=== PATIENT | female | born 1945 | race Caucasian/White ===

== ENCOUNTER → 2016-08-08 | Outpatient (CLI) | payer OTHER ==
[~2016-08-08] MED LIST: ADVIN10/60 INH; CHOL20007 PO; DLCSR120 PO; HYDC25 PO; LEVO175T PO; OMEG10007 PO; VALS-10 PO
--- NOTE | 2016-08-08 11:57 | DIAGNOSTIC IMAGING REPORT ---
CHEST 2 VIEWS ROUTINE CLINICAL HISTORY: J20.9 Acute bronchitis with [id number] COMPARISON STUDY: 05/21/2016 FINDINGS: The heart is normal in size. There is no lobar consolidation. There is no failure. There are no pleural effusions. There is a 15 mm right infrahilar irregular opacity. It is unclear what this reflects a mass, or vascular and parenchymal summation.[ Short-term follow-up chest x-rays recommended. If this findings persists, then CT scanning should be obtained in follow-up IMPRESSION: Nonspecific 15 mm right infrahilar opacity. If this finding persists on a short-term follow-up chest x-ray, then a CT scan would be recommended in follow-up Electronically signed by: Mauro Castle M.D. 08/08/2016 11:56 AM Dictated Date/Time: 08/08/2016 11:53 AM
== END | disposition home or self-care (01) ==
LOC: C.RADBC 11:26
PROVIDERS: ATTEND Internal Medicine
DX: J20.9 Acute bronchitis, unspecified (principal)

== ENCOUNTER → 2016-08-28 | Outpatient (CLI) | payer OTHER ==
--- NOTE | 2016-08-28 09:42 | DIAGNOSTIC IMAGING REPORT ---
CHEST CT WITHOUT CONTRAST CT DOSE: 392.64 mGycm HISTORY: Infiltrate J18.9 PNA (pneumonia)schedule in 2-3 weeks, follow [id number] TECHNIQUE: Multiaxial CT images of the chest were performed without contrast. COMPARISON: Chest series dated 08/08/2016. CT chest dated 10/31/2007. FINDINGS: Pulmonary apices are considered clear. No significant mediastinal or hilar adenopathy. Slight slight thickening and/or atelectatic change in the region of the right major fissure at its inferior aspect. Minimal scattered platelike atelectasis both lung bases. No focal consolidative infiltrates. No significant nodular pathology of the right infrahilar region. IMPRESSION: Moderately improved exam compared to the prior chest series. Mild scattered bibasilar atelectasis. Study is otherwise negative. Electronically signed by: Todd Diaz M.D. 08/28/2016 9:41 AM Dictated Date/Time: 08/28/2016 9:37 AM
== END | disposition home or self-care (01) ==
LOC: C.CTS 09:20
PROVIDERS: ATTEND Internal Medicine
DX: J18.9 Pneumonia, unspecified organism (principal)

== ENCOUNTER → 2017-03-29 | Outpatient (CLI) | payer OTHER ==
--- NOTE | 2017-03-29 15:33 | MAMMOGRAPHY REPORT ---
BILATERAL DIGITAL SCREENING MAMMOGRAM WITH CAD: 03/29/2017 CLINICAL HISTORY: Routine screening. Patient has no complaints. TECHNIQUE: Current study was also evaluated with a Computer Aided Detection (CAD) system. Bilateral CC and MLO views were obtained. COMPARISON: Comparison is made to exams dated: 12/19/2015 mammogram, 12/15/2014 mammogram, 12/14/2013 m ammogram, 07/15/2012 mammogram, 07/09/2011 mammogram, and 07/10/2010 mammogram - [facility]. BREAST COMPOSITION: The tissue of both breasts is almost entirely fatty. FINDINGS: No suspicious masses, calcifications, or areas of architectural distortion are noted in ei ther breast. There has been no significant interval change compared to prior exams. Focal asymmetry in the right central breast is stable dating back to at least the 2006 exam. IMPRESSION: ACR BI-RADS CATEGORY 2: BENIGN There is no mammographic evidence of malignancy. A 1 year screening mammogram is recommended. The pa tient will receive written notification of the results. Approximately 10% of breast cancers are not detected with mammography. A negative mammographic report should not delay biopsy if a clinically suggestive mass is present. Elaine Corral M.D. /:03/29/2017 11:50:34 Heavy Mobile Equipment Operator: Debbie BEDOLLA(Sarah)(Sera)(ERIKA), [facility] letter sent: Normal 1/2 BI-RADS Code: ACR BI-RADS Category 2: Benign
== END | disposition home or self-care (01) ==
LOC: C.MAMM 10:25
PROVIDERS: ATTEND Internal Medicine
DX: Z12.31 Encounter for screening mammogram for malignant neoplasm of breast (principal)

== ENCOUNTER 2017-08-23 09:02 | Inpatient (IN) | payer OTHER ==
[~2017-08-23] VITALS: Ht 149.9 cm; Wt 92.1 kg
[~2017-08-23 09:02] MED LIST changes: -ADVIN10/60 INH; +ADVIN25/60 INH; +ventolin inhaler
[2017-08-23] MEDS ORDERED: HYDR12.56 PO (09:45)
[2017-08-23] MEDS ORDERED: VNTHFA/IN INH (09:45)
[2017-08-23] MEDS ORDERED: DILT120C68 PO (09:45)
[2017-08-23] MEDS ORDERED: DILTIAZEM HCL 120 MG ER CAP PO STA (09:58)
[2017-08-23] MEDS ORDERED: VALSARTAN/HCTZ 320/12.5 MG TAB PO STA (09:58)
[2017-08-23] MEDS ORDERED: ALBUT/IPRATROP 3MG/0.5MG NEB 3 ML VIAL INH STA ×2 (09:58→10:41)
[2017-08-23] MEDS ORDERED: HYDROCHLOROTHIAZIDE 25 MG TAB PO STA (09:58)
[2017-08-23] MEDS ORDERED: SODIUM CHLORIDE 0.9% 250ML 250 ML IV STA (10:03)
[2017-08-23] MEDS ORDERED: METHYLPREDNISOLONE 125 MG VIAL IV STA (10:03)
[2017-08-23] MEDS ORDERED: ACETAMINOPHEN 325 MG TAB PO STA (10:03)
--- NOTE | 2017-08-23 10:04 | EMERGENCY ROOM VISIT NOTE ---
History Report prepared by Brie: Corey Gordon Under the Supervision of: Dr. Deysi Lagunas M.D. First contact with patient: 09:44 Chief Complaint: RESPIRATORY PROBLEMS Stated Complaint: RESPIRATORY Nursing Triage Summary: patient arrived via BLS. hx asthma patient states she woke up this AM with Wheezes around 0800. patient took her advair and albuterol inhaler with relief. patient states she began to wheeze shortly after and became anxious. patient called EMS. patient denies cough or respiratory issues prior to this AM. patient states, "I just get flare ups once in a while." patients BP on arrival 205/102 patient states she did not take her BP meds this AM. History of Present Illness The patient is a 72 year old female who presents to the Emergency Room following an asthma attack that occurred when she woke up this morning at 0800, two hours prior to arrival. The patient has a history of asthma, but has not had an attack like this in some time. She nots that when these attacks occur she gets very anxious. 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 The redness in her legs is new. Source of History: patient Onset: Two hours MEDICAL RECORDS CLERK Position: other (Respiratory) Quality: other (Asthma attack) Associated Symptoms: No chest pain Review of Systems See HPI for pertinent positives & negatives. A total of 10 systems reviewed and were otherwise negative. Past Medical & Surgical Medical Problems: (1) Asthma (2) Asthmatic bronchitis with acute exacerbation (3) Hypertension (4) Left lower lobe pneumonia Family History Diabetes mellitus FH: heart disease FHx: cancer Hypertension Kidney disease Kidney stones Social History Smoking Status: Never Smoker Alcohol Use: none Drug Use: none Marital Status: single Housing Status: lives with family Occupation Status: retired Current/Historical Medications Scheduled Cholecalciferol (Vitamin D3), 5,000 INTER.UNIT PO DAILY Diltiazem Hcl Ext Rel (Tiazac), 120 MG PO DAILY Fish Oil ([place]-3), 1 CAP PO DAILY Fluticasone Prop/Salmeterol (Advair Diskus 250/50 60 Dose), 2 PUFFS INH BID Hydrochlorothiazide (Hctz), 12.5 MG PO DAILY Levothyroxine Sodium (Synthroid), 175 MCG PO DAILY Valsartan/Hctz (Diovan Hct 320MG/12.5MG), 1 TAB PO DAILY Scheduled PRN Albuterol Hfa (Ventolin Hfa), 2-4 PUFFS INH Q6H PRN for SOB/Wheezing Allergies Coded Allergies: Amoxicillin (Verified Allergy, Intermediate, ., 08/23/17) Penicillins (Verified Allergy, Mild, 08/23/17) Physical Exam Vital Signs Date Time Temp Pulse Resp B/P (MAP) Pulse Ox O2 Delivery O2 Flow Rate FiO2 08/23/17 13:10 104 08/23/17 12:30 92 Nasal Cannula 2.0 08/23/17 12:17 104 21 108/61 92 Nasal Cannula 2.0 08/23/17 11:28 110 21 153/64 88 Room Air 08/23/17 10:35 109 22 173/88 94 Nasal Cannula 2.0 08/23/17 09:15 113 08/23/17 09:11 91 Room Air 08/23/17 09:11 36.9 113 22 205/102 91 Room Air Physical Exam Vital signs reviewed. General: patient is anxious appearing has increased work of breathing. HEENT: No scleral icterus, PERRLA, neck supple. Atraumatic. Cardiovascular: Patient noted to be hypertensive. Regular rate and rhythm, no extra sounds. Pulmonary: There is wheezing throughout the lung sanon bilaterally, increased work of breathing. Patient is on nasal cannula oxygen. Abdomen: Soft, nontender, nondistended, positive bowel sounds. Musculoskeletal: Atraumatic, The lower extremities are warm to the touch Neurologic: Patient awake alert and oriented x 3, full strength in all 4 extremities. Cranial nerves 2 through 12 grossly intact. Skin: Warm, dry, mild erythema to the bilateral lower extremities. Mild edema, nonpitting. Medical Decision & Procedures ER Provider Diagnostic Interpretation: Radiology results as stated below per my review and radiologist interpretation: CT ANGIOGRAM OF THE CHEST CLINICAL HISTORY: Dyspnea. COMPARISON STUDY: Chest CT dated 08/28/2016 and 10/31/2007. TECHNIQUE: Following the IV administration of 94 cc of Optiray 320, CT angiogram of the chest was performed from the upper abdomen to the thoracic inlet utilizing the pulmonary embolus protocol. Images are reviewed in the axial, sagittal, and coronal planes. 3-D MIPS images are created and assessed. IV contrast was administered without complication. A dose lowering technique was utilized adhering to the principles of ALARA. The Examination is compromised by motion artifact. CT DOSE: 571.96 mGycm FINDINGS: Thyroid: Atrophic. Thoracic aorta: The thoracic aorta is normal in caliber and demonstrates standard 3-vessel arch anatomy. No dissection is seen. Pulmonary vasculature: The pulmonary trunk is dilated, measuring 3.7 cm in transverse diameter. This suggests pulmonary artery hypertension. There are no filling defects identified in main, lobar, or proximal segmental pulmonary branches to suggest pulmonary embolus. Evaluation of the peripheral branches is degraded by motion artifact. Heart: The heart is top normal in size and without pericardial effusion. Lungs and pleural spaces: Evaluation of the lung parenchyma is degraded by motion artifact. The trachea and central airways are patent. No airspace consolidation or pleural effusion is identified. Atelectasis versus scarring is present in the right middle lobe and lingula. Mediastinum: There is no mediastinal lymphadenopathy. Marva: Clear. Axillae: There is no axillary lymphadenopathy. Upper abdomen: There is a small to moderate hiatal hernia. Partially visualized upper abdominal viscera is within normal limits. Skeletal structures: No lytic or blastic bony lesions are seen. IMPRESSION: 1. There is no evidence of pulmonary embolus in the main, lobar, or proximal segmental pulmonary arteries. Evaluation of the peripheral vessels is significantly degraded by motion artifact. 2. No airspace consolidation or pleural effusion is identified. Electronically signed by: Marcell Gupta M.D. 08/23/2017 12:04 PM Dictated Date/Time: 08/23/2017 11:55 AM Laboratory Results 08/23/17 10:20 Red Blood Count 4.39, Mean Corpuscular Volume 92.7, Mean Corpuscular Hemoglobin 31.4, Mean Corpuscular Hemoglobin Concent 33.9, Mean Platelet Volume 9.3, Neutrophils (%) (Auto) 76.3, Lymphocytes (%) (Auto) 12.5, Monocytes (%) (Auto) 8.8, Eosinophils (%) (Auto) 1.7, Basophils (%) (Auto) 0.4, Neutrophils # (Auto) 6.84, Lymphocytes # (Auto) 1.12, Monocytes # (Auto) 0.79, Eosinophils # (Auto) 0.15, Basophils # (Auto) 0.04 08/23/17 10:20 Test 08/23/17 10:20 08/23/17 10:25 08/23/17 10:34 White Blood Count 8.97 K/uL (4.8-10.8) Red Blood Count 4.39 M/uL (4.2-5.4) Hemoglobin 13.8 g/dL (12.0-16.0) Hematocrit 40.7 % (37-47) Mean Corpuscular Volume 92.7 fL (80-100) Mean Corpuscular Hemoglobin 31.4 pg (25-34) Mean Corpuscular Hemoglobin Concent 33.9 g/dl (32-36) Platelet Count 336 K/uL (130-400) Mean Platelet Volume 9.3 fL (7.4-10.4) Neutrophils (%) (Auto) 76.3 % Lymphocytes (%) (Auto) 12.5 % Monocytes (%) (Auto) 8.8 % Eosinophils (%) (Auto) 1.7 % Basophils (%) (Auto) 0.4 % Neutrophils # (Auto) 6.84 K/uL (1.4-6.5) Lymphocytes # (Auto) 1.12 K/uL (1.2-3.4) Monocytes # (Auto) 0.79 K/uL (0.11-0.59) Eosinophils # (Auto) 0.15 K/uL (0-0.5) Basophils # (Auto) 0.04 K/uL (0-0.2) RDW Standard Deviation 44.2 fL (36.4-46.3) RDW Coefficient of Variation 13.1 % (11.5-14.5) Immature Granulocyte % (Auto) 0.3 % Immature Granulocyte # (Auto) 0.03 K/uL (0.00-0.02) Prothrombin Time 10.3 SECONDS (9.0-12.0) Prothromb Time International Ratio 1.0 (0.9-1.1) Activated Partial Thromboplast Time 25.5 SECONDS (21.0-31.0) Partial Thromboplastin Ratio 1.0 Anion Gap 5.0 mmol/L (3-11) Est Creatinine Clear Calc Drug Dose 51.8 ml/min Estimated GFR () 65.3 Estimated GFR (Non- 56.4 BUN/Creatinine Ratio 12.8 (10-20) Calcium Level 9.9 mg/dl (8.5-10.1) Total Bilirubin 0.3 mg/dl (0.2-1) Direct Bilirubin < 0.1 mg/dl (0-0.2) Aspartate Amino Transf (AST/SGOT) 20 U/L (15-37) Alanine Aminotransferase (ALT/SGPT) 26 U/L (12-78) Alkaline Phosphatase 97 U/L (45-117) Total Protein 7.5 gm/dl (6.4-8.2) Albumin 3.4 gm/dl (3.4-5.0) Influenza Type A Antigen Neg for Influ A (NEG) Influenza Type B Antigen Neg for Influ B (NEG) Bedside Lactic Acid Venous 0.90 mmol/L (0.90-1.70) Laboratory results per my review. Medications Administered Medications (Trade) Dose Ordered Sig/Della Route Start Time Stop Time Status Last Admin Dose Admin Albuterol/ Ipratropium (Duoneb) 3 ml NOW STAT INH 08/23/17 09:58 08/23/17 10:02 DC 08/23/17 10:25 3 ML HCTZ/Valsartan (Diovan Hct 320/ 12.5MG Tab) 1 tab NOW STAT PO 08/23/17 09:58 08/23/17 10:02 DC 08/23/17 10:36 1 TAB Diltiazem HCl (Dilacor Xr Cap) 120 mg NOW STAT PO 08/23/17 09:58 08/23/17 10:02 DC 08/23/17 10:36 120 MG Hydrochlorothiazide (Hydrochlorothiazide Tab) 12.5 mg NOW STAT PO 08/23/17 09:58 08/23/17 10:02 DC 08/23/17 10:37 12.5 MG Acetaminophen (Tylenol Tab) 650 mg NOW STAT PO 08/23/17 10:03 08/23/17 10:05 DC 08/23/17 10:37 650 MG Sodium Chloride 250 ml @ 999 mls/hr Q16M STAT IV 08/23/17 10:03 08/23/17 10:18 DC 08/23/17 10:37 999 MLS/HR Methylprednisolone Sodium Succinate (Solu-Medrol IV) 125 mg NOW STAT IV 08/23/17 10:03 08/23/17 10:05 DC 08/23/17 10:37 125 MG Albuterol/ Ipratropium (Duoneb) 3 ml NOW STAT INH 08/23/17 10:41 08/23/17 10:42 DC 08/23/17 11:00 3 ML ECG Indication: SOB/dyspnea Rate (beats per minute): 113 Rhythm: sinus tachycardia Findings: LAFB, nonspecific-ST abn (Lateral), no ectopy Change: Patient's electrocardiogram interpreted by me. ED Course 0958: Past medical records reviewed. The patient was evaluated in room B2. A complete history and physical examination was performed. 0958: Ordered Hydrochlorothiazide 12.5 mg PO, Diltiazem HCl 120 mg PO, Valsartan 1 tablet PO, Duoneb 3 mL ING. 1003: Ordered Solu-Medrol 125 mg IV, Sodium Chloride 250 mL @ 999 mL/hr IV, Tylenol 650 mg PO. 1041: Ordered Duoneb 3 mL INH. 1239: I discussed the case with Dr. Maude LEMA Hospitalist. He will evaluate the patient for further treatment. Medical Decision Differential diagnosis: Etiologies such as infections, reactive airway disease, pneumonia, pneumothorax , COPD, CHF, cardiac ischemia, pulmonary embolism, musculoskeletal, gastrointestinal, as well as others were entertained. This patient was evaluated and appeared to be in no significant distress. IV access was obtained and laboratory work was drawn. The patient had a significant increased work of breathing and had an oxygen requirement. She did maintain her saturations on nasal cannula. Patient was given 2 DuoNeb treatments in the emergency department. IV Solu-Medrol was administered. Influenza swab is negative. The patient is found have a low-grade fever. CT scan of the chest is negative for PE or pneumonia. Given the patient's symptoms and oxygen requirement, she was evaluated by the hospitalist service for further management. She is aware of this plan and agrees. Blood Pressure Screening Patient's blood pressure: Elevated blood pressure Referred to hospitalist Consults Time Called: 1219 Consulting Physician: Dr. Maude LEMA Hospitalist Returned Call: [phone] I discussed the case with Dr. Maude LEMA Hospitalist. He will evaluate the patient for further treatment. Impression Primary Impression: Asthma exacerbation Additional Impression: Hypoxia Scribe Attestation The scribe's documentation has been prepared under my direction and personally reviewed by me in its entirety. I confirm that the note above accurately reflects all work, treatment, procedures, and medical decision making performed by me. Departure Information Dispostion Being Evaluated By Hospitalist Referrals Keshawn Mcgregor M.D. (PCP) Patient Instructions My [facility] Problem Qualifiers
[2017-08-23] MEDS ORDERED: OPTIRAY 320 IV PRN (10:30)
[2017-08-23 10:42] LABS: BASO % 0.4 %; BASO ABS # 0.04 K/uL (0-0.2); EOS % 1.7 %; EOS ABS # 0.15 K/uL (0-0.5); HEMATOCRIT 40.7 % (37-47); HEMOGLOBIN 13.8 g/dL (12.0-16.0); IG# 0.03 K/uL (0.00-0.02); LYMPH % 12.5 %; LYMPH ABS # 1.12 K/uL (1.2-3.4); MEAN CELL VOLUME 92.7 fL (80-100); MEAN CORPUSCULAR HEMOGLOBIN 31.4 pg (25-34); MEAN CORPUSCULAR HGB CONC 33.9 g/dl (32-36); MEAN PLATELET VOLUME 9.3 fL (7.4-10.4); MONO % 8.8 %; MONO ABS # 0.79 K/uL (0.11-0.59); NEUT % 76.3 %; NEUT ABS # 6.84 K/uL (1.4-6.5); PLATELET COUNT 336 K/uL (130-400); RED CELL DISTRIBUTION WIDTH CV 13.1 % (11.5-14.5); RED CELL DISTRIBUTION WIDTH SD 44.2 fL (36.4-46.3); WHITE BLOOD COUNT 8.97 K/uL (4.8-10.8)
[2017-08-23 10:51] LABS: PTT PATIENT 25.5 SECONDS (21.0-31.0)
[2017-08-23 10:58] LABS: ALBUMIN 3.4 gm/dl (3.4-5.0); ALT/SGPT 26 U/L (12-78); BLOOD UREA NITROGEN 13 mg/dl (7-18); CALCIUM 9.9 mg/dl (8.5-10.1); CARBON DIOXIDE 30 mmol/L (21-32); CREATININE 1.01 mg/dl (0.60-1.20); GLUCOSE 107 mg/dl (70-99); POTASSIUM 3.7 mmol/L (3.5-5.1); SODIUM 137 mmol/L (136-145)
[2017-08-23 11:01] LABS: ALKALINE PHOSPHATASE 97 U/L (45-117); AST/SGOT 20 U/L (15-37); TOTAL PROTEIN 7.5 gm/dl (6.4-8.2)
[2017-08-23 11:47] LABS: INFLUENZA B ANTIGEN Neg for Influ B (NEG)
--- NOTE | 2017-08-23 12:05 | DIAGNOSTIC IMAGING REPORT ---
CT ANGIOGRAM OF THE CHEST CLINICAL HISTORY: Dyspnea. COMPARISON STUDY: Chest CT dated 08/28/2016 and 10/31/2007. TECHNIQUE: Following the IV administration of 94 cc of Optiray 320, CT angiogram of the chest was performed from the upper abdomen to the thoracic inlet utilizing the pulmonary embolus protocol. Images are reviewed in the axial, sagittal, and coronal planes. 3-D MIPS images are created and assessed. IV contrast was administered without complication. A dose lowering technique was utilized adhering to the principles of ALARA. The Examination is compromised by motion artifact. CT DOSE: 571.96 mGycm FINDINGS: Thyroid: Atrophic. Thoracic aorta: The thoracic aorta is normal in caliber and demonstrates standard 3-vessel arch anatomy. No dissection is seen. Pulmonary vasculature: The pulmonary trunk is dilated, measuring 3.7 cm in transverse diameter. This suggests pulmonary artery hypertension. There are no filling defects identified in main, lobar, or proximal segmental pulmonary branches to suggest pulmonary embolus. Evaluation of the peripheral branches is degraded by motion artifact. Heart: The heart is top normal in size and without pericardial effusion. Lungs and pleural spaces: Evaluation of the lung parenchyma is degraded by motion artifact. The trachea and central airways are patent. No airspace consolidation or pleural effusion is identified. Atelectasis versus scarring is present in the right middle lobe and lingula. Mediastinum: There is no mediastinal lymphadenopathy. Marav: Clear. Axillae: There is no axillary lymphadenopathy. Upper abdomen: There is a small to moderate hiatal hernia. Partially visualized upper abdominal viscera is within normal limits. Skeletal structures: No lytic or blastic bony lesions are seen. IMPRESSION: 1. There is no evidence of pulmonary embolus in the main, lobar, or proximal segmental pulmonary arteries. Evaluation of the peripheral vessels is significantly degraded by motion artifact. 2. No airspace consolidation or pleural effusion is identified. Electronically signed by: Marcell Gupta M.D. 08/23/2017 12:04 PM Dictated Date/Time: 08/23/2017 11:55 AM
[2017-08-23 12:30] VITALS: O2SAT 92; Ht 149.9 cm; Wt 92.1 kg
[2017-08-23] MEDS ORDERED: ACETAMINOPHEN 325 MG TAB PO PRN (13:15)
[2017-08-23] MEDS ORDERED: ALBUTEROL HFA 8 GM INHALER INH PRN (13:15)
[2017-08-23] MEDS ORDERED: MAGNESIUM HYDROXIDE SUSP 30 ML UDC PO PRN (13:15)
[2017-08-23] MEDS ORDERED: ONDANSETRON INJ 2 MG/ML 2 ML VIAL IV PRN (13:15)
--- NOTE | 2017-08-23 13:30 | History and Physical ---
History & Physical Date & Time of Service: Aug 23, 2017 at 13:16 Chief Complaint: Respiratory Primary Care Physician: Keshawn Mcgregor M.D. History of Present Illness Source: patient 72 y/o F c/o asthma attack. Pt states that yesterday was a normal day for her and she had no breathing issues. She woke up this AM and didn't feel like her usual and had a sudden onset of SOB and wheezing while she was sitting at her kitchen table. She tried taking her Advair and Ventolin inhalers. She felt the Ventolin did help for a few minutes, but then the SOB returned so she dialed 911. She had no other sx with her SOB. "I knew it was my asthma. I could feel the wheezing." She has been hospitalized for her asthma several times in her life, but has never needed intubated for it. Pt denies fever, chest pain, abd pain, n/v/c/d, LE pain or swelling. Denies URI sx or sick contacts. Pt started pelvic radiation on Saturday. She is to have tx 5x/week x5-6 weeks. She had uterine cancer and is s/p hysterectomy "many years ago" but a follow up PAP showed that she had cancerous cells. She follows with [facility] and has her radiation tx with [facility]. She missed her appt today due to SOB. She states that she does not wish to have her last tx for the week today or tomorrow due to how she is feeling. She feels that she has been anxious all week about her radiation tx and that this may have been what triggered her asthma. Pt was given nebs x3 + solu-medrol in the ED and while she does feel a bit improved, she does still feel that she is wheezy and not breathing at her baseline. No home O2 use. Pt missed her AM BP meds and BP was elevated on presentation. She was given all 3 in the ED and BP is now WNL. Past Medical/Surgical History Medical Problems: (1) Asthma Status: Chronic (2) Hypertension Status: Chronic Uterine cancer, s/p hysterectomy and currently undergoing pelvic radiation for recurrence Thyroid cancer, s/p ablation Hypothyroid Family History Family history was reviewed; no changes noted. Denies TN or CVA Social History Smoking Status: Never Smoker Alcohol Use: occasionally (1-2 drinks per year) Drug Use: none Housing status: lives with family Occupational Status: retired Immunizations History of Influenza Vaccine: Yes Influenza Vaccine Date: Sep 02, 2006 History of Tetanus Vaccine?: Unknown History of Pneumococcal: No History of Hepatitis B Vaccine: No Multi-Drug Resistant Organisms History of MDRO: No Allergies Coded Allergies: Amoxicillin (Verified Allergy, Intermediate, ., 08/23/17) Penicillins (Verified Allergy, Mild, 08/23/17) Home Medications Scheduled Cholecalciferol (Vitamin D3), 5,000 INTER.UNIT PO DAILY Diltiazem Hcl Ext Rel (Tiazac), 120 MG PO DAILY Fish Oil (Savanna-3), 1 CAP PO DAILY Fluticasone Prop/Salmeterol (Advair Diskus 250/50 60 Dose), 2 PUFFS INH BID Hydrochlorothiazide (Hctz), 12.5 MG PO DAILY Levothyroxine Sodium (Synthroid), 175 MCG PO DAILY Valsartan/Hctz (Diovan Hct 320MG/12.5MG), 1 TAB PO DAILY Scheduled PRN Albuterol Hfa (Ventolin Hfa), 2-4 PUFFS INH Q6H PRN for SOB/Wheezing Review of Systems Pertinent positives and negatives reviewed in HPI--all others negative Physical Exam Vital Signs Date Time Temp Pulse Resp B/P (MAP) Pulse Ox O2 Delivery O2 Flow Rate FiO2 08/23/17 13:10 104 08/23/17 12:30 92 Nasal Cannula 2.0 08/23/17 12:17 104 21 108/61 92 Nasal Cannula 2.0 08/23/17 11:28 110 21 153/64 88 Room Air 08/23/17 10:35 109 22 173/88 94 Nasal Cannula 2.0 08/23/17 09:15 113 08/23/17 09:11 91 Room Air 08/23/17 09:11 36.9 113 22 205/102 91 Room Air General Appearance: WD/WN, no apparent distress Head: normocephalic, atraumatic Eyes: normal inspection, EOMI, sclerae normal Respiratory/Chest: no respiratory distress, + decreased breath sounds, + wheezing (end expiratory) Cardiovascular: regular rate, rhythm, normal peripheral pulses Abdomen/GI: non tender, soft Extremities/Musculoskelatal: no calf tenderness, no pedal edema Neurologic/Psych: alert, normal mood/affect, oriented x 3 Skin: normal color, warm/dry Diagnostics Laboratory Results Results Past 24 Hours Test 08/23/17 10:20 08/23/17 10:25 08/23/17 10:34 Range/Units White Blood Count 8.97 4.8-10.8 K/uL Red Blood Count 4.39 4.2-5.4 M/uL Hemoglobin 13.8 12.0-16.0 g/dL Hematocrit 40.7 37-47 % Mean Corpuscular Volume 92.7 80-100 fL Mean Corpuscular Hemoglobin 31.4 25-34 pg Mean Corpuscular Hemoglobin Concent 33.9 32-36 g/dl Platelet Count 336 130-400 K/uL Mean Platelet Volume 9.3 7.4-10.4 fL Neutrophils (%) (Auto) 76.3 % Lymphocytes (%) (Auto) 12.5 % Monocytes (%) (Auto) 8.8 % Eosinophils (%) (Auto) 1.7 % Basophils (%) (Auto) 0.4 % Neutrophils # (Auto) 6.84 1.4-6.5 K/uL Lymphocytes # (Auto) 1.12 1.2-3.4 K/uL Monocytes # (Auto) 0.79 0.11-0.59 K/uL Eosinophils # (Auto) 0.15 0-0.5 K/uL Basophils # (Auto) 0.04 0-0.2 K/uL RDW Standard Deviation 44.2 36.4-46.3 fL RDW Coefficient of Variation 13.1 11.5-14.5 % Immature Granulocyte % (Auto) 0.3 % Immature Granulocyte # (Auto) 0.03 0.00-0.02 K/uL Prothrombin Time 10.3 9.0-12.0 SECONDS Prothromb Time International Ratio 1.0 0.9-1.1 Activated Partial Thromboplast Time 25.5 21.0-31.0 SECONDS Partial Thromboplastin Ratio 1.0 Sodium Level 137 136-145 mmol/L Potassium Level 3.7 3.5-5.1 mmol/L Chloride Level 102 98-107 mmol/L Carbon Dioxide Level 30 21-32 mmol/L Anion Gap 5.0 3-11 mmol/L Blood Urea Nitrogen 13 7-18 mg/dl Creatinine 1.01 0.60-1.20 mg/dl Est Creatinine Clear Calc Drug Dose 51.8 ml/min Estimated GFR () 65.3 Estimated GFR (Non- 56.4 BUN/Creatinine Ratio 12.8 10-20 Random Glucose 107 70-99 mg/dl Calcium Level 9.9 8.5-10.1 mg/dl Total Bilirubin 0.3 0.2-1 mg/dl Direct Bilirubin < 0.1 0-0.2 mg/dl Aspartate Amino Transf (AST/SGOT) 20 15-37 U/L Alanine Aminotransferase (ALT/SGPT) 26 12-78 U/L Alkaline Phosphatase 97 45-117 U/L Total Protein 7.5 6.4-8.2 gm/dl Albumin 3.4 3.4-5.0 gm/dl Influenza Type A Antigen Neg for Influ A NEG Influenza Type B Antigen Neg for Influ B NEG Bedside Lactic Acid Venous 0.90 0.90-1.70 mmol/L Microbiology Results 08/23/17 Blood Culture, Received Pending 08/23/17 Blood Culture, Received Pending 08/23/17 Gram Stain, Received Pending 08/23/17 Sputum Culture, Received Pending Diagnostic Radiology CTA neg for PE or PNA Impression Assessment and Plan 72 y/o F who was admitted on 08/23 for asthma exacerbation Asthma exacerbation: hypoxia with acute respiratory failure, noted at 88% on RA Improving s/p multiple nebs, solu-medrol in the ED Continue nebs + solu-medrol 40mg BID given ongoing wheeze noted CTA neg WBC WNL, afebrile, lactic acid WNL No hx of intubation for asthma Flu neg Blood and sputum cx neg Possibly related to anxiety regarding new pelvic radiation HTN: labile in the ED in the setting of missed medications WNL s/p usual home meds Monitor Uterine cancer: started pelvic radiation this week, remote hx of hysterectomy Scheduled for M-F x5-6 weeks Missed today's session, but feels she would like to wait to resume until Saturday at the earliest Follows with [facility] if needed Thyroid cancer: s/p ablation continue home meds Other: Full code although pt states she isn't fully certain she would intubation. Informed that since she is unsure, she will be listed as a full code and she should let nursing know if she would like to change this status Ambulation for DVT proph given likely short duration of admission AHA diet Level of Care Med/Surg Advanced Directives Existing Living Will: Yes Existing Power of [employer]: Yes Resuscitation Status FULL RESUSCITATION VTE Prophylaxis VTE Risk Assessment Done? Y/N: Yes Risk Level: Low
[2017-08-23 14:08] VITALS: BP 157/74; PULSE 105; TEMP 37; O2SAT 92
[2017-08-23] MEDS ORDERED: INFLUENZA ADMINISTRATION CHARGE ONE (15:30)
[2017-08-23] MEDS ORDERED: INFLUENZA VACCINE HIGH DOSE 65+ 0.5 ML SYR IM. ONE (15:30)
[2017-08-23 16:03] VITALS: PULSE 64; O2SAT 94
[2017-08-23] MEDS: ALBUT/IPRATROP 3MG/0.5MG NEB 3 ML VIAL INH SCH ×2 (16:03→18:58)
[2017-08-23 18:59] VITALS: PULSE 68; O2SAT 94
[2017-08-23] MEDS: METHYLPREDNISOLONE IV 40 MG in SYRINGE 0 ML IV SCH (22:06)
[2017-08-23] MEDS: FLUTICASONE/SALMETEROL 250/50 (ADVAIR) 14 PUFF/1 INHALER INH SCH (22:06)
[2017-08-24] VITALS (8 sets, daily range): BP systolic 136–151; BP diastolic 73–78; PULSE 66–112; TEMP 36.4; O2SAT 90–93
[2017-08-24] MEDS: LEVOTHYROXINE 175 MCG TAB PO SCH (05:55)
[2017-08-24] MEDS: ALBUT/IPRATROP 3MG/0.5MG NEB 3 ML VIAL INH SCH ×4 (07:30→18:59)
[2017-08-24] MEDS ORDERED: VALSARTAN/HCTZ 320/12.5 MG TAB PO SCH (09:00)
[2017-08-24] MEDS ORDERED: HYDROCHLOROTHIAZIDE 25 MG TAB PO SCH (09:00)
[2017-08-24] MEDS: CHOLECALCIFEROL 1000 INTER.UNIT TAB PO SCH (09:23)
[2017-08-24] MEDS: OMEGA-3 (PURIFIED FISH OIL) 1 GM CAP PO SCH (09:24)
[2017-08-24] MEDS: VALSARTAN 80 MG TAB PO SCH (09:24)
[2017-08-24] MEDS: DILTIAZEM HCL 120 MG EXT REL CAP PO SCH (09:24)
[2017-08-24] MEDS: METHYLPREDNISOLONE IV 40 MG in SYRINGE 0 ML IV SCH ×2 (09:24→21:31)
[2017-08-24] MEDS: HYDROCHLOROTHIAZIDE 25 MG TAB PO SCH (09:24)
[2017-08-24] MEDS: FLUTICASONE/SALMETEROL 250/50 (ADVAIR) 14 PUFF/1 INHALER INH SCH ×2 (09:24→21:30)
[2017-08-24] MEDS ORDERED: ALPRAZOLAM 0.25 MG TAB PO PRN (10:30)
[2017-08-24] MEDS: ESCITALOPRAM OXALATE 10 MG TAB PO SCH (11:08)
--- NOTE | 2017-08-24 13:17 | Progress Note ---
Subjective Date of Service: Aug 24, 2017. Subjective this pt relates that she feels alot of what is happening is related to anxiety regarding recent diagnosis and treatment of recurrent obstetrics/gynecology nurse cancer, she does feel that it impacts her respiratory issues and in the past it had also we spent some time at the bedside discussing the ill affects of stress in general and ways to relieve stress Problem List Medical Problems: (1) Asthma exacerbation Status: Acute (2) Hypoxemia Status: Acute (3) Hypoxia Status: Acute (4) Pneumonia Status: Acute Review of Systems Constitutional: No fever, No chills Respiratory: + cough, + wheezing, + shortness of breath, + dyspnea on exertion Cardiac: No chest pain, No edema Abdomen: No pain, No vomiting, No constipation Musculoskeletal: No joint pain, No muscle pain Neurologic: No memory loss, No weakness Psychiatric: + depression symptoms, + anxiety Objective Vital Signs Date Time Temp Pulse Resp B/P (MAP) Pulse Ox O2 Delivery O2 Flow Rate FiO2 08/24/17 10:51 71 18 93 Nasal Cannula 2.0 08/24/17 08:00 Nasal Cannula 2.0 08/24/17 07:30 66 18 90 Nasal Cannula 2.0 08/24/17 07:26 36.4 112 20 145/78 (100) 92 Nasal Cannula 2.0 08/24/17 00:28 36.4 94 20 136/73 (94) 91 Nasal Cannula 1.0 08/24/17 00:00 Nasal Cannula 1.0 08/23/17 18:59 68 18 94 Nasal Cannula 1.0 08/23/17 16:03 64 18 94 Nasal Cannula 2.0 08/23/17 16:00 Nasal Cannula 1.0 08/23/17 14:08 37.0 105 20 157/74 (101) 92 Nasal Cannula 2.0 08/23/17 13:50 107 18 142/68 92 Physical Exam General Appearance: WD/WN, + mild distress Eyes: normal inspection, sclerae normal Respiratory/Chest: chest non-tender, + decreased breath sounds, + wheezing Cardiovascular: regular rate, rhythm, no murmur Abdomen: normal bowel sounds, non tender, soft Extremities: no pedal edema, no calf tenderness Neurologic/Psychiatric: alert, oriented x 3 Assessment and Plan 72 y/o F who was admitted on 08/23 for asthma exacerbation, increased stressors at home Asthma exacerbation: hypoxia with acute respiratory failure, noted at 88% on RA Continue nebs + solu-medrol 40mg BID CTA neg Flu neg Blood and sputum cx neg to date HTN: labile in the ED in the setting of missed medications, resume home medications of valsartan, diltiazem and hctz Uterine cancer: started pelvic radiation this week, remote hx of hysterectomy Thyroid cancer: s/p ablation on synthroid Ambulation for DVT proph given likely short duration of admission AHA diet
[2017-08-25] VITALS (8 sets, daily range): BP systolic 121–151; BP diastolic 72–79; PULSE 70–95; TEMP 36.2–36.7; O2SAT 88–96
[2017-08-25] MEDS ORDERED: NURSING VERBAL MED ORDER ONE (00:30)
[2017-08-25] MEDS ORDERED: CALCIUM CARBONATE 500 MG CHEWABLE PO PRN (00:30)
[2017-08-25] MEDS: LEVOTHYROXINE 175 MCG TAB PO SCH (05:56)
[2017-08-25] MEDS: ALBUT/IPRATROP 3MG/0.5MG NEB 3 ML VIAL INH SCH ×4 (06:59→19:14)
[2017-08-25] MEDS: FLUTICASONE/SALMETEROL 250/50 (ADVAIR) 14 PUFF/1 INHALER INH SCH ×2 (08:24→21:55)
[2017-08-25] MEDS: OMEGA-3 (PURIFIED FISH OIL) 1 GM CAP PO SCH (08:25)
[2017-08-25] MEDS: HYDROCHLOROTHIAZIDE 25 MG TAB PO SCH (08:25)
[2017-08-25] MEDS: ESCITALOPRAM OXALATE 10 MG TAB PO SCH (08:25)
[2017-08-25] MEDS: DILTIAZEM HCL 120 MG EXT REL CAP PO SCH (08:25)
[2017-08-25] MEDS: VALSARTAN 80 MG TAB PO SCH (08:25)
[2017-08-25] MEDS: CHOLECALCIFEROL 1000 INTER.UNIT TAB PO SCH (08:25)
[2017-08-25] MEDS: METHYLPREDNISOLONE IV 40 MG in SYRINGE 0 ML IV SCH ×2 (09:56→21:56)
--- NOTE | 2017-08-25 13:51 | Progress Note ---
Subjective Date of Service: Aug 25, 2017. Subjective Patient states she feels improved today as patient with her emotional duress she is not sure she wants to undergo her radiation treatment tomorrow and make a decision in the morning she feels that she cannot quite take a deep breath yet but her wheezing has improved Problem List Medical Problems: (1) Asthma exacerbation Status: Acute (2) Hypoxemia Status: Acute (3) Hypoxia Status: Acute (4) Pneumonia Status: Acute Review of Systems Constitutional: + weakness, + fatigue, No fever, No chills Respiratory: + cough, + wheezing (improved), + shortness of breath, + dyspnea on exertion Cardiac: No chest pain, No edema, No claudication Abdomen: No pain, No nausea, No vomiting, No diarrhea Musculoskeletal: No joint pain, No muscle pain Neurologic: No memory loss, No weakness Psychiatric: + depression symptoms, + anxiety Objective Vital Signs Date Time Temp Pulse Resp B/P (MAP) Pulse Ox O2 Delivery O2 Flow Rate FiO2 08/25/17 11:13 75 18 88 Room Air 08/25/17 08:00 Room Air 08/25/17 07:45 36.7 95 20 151/79 (103) 94 Nasal Cannula 2.0 08/25/17 06:59 80 18 96 Nasal Cannula 2.0 08/25/17 04:17 36.4 83 19 121/72 (88) 93 Nasal Cannula 1.0 08/25/17 00:00 Nasal Cannula 2.0 08/24/17 23:39 36.4 93 18 151/77 (101) 91 Nasal Cannula 1.0 08/24/17 18:59 95 18 93 Nasal Cannula 2.0 08/24/17 16:00 Nasal Cannula 2.0 08/24/17 15:14 93 18 93 Nasal Cannula 2.0 08/24/17 15:08 36.4 99 20 149/76 (100) 93 Nasal Cannula 2.0 Physical Exam General Appearance: WD/WN, + mild distress Eyes: normal inspection, sclerae normal Neck: supple, no JVD Respiratory/Chest: chest non-tender, + decreased breath sounds, + accessory muscle use, + rhonchi, + wheezing Cardiovascular: regular rate, rhythm, no murmur Abdomen: normal bowel sounds, non tender, soft Extremities: no pedal edema, no calf tenderness Neurologic/Psychiatric: alert, oriented x 3 Assessment and Plan 72 y/o F who was admitted on 08/23 for asthma exacerbation, increased stressors at home Asthma exacerbation: hypoxia with acute respiratory failure, noted at 88% on RA Continue nebs + solu-medrol 40mg BID CTA neg Flu neg Blood and sputum cx neg to date Given persistent nature of sputum production will add oral antibiotic of azithromycin given her penicillin allergy Emotional lability likely depression and anxiety we have begun Lexapro and Xanax when necessary she is counseled about trying to find other means of stress reduction HTN: labile in the ED in the setting of missed medications, resumed home medications of valsartan, diltiazem and hctz still with mild elevation Uterine cancer: started pelvic radiation this past week, will decide on 08/26 whether she wants to undergo her treatments this week or recover before she restarts remote hx of hysterectomy Thyroid cancer: s/p ablation on synthroid seems to be stable clinically Ambulation for DVT proph AHA diet
[2017-08-25] MEDS ORDERED: AZITHROMYCIN 250 MG TAB PO ONE (14:00)
[2017-08-26] VITALS (8 sets, daily range): BP systolic 136–167; BP diastolic 68–85; PULSE 68–92; TEMP 36.5–36.9; O2SAT 90–95
[2017-08-26] MEDS: LEVOTHYROXINE 175 MCG TAB PO SCH (06:07)
[2017-08-26] MEDS: ALBUT/IPRATROP 3MG/0.5MG NEB 3 ML VIAL INH SCH ×4 (06:58→19:38)
[2017-08-26] MEDS: FLUTICASONE/SALMETEROL 250/50 (ADVAIR) 14 PUFF/1 INHALER INH SCH ×2 (07:51→21:20)
[2017-08-26] MEDS: VALSARTAN 80 MG TAB PO SCH (07:52)
[2017-08-26] MEDS: DILTIAZEM HCL 120 MG EXT REL CAP PO SCH (07:52)
[2017-08-26] MEDS: HYDROCHLOROTHIAZIDE 25 MG TAB PO SCH (07:52)
[2017-08-26] MEDS: ESCITALOPRAM OXALATE 10 MG TAB PO SCH (07:52)
[2017-08-26] MEDS: CHOLECALCIFEROL 1000 INTER.UNIT TAB PO SCH (07:52)
[2017-08-26] MEDS: AZITHROMYCIN 250 MG TAB PO SCH (07:52)
[2017-08-26] MEDS: OMEGA-3 (PURIFIED FISH OIL) 1 GM CAP PO SCH (07:52)
--- NOTE | 2017-08-26 10:53 | Hospitalist Progress Note ---
Hospitalist Progress Note Date of Service Aug 26, 2017. (Sally Tao ., JUSTUS-C) Subjective Pt evaluation today including: conversation w/ patient, physical exam, chart review, lab review, review of inpatient medication list Pain: None PO Intake: Tolerating PO diet Voiding: no voiding problems Patient still complains of shortness of breath, but states that it's improved compared to admission. She continues to have a productive cough with copious sputum, which she states is green in color. She denies any wheezing. She does report feeling anxious, particularly about her radiation treatments, and notes a lot of recent stress. The patient denies fevers, chills, sweats, chest pain, palpitations, claudication, wheezing, nausea, vomiting, abdominal pain, dysuria , hematuria, urinary retention, paralysis, weakness, numbness and tingling. Additional Comments: See HPI for pertinent positives and negatives. All other systems reviewed and negative. (Sally Tao ., PA-C) Objective Vital Signs Date Time Temp Pulse Resp B/P (MAP) Pulse Ox O2 Delivery O2 Flow Rate FiO2 08/26/17 08:00 Room Air 08/26/17 07:57 36.7 90 20 167/85 (112) 90 Nasal Cannula 2.0 08/26/17 06:59 70 18 95 Nasal Cannula 2.0 08/26/17 00:00 Nasal Cannula 2.0 08/25/17 23:56 36.2 88 20 129/75 (93) 94 Nasal Cannula 1.0 08/25/17 19:14 80 18 90 Room Air 08/25/17 16:11 70 18 92 Room Air 08/25/17 16:00 Room Air 08/25/17 15:24 36.5 74 20 147/72 (97) 92 Room Air 08/25/17 11:13 75 18 88 Room Air (Sally Tao ., PA-C) Physical Exam Notes: General appearance: +Morbidly obese. Well-developed, well-nourished, no apparent distress Head: Normocephalic, atraumatic Eyes: Normal inspection, PERRL, EOMI ENT: Normal ENT inspection, hearing grossly normal, pharynx normal Neck: Supple, no JVD, trachea midline Respiratory/Chest: +Decreased breath sounds, poor air movement. Lungs clear to auscultation, no respiratory distress Cardiovascular: Regular rate & rhythm, no gallop, no murmur Abdomen/GI: Normal bowel sounds, non-tender, soft Extremities/Musculoskeletal: +Trace pitting edema. Normal inspection, no calf tenderness Neurological/Psych: +Anxious. 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 Asthma exacerbation--improving -Hypoxia improving. Pt was on 2L earlier this morning but has been on room air for last few hours -Continue nebs -Solu-Medrol d/c'd. Start prednisone 40 mg PO qd -Received azithromycin 500 mg PO x1 08/25. Continue azithromycin 250 mg PO qd. Day #2 -Sputum culture negative, blood cultures NGTD -Continue incentive spirometry -Continue Advair BID HTN--somewhat labile -Continue diltiazem 120 mg PO qd, valsartan 320 mg PO qd, HCTZ 12.5 mg PO qd Emotional lability, likely untreated depression and anxiety--stable. Pt still rather anxious. Discussed Lexapro will take a few weeks to start working -Continue Lexapro 5 mg PO qd and Xanax 0.25 mg PO q6h prn anxiety Uterine cancer s/p hysterectomy, undergoing radiation for recurrence -Does not feel well enough for radiation today, will restart tomorrow Thyroid cancers/p ablation, hypothyroidism -Continue Synthroid 175 mcg PO qd DVT prophylaxis -Enoxaparin 40 mg SC q24h -SCDs (Sally Tao ., JUSTUS-C) Supervising Note Dr. Le I performed a history and physical examination on the patient. I reviewed above note and agree with it. I discussed plan with APC and patient. During my face to face encounter with the patient, I answered all of the patient's questions. (Julien Le M.D.)
[2017-08-26] MEDS: ENOXAPARIN 40 MG/0.4 ML SYR SQ SCH (12:23)
[2017-08-27] VITALS (11 sets, daily range): BP systolic 138–174; BP diastolic 71–84; PULSE 65–90; TEMP 36.7–37.1; O2SAT 90–96
[2017-08-27] MEDS: LEVOTHYROXINE 175 MCG TAB PO SCH (06:24)
[2017-08-27] MEDS: ALBUT/IPRATROP 3MG/0.5MG NEB 3 ML VIAL INH SCH ×3 (07:04→16:23)
[2017-08-27] MEDS: FLUTICASONE/SALMETEROL 250/50 (ADVAIR) 14 PUFF/1 INHALER INH SCH (07:42)
[2017-08-27] MEDS: CHOLECALCIFEROL 1000 INTER.UNIT TAB PO SCH (07:43)
[2017-08-27] MEDS: ESCITALOPRAM OXALATE 10 MG TAB PO SCH (07:44)
[2017-08-27] MEDS: OMEGA-3 (PURIFIED FISH OIL) 1 GM CAP PO SCH (07:45)
[2017-08-27] MEDS: VALSARTAN 80 MG TAB PO SCH (07:45)
[2017-08-27] MEDS: AZITHROMYCIN 250 MG TAB PO SCH (07:45)
[2017-08-27] MEDS: DILTIAZEM HCL 120 MG EXT REL CAP PO SCH (07:45)
[2017-08-27] MEDS: HYDROCHLOROTHIAZIDE 25 MG TAB PO SCH (07:46)
[2017-08-27] MEDS: ENOXAPARIN 40 MG/0.4 ML SYR SQ SCH (11:49)
[2017-08-27] MEDS ORDERED: XNX25 PO (14:01)
[2017-08-27] MEDS ORDERED: PRED10TA PO (14:01)
[2017-08-27] MEDS ORDERED: AZIT-57 PO (14:01)
[2017-08-27] MEDS ORDERED: LXP10 PO (14:01)
--- NOTE | 2017-08-27 14:09 | Discharge Instructions ---
Discharge Instructions Date of Service Aug 27, 2017. Admission Reason for Admission: Asthma Exacerbation Discharge Discharge Diagnosis / Problem: Asthma exacerbation Discharge Goals Goal(s): Decrease discomfort, Improve function, Diagnostic testing, Therapeutic intervention Activity Recommendations Activity Limitations: resume your previous activity (as tolerated) . Instructions / Follow-Up Instructions / Follow-Up You were admitted to the hospital after presenting with an asthma exacerbation. You were initially treated with nebulizer treatments and IV steroids. You were then later started on an oral antibiotic due to your productive cough. As your breathing is better now, you are medically stable for discharge. Medications: *Please take azithromycin 250 mg daily for 4 more days. First dose is due . This is an antibiotic. *Please take the prednisone steroid taper as follows: -30 mg (3 tablets) daily for 2 days, then -20 mg (2 tablets) daily for 2 days, then -10 mg (1 tablet) daily for 2 days, then stop. *Continue taking escitalopram (Lexapro) 5 mg daily. This medication is for anxiety which was started in the hospital and will take a few weeks to really start working. *You may take alprazolam (Xanax) 0.25 mg up to every 6 hours as needed for anxiety. *Continue your home medications as prescribed. Follow up: *You will be scheduled to follow up with your primary care provider following discharge. Please seek medical attention if you experience fevers, chills, sweats, dizziness/lightheadedness, loss of consciousness, chest pain, shortness of breath, nausea, vomiting, numbness or tingling. Current Hospital Diet Patient's current hospital diet: AHA Diet (Heart Healthy) Discharge Diet Recommended Diet: AHA Diet (Heart Healthy) Pending Studies Studies pending at discharge: no Laboratory Results Lipid Panel Test 05/29/17 11:35 Range/Units Triglycerides Level 114 0-150 mg/dl Cholesterol Level 169 0-200 mg/dl HDL Cholesterol 68 mg/dl Cholesterol/HDL Ratio 2.5 LDL Cholesterol, Calculated 78 mg/dl Medical Emergencies . Who to Call and When: Medical Emergencies: If at any time you feel your situation is an emergency, please call 911 immediately. . Non-Emergent Contact Non-Emergency issues call your: Primary Care Provider Call Non-Emergent contact if: you have a fever, you have any medication questions . Past History Medical & Surgical History: (1) Asthma exacerbation . "Provider Documentation" section prepared by Sally Tao. . VTE Core Measure Inpt VTE Proph given/why not?: Enoxaparin (Lovenox)SQ, SCD's
--- NOTE | 2017-08-27 15:35 | Discharge Summary ---
Discharge Summary Date of Service Aug 27, 2017. Discharge Summary Admission Date: Aug 23, 2017 at 13:14 Discharge Date: Aug 27, 2017 Discharge Disposition: Home Principal Diagnosis: Asthma exacerbation Problems/Secondary Diagnoses: HTN, uterine cancer s/p hysterectomy undergoing radiation for recurrence, and thyroid cancer s/p ablation Immunizations: Have You Had Influenza Vaccine: Yes Influenza Vaccine Date: Sep 02, 2006 History of Tetanus Vaccine?: Unknown History of Pneumococcal: No History of Hepatitis B Vaccine: No Procedures: CT ANGIOGRAM OF THE CHEST CLINICAL HISTORY: Dyspnea. COMPARISON STUDY: Chest CT dated 08/28/2016 and 10/31/2007. TECHNIQUE: Following the IV administration of 94 cc of Optiray 320, CT angiogram of the chest was performed from the upper abdomen to the thoracic inlet utilizing the pulmonary embolus protocol. Images are reviewed in the axial, sagittal, and coronal planes. 3-D MIPS images are created and assessed. IV contrast was administered without complication. A dose lowering technique was utilized adhering to the principles of ALARA. The Examination is compromised by motion artifact. CT DOSE: 571.96 mGycm FINDINGS: Thyroid: Atrophic. Thoracic aorta: The thoracic aorta is normal in caliber and demonstrates standard 3-vessel arch anatomy. No dissection is seen. Pulmonary vasculature: The pulmonary trunk is dilated, measuring 3.7 cm in transverse diameter. This suggests pulmonary artery hypertension. There are no filling defects identified in main, lobar, or proximal segmental pulmonary branches to suggest pulmonary embolus. Evaluation of the peripheral branches is degraded by motion artifact. Heart: The heart is top normal in size and without pericardial effusion. Lungs and pleural spaces: Evaluation of the lung parenchyma is degraded by motion artifact. The trachea and central airways are patent. No airspace consolidation or pleural effusion is identified. Atelectasis versus scarring is present in the right middle lobe and lingula. Mediastinum: There is no mediastinal lymphadenopathy. Marva: Clear. Axillae: There is no axillary lymphadenopathy. Upper abdomen: There is a small to moderate hiatal hernia. Partially visualized upper abdominal viscera is within normal limits. Skeletal structures: No lytic or blastic bony lesions are seen. IMPRESSION: 1. There is no evidence of pulmonary embolus in the main, lobar, or proximal segmental pulmonary arteries. Evaluation of the peripheral vessels is significantly degraded by motion artifact. 2. No airspace consolidation or pleural effusion is identified. Medication Reconciliation New Medications: Alprazolam (Alprazolam) 0.25 Mg Tab 0.25 MG PO Q6H PRN for anxiety for 3 Days, #12 TAB Azithromycin (Azithromycin) 250 Mg Tab 250 MG PO QAM for 4 Days, #4 TAB Escitalopram Oxalate (Escitalopram Oxalate) 10 Mg Tab 5 MG PO QAM for 30 Days, #15 TAB Prednisone Tab (Prednisone) 10 Mg Tab 10 MG PO UD for 6 Days, #12 TAB 30 mg (3 tabs) for 2 days, then 20 mg (2 tabs) for 2 days, then 10 mg (1 tab) for 2 days, then stop Continued Medications: Albuterol Hfa (Ventolin Hfa) 200 Puffs/45393 Mcg Aers 2-4 PUFFS INH Q6H PRN for SOB/Wheezing Cholecalciferol (Vitamin D3) 2,000 Unit Tab 5000 INTER.UNIT PO DAILY for 90 Days, TAB 3 Refills Diltiazem Hcl Ext Rel (Tiazac) 120 Mg Capcr 120 MG PO DAILY Fish Oil ([place]-3) 1 Ea Cap 1 CAP PO DAILY, 0 Refills Fluticasone Prop/Salmeterol (Advair Diskus 250/50 60 Dose) 1 Ea Aerp 2 PUFFS INH BID for 90 Days, #3 INHALER 3 Refills Hydrochlorothiazide (Hctz) 12.5 Mg Cap 12.5 MG PO DAILY Levothyroxine Sodium (Synthroid) 175 Mcg Tab 175 MCG PO DAILY, TAB Valsartan/Hctz (Diovan Hct 320MG/12.5MG) 1 Tab Tab 1 TAB PO DAILY, TAB Discharge Exam Patient reports feeling better. She did go to radiation this morning without issue. The patient denies any shortness of breath currently. She still has a productive cough, but this is improving. The patient denies fevers, chills, sweats, chest pain, palpitations, claudication, wheezing, shortness of breath, nausea, vomiting, abdominal pain, dysuria, hematuria, urinary retention, paralysis, weakness, numbness and tingling. Constitutional: No fever, No chills, No sweats Eyes: No worsening of vision, No eye pain, No diplopia ENT: No hearing loss, No nasal symptoms, No trouble swallowing Respiratory: +Cough. No wheezing, No shortness of breath Cardiovascular: No chest pain, No claudication, No palpitations Abdomen: No pain, No nausea, No vomiting Musculoskeletal: No joint pain, No muscle pain, No swelling Genitourinary - Female: No dysuria, No urinary retention, No hematuria Neurologic: No paralysis, No weakness, No numbness/tingling Integumentary: No rash, No itch, No color change General appearance: +Morbidly obese. Well-developed, well-nourished, no apparent distress Head: Normocephalic, atraumatic Eyes: Normal inspection, PERRL, EOMI ENT: Normal ENT inspection, hearing grossly normal, pharynx normal Neck: Supple, no JVD, trachea midline Respiratory/Chest: +Decreased breath sounds, improved air movement. Lungs clear to auscultation, no respiratory distress Cardiovascular: Regular rate & rhythm, no gallop, no murmur Abdomen/GI: Normal bowel sounds, non-tender, soft Extremities/Musculoskeletal: +Trace pitting edema. Normal inspection, no calf tenderness Neurological/Psych: +Anxious. Alert, oriented x 3 Skin: Normal color, warm/dry, no rash Hospital Course 72 y/o female with a history of asthma, HTN, uterine cancer s/p hysterectomy undergoing radiation for recurrence, and thyroid cancer s/p ablation now with post-ablative hypothyroidism who presents with asthma exacerbation. Asthma exacerbation, acute respiratory failure w/hypoxia--improving -Hypoxia improving. On room air at rest -Continue nebs -Solu-Medrol d/c'd. Received prednisone 40 mg PO qd x 2 days. D/C with following prednisone taper: 30 mg PO qd x 2 days, then 20 mg qd x 2 days, then 10 mg qd x 2 days then stop -Received azithromycin 500 mg PO x1 08/25. Continue azithromycin 250 mg PO qd. Day #3 while in patient. D/C with 4 more days 250 mg PO qd -Sputum culture negative, blood cultures NGTD -Continue incentive spirometry -Continue Advair BID -2 step exercise test, needs 2L w/ambulation HTN--elevated prior to morning meds but otherwise stable -Continue diltiazem 120 mg PO qd, valsartan 320 mg PO qd, HCTZ 12.5 mg PO qd Emotional lability, likely untreated depression and anxiety--stable. Pt still rather anxious. Discussed Lexapro will take a few weeks to start working -Continue Lexapro 5 mg PO qd and Xanax 0.25 mg PO q6h prn anxiety Uterine cancer s/p hysterectomy, undergoing radiation for recurrence -Resumed radiation to pelvis 5x/week on 08/27 Thyroid cancers/p ablation, hypothyroidism -Continue Synthroid 175 mcg PO qd DVT prophylaxis -Enoxaparin 40 mg SC q24h -SCDs Supervising Note Dr. Le I performed a history and physical examination on the patient. I reviewed above note and agree with it. I discussed discharge plan with APC and patient. During my face to face encounter with the patient, I answered all of the patient's questions. Total Time Spent: Greater than 30 minutes This includes examination of the patient, discharge planning, medication reconciliation, and communication with other providers. Discharge Instructions Please refer to the electronic Patient Visit Report (Discharge Instructions) for additional information. Additional Copies To Keshawn Mcgregor M.D.
== END 2017-08-27 17:57 | disposition home or self-care (01) | DRG 189 ==
LOC: EDBD 09:02 → C.EDB 09:03 → C.MS2W 13:14 → ENRESERV 13:28
PROVIDERS: ADMIT Family Medicine; ATTEND Internal Medicine Sports Medicine
DX: J96.01 Acute respiratory failure with hypoxia (principal); J44.1 Chronic obstructive pulmonary disease with (acute) exacerbation; Z68.41 Body mass index [BMI] 40.0-44.9, adult; I10 Essential (primary) hypertension; C55 Malignant neoplasm of uterus, part unspecified; Z85.850 Personal history of malignant neoplasm of thyroid; F32.9 Major depressive disorder, single episode, unspecified; F41.9 Anxiety disorder, unspecified; Z90.710 Acquired absence of both cervix and uterus; Z83.3 Family history of diabetes mellitus; Z82.49 Family history of ischemic heart disease and other diseases of the circulatory system; E66.01 Morbid (severe) obesity due to excess calories

== ENCOUNTER → 2017-10-28 | Outpatient (CLI) | payer OTHER ==
[~2017-10-28] MED LIST changes: +AZIT-57 PO; +DILT120C68 PO; -DLCSR120 PO; -HYDC25 PO; +HYDR12.56 PO; +LXP10 PO; +VNTHFA/IN INH; +XNX25 PO; -ventolin inhaler
[2017-10-28 13:08] LABS: BASO % 0.3 %; BASO ABS # 0.02 K/uL (0-0.2); EOS % 7.3 %; EOS ABS # 0.53 K/uL (0-0.5); HEMATOCRIT 40.6 % (37-47); HEMOGLOBIN 14.1 g/dL (12.0-16.0); IG# 0.03 K/uL (0.00-0.02); LYMPH % 24.6 %; MEAN CORPUSCULAR HEMOGLOBIN 31.6 pg (25-34); MEAN CORPUSCULAR HGB CONC 34.7 g/dl (32-36); MEAN PLATELET VOLUME 9.1 fL (7.4-10.4); MONO % 8.8 %; MONO ABS # 0.64 K/uL (0.11-0.59); NEUT % 58.6 %; NEUT ABS # 4.29 K/uL (1.4-6.5); PLATELET COUNT 294 K/uL (130-400); RED CELL DISTRIBUTION WIDTH CV 14.3 % (11.5-14.5); RED CELL DISTRIBUTION WIDTH SD 48.1 fL (36.4-46.3); WHITE BLOOD COUNT 7.31 K/uL (4.8-10.8)
[2017-10-28 14:17] LABS: HEMOGLOBIN A1C 5.5 % (4.5-5.6)
[2017-10-28 15:54] LABS: ALBUMIN 3.5 gm/dl (3.4-5.0); ALT/SGPT 37 U/L (12-78); BLOOD UREA NITROGEN 21 mg/dl (7-18); CALCIUM 9.5 mg/dl (8.5-10.1); CARBON DIOXIDE 24 mmol/L (21-32); CREATININE 0.98 mg/dl (0.60-1.20); GLUCOSE 85 mg/dl (70-99); POTASSIUM 3.4 mmol/L (3.5-5.1); SODIUM 143 mmol/L (136-145)
[2017-10-28 16:05] LABS: ALKALINE PHOSPHATASE 107 U/L (45-117); AST/SGOT 22 U/L (15-37); TOTAL PROTEIN 7.4 gm/dl (6.4-8.2)
== END | disposition home or self-care (01) ==
LOC: C.LABBC 10:47
PROVIDERS: ATTEND Physician Assistant Medical
DX: E03.9 Hypothyroidism, unspecified (principal); I10 Essential (primary) hypertension; E55.9 Vitamin D deficiency, unspecified; J45.20 Mild intermittent asthma, uncomplicated

== ENCOUNTER → 2017-11-01 | Outpatient (CLI) | payer OTHER ==
[2017-11-01 10:52] VITALS: BP 188/89; PULSE 87; TEMP 36.5; O2SAT 93
--- NOTE | 2017-11-01 13:00 | Radiation Oncology Follow-Up ---
Radiation Oncology Follow-Up Date of Visit Nov 01, 2017. 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 She received 4500 cGy external beam radiation. She had 3 HDR treatments at 500 cGy each. Last Edited By: Starr Han on Oct 10, 2017 08:08 History of Present Illness Ms. Gray was initially diagnosed with endometrial cancer and 2005. The patient initially had a Pap smear on 08/27/2005 which revealed endometrioid adenocarcinoma FIGO grade 1. The patient then underwent a total abdominal hysterectomy bilateral salpingo-oophorectomy by Dr. Vickers on 09/14/2005 which revealed endometrioid adenocarcinoma that was FIGO grade 1 that involved 0.9 cm/1.1 cm of the myometrium. The patient had a bilateral pelvic lymph node sampling which did not reveal any evidence of lymph nodes in the actual specimens. The patient had no adjuvant therapy at this point. The patient did develop a recurrence in March 2013. The patient initially had a abnormal Pap smear and then did have a biopsy of the vaginal cuff on 04/10/[address] Vickers which revealed moderately differentiated adenocarcinoma. Dr. Vickers recommended the patient be evaluated by gynecologic oncologist however the patient refused and had no further further treatment. More recently, the patient's primary care physician urged the patient to be evaluated properly by gynecology oncologist. The patient did see Dr. Jauregui who evaluated the patient and did perform a biopsy of the vaginal cuff on 06/17/2017 which confirmed adenocarcinoma consistent with metastatic endometrial carcinoma. The patient did have a CT of the chest/abdomen/pelvis on 06/17/2017 which revealed no evidence of pelvic lymphadenopathy or distant metastatic disease. Dr. Jauregui recommended consideration of salvage radiation therapy. We are now seeing the patient in consultation to discuss the role of radiation therapy. Decision was to treat with external beam therapy as well as HDR therapy. The external beam treatment ended September 27, 2017 she received 4500 cGy. She had 3 HDR treatments at 500 cGy each. These were completed on October 02, 2017. Interim History She has been doing well over this past month. She denies any vaginal discharge or irritation. There is been no vaginal bleeding. Her urinary symptoms resolved without difficulty. She is having no bowel issues. She has a normal bowel movement once a day. She was seen at the gynecologic oncologist. Physician unfortunately had an emergency and she did not have an exam. She has a follow-up appointment with their office in January. She had no complaints of fatigue. Her appetite is good and weight is stable. Allergies Coded Allergies: Amoxicillin (Verified Allergy, Intermediate, ., 08/23/17) Penicillins (Verified Allergy, Mild, 08/23/17) Home Medications Scheduled Azithromycin (Azithromycin), 250 MG PO QAM Cholecalciferol (Vitamin D3), 5,000 INTER.UNIT PO DAILY Diltiazem Hcl Ext Rel (Tiazac), 120 MG PO DAILY Escitalopram Oxalate (Escitalopram Oxalate), 5 MG PO QAM Fish Oil ([place]-3), 1 CAP PO DAILY Fluticasone Prop/Salmeterol (Advair Diskus 250/50 60 Dose), 2 PUFFS INH BID Hydrochlorothiazide (Hctz), 12.5 MG PO DAILY Levothyroxine Sodium (Synthroid), 175 MCG PO DAILY Valsartan/Hctz (Diovan Hct 320MG/12.5MG), 1 TAB PO DAILY Scheduled PRN Albuterol Hfa (Ventolin Hfa), 2-4 PUFFS INH Q6H PRN for SOB/Wheezing Alprazolam (Alprazolam), 0.25 MG PO Q6H PRN for anxiety Review of Systems Gastrointestinal: Symptoms: WNL Oral: Symptoms: No Problems Respiratory: Symptoms: WNL Urinary: Symptoms: WNL Skin: Symptoms: No Problems Additional Notes: She completed a distress management report and answered "no" to all questions. Physical Exam Vital Signs Date Time Temp Pulse Resp B/P (MAP) Pulse Ox O2 Delivery O2 Flow Rate FiO2 11/01/17 10:52 36.5 87 16 188/89 93 ECOG Performance Status: 0 Fatigue: None General Appearance: no apparent distress Eyes: normal inspection, EOMI ENT: normal ENT inspection, hearing grossly normal Neck: no adenopathy, thyroid normal Respiratory/Chest: lungs clear, no respiratory distress, no accessory muscle use Cardiovascular: regular rate, rhythm, no gallop, no murmur Abdomen: non tender, soft, no organomegaly Genitourinary - Female: external genitalia normal, + pertinent finding (Pelvic examination performed by Dr. Coronel. There are no visible or palpable vaginal masses. There is some mild posttreatment changes at the apex. There is no vaginal discharge or bleeding.) Extremities: no pedal edema Neurologic/Psychiatric: no motor/sensory deficits, alert, normal mood/affect Skin: warm/dry Pain Management Patient Reports Pain: No Pain Management Plan She denies pain therefore requires no pain management. Laboratory Laboratory Results: not applicable Pathology Pathology Results: were reviewed, and pertinent findings noted in HPI Imaging Imaging Studies: were reviewed, and pertinent findings noted in HPI Assessment & Plan Plan: She was seen and examined by Dr. Coronel. She will continue regular gynecologic examinations. She is planning to transfer care back to [place]. It is difficult for her to travel to [place]. She does not require the use of the vaginal dilator. She did not have any stenosis on examination. We asked her to return to our office in 6 months. She may call if she has any questions or concerns in the interim. Assessment & Plan (Attending) I agree with note created by Starr Han PA-C. I reviewed the patient's chart and information with her. I have examined and evaluated the patient. I reviewed relevant clinical information and answered the patient's and/or family' s questions. [employer] Total Time In Follow-Up I spent 20 minutes speaking to the patient and performing examination. I spent 15 minutes reviewing information and completing this note. [place] Total Time (Attending) In Follow-Up I spent 15 minutes examining and counseling the patient. W[employer] RESOURCE [employer]INE[employer] Copy To Keshawn Mcgregor M.D.; Chase Jauregui M.D.
== END | disposition home or self-care (01) ==
LOC: C.ONC 10:24
PROVIDERS: ATTEND Physician Assistant Medical
DX: Z08 Encounter for follow-up examination after completed treatment for malignant neoplasm (principal); Z92.3 Personal history of irradiation; Z85.42 Personal history of malignant neoplasm of other parts of uterus

== ENCOUNTER 2018-12-30 12:43 | Inpatient (IN) ==
[2018-12-30] MEDS ORDERED: ALBUT/IPRATROP 3MG/0.5MG NEB 3 ML VIAL NEB ONE (13:02)
[2018-12-30] MEDS ORDERED: methylPREDNISolone 125 MG/2 ML VIAL IV STA (13:07)
[2018-12-30] MEDS ORDERED: MAGNESIUM SULFATE / D5W 1 GM/100 ML BAG IV ONE (13:07)
--- NOTE | 2018-12-30 13:29 | Emergency Department Note ---
History of Present Illness General Chief complaint: Shortness of Breath/Dyspnea Stated complaint: breathing diffiuclty Time Seen by Provider: 12/30/18 12:55 Source: patient, EMS, RN notes reviewed and old records reviewed Mode of arrival: EMS Limitations: no limitations History of Present Illness Provider complaint: Shortness of breath Onset (ago): day(s) 3 Location: chest Severity: moderate Maximum Pain Intensity: 0 Relieved By: + medication (Albuterol) Exacerbated By: + other (Smoking) Associated symptoms: + denies other symptoms Treatments prior to arrival: other (Duoneb) This is a 73-year-old female who presents emergency department complaining of shortness of breath. Patient has a history of asthma. She reports she is normally on 2 L of oxygen at home. the patient was exposed to cigarette smoke Saturday and reports her asthma has been giving her problems ever since. She called an ambulance today who gave her a DuoNeb in route. The patient denies any chest pain nausea vomiting or abdominal pain. She also denies any fevers. Home Medications Home Medications Medication Instructions Recorded Confirmed Type Fish Oil 1 cap PO QAM 12/30/18 01/05/19 History albuterol sulfate [Ventolin HFA] 2 - 4 puff INHALATION Q6H PRN 12/30/18 01/05/19 History cholecalciferol (vitamin D3) 2,000 unit PO BID 12/30/18 01/05/19 History [Vitamin D3] diltiazem HCl [Cardizem CD] 120 mg PO QAM 12/30/18 01/05/19 History fluticasone propion-salmeterol 2 ea INHALATION BID 12/30/18 01/05/19 History [Advair Diskus] levothyroxine 175 mcg PO QAM 12/30/18 01/05/19 History loratadine 10 mg PO QAM 12/30/18 01/05/19 History losartan-hydrochlorothiazide 1 tab PO DAILY 12/30/18 01/05/19 History montelukast 10 mg PO PM 12/30/18 01/05/19 History prednisone 60 mg PO DAILY #42 tab 01/02/19 01/05/19 Rx Allergies Allergy/AdvReac Type Severity Reaction Status Date / Time amoxicillin Allergy Intermediate SOB Verified 01/05/19 21:03 Penicillins Allergy Mild Verified 12/30/18 14:40 Past Med/Surg History Medical History Asthma, mild intermittent (Acute) History of endometrial cancer (Acute) Hyperparathyroidism (Acute) Hypothyroidism (Acute) Thyroid cancer (Acute) Acute bronchitis (Acute) Acute respiratory failure with hypoxia (Acute) Hypertension (Chronic) Social History Preferred Language: Turkmen Beliefs That Will Affect Care: None Current Living Situation: Alone Feels Safe at Home: Yes Smoking Status: Never smoker Second Hand Exposure: Yes (Recent exposure at social event) Hx Substance Use: No Review of Systems A total of 10 systems reviewed and were otherwise negative Physical Exam Vital Signs Vital Signs - 24 hr 12/30/18 12:54 Sepsis Recent Fever Within 48 Hours No Sepsis New/Unexplained Change in Mental Status No Sepsis Action Taken by Nursing No Action Required Pulse Rate 124 H Pulse Rate [Finger] 124 H Respiratory Rate 23 Respiratory Effort / Characteristics Non-Labored Spontaneous Respiratory Depth Normal Respiratory Pattern Regular Blood Pressure 197/90 H Blood Pressure [Right Arm] 197/90 H Blood Pressure Mean 125 Blood Pressure Mean [Right Arm] 125 Pulse Oximetry 94 Oxygen Delivery Method Nasal Cannula Oxygen Flow Rate 2 GENERAL: Patient is a healthy-appearing well-nourished female HEAD: Normocephalic atraumatic EYES: Ocular movements intact pupils equal and react to light OROPHARYNX mucous membranes are moist no exudates present no erythema or edema present NECK: Supple no nuchal rigidity CHEST: Good equal expansion LUNGS: wheezing throughout all lung sanon CARDIAC: Normal S1 and S2 ABDOMEN: Soft nontender no guarding BACK: No CVA tenderness EXTREMITIES: No pain upon palpation normal muscle strength in all groups no clubbing cyanosis or edema NEURO: Patient is following commands is answering questions appropriately. Alert and oriented x3 Cranial Nerves 2-12 grossly intact Course Administered Medications Discontinued Medications Albuterol (Duoneb) 12 ml NEB ONE ONE Stop: 12/30/18 13:03 Last Admin: 12/30/18 13:28 Dose: 12 ml Documented by: [id number] Albuterol (Duoneb) 3 ml NEB QIDR ANDREW Stop: 01/30/19 19:59 Last Admin: 01/02/19 15:12 Dose: 3 ml Documented by: [id number] Admin: 01/02/19 10:49 Dose: 3 ml Documented by: [id number] Admin: 01/02/19 07:23 Dose: 3 ml Documented by: [id number] Admin: 01/01/19 19:53 Dose: 3 ml Documented by: [id number] Admin: 01/01/19 15:50 Dose: 3 ml Documented by: [id number] Admin: 01/01/19 11:24 Dose: 3 ml Documented by: [id number] Admin: 01/01/19 06:57 Dose: 3 ml Documented by: [id number] Admin: 12/31/18 21:26 Dose: 3 ml Documented by: [id number] Arformoterol Tartrate (Brovana Neb) 15 mcg INH BIDR [facility] Stop: 01/29/19 19:59 Last Admin: 12/31/18 07:25 Dose: 15 mcg Documented by: [id number] Admin: 12/30/18 20:05 Dose: 15 mcg Documented by: [id number] Azithromycin (Zithromax) 500 mg PO NOW ONE Stop: 12/30/18 14:30 Last Admin: 12/30/18 15:14 Dose: 500 mg Documented by: [id number] Budesonide (Pulmicort Respules) 0.5 mg NEB BIDR [facility] Stop: 01/29/19 19:59 Last Admin: 12/31/18 07:25 Dose: 0.5 mg Documented by: [id number] Admin: 12/30/18 20:05 Dose: 0.5 mg Documented by: [id number] Diltiazem HCl (Cardizem) 25 mg IV NOW STA Stop: 12/30/18 15:04 Last Admin: 12/30/18 15:28 Dose: Not Given Documented by: [id number] Diltiazem HCl (Cardizem Cd) 120 mg PO QAM [facility] Stop: 01/30/19 08:59 Last Admin: 01/02/19 07:27 Dose: 120 mg Documented by: [id number] Admin: 01/01/19 08:51 Dose: 120 mg Documented by: [id number] Admin: 12/31/18 08:06 Dose: 120 mg Documented by: [id number] Enoxaparin Sodium (Lovenox) 40 mg SQ Q24H [facility] Stop: 01/29/19 20:59 Last Admin: 01/01/19 20:33 Dose: 40 mg Documented by: [id number] Admin: 12/31/18 21:05 Dose: 40 mg Documented by: [id number] Admin: 12/30/18 20:36 Dose: 40 mg Documented by: [id number] Fish Oil (Abiquiu-3 (Purified Fish Oil)) 1 gm PO QAM [facility]REW Stop: 01/30/19 08:59 Last Admin: 01/02/19 07:28 Dose: 1 gm Documented by: [id number] Admin: 01/01/19 08:50 Dose: 1 gm Documented by: [id number] Admin: 12/31/18 08:06 Dose: 1 gm Documented by: [id number] HCTZ/Losartan Potassium (Hyzaar 50/12.5mg) 1 tab PO DAILY [facility]REW Stop: 01/30/19 08:59 Last Admin: 01/02/19 07:28 Dose: 1 tab Documented by: [id number] Admin: 01/01/19 08:52 Dose: 1 tab Documented by: [id number] Admin: 12/31/18 08:06 Dose: 1 tab Documented by: [id number] Magnesium Sulfate/Dextrose (Magnesium Sulfate / D5w) 1 gm in 100 mls @ 100 mls/hr IV ONE ONE Stop: 12/30/18 14:06 Last Infusion: 12/30/18 15:04 Dose: 0 mls/hr Documented by: [id number] Admin: 12/30/18 13:42 Dose: 100 mls/hr Documented by: [id number] Sodium Chloride (Nss 1000ml) 1,000 mls @ 999 mls/hr IV .Q1H1M ONE Stop: 12/30/18 16:04 Last Infusion: 12/30/18 16:00 Dose: 0 mls/hr Documented by: [id number] Admin: 12/30/18 15:27 Dose: 999 mls/hr Documented by: [id number] Levofloxacin/Dextrose (Levaquin/D5w) 750 mg in 150 mls @ 100 mls/hr IV Q24H [facility]REW Stop: 01/06/19 17:59 Last Infusion: 12/30/18 19:54 Dose: 0 mls/hr Documented by: [id number] Admin: 12/30/18 18:21 Dose: 100 mls/hr Documented by: [id number] Methylprednisolone 40 mg/ (Syringe) 0.64 mls @ 1.5 mls/min IV Q8H [facility]W Stop: 01/29/19 20:59 Last Admin: 01/02/19 12:09 Dose: 1.5 mls/min Documented by: [id number] Admin: 01/02/19 05:52 Dose: 1.5 mls/min Documented by: [id number] Admin: 01/01/19 20:33 Dose: 1.5 mls/min Documented by: [id number] Admin: 01/01/19 13:25 Dose: 1.5 mls/min Documented by: [id number] Admin: 01/01/19 05:05 Dose: 1.5 mls/min Documented by: [id number] Admin: 12/31/18 21:06 Dose: 1.5 mls/min Documented by: [id number] Admin: 12/31/18 13:35 Dose: 1.5 mls/min Documented by: [id number] Admin: 12/31/18 05:54 Dose: 1.5 mls/min Documented by: [id number] Admin: 12/30/18 20:36 Dose: 1.5 mls/min Documented by: [id number] Levothyroxine Sodium (Synthroid) 175 mcg PO DAILYBB [facility]REW Stop: 01/30/19 06:29 Last Admin: 01/02/19 05:52 Dose: 175 mcg Documented by: [id number] Admin: 01/01/19 05:05 Dose: 175 mcg Documented by: [id number] Admin: 12/31/18 05:54 Dose: 175 mcg Documented by: [id number] Loratadine (Claritin) 10 mg PO QAM [facility] Stop: 01/30/19 08:59 Last Admin: 01/02/19 07:28 Dose: 10 mg Documented by: [id number] Admin: 01/01/19 08:50 Dose: 10 mg Documented by: [id number] Admin: 12/31/18 08:06 Dose: 10 mg Documented by: [id number] Methylprednisolone (Solumedrol) 125 mg IV NOW STA Stop: 12/30/18 13:08 Last Admin: 12/30/18 13:42 Dose: 125 mg Documented by: [id number] Montelukast Sodium (Singulair) 10 mg PO PM ANDREW Stop: 01/29/19 20:59 Last Admin: 01/01/19 20:34 Dose: 10 mg Documented by: [id number] Admin: 12/31/18 21:06 Dose: 10 mg Documented by: [id number] Admin: 12/30/18 20:36 Dose: 10 mg Documented by: [id number] Pneumococcal Polyvalent Vaccine (Pneumovax-23) 25 mcg IM .ONCE ONE Stop: 12/31/18 08:01 Last Admin: 01/01/19 08:57 Dose: 25 mcg Documented by: [id number] Fluticasone/Salmeterol (Advair Diskus 250/50) 2 puffs INH BID ANDREW Stop: 01/30/19 20:59 Last Admin: 01/02/19 07:27 Dose: 2 puffs Documented by: [id number] Admin: 01/01/19 20:33 Dose: 2 puffs Documented by: [id number] Admin: 01/01/19 08:50 Dose: 2 puffs Documented by: [id number] Admin: 12/31/18 21:20 Dose: 2 puffs Documented by: [id number] Vitamin D (Vitamin D3) 2,000 units PO BID ANDREW Stop: 01/29/19 20:59 Last Admin: 01/02/19 07:28 Dose: 2,000 units Documented by: [id number] Admin: 01/01/19 20:34 Dose: 2,000 units Documented by: [id number] Admin: 01/01/19 08:50 Dose: 2,000 units Documented by: [id number] Admin: 12/31/18 21:06 Dose: 2,000 units Documented by: [id number] Admin: 12/31/18 08:06 Dose: 2,000 units Documented by: [id number] Admin: 12/30/18 20:36 Dose: 2,000 units Documented by: [id number] Medical Decision Making Differential Diagnosis My differential diagnosis includes congestive heart failure exacerbation, PE, asthma exacerbation, hypertension, pneumonia, bronchitis Medical Records Attestation: I reviewed the patient's medical records. Home Medications Current Medication List: was personally reviewed by me Laboratory Data Attestation: I reviewed the patient's lab results. Result diagrams: 12/30/18 13:41 12/30/18 13:41 Lab Results 12/30/18 12/30/18 12/30/18 Range/Units 13:41 13:41 13:41 WBC 13.50 H (4.8-10.8) K/uL RBC 4.56 (4.2-5.4) M/uL Hgb 14.6 (12.0-16.0) g/dL Hct 41.2 (37-47) % MCV 90.4 (80-100) fL MCH 32.0 (25-34) pg MCHC 35.4 (32-36) g/dL RDW Std Deviation 43.4 (36.4-46.3) fL RDW Coeff of Chasidy 13.2 (11.5-14.5) % Plt Count 308 (130-400) K/uL MPV 8.8 (7.4-10.4) fL Immature Gran % (Auto) 0.4 % Neut % (Auto) 84.7 % Lymph % (Auto) 5.8 % [place] % (Auto) 5.9 % Eos % (Auto) 3.0 % Baso % (Auto) 0.2 % Immature Gran # (Auto) 0.05 H (0.00-0.02) K/uL Neut # (Auto) 11.43 H (1.4-6.5) K/uL Lymph # (Auto) 0.78 L (1.2-3.4) K/uL [place] # (Auto) 0.80 H (0.11-0.59) K/uL Eos # (Auto) 0.41 (0-0.5) K/uL Baso # (Auto) 0.03 (0-0.2) K/uL PT 10.4 (9.0-12.0) Seconds INR 1.0 (0.9-1.1) APTT 27.1 (21.0-31.0) Seconds PTT Ratio 1.0 Sodium 141 (136-145) mmol/L Potassium 3.6 (3.5-5.1) mmol/L Chloride 106 (98-107) mmol/L Carbon Dioxide 28 (21-32) mmol/L Anion Gap 7.0 (3-11) BUN 16 (7-18) mg/dl Creatinine 1.00 (0.6-1.2) mg/dl Est Cr Clr Drug Dosing 53.8 ml/min Est GFR ( Amer) 65.6 Est GFR (Non-Af Amer) 56.6 BUN/Creatinine Ratio 15.9 (10-20) Glucose 116 H (70-99) mg/dl Calcium 10.0 (8.5-10.1) mg/dl Total Bilirubin 0.4 (0.2-1) mg/dl AST 17 (15-37) U/L ALT 27 (12-78) U/L Alkaline Phosphatase 134 H (45-117) U/L Total Creatine Kinase 104 (26-192) U/L Troponin I 0.020 (0-0.045) ng/ml Total Protein 7.7 (6.4-8.2) gm/dl Albumin 3.5 (3.4-5.0) gm/dl Globulin 4.2 H (2.5-4.0) gm/dl Albumin/Globulin Ratio 0.8 L (0.9-2) TSH 0.340 (0.300-4.500) uIu/ml Blood Pressure Blood Pressure Findings: Elevated blood pressure Blood Pressure Disposition: elevated BP felt to be situational MDM Narrative This is a 73-year-old female with a history of asthma who presents emergency department hypoxic. She was given an hour-long breathing treatment here in the emergency department. Chest x-ray was obtained as well as laboratory work. Patient was started on Solu-Medrol as well as magnesium and an hour-long breathing treatment. She was ambulated in the emergency department however desaturated and did not do well. Based on this I did discuss the case with the hospitalist service who agreed to admit the patient. Patient was in agreement with the treatment plan. Impression & Plan Asthma Discharge Plan Visit Data *Final* Discharge Date/Time: 12/30/18 16:48 Chief Complaint: Shortness of Breath/Dyspnea Stated Complaint: breathing diffiuclty ED Provider: Marco Harvey Discharge Problem: Asthma Patient Disposition: Admitted As Inpatient Condition: Good Discharge Instructions Interventions: ED Discharge Assessment Last Done: 12/30/18 16:48 Discharge Problem: Asthma Qualifiers: Asthma severity: moderate Asthma persistence: unspecified Asthma complication type: unspecified Qualified Code(s): J45.909 - Unspecified asthma, uncomplicated
--- NOTE | 2018-12-30 13:32 | XRay Report ---
XR chest 1V portable HISTORY: weakness COMPARISON: Chest 02/11/2018. FINDINGS: The lungs are clear. Cardiac silhouette is normal in size. No pleural effusions. No pneumot horax. IMPRESSION: No acute process. Electronically signed by: Gilberto Kerr M.D. 12/30/2018 1:31 PM
[2018-12-30 13:50] LABS: Basophils # (auto) 0.03 K/uL (0-0.2); Basophils % (auto) 0.2 %; Eosinophils # (auto) 0.41 K/uL (0-0.5); Hematocrit (blood only) 41.2 % (37-47); Hemoglobin 14.6 g/dL (12.0-16.0); Immature Granulocytes # (auto) 0.05 K/uL (0.00-0.02); Immature Granulocytes % (auto) 0.4 %; Lymphocytes # (auto) 0.78 K/uL (1.2-3.4); Lymphocytes % (auto) 5.8 %; Mean Corpuscular Hgb Conc 35.4 g/dL (32-36); Mean Corpuscular Volume 90.4 fL (80-100); Mean Platelet Volume 8.8 fL (7.4-10.4); Monocytes % (auto) 5.9 %; Neutrophils # (auto) 11.43 K/uL (1.4-6.5); Neutrophils % (auto) 84.7 %; Platelet Count 308 K/uL (130-400); RDW Coefficient of Variation 13.2 % (11.5-14.5); RDW Standard Deviation 43.4 fL (36.4-46.3); Red Blood Count 4.56 M/uL (4.2-5.4)
[2018-12-30 14:10] LABS: Albumin Level 3.5 gm/dl (3.4-5.0); BUN Creatinine Ratio 15.9 (10-20); Creatinine Clr Calc Pharmacy 53.8 ml/min; Est GFR (African American) 65.6; Est GFR (Non-African American) 56.6; Potassium 3.6 mmol/L (3.5-5.1)
[2018-12-30 14:20] LABS: Albumin Globulin Ratio 0.8 (0.9-2); Bilirubin,Total 0.4 mg/dl (0.2-1); Globulin 4.2 gm/dl (2.5-4.0); Total Protein 7.7 gm/dl (6.4-8.2); Troponin I 0.02 ng/ml (0-0.045)
[2018-12-30] MEDS ORDERED: AZITHROMYCIN 250 MG TAB PO ONE (14:29)
[2018-12-30] MEDS ORDERED: SODIUM CHLORIDE 0.9% 1000ML 1,000 ML IV ONE (15:04)
[2018-12-30] MEDS: dilTIAZem HCl 5 MG/ML 5 ML VIAL IV STA ×2 (15:10→15:28)
--- NOTE | 2018-12-30 15:37 | History & Physical Report ---
Date of Service December 30, 2018 Assessment & Plan (1) Status asthmaticus: We will treat with arformoterol and budesonide nebulizers. Intravenous Solu-Medrol. Treat bronchitis. Consider pulmonary medicine consultation Present on Admission?: Yes (2) Acute respiratory failure with hypoxia: Supplemental oxygen to maintain saturation greater than 90%. Wean off as tolerated Present on Admission?: Yes (3) Acute bronchitis: Obtain sputum culture. Treat with intravenous Levaquin daily. Present on Admission?: Yes (4) Hypertension: Treated with diltiazem, losartan, hydrochlorothiazide (5) DVT prophylaxis: Lovenox subcu History of Present Illness Chief Complaint: Persistent cough, wheeze, shortness of breath Primary Care Provider: Keshawn Mcgregor MD 73-year-old female with a history of asthma. For the past several days she has had a cough productive of yellow phlegm accompanied by worsening shortness of breath and wheezing. She was so short of breath today she called the EMS squad who brought her to the ED for evaluation. She was noted to be 85% on room air in the ED. Chest x-ray is negative for pneumonia. Clinically she has acute br onchitis. She appears to be in status asthmaticus at this time with acute hypoxic respiratory failure. She is alert and oriented and does not appear septic. She does not currently see a photographic lithographer. She is admitted for further evaluation and treatment. Allergies Allergy/AdvReac Type Severity Reaction Status Date / Time amoxicillin Allergy Intermediate . Verified 12/30/18 14:40 Penicillins Allergy Mild Verified 12/30/18 14:40 Home Medications Home Medications Medication Instructions Recorded Confirmed Type Fish Oil 1 cap PO QAM 12/30/18 12/30/18 History albuterol sulfate [Ventolin HFA] 2 - 4 puff INHALATION Q6H PRN 12/30/18 12/30/18 History cholecalciferol (vitamin D3) 2,000 unit PO BID 12/30/18 12/30/18 History [Vitamin D3] diltiazem HCl [Cardizem CD] 120 mg PO QAM 12/30/18 12/30/18 History fluticasone propion-salmeterol 2 ea INHALATION BID 12/30/18 12/30/18 History [Advair Diskus] levothyroxine 175 mcg PO QAM 12/30/18 12/30/18 History loratadine 10 mg PO QAM 12/30/18 12/30/18 History losartan-hydrochlorothiazide 1 tab PO DAILY 12/30/18 12/30/18 History montelukast 10 mg PO PM 12/30/18 12/30/18 History Past Med/Surg History Social History Beliefs That Will Affect Care: None Feels Safe at Home: Yes Smoking Status: Never smoker Review of Systems 2 Review of Systems: Constitutional-no fever or chills ENT-no blurred vision, no double vision, no epistaxis, no sore throat Respiratory-productive cough, wheezing, shortness of breath Cardiac-no palpitations, no chest pain, no syncope GI-no nausea, vomiting, diarrhea, melena, hematochezia -no urinary retention, no urinary incontinence, no dysuria, no hematuria Musculoskeletal-no joint pain, no muscle tenderness Skin-no bruising, no rashes, no pruritus Neuro-no isolated weakness, no paresthesia, no weakness Psych-no depression, no anxiety Physical Exam Physical Exam: General-alert and oriented x3, no fevers, no chills. Obese HEENT-head atraumatic and normocephalic, TMs intact bilaterally, pupils equal and reactive to light, extraocular muscles intact Neck-no lymphadenopathy or thyromegaly, trachea midline Chest-tachypneic at rest with respiratory rate 26. Conversational dyspnea. Audible bilateral diffuse expiratory wheezes. Midline rhonchi. No dullness to percussion. No inspiratory rales. No retractions noted. Cardiac-tachycardic rate with normal rhythm , normal S1 and S2, no murmurs Abdomen-normal bowel sounds, nontender, no hepatosplenomegaly Extremities-no cyanosis, clubbing, or edema Neuro-cranial nerves II through XII intact, motor and sensory function within normal limits, strength symmetrical 5/5, no focal deficits Psych-normal affect, normal mood Results & Data Vital Signs (Past 12 Hours) Vital Signs Pulse Pulse Resp BP BP Pulse Ox 12/30/18 14:10 118 H 21 98 12/30/18 14:01 112 H 24 154/67 H 98 12/30/18 14:00 113 H 25 H 98 12/30/18 13:50 110 H 28 H 98 12/30/18 13:45 107 H 25 H 176/86 H 97 12/30/18 13:44 106 H 29 H 176/86 H 96 12/30/18 13:40 109 H 36 H 96 12/30/18 13:30 104 H 25 H 92 12/30/18 13:29 101 H 18 92 12/30/18 13:20 106 H 26 H 90 12/30/18 13:10 109 H 27 H 92 12/30/18 13:04 104 H 26 H 93 12/30/18 13:01 107 H 23 176/101 H 92 12/30/18 12:54 124 H 124 H 23 197/90 H 197/90 H 94 Laboratory Results 12/30/18 13:41 12/30/18 13:41
[2018-12-30] MEDS ORDERED: ALUMINUM/MAGNESIUM SUSP 30 ML UDC PO PRN (17:09)
[2018-12-30] MEDS ORDERED: ONDANSETRON INJ 2 MG/ML 2 ML VIAL IV PRN (17:09)
[2018-12-30] MEDS ORDERED: ACETAMINOPHEN 325 MG TAB PO PRN (17:09)
[2018-12-30] MEDS ORDERED: LEVOFLOXACIN/D5W 750 MG/150 ML BAG IV SCH (18:00)
[2018-12-30 18:12] LABS: Partial Thromboplastin Time 27.1 Seconds (21.0-31.0); Prothrombin Time 10.4 Seconds (9.0-12.0)
[2018-12-30] MEDS: BUDESONIDE 0.5 MG/2 ML VIAL (PULMICORT) NEB SCH (20:05)
[2018-12-30] MEDS: ARFORMOTEROL TART 15MCG/2ML VIAL INH SCH (20:05)
[2018-12-30 20:13] LABS: Appearance Urine Clear (Clear); Bilirubin Urine Negative (Negative); Blood Urine Negative (Negative); Color Urine Yellow; Glucose Urine UA Negative (Negative); Ketones Urine Negative (Negative); Leukocyte Esterase Urine Negative (Negative); Nitrite Urine Negative (Negative); Protein Urine Negative (Negative); Specific Gravity Urine 1.015 (1.000-1.030); Urobilinogen Urine Negative (Negative); pH Urine 5.5 (4.5-7.5)
[2018-12-30] MEDS: MONTELUKAST SODIUM 10 MG TABLET PO SCH (20:36)
[2018-12-30] MEDS: methylPREDNISolone 40 MG in SYRINGE 0 ML IV SCH (20:36)
[2018-12-30] MEDS: CHOLECALCIFEROL 1,000 UNITS TAB PO SCH (20:36)
[2018-12-30] MEDS: ENOXAPARIN INJ 40 MG/0.4 ML SYR SQ SCH (20:36)
[2018-12-31] MEDS: methylPREDNISolone 40 MG in SYRINGE 0 ML IV SCH ×3 (05:54→21:06)
[2018-12-31] MEDS: LEVOTHYROXINE SODIUM 175 MCG TABLET PO SCH (05:54)
[2018-12-31] MEDS: ARFORMOTEROL TART 15MCG/2ML VIAL INH SCH (07:25)
[2018-12-31] MEDS: BUDESONIDE 0.5 MG/2 ML VIAL (PULMICORT) NEB SCH (07:25)
[2018-12-31] MEDS ORDERED: PNEUMOCOCCAL ADMINISTRATION CHARGE ONE (08:00)
[2018-12-31] MEDS ORDERED: PNEUMOCOCCAL POLYSACCHARIDES 25 MCG/0.5 ML VIAL/SYR IM ONE (08:00)
[2018-12-31] MEDS: OMEGA-3 (PURIFIED FISH OIL) 1 GM CAP PO SCH (08:06)
[2018-12-31] MEDS: LOSARTAN/HCTZ 50/12.5MG TAB PO SCH (08:06)
[2018-12-31] MEDS: LORATADINE 10 MG TAB PO SCH (08:06)
[2018-12-31] MEDS: dilTIAZem HCL 120 MG CAPCR PO SCH (08:06)
[2018-12-31] MEDS: CHOLECALCIFEROL 1,000 UNITS TAB PO SCH ×2 (08:06→21:06)
--- NOTE | 2018-12-31 17:58 | Hospitalist Progress Note ---
Date of Service December 31, 2018 Assessment & Plan (1) Status asthmaticus: Improved today with IV steroids and nebs. Likely triggered by recent cigarette smoke exposure and spring pollens -change to home Advair and discontinue arformoterol and budesonide nebulizers -continue Intravenous Solu-Medrol 40mg IV q8 and taper down tomorrow, eventually convert to po prednisone -does not follow with Pulm as outpt -may need education on use of rescue meds at home as seems confused about how to use them -add on Duonebs qid -no need for abx (2) Acute respiratory failure with hypoxia: has O2 at home for prn use which is maybe about 1-2x/week POx here was 85% by EMS and was in significant respiratory distress upon admission -continue Supplemental oxygen to maintain saturation greater than 90%. Wean off as tolerated -may need 2 step prior to discharge (3) Acute bronchitis: With mucus production in setting of asthma exacerbation sputum culture pending -no fever, no PNA, no h/o COPD, will dc Levaquin (4) Hypertension: Treated with diltiazem, losartan, hydrochlorothiazide (5) DVT prophylaxis: Lovenox subcu Dispo-stable for transfer to medical floor Subjective Feelin gbetter today, much less SOB. Still coughing up small small amount of sputum. Is very anxious and worried that people will be upset with her for crying when she couldn't breathe yesterday. Denies constipation or diarrhea, no abd pain, eating well. Is comfortable on 3L O2 Reports using her albuterol neb almost every day at home NSR, 80s-110s Review of Systems Review of Systems: All systems reviewed & are unremarkable except as noted in HPI & below Physical Exam Constitutional: WD/WN, vitals as above (sitting in chair) Eyes: PERRL, conjunctivae normal, anicteric sclerae ENMT: external ear and nose normal, oropharynx normal Neck: trachea midline, no thyromegaly Respiratory: normal respiratory effort Auscultation: + diminished lung sounds (throughout); no rhonchi and no wheezes Cardiovascular: Rate/Rhythm: regular rate and regular rhythm Heart Sounds: no murmur Extremities: + edema (trace woody edema legs bilat) Gastrointestinal (Abdomen): normal bowel sounds, soft, nontender, no hepatosplenomegaly Musculoskeletal: Extremities: extremities normal to inspection; no cyanosis and no clubbing Skin: no rashes, warm and dry Neurologic: moves all extremities and awake; no focal motor deficits Psychiatric: Orientation: alert and oriented x 3 Affect: + anxious affect Mood: + anxious mood Results & Data Vital Signs (Past 12 Hours) Vital Signs Temp Pulse Resp BP BP Pulse Ox 12/31/18 15:40 36.5 C 83 18 158/84 H 92 12/31/18 07:26 86 16 93 12/31/18 07:18 36.5 C 86 20 156/83 H 92 Laboratory Results 12/30/18 12/30/18 Range/Units 20:00 13:41 PT 10.4 (9.0-12.0) Seconds INR 1.0 (0.9-1.1) APTT 27.1 (21.0-31.0) Seconds PTT Ratio 1.0 Urine Color Yellow Urine Appearance Clear (Clear) Urine pH 5.5 (4.5-7.5) Ur Specific [place] 1.015 (1.000-1.030) Urine Protein Negative (Negative) Urine Glucose (UA) Negative (Negative) Urine Ketones Negative (Negative) Urine Blood Negative (Negative) Urine Nitrite Negative (Negative) Urine Bilirubin Negative (Negative) Urine Urobilinogen Negative (Negative) Ur Leukocyte Esterase Negative (Negative)
[2018-12-31] MEDS ORDERED: ALBUT/IPRATROP 3MG/0.5MG NEB 3 ML VIAL NEB PRN (20:34)
[2018-12-31] MEDS: ENOXAPARIN INJ 40 MG/0.4 ML SYR SQ SCH (21:05)
[2018-12-31] MEDS: MONTELUKAST SODIUM 10 MG TABLET PO SCH (21:06)
[2018-12-31] MEDS: FLUTICASONE/SALMETEROL 250/50 (ADVAIR) 14 PUFF/1 INHALER INH SCH (21:20)
[2018-12-31] MEDS: ALBUT/IPRATROP 3MG/0.5MG NEB 3 ML VIAL NEB SCH (21:26)
[2019-01-01] MEDS: methylPREDNISolone 40 MG in SYRINGE 0 ML IV SCH ×3 (05:05→20:33)
[2019-01-01] MEDS: LEVOTHYROXINE SODIUM 175 MCG TABLET PO SCH (05:05)
[2019-01-01] MEDS: ALBUT/IPRATROP 3MG/0.5MG NEB 3 ML VIAL NEB SCH ×4 (06:57→19:53)
[2019-01-01] MEDS: FLUTICASONE/SALMETEROL 250/50 (ADVAIR) 14 PUFF/1 INHALER INH SCH ×2 (08:50→20:33)
[2019-01-01] MEDS: CHOLECALCIFEROL 1,000 UNITS TAB PO SCH ×2 (08:50→20:34)
[2019-01-01] MEDS: OMEGA-3 (PURIFIED FISH OIL) 1 GM CAP PO SCH (08:50)
[2019-01-01] MEDS: LORATADINE 10 MG TAB PO SCH (08:50)
[2019-01-01] MEDS: dilTIAZem HCL 120 MG CAPCR PO SCH (08:51)
[2019-01-01] MEDS: LOSARTAN/HCTZ 50/12.5MG TAB PO SCH (08:52)
[2019-01-01] MEDS: ENOXAPARIN INJ 40 MG/0.4 ML SYR SQ SCH (20:33)
[2019-01-01] MEDS: MONTELUKAST SODIUM 10 MG TABLET PO SCH (20:34)
--- NOTE | 2019-01-01 23:38 | Hospitalist Progress Note ---
Date of Service January 01, 2019 Assessment & Plan (1) Status asthmaticus: Improved -continue IV steroids same dose and nebs. Likely triggered by recent cigarette smoke exposure and spring pollens -continue Advair -continue Intravenous Solu-Medrol 40mg IV q8 and taper down tomorrow, eventually convert to po prednisone -does not follow with Pulm as outpt -may need education on use of rescue meds at home as seems confused about how to use them -continue Duonebs qid -no need for abx (2) Acute respiratory failure with hypoxia: has O2 at home for prn use which is maybe about 1-2x/week POx here was 85% by EMS and was in significant respiratory distress upon admission -continue Supplemental oxygen to maintain saturation greater than 90%. Wean off as tolerated -may need 2 step prior to discharge-will order for tomorrow (3) Acute bronchitis: With mucus production in setting of asthma exacerbation sputum culture pending -no fever, no PNA, no h/o COPD,no abx needed (4) Hypertension: Treated with diltiazem, losartan, hydrochlorothiazide (5) DVT prophylaxis: Lovenox subcu Dispo-continued stay, possible discharge to home tomorrow Subjective Feeling better but still a little dyspneaic, wheezing occaisonally. Is tomás po, moving bowels, making urine Review of Systems Review of Systems: All systems reviewed & are unremarkable except as noted in HPI & below Physical Exam Constitutional: WD/WN, vitals as above (sitting in chair) Eyes: PERRL, conjunctivae normal, anicteric sclerae ENMT: external ear and nose normal, oropharynx normal Neck: trachea midline, no thyromegaly Respiratory: normal respiratory effort Auscultation: + diminished lung sounds (throughout but improved from yesterday) and + wheezes (a few faint exp wheezes); no rhonchi Cardiovascular: Rate/Rhythm: regular rate and regular rhythm Heart Sounds: no murmur Extremities: + edema (trace woody edema legs bilat) Gastrointestinal (Abdomen): normal bowel sounds, soft, nontender, no hepatosplenomegaly Musculoskeletal: Extremities: extremities normal to inspection; no cyanosis and no clubbing Skin: no rashes, warm and dry Neurologic: moves all extremities and awake; no focal motor deficits Psychiatric: Orientation: alert and oriented x 3 Affect: + anxious affect Mood: + anxious mood Results & Data Vital Signs (Past 12 Hours) Vital Signs Temp Pulse Resp BP Pulse Ox 01/01/19 22:17 36.4 C L 83 20 130/75 94 01/01/19 19:55 82 18 95 01/01/19 19:29 36.6 C 80 20 153/85 H 94 01/01/19 15:50 80 16 95 01/01/19 15:15 36.5 C 74 18 157/78 H 93
[2019-01-02 04:09] VITALS: TEMP 97.7
[2019-01-02] MEDS: LEVOTHYROXINE SODIUM 175 MCG TABLET PO SCH (05:52)
[2019-01-02] MEDS: methylPREDNISolone 40 MG in SYRINGE 0 ML IV SCH ×2 (05:52→12:09)
[2019-01-02] MEDS: ALBUT/IPRATROP 3MG/0.5MG NEB 3 ML VIAL NEB SCH ×3 (07:23→15:12)
[2019-01-02] MEDS: dilTIAZem HCL 120 MG CAPCR PO SCH (07:27)
[2019-01-02] MEDS: FLUTICASONE/SALMETEROL 250/50 (ADVAIR) 14 PUFF/1 INHALER INH SCH (07:27)
[2019-01-02] MEDS: CHOLECALCIFEROL 1,000 UNITS TAB PO SCH (07:28)
[2019-01-02] MEDS: LORATADINE 10 MG TAB PO SCH (07:28)
[2019-01-02] MEDS: OMEGA-3 (PURIFIED FISH OIL) 1 GM CAP PO SCH (07:28)
[2019-01-02] MEDS: LOSARTAN/HCTZ 50/12.5MG TAB PO SCH (07:28)
[2019-01-02 15:14] VITALS: PULSE 98; O2SAT 93
--- NOTE | 2019-01-02 15:16 | Discharge Summary ---
Date of Service January 02, 2019 Admission HPI Per Admitting Provider 73-year-old female with a history of asthma. For the past several days she has had a cough productive of yellow phlegm accompanied by worsening shortness of breath and wheezing. She was so short of breath today she called the EMS squad who brought her to the ED for evaluation. She was noted to be 85% on room air in the ED. Chest x-ray is negative for pneumonia. Clinically she has acute bronchitis. She appears to be in status asthmaticus at this time with acute hypoxic respiratory failure. She is alert and oriented and does not appear septic. She does not currently see a distributor cleaner. She is admitted for further evaluation and treatment. Principal Diagnosis Acute asthma exacerbation Discharge Exam Constitutional WD/WN, vitals as above (sitting in chair) Eyes PERRL, conjunctivae normal, anicteric sclerae ENMT external ear and nose normal, oropharynx normal Neck trachea midline, no thyromegaly Respiratory normal respiratory effort Auscultation: lungs clear to auscultation bilaterally; no diminished lung sounds (Much improved air movement throughout), no crackles and no wheezes Cardiovascular Rate/Rhythm: regular rate and regular rhythm Heart Sounds: no murmur Extremities: + edema (trace woody edema legs bilat) Gastrointestinal (Abdomen) normal bowel sounds, soft, nontender, no hepatosplenomegaly Musculoskeletal Extremities: extremities normal to inspection; no cyanosis and no clubbing Skin no rashes, warm and dry Neurologic moves all extremities and awake; no focal motor deficits Psychiatric Orientation: alert and oriented x 3 Discharge Data Allergies Allergy/AdvReac Type Severity Reaction Status Date / Time amoxicillin Allergy Intermediate . Verified 12/30/18 14:40 Penicillins Allergy Mild Verified 12/30/18 14:40 Consultations None Ordered Studies Chest x-ray Hospital Course (1) Status asthmaticus: Resolved with treatment with IV steroids and nebs. Likely triggered by recent cigarette smoke exposure and SPring pollens -continue Advair at home -Begin prednisone taper 60 mg daily x2 days and taper down by 10 mg every 2 days until gone -does not follow with Pulm as outpt -Continue with albuterol inhaler as needed at home -Continue home Singulair -Follow-up with primary care provider as scheduled for her (2) Acute respiratory failure with hypoxia: has O2 at home for prn use which is maybe about 1-2x/week typically POx here was 85% by EMS and was in significant respiratory distress upon admission She had a two-step walking test with respiratory therapy prior to discharge-she will now require 2 L nasal cannula at all times with exertion, but can remain on room air at rest. Discussed this with her prior to discharge (3) Acute bronchitis: With mucus production in setting of asthma exacerbation sputum culture with moderate normal janee -no fever, no PNA, no h/o COPD,no abx needed although she did receive a dose of Levaquin upon admission (4) Hypertension: Blood pressures were within normal limits -Treated with diltiazem, losartan, hydrochlorothiazide (5) Hypothyroidism: Status post total thyroidectomy for previous thyroid cancer -Continue levothyroxine 175 mcg daily (6) DVT prophylaxis: Lovenox subcu was provided Dispo-overall much improved. She is medically stable for discharge to home today. She has close PCP follow-up scheduled for early next week Total Time Total Time Spent Total Time Spent (In Minutes): Greater than 30 minutes Total Time Includes: Examination of the Patient, Discharge Planning and Medication Reconciliation Discharge Plan Discharge Items Patient Disposition: Home - Self-Care Reason For Visit: Acute asthma exacerbation Discharge Diagnosis: Acute asthma exacerbation Condition: Good Discharge Goals: Decrease discomfort, Diagnostic testing, Improve disease control, Learn about illness and Therapeutic intervention Activity: As commented below Lifting: Gradually increase as tolerated Bathing: No limitations Exercise/Sports: Gradually increase as tolerated Non-emergency contact: Primary Care Provider Call non-emergency contact if: you have any medication questions and your symptoms worsen Follow-up/Referrals: Keshawn Mcgregor MD [Primary Care Provider] - 01/06/19 10:30 am (Appointment is with Stephania ARRIAGA ) Diet: Regular Addtl Provider Instructions: You were admitted for an acute asthma exacerbation and treated with IV steroids and breathing treatments. You had significant improvement in your symptoms and were stable for discharge. Please finish out the course of prednisone as prescribed for you. You had a walking test with respiratory therapy to see how much oxygen you require. You do not need to wear oxygen at rest, but should always wear 2 L via the nasal cannula with exertion or with walking around. Please follow-up with your primary care provider as scheduled for you above. Prescriptions: New prednisone 10 mg tablet 60 mg PO DAILY Qty: 42 RF: 0 Continued levothyroxine 175 mcg tablet 175 mcg PO QAM RF: 0 fluticasone propion-salmeterol [Advair Diskus] 250-50 mcg/dose Blister With Device 2 ea inhalation BID RF: 0 losartan-hydrochlorothiazide 100-25 mg tablet 1 tab PO DAILY RF: 0 diltiazem HCl [Cardizem CD] 120 mg capsule,extended release 24hr 120 mg PO QAM RF: 0 montelukast 10 mg tablet 10 mg PO PM RF: 0 albuterol sulfate [Ventolin HFA] 90 mcg/actuation HFA aerosol inhaler 2 - 4 puff inhalation Q6H PRN (Reason: Shortness Of Breath) RF: 0 loratadine 10 mg Tablet 10 mg PO QAM RF: 0 cholecalciferol (vitamin D3) [Vitamin D3] 2,000 unit Capsule 2,000 unit PO BID RF: 0 Fish Oil 1 cap PO QAM RF: 0 Stand-Alone Forms: [facility] Discharge Orders: Discharge Order (Routine); Ordered 01/02/19 Ordered By: Nya Rider Admission Data Admit Date/Time: 12/30/18 15:36 Attending Provider: Nya Rider Admit Provider: Tomer Espinal Primary Care Provider: Keshawn Mcgregor Other Providers: Tomer Espinal Service: Medical Other Pending Studies at Discharge: No
[2019-01-02 15:24] VITALS: BP 138/79
== END 2019-01-02 16:26 | disposition home or self-care (01) | DRG 202 ==
LOC: ED 12:43 → SUATTDRO 15:36 → 2S 15:36 → 4W 12-31 17:54

== ENCOUNTER 2019-03-05 10:23 | Observation (INO) ==
--- NOTE | 2019-03-05 11:02 | XRay Report ---
XR chest 1V portable HISTORY: 74 years-old Female SOB, Wheezing acute shortness of breath with wheezing COMPARISON: Chest radiograph 12/30/2018 TECHNIQUE: Portable AP view of the chest FINDINGS: Cardiomediastinal and hilar silhouettes are unchanged. Mild right hemidiaphragmatic elevation. Blunti ng of the costophrenic angles redemonstrated, likely secondary to atelectasis. No pneumothorax, defin ite pleural effusion, focal airspace consolidation or overt pulmonary edema. Degenerative changes of the shoulders and spine with left shoulder rotator cuff calcific tendinosis. IMPRESSION: No acute process. The above report was generated using voice recognition software. It may contain grammatical, syntax o r spelling errors. Electronically signed by: Lorne Adhikari M.D. 03/05/2019 11:01 AM
[2019-03-05 11:50] LABS: Basophils # (auto) 0.02 K/uL (0-0.2); Basophils % (auto) 0.2 %; Eosinophils % (auto) 9.6 %; Hematocrit (blood only) 40.6 % (37-47); Hemoglobin 13.6 g/dL (12.0-16.0); Immature Granulocytes # (auto) 0.02 K/uL (0.00-0.02); Immature Granulocytes % (auto) 0.2 %; Lymphocytes # (auto) 1.41 K/uL (1.2-3.4); Lymphocytes % (auto) 16.9 %; Mean Corpuscular Hgb Conc 33.5 g/dL (32-36); Mean Corpuscular Volume 93.8 fL (80-100); Monocytes # (auto) 0.87 K/uL (0.11-0.59); Monocytes % (auto) 10.4 %; Neutrophils # (auto) 5.22 K/uL (1.4-6.5); Neutrophils % (auto) 62.7 %; Platelet Count 300 K/uL (130-400); RDW Coefficient of Variation 13.6 % (11.5-14.5); RDW Standard Deviation 46.5 fL (36.4-46.3); Red Blood Count 4.33 M/uL (4.2-5.4); White Blood Count 8.34 K/uL (4.8-10.8)
[2019-03-05 12:01] LABS: Partial Thromboplastin Ratio 0.9; Partial Thromboplastin Time 25.7 Seconds (21.0-31.0); Prothrombin Time 10.2 Seconds (9.0-12.0)
[2019-03-05 12:07] LABS: Alanine Aminotransferase 29 U/L (12-78); Albumin Level 3.4 gm/dl (3.4-5.0); Aspartate Aminotransferase 19 U/L (15-37); BUN Creatinine Ratio 17.3 (10-20); Blood Urea Nitrogen 14 mg/dl (7-18); Calcium 9.2 mg/dl (8.5-10.1); Carbon Dioxide 28 mmol/L (21-32); Chloride 110 mmol/L (98-107); Creatinine Clr Calc Pharmacy 57.4 ml/min; Est GFR (African American) 86.7; Est GFR (Non-African American) 74.8; Glucose 95 mg/dl (70-99); Potassium 3.4 mmol/L (3.5-5.1); Sodium 144 mmol/L (136-145)
[2019-03-05 12:12] LABS: Albumin Globulin Ratio 0.9 (0.9-2); Alkaline Phosphatase 99 U/L (45-117); Bilirubin,Total 0.5 mg/dl (0.2-1); Globulin 3.6 gm/dl (2.5-4.0); Troponin I < 0.015 ng/ml (0-0.045)
[2019-03-05] MEDS ORDERED: ALBUT/IPRATROP 3MG/0.5MG NEB 3 ML VIAL NEB STA ×3 (12:25→14:20)
[2019-03-05] MEDS ORDERED: MAGNESIUM SULFATE / D5W 1 GM/100 ML BAG IV ONE (12:25)
[2019-03-05] MEDS ORDERED: methylPREDNISolone 125 MG/2 ML VIAL IV STA (12:27)
[2019-03-05] MEDS ORDERED: POLYETHYLENE (MIRALAX) 17 GM PACK PO PRN (17:00)
[2019-03-05] MEDS ORDERED: ONDANSETRON INJ 2 MG/ML 2 ML VIAL IV PRN (17:00)
[2019-03-05] MEDS ORDERED: MAGNESIUM HYDROXIDE SUSP 30 ML UDC PO PRN (17:00)
[2019-03-05] MEDS ORDERED: NITROGLYCERIN SL 0.4 MG/TAB TAB SL PRN (17:00)
[2019-03-05] MEDS ORDERED: ALUMINUM/MAGNESIUM SUSP 30 ML UDC PO PRN (17:00)
[2019-03-05] MEDS ORDERED: ACETAMINOPHEN 325 MG TAB PO PRN (17:00)
[2019-03-05] MEDS ORDERED: ZOLPIDEM TARTRATE 5 MG TAB PO PRN (17:00)
[2019-03-05] MEDS ORDERED: ALBUT/IPRATROP 3MG/0.5MG NEB 3 ML VIAL NEB PRN (17:25)
[2019-03-05] MEDS: SODIUM CHLORIDE 0.9% 1000ML 1,000 ML IV SCH (17:32)
--- NOTE | 2019-03-05 17:55 | History & Physical Report ---
Date of Service March 05, 2019 Assessment & Plan (1) Acute respiratory failure: Acute exacerbation of asthma progressed to acute respiratory failure and despite of receiving 3 duo nebs in the ER, Solu-Medrol 60 mg IV, 1 g of magnesium IV patient condition did not improve and she continued to be short of breath and her oxygenation on room air was 81% only. -Admit for observation on telemetry -Supplemental O2 to keep oxygenation above 92% as per nursing -Vital signs every 4 hours -Started empirically Z-Jayant(even first 500 mg IV and will follow with 250 mg p.o. for 4 days) -Continue Solu-Medrol 40 milligrams IV every 12 and taper down. -Daily labs CBC CMP monitor lytes, and replenish as needed. -Duo nebs every 4 hours as needed for shortness of breath -Gentle IV hydration with normal saline 80 cc/h -Heart healthy diet -Lovenox 40 subacute daily for DVT prophylaxis -Full code Present on Admission?: Yes (2) Hypoxia: As the above Present on Admission?: Yes (3) Thyroid cancer: Stable , no issues at this time Present on Admission?: No (4) Hypothyroidism: TSH in December 0.34 we will repeat TSH -Continue home dose of levothyroxine 175 MCG's daily p.o. Present on Admission?: Yes (5) Hypertension: Stable, continue losartan hydrochlorothiazide, diltiazem 120 mg p.o. nightly, heart healthy diet. Present on Admission?: Yes History of Present Illness Chief Complaint: Shortness of breath Primary Care Provider: Keshawn Mcgregor MD 74 years old female with past medical history of asthma, hypothyroidism, diarrhea, cancer, hypertension, endometrial cancer presents to the emergency room with complaint of shortness of breath that has been ongoing for 2 to 3 days. Patient said that she is short of breath at rest and that she has oxygen at home which she is using as needed. Patient denies fever chills chest pain abdominal pain urgency frequency hemoptysis and or any other issue. Patient said that nothing helps or worsen her condition and she continued to h ave a dry cough and shortness of breath while at home. At home patient usually uses her Ventolin 2 to 4 puffs every 6 hours as needed as well and is fluticasone salmeterol 1 puff every 12 hours. But that did not help. Patient received in the ER 3 rounds of DuoNeb's magnesium 1 g IV and methylprednisolone 60 mg IV as well as Zofran 4 mg IV. Patient condition did not improve and she continued to be short of breath without oxygen her oxygenation was only 81% on room air. Laboratory is reviewed Patient labs were reviewed which showed viable cell count of 8.34, hemoglobin 13.6 hematocrit 40.6 platelets 300Chemistry sodium 144, potassium 3.4, chloride 110, CO2 28, BUN 14, creatinine 0.79, GFR 57.4 AST 19 ALT 29 random glucose 95. Chest x-rays showed no acute cardiopulmonary process Allergies Allergy/AdvReac Type Severity Reaction Status Date / Time amoxicillin Allergy Intermediate SOB Verified 03/05/19 10:47 Penicillins Allergy Mild Verified 03/05/19 10:47 Home Medications Home Medications Medication Instructions Recorded Confirmed Type albuterol sulfate [Ventolin HFA] 2 - 4 puff INHALATION Q6H PRN 12/30/18 03/05/19 History cholecalciferol (vitamin D3) 2,000 unit PO BID 12/30/18 03/05/19 History [Vitamin D3] diltiazem HCl [Cardizem CD] 120 mg PO QAM 12/30/18 03/05/19 History levothyroxine 175 mcg PO QAM 12/30/18 03/05/19 History loratadine 10 mg PO QAM 12/30/18 03/05/19 History losartan-hydrochlorothiazide 1 tab PO QAM 12/30/18 03/05/19 History montelukast 10 mg PO HS 12/30/18 03/05/19 History omega-3 fatty acids 1,000 mg 1,000 mg PO QAM 01/07/19 03/05/19 History capsule fluticasone 250 mcg-salmeterol 50 1 puffs INHALATION Q12H #60 ea 03/04/19 03/05/19 Rx mcg/dose blistr powdr for inhalation Past Med/Surg History Medical History Acute respiratory failure Asthma exacerbation (Acute) Hypoxia (Acute) Asthma, mild intermittent (Acute) Hypothyroidism (Acute) Thyroid cancer (Acute) Hypothyroidism Hypertension (Chronic) Family History Mother Kidney disease Diabetes Hypertension Colon cancer Social History Preferred Language: Khmer Criminal Legal Assistant Required: No Beliefs That Will Affect Care: None marital status: Single Current Living Situation: Alone current occupational status: retired Feels Safe at Home: Yes Smoking Status: Never smoker Second Hand Exposure: Yes (Recent exposure at social event) ; Hx Substance Use: No Review of Systems Review of Systems: All systems reviewed & are unremarkable except as noted in HPI & below Respiratory: + cough, + dyspnea and + wheezing Physical Exam Constitutional: WD/WN, vitals as above well developed and + obese Eyes: PERRL, conjunctivae normal, anicteric sclerae ENMT: external ear and nose normal, oropharynx normal Neck: trachea midline, no thyromegaly Respiratory: + respiratory distress, + cough and + tachypneic Auscultation: + wheezes and + egophony 81% on room air. Needs 3 L to be above 92% through nasal cannula Cardiovascular: RRR, no murmur, no edema Chest (Breasts): normal inspection/palpation of breasts Gastrointestinal (Abdomen): normal bowel sounds, soft, nontender, no hepatosplenomegaly Musculoskeletal: no cyanosis or clubbing, extremities motor strength 5/5 Skin: no rashes, warm and dry Neurologic: patellar DTR's 2+ bilat, sensation intact Psychiatric: A+Ox3, euthymic affect Genitourinary: no vaginal lesions, no adnexal mass Lymphatic: no cervical or axillary lymphadenopathy Results & Data Vital Signs (Past 12 Hours) Vital Signs Temp Pulse Pulse Pulse Resp Resp BP 03/05/19 17:12 82 03/05/19 15:44 88 19 03/05/19 14:42 78 18 03/05/19 14:17 102 H 102 H 26 H 28 H 03/05/19 13:28 26 L 16 03/05/19 12:35 86 16 03/05/19 12:24 86 24 03/05/19 10:32 36.6 C 89 22 182/85 H BP Pulse Ox Pulse Ox 03/05/19 17:12 03/05/19 15:44 150/87 H 95 03/05/19 14:42 94 03/05/19 14:17 204/101 H 93 85 L 03/05/19 13:28 93 03/05/19 12:35 93 03/05/19 12:24 168/78 H 93 03/05/19 10:32 95 Code Status & VTE Plan Code Status Full code VTE Prophylaxis Plan VTE Prophylaxis will be ordered: Yes PG Care Time/CCT Total # of Minutes Spent Total Time Spent with Patient: Total time spent is greater than 50% in coordination of care (as documented) at patient's floor/unit and/or counseling patient:
[2019-03-05] MEDS ORDERED: ENOXAPARIN INJ 40 MG/0.4 ML SYR SQ SCH (18:00)
[2019-03-05] MEDS ORDERED: AZITHROMYCIN 500 MG in DEXTROSE 5% 250 ML IV ONE (19:00)
[2019-03-05] MEDS: FLUTICASONE/SALMETEROL 250/50 (ADVAIR) 14 PUFF/1 INHALER INH SCH (19:00)
--- NOTE | 2019-03-05 19:59 | Emergency Department Note ---
Entered by Olya Lopez acting as a scribe for History of Present Illness General Chief complaint: Shortness of Breath/Dyspnea Stated complaint: sob Time Seen by Provider: 03/05/19 11:57 Source: patient History of Present Illness Onset (ago): day(s) (yesterday) Location: chest Pain Consistency: + other (worsening) Quality: + other (shortness of breath) Exacerbated By: + other (heat) Associated symptoms: + denies other symptoms (trouble with bowel movements, trouble urinating) and + other (leg swelling); no fever/chills, no loss of appetite and no nausea/vomiting The patient is a 74 year old female who presents to the Emergency Room with complaints of worsening shortness of breath starting yesterday. The patient states that she has a history of asthma. She reports that it tends to act up in the heat just when she walks outside. She states that yesterday she could feel it starting a little bit, but when she went outside today, she could here herself wheezing. She states that she checked her O2 saturations at home and it was in the 80s. She reports that this made her anxious and concerned so she came to the ED. She notes that she has been taking her inhalers and nebulizers, but didnt today because she felt that it was too bad to help. The patient notes that she wears O2 as needed at home. The patient complains of intermittent leg swelling. The patient denies fever, chills, loss of appetite, nausea, vomiting, trouble with bowel movements, trouble urinating, using daily steroids, and a cardiac history. Patient denies any recent travel or sick contact. Patient states she has had similar episodes and is previously been hospitalized for asthma. Denies prior intubation. Home Medications Home Medications Medication Instructions Recorded Confirmed Type albuterol sulfate [Ventolin HFA] 2 - 4 puff INHALATION Q6H PRN 12/30/18 03/05/19 History cholecalciferol (vitamin D3) 2,000 unit PO BID 12/30/18 03/05/19 History [Vitamin D3] diltiazem HCl [Cardizem CD] 120 mg PO QAM 12/30/18 03/05/19 History levothyroxine 175 mcg PO QAM 12/30/18 03/05/19 History loratadine 10 mg PO QAM 12/30/18 03/05/19 History losartan-hydrochlorothiazide 1 tab PO QAM 12/30/18 03/05/19 History montelukast 10 mg PO 12/30/18 03/05/19 History omega-3 fatty acids 1,000 mg 1,000 mg PO QAM 01/07/19 03/05/19 History capsule fluticasone 250 mcg-salmeterol 50 1 puffs INHALATION Q12H #60 ea 03/04/19 03/05/19 Rx mcg/dose blistr powdr for inhalation Allergies Allergy/AdvReac Type Severity Reaction Status Date / Time amoxicillin Allergy Intermediate SOB Verified 03/05/19 10:47 Penicillins Allergy Mild Verified 03/05/19 10:47 Past Med/Surg History Medical History Acute respiratory failure Asthma exacerbation (Acute) Hypoxia (Acute) Asthma, mild intermittent (Acute) Hypothyroidism (Acute) Thyroid cancer (Acute) Hypothyroidism Hypertension (Chronic) Family History Mother Kidney disease Diabetes Hypertension Colon cancer Social History Preferred Language: Marshallese Nursing Educator Required: No Beliefs That Will Affect Care: None marital status: Single Current Living Situation: Alone current occupational status: retired Feels Safe at Home: Yes Smoking Status: Never smoker Second Hand Exposure: Yes (Recent exposure at social event) ; Hx Substance Use: No Review of Systems See HPI for pertinent positives & negatives. and A total of 10 systems reviewed and were otherwise negative Physical Exam Vital Signs Vital Signs - 24 hr 03/05/19 10:32 03/05/19 12:24 03/05/19 12:35 Temperature 36.6 C Temperature Source Oral Sepsis Recent Fever Within 48 Hours No Sepsis New/Unexplained Change in Mental Status No Sepsis Action Taken by Nursing No Action Required Pulse Rate 89 Pulse Rate [Exercises] Pulse Rate [Right Finger] 86 86 Pulse Rhythm Regular Pulse Rhythm [Right Finger] Regular Pulse Strength Normal Pulse Strength [Right Finger] Normal Respiratory Rate 22 24 16 Respiratory Rate [Exercises] Respiratory Effort / Characteristics Non-Labored Spontaneous Spontaneous Non-Labored Spontaneous Respiratory Depth Normal Normal Respiratory Pattern Regular Regular Blood Pressure 182/85 H Blood Pressure [Right Arm] 168/78 H Blood Pressure Mean 117 Blood Pressure Mean [Right Arm] 108 Blood Pressure Position Sitting Blood Pressure Position [Right Arm] Pulse Oximetry 95 93 93 Pulse Oximetry [Exercises] Oxygen Delivery Method Nasal Cannula Nasal Cannula Room Air Oxygen Flow Rate 3 4 3 03/05/19 13:28 03/05/19 14:17 03/05/19 14:42 Temperature Temperature Source Sepsis Recent Fever Within 48 Hours Sepsis New/Unexplained Change in Mental Status Sepsis Action Taken by Nursing Pulse Rate Pulse Rate [Exercises] 102 H Pulse Rate [Right Finger] 26 L 102 H 78 Pulse Rhythm Pulse Rhythm [Right Finger] Regular Pulse Strength Pulse Strength [Right Finger] Normal Respiratory Rate 16 26 H 18 Respiratory Rate [Exercises] 28 H Respiratory Effort / Characteristics Non-Labored Spontaneous Non-Labored Spontaneous Non-Labored Spontaneous Respiratory Depth Normal Respiratory Pattern Regular Blood Pressure Blood Pressure [Right Arm] 204/101 H Blood Pressure Mean Blood Pressure Mean [Right Arm] 135 Blood Pressure Position Blood Pressure Position [Right Arm] Sitting Pulse Oximetry 93 93 94 Pulse Oximetry [Exercises] 85 L Oxygen Delivery Method Nasal Cannula Nasal Cannula Nasal Cannula Oxygen Flow Rate 2 2 3 03/05/19 15:44 Temperature Temperature Source Sepsis Recent Fever Within 48 Hours Sepsis New/Unexplained Change in Mental Status Sepsis Action Taken by Nursing Pulse Rate Pulse Rate [Exercises] Pulse Rate [Right Finger] 88 Pulse Rhythm Pulse Rhythm [Right Finger] Pulse Strength Pulse Strength [Right Finger] Respiratory Rate 19 Respiratory Rate [Exercises] Respiratory Effort / Characteristics Respiratory Depth Respiratory Pattern Blood Pressure Blood Pressure [Right Arm] 150/87 H Blood Pressure Mean Blood Pressure Mean [Right Arm] 108 Blood Pressure Position Blood Pressure Position [Right Arm] Pulse Oximetry 95 Pulse Oximetry [Exercises] Oxygen Delivery Method Nasal Cannula Oxygen Flow Rate 3 GENERAL: alert, well appearing, well nourished, no distress, non-toxic, speaking in full sentences EYE EXAM: normal conjunctiva, PERRL and EOM's grossly intact OROPHARYNX: no exudate, no erythema, lips, buccal mucosa, and tongue normal and mucous membranes are moist NECK: supple, no nuchal rigidity, no adenopathy, non-tender LUNGS: Diminished breath sounds bilaterally. Normal chest wall mechanics. Faint expiratory wheeze on the left, no rales or rhonchi. HEART: no murmurs, S1 normal and S2 normal ABDOMEN: abdomen soft, non-tender, normo-active bowel sounds, no masses, no rebound or guarding. BACK: Back is symmetrical on inspection and there is no deformity, no midline tenderness, no CVA tenderness. SKIN: no bruising. Chronic appearing mild erythema to bilateral lower extremities. Not warm to touch. No petechiae. No ulcerative lesions. UPPER EXTREMITIES: upper extremities are grossly normal. FROM, nml pulses b/l. LOWER EXTREMITIES: Trace lower extremity edema. FROM, nml pulses b/l. NEURO EXAM: Normal sensorium, cranial nerves II-XII grossly intact, normal speech, no gross weakness of arms, no gross weakness of legs. Course 1204: Past medical records reviewed. The patient was evaluated in room B11B. A complete history and physical exam was performed. 1254: I reevaluated the patient and on repeat exam, her lung exam has greatly improved. She states that she is feeling better. She is going to do an ambulatory trial. 1526: Upon reevaluation, the patient's O2 saturations dropped significantly on her ambulatory trial. I discussed findings and results with her. She verbalized agreement of the treatment plan. 1421: I discussed the patient's case with Dr. Joanne LEMA Hospitalist. She isaias l evaluate the patient for further management. Consultations Consultation #1: I discussed the patient's case with Dr. Joanne LEMA Hospitalist. She will evaluate the patient for further management. Time: 14:21 Administered Medications Enoxaparin Sodium (Lovenox) 40 mg SQ Q24H ANDREW Stop: 04/04/19 17:59 Last Admin: 03/05/19 19:01 Dose: 40 mg Documented by: [id number] Sodium Chloride (Nss 1000ml) 1,000 mls @ 80 mls/hr IV .[id number] ANDREW Stop: 04/04/19 16:59 Last Admin: 03/05/19 17:32 Dose: 80 mls/hr Documented by: [id number] Fluticasone/Salmeterol (Advair Diskus 250/50) 1 puffs INH Q12H ANDREW Stop: 04/04/19 16:59 Last Admin: 03/05/19 19:00 Dose: 1 puffs Documented by: [id number] Discontinued Medications Albuterol (Duoneb) 3 ml NEB NOW STA Stop: 03/05/19 12:26 Last Admin: 03/05/19 12:33 Dose: 3 ml Documented by: [id number] Albuterol (Duoneb) 3 ml NEB NOW STA Stop: 03/05/19 13:00 Last Admin: 03/05/19 13:28 Dose: 3 ml Documented by: [id number] Albuterol (Duoneb) 3 ml NEB NOW STA Stop: 03/05/19 14:21 Last Admin: 03/05/19 14:42 Dose: 3 ml Documented by: [id number] Magnesium Sulfate/Dextrose (Magnesium Sulfate / D5w) 1 gm in 100 mls @ 100 mls/hr IV ONE ONE Stop: 03/05/19 13:24 Last Infusion: 03/05/19 13:33 Dose: 0 mls/hr Documented by: [id number] Admin: 03/05/19 12:33 Dose: 100 mls/hr Documented by: [id number] Methylprednisolone (Solumedrol) 60 mg IV NOW STA Stop: 03/05/19 12:28 Last Admin: 03/05/19 12:42 Dose: 60 mg Documented by: [id number] Medical Decision Making Differential Diagnosis Differential diagnoses includes but is not limited to pneumonia, bronchitis, COPD/Asthma exacerbation, pneumothorax, pulmonary embolism, congestive heart failure, acute coronary syndrome Medical Records Attestation: I reviewed the patient's medical records. Home Medications Current Medication List: was personally reviewed by me Laboratory Data Attestation: I reviewed the patient's lab results. Result diagrams: 03/05/19 11:41 03/05/19 11:41 Lab Results 03/05/19 03/05/19 03/05/19 Range/Units 11:41 11:41 11:41 WBC 8.34 (4.8-10.8) K/uL RBC 4.33 (4.2-5.4) M/uL Hgb 13.6 (12.0-16.0) g/dL Hct 40.6 (37-47) % MCV 93.8 (80-100) fL MCH 31.4 (25-34) pg MCHC 33.5 (32-36) g/dL RDW Std Deviation 46.5 H (36.4-46.3) fL RDW Coeff of Chasidy 13.6 (11.5-14.5) % Plt Count 300 (130-400) K/uL MPV 9.0 (7.4-10.4) fL Immature Gran % (Auto) 0.2 % Neut % (Auto) 62.7 % Lymph % (Auto) 16.9 % [place] % (Auto) 10.4 % Eos % (Auto) 9.6 % Baso % (Auto) 0.2 % Immature Gran # (Auto) 0.02 (0.00-0.02) K/uL Neut # (Auto) 5.22 (1.4-6.5) K/uL Lymph # (Auto) 1.41 (1.2-3.4) K/uL [place] # (Auto) 0.87 H (0.11-0.59) K/uL Eos # (Auto) 0.80 H (0-0.5) K/uL Baso # (Auto) 0.02 (0-0.2) K/uL PT 10.2 (9.0-12.0) Seconds INR 1.0 (0.9-1.1) APTT 25.7 (21.0-31.0) Seconds PTT Ratio 0.9 Sodium 144 (136-145) mmol/L Potassium 3.4 L (3.5-5.1) mmol/L Chloride 110 H (98-107) mmol/L Carbon Dioxide 28 (21-32) mmol/L Anion Gap 6.0 (3-11) BUN 14 (7-18) mg/dl Creatinine 0.79 (0.6-1.2) mg/dl Est Cr Clr Drug Dosing 57.4 ml/min Est GFR ( Amer) 86.7 Est GFR (Non-Af Amer) 74.8 BUN/Creatinine Ratio 17.3 (10-20) Glucose 95 (70-99) mg/dl Calcium 9.2 (8.5-10.1) mg/dl Total Bilirubin 0.5 (0.2-1) mg/dl AST 19 (15-37) U/L ALT 29 (12-78) U/L Alkaline Phosphatase 99 (45-117) U/L Troponin I < 0.015 (0-0.045) ng/ml NT-Pro-B Natriuret Pep (0-900) pg/ml Total Protein 7.0 (6.4-8.2) gm/dl Albumin 3.4 (3.4-5.0) gm/dl Globulin 3.6 (2.5-4.0) gm/dl Albumin/Globulin Ratio 0.9 (0.9-2) 03/05/19 Range/Units 11:41 WBC (4.8-10.8) K/uL RBC (4.2-5.4) M/uL Hgb (12.0-16.0) g/dL Hct (37-47) % MCV (80-100) fL MCH (25-34) pg MCHC (32-36) g/dL RDW Std Deviation (36.4-46.3) fL RDW Coeff of Chasidy (11.5-14.5) % Plt Count (130-400) K/uL MPV (7.4-10.4) fL Immature Gran % (Auto) % Neut % (Auto) % Lymph % (Auto) % [place] % (Auto) % Eos % (Auto) % Baso % (Auto) % Immature Gran # (Auto) (0.00-0.02) K/uL Neut # (Auto) (1.4-6.5) K/uL Lymph # (Auto) (1.2-3.4) K/uL [place] # (Auto) (0.11-0.59) K/uL Eos # (Auto) (0-0.5) K/uL Baso # (Auto) (0-0.2) K/uL PT (9.0-12.0) Seconds INR (0.9-1.1) APTT (21.0-31.0) Seconds PTT Ratio Sodium (136-145) mmol/L Potassium (3.5-5.1) mmol/L Chloride (98-107) mmol/L Carbon Dioxide (21-32) mmol/L Anion Gap (3-11) BUN (7-18) mg/dl Creatinine (0.6-1.2) mg/dl Est Cr Clr Drug Dosing ml/min Est GFR ( Amer) Est GFR (Non-Af Amer) BUN/Creatinine Ratio (10-20) Glucose (70-99) mg/dl Calcium (8.5-10.1) mg/dl Total Bilirubin (0.2-1) mg/dl AST (15-37) U/L ALT (12-78) U/L Alkaline Phosphatase (45-117) U/L Troponin I (0-0.045) ng/ml NT-Pro-B Natriuret Pep 89 (0-900) pg/ml Total Protein (6.4-8.2) gm/dl Albumin (3.4-5.0) gm/dl Globulin (2.5-4.0) gm/dl Albumin/Globulin Ratio (0.9-2) Imaging Data Radiologist's Impression: Radiology results as stated below per my review and the radiologist's interpretation: XR chest 1V portable HISTORY: 74 years-old Female SOB, Wheezing acute shortness of breath with wheezing COMPARISON: Chest radiograph 12/30/2018 TECHNIQUE: Portable AP view of the chest FINDINGS: Cardiomediastinal and hilar silhouettes are unchanged. Mild right hemidiaphragmatic elevation. Blunting of the costophrenic angles redemonstrated, likely secondary to atelectasis. No pneumothorax, definite pleural effusion, focal airspace consolidation or overt pulmonary edema. Degenerative changes of the shoulders and spine with left shoulder rotator cuff calcific tendinosis. IMPRESSION: No acute process. The above report was generated using voice recognition software. It may contain grammatical, syntax or spelling errors. Electronically signed by: Lorne Adhikari M.D. 03/05/2019 11:01 AM ECG Data Attestation: I personally reviewed and interpreted this ECG as follows: Indication: SOB/dyspnea Rate (beats per minute): 85 Rhythm: sinus rhythm Findings: + other (normal intervals) and + left axis deviation; no PAC, no PVC, no ST depression, no ST elevation, no acute ischemic change and no ectopy Blood Pressure Blood Pressure Findings: Elevated blood pressure Blood Pressure Disposition: further management by hospitalist [facility] Narrative Patient here well-appearing despite complaints, however increased work of b reathing and hypoxia noted with any exertion or ambulation. Patient with a prior similar history and presentation back in November for which she was admitted. Patient states this is similar to prior asthma exacerbations. Patient states weather changes and hot and humid air will exacerbate her asthma as well chemicals and fumes or perfumes. Patient does not take daily steroids. Patient has oxygen at home as needed which she has been using more frequently recently due to her perceived air hunger. Patient has been using her MDI at home without success. Patient states she has had a slightly increased cough, although not significantly productive, denies fevers and chills. Patient responded well here to nebulizer treatments, IV magnesium, and IV steroids. Patient's other labs and imaging reassuring. Unfortunately, with any exertion patient still has significant hypoxemia even on her usual home oxygen amount. Due to concern for this, case was discussed with hospitalist for additional evaluation management. She did not require any additional BiPAP while in the emergency room. I do not suspect occult cardiac etiology, no evidence of CHF. I do not suspect PE. I do not suspect bacteremia/sepsis. No evidence of infiltrate or effusion on chest x-ray. Patient made aware of all results and was in agreement with plan. Impression & Plan Asthma exacerbation, Hypoxia Discharge Plan Visit Data *Final* Discharge Date/Time: 03/05/19 16:07 Chief Complaint: Shortness of Breath/Dyspnea Stated Complaint: sob ED Provider: [facility] Discharge Problem: Asthma exacerbation, Hypoxia Patient Disposition: Admitted As Inpatient Discharge Instructions Interventions: ED Discharge Assessment Last Done: 03/05/19 16:07 The scribe's documentation has been prepared under my direction and personally reviewed by me in its entirety. I confirm that the note above accurately reflects all work, treatment, procedures, and medical decision making performed by me.
[2019-03-05] MEDS ORDERED: MONTELUKAST SODIUM 10 MG TABLET PO SCH (21:00)
[2019-03-05] MEDS: methylPREDNISolone 40 MG in SYRINGE 0 ML IV SCH (21:08)
[2019-03-05] MEDS: CHOLECALCIFEROL 1,000 UNITS TAB PO SCH (21:08)
[2019-03-06] MEDS: FLUTICASONE/SALMETEROL 250/50 (ADVAIR) 14 PUFF/1 INHALER INH SCH (04:56)
[2019-03-06] MEDS: SODIUM CHLORIDE 0.9% 1000ML 1,000 ML IV SCH (04:57)
[2019-03-06] MEDS ORDERED: LEVOTHYROXINE SODIUM 175 MCG TABLET PO SCH (06:30)
[2019-03-06 06:47] LABS: Hematocrit (blood only) 38.8 % (37-47); Hemoglobin 13.1 g/dL (12.0-16.0); Immature Granulocytes # (auto) 0.02 K/uL (0.00-0.02); Immature Granulocytes % (auto) 0.2 %; Lymphocytes # (auto) 0.61 K/uL (1.2-3.4); Lymphocytes % (auto) 6.8 %; Mean Corpuscular Hgb Conc 33.8 g/dL (32-36); Mean Platelet Volume 9.2 fL (7.4-10.4); Monocytes # (auto) 0.15 K/uL (0.11-0.59); Monocytes % (auto) 1.7 %; Neutrophils # (auto) 8.16 K/uL (1.4-6.5); Neutrophils % (auto) 91.3 %; Platelet Count 278 K/uL (130-400); RDW Coefficient of Variation 13.6 % (11.5-14.5); RDW Standard Deviation 46.5 fL (36.4-46.3); Red Blood Count 4.17 M/uL (4.2-5.4); White Blood Count 8.94 K/uL (4.8-10.8)
[2019-03-06 07:15] VITALS: TEMP 97.5
[2019-03-06] MEDS: CHOLECALCIFEROL 1,000 UNITS TAB PO SCH (07:18)
[2019-03-06] MEDS: methylPREDNISolone 40 MG in SYRINGE 0 ML IV SCH (07:19)
[2019-03-06 07:28] LABS: Albumin Level 3.3 gm/dl (3.4-5.0); BUN Creatinine Ratio 18.9 (10-20); Calcium 9.4 mg/dl (8.5-10.1); Creatinine Clr Calc Pharmacy 59.6 ml/min; Est GFR (African American) 78.2; Est GFR (Non-African American) 67.5; Potassium 3.6 mmol/L (3.5-5.1)
[2019-03-06 07:33] LABS: Albumin Globulin Ratio 0.9 (0.9-2); Bilirubin,Total 0.3 mg/dl (0.2-1); Globulin 3.7 gm/dl (2.5-4.0)
[2019-03-06] MEDS ORDERED: LOSARTAN/HCTZ 50/12.5MG TAB PO SCH (09:00)
[2019-03-06] MEDS ORDERED: OMEGA-3 (PURIFIED FISH OIL) 1 GM CAP PO SCH (09:00)
[2019-03-06] MEDS ORDERED: dilTIAZem HCL 120 MG CAPCR PO SCH (09:00)
[2019-03-06] MEDS ORDERED: LORATADINE 10 MG TAB PO SCH (09:00)
[2019-03-06] MEDS ORDERED: predniSONE 50 MG TAB PO ONE (10:30)
--- NOTE | 2019-03-06 11:30 | Discharge Summary ---
Date of Service March 06, 2019 Admission HPI Per Admitting Provider 74 years old female with past medical history of asthma, hypothyroidism, diarrhea, cancer, hypertension, endometrial cancer presents to the emergency room with complaint of shortness of breath that has been ongoing for 2 to 3 days. Patient said that she is short of breath at rest and that she has oxygen at home which she is using as needed. Patient denies fever chills chest pain abdominal pain urgency frequency hemoptysis and or any other issue. Patient said that nothing helps or worsen her condition and she continued to have a dry cough and shortness of breath while at home. At home patient usually uses her Ventolin 2 to 4 puffs every 6 hours as needed as well and is fluticasone salmeterol 1 puff every 12 hours. But that did not help. Patient received in the ER 3 rounds of DuoNeb's magnesium 1 g IV and methylprednisolone 60 mg IV as well as Zofran 4 mg IV. Patient condition did not improve and she continued to be short of breath without oxygen her oxygenation was only 81% on room air. Laboratory is reviewed Patient labs were reviewed which showed viable cell count of 8.34, hemoglobin 13.6 hematocrit 40.6 platelets 300Chemistry sodium 144, potassium 3.4, chloride 110, CO2 28, BUN 14, creatinine 0.79, GFR 57.4 AST 19 ALT 29 random glucose 95. Chest x-rays showed no acute cardiopulmonary process Admission Exam Per Admitting Provider Constitutional: WD/WN, vitals as above well developed and + obese Eyes: PERRL, conjunctivae normal, anicteric sclerae ENMT: external ear and nose normal, oropharynx normal Neck: trachea midline, no thyromegaly Respiratory: + respiratory distress, + cough and + tachypneic Auscultation: + wheezes and + egophony 81% on room air. Needs 3 L to be above 92% through nasal cannula Cardiovascular: RRR, no murmur, no edema Chest (Breasts): normal inspection/palpation of breasts Gastrointestinal (Abdomen): normal bowel sounds, soft, nontender, no hepatosplenomegaly Musculoskeletal: no cyanosis or clubbing, extremities motor strength 5/5 Skin: no rashes, warm and dry Neurologic: patellar DTR's 2+ bilat, sensation intact Psychiatric: A+Ox3, euthymic affect Genitourinary: no vaginal lesions, no adnexal mass Lymphatic: no cervical or axillary lymphadenopathy Principal Diagnosis Asthma exacerbation Discharge Exam Constitutional WD/WN, vitals as above Eyes PERRL, conjunctivae normal, anicteric sclerae ENMT external ear and nose normal, oropharynx normal Neck trachea midline, no thyromegaly Respiratory normal respiratory effort, lungs clear to auscultation (no wheezing anteriorly or posteriorly) Cardiovascular RRR, no murmur, no edema Gastrointestinal (Abdomen) normal bowel sounds, soft, nontender, no hepatosplenomegaly Musculoskeletal no cyanosis or clubbing, extremities motor strength 5/5 Skin no rashes, warm and dry Neurologic patellar DTR's 2+ bilat, sensation intact and PERRL, EOMI, accommodation nl, no face palsy, no dysarthria Psychiatric A+Ox3, euthymic affect Lymphatic no cervical or axillary lymphadenopathy Discharge Data Allergies Allergy/AdvReac Type Severity Reaction Status Date / Time amoxicillin Allergy Intermediate SOB Verified 03/05/19 10:47 Penicillins Allergy Mild Verified 03/05/19 10:47 Consultations 03/05/19 14:35 ED Decision to Admit Stat Procedures Performed none Ordered Studies XR chest 1V portable HISTORY: 74 years-old Female SOB, Wheezing acute shortness of breath with wheezing COMPARISON: Chest radiograph 12/30/2018 TECHNIQUE: Portable AP view of the chest FINDINGS: Cardiomediastinal and hilar silhouettes are unchanged. Mild right hemidiaphragmatic elevation. Blunting of the costophrenic angles redemonstrated, likely secondary to atelectasis. No pneumothorax, definite pleural effusion, focal airspace consolidation or overt pulmonary edema. Degenerative changes of the shoulders and spine with left shoulder rotator cuff calcific tendinosis. IMPRESSION: No acute process. Hospital Course (1) Asthma exacerbation: excellent response to Solu Medrol and Zithromax and nebulizers breathing easy, at least 50% improved if no more per patient no cough she was able to ambulate from chair to bathroom without oxygen, no dyspnea she says that she wears 2L NC at home so she is at baseline lungs clear on exam, CXR was normal on admission will d/c home on Prednisone 50mg daily, taper by 10mg every 2 days until finished Zithromax 250mg daily x 4 more doses she says she has nebulized albuterol at home, she should use four times a day scheduled for the next 3-4 days then PRN continue on Advair, Loratadine, Montelukast follow up with PCP in one week (2) Acute respiratory failure: due to asthma exacerbation no longer in respiratory distress, speaking in full sentences, ambulating without dyspnea on home dose of oxygen at 2L, saturations > 90% (3) Hypoxia: resolved (4) Thyroid cancer: Stable , no issues at this time (5) Hypothyroidism: TSH in December 0.34 -Continue home dose of levothyroxine 175 MCG's daily p.o. can follow with PCP (6) Hypertension: Stable, continue losartan hydrochlorothiazide, diltiazem 120 mg p.o. Total Time Total Time Spent Total Time Spent (In Minutes): 35 minutes Total Time Includes: Examination of the Patient, Discharge Planning and Medication Reconciliation Discharge Plan Discharge Items Patient Disposition: Hospice - Home Reason For Visit: ACUTE RESPIRATORY FAILURE,ACUTE COPD EXACERBATION Discharge Diagnosis: Asthma exacerbation Condition: Good Discharge Goals: Improve disease control and Improve function Activity: Resume your previous activity Non-emergency contact: Primary Care Provider Call non-emergency contact if: you have any medication questions, your symptoms worsen and you have a fever Follow-up/Referrals: Keshawn Mcgregor MD [Primary Care Provider] - Diet: Heart Healthy Addtl Provider Instructions: Medications: - AZITHROMYCIN: take 250mg tablet daily x 4 more days - PREDNISONE: taper as follows, start tomorrow with 50mg (5 tablets) daily x 2 days, then decrease by 10mg every two days, thus... 50mg x 2 days, 40mg x 2 days, 30mg x 2 days, 20mg x 2 days and 10mg x 2 days Asthma exacerbation excellent response to Solu Medrol (IV steroid) and antibiotics and nebulizers discharge home on Prednisone taper as above complete 4 days of Azithromycin recommend using nebulizer four times a day for the next 2-3 days and then use as needed continue to use Advair and Montelukast and Loratadine as prescribed FOLLOW UP - Dr. Mcgregor's office next week, call for appt, request hospital follow up Prescriptions: New azithromycin [Zithromax] 250 mg Tablet 250 mg PO DAILY 4 Days Qty: 4 RF: 0 prednisone 10 mg tablet 10 mg PO UD 10 Days Qty: 30 RF: 0 Continued fluticasone propion-salmeterol [Advair Diskus] 250-50 mcg/dose blister with device 1 puffs inhalation Q12H Qty: 60 RF: 5 omega-3 fatty acids [Fish Oil Concentrate] 1,000 mg capsule 1,000 mg PO QAM RF: 0 levothyroxine 175 mcg tablet 175 mcg PO QAM RF: 0 losartan-hydrochlorothiazide 100-25 mg tablet 1 tab PO QAM RF: 0 diltiazem HCl [Cardizem CD] 120 mg capsule,extended release 24hr 120 mg PO QAM RF: 0 montelukast 10 mg tablet 10 mg PO HS RF: 0 albuterol sulfate [Ventolin HFA] 90 mcg/actuation HFA aerosol inhaler 2 - 4 puff inhalation Q6H PRN (Reason: Shortness Of Breath) RF: 0 loratadine 10 mg Tablet 10 mg PO QAM RF: 0 cholecalciferol (vitamin D3) [Vitamin D3] 2,000 unit Capsule 2,000 unit PO BID RF: 0 Stand-Alone Forms: [facility] Discharge Orders: Discharge Order (Routine); Ordered 03/06/19 Ordered By: Fer Cerda Admission Data Admit Date/Time: 03/05/19 15:51 Attending Provider: Fer Cerda Admit Provider: Kushal Mitchell Primary Care Provider: Keshawn Mcgregor Other Providers: Kushal Mitchell Service: Telemetry Medical
[2019-03-06 11:52] VITALS: BP 160/85; PULSE 101; O2SAT 93
[2019-03-06] MEDS ORDERED: AZITHROMYCIN 250 MG TAB PO SCH (19:00)
== END 2019-03-06 15:32 | disposition hospice, home (50) ==
LOC: ED 10:23 → 2N 10:23 → SUATTDRO 15:51 → 2N 16:07

== ENCOUNTER 2019-11-30 22:35 | Inpatient (IN) ==
[2019-11-30] MEDS ORDERED: ALBUT/IPRATROP 3MG/0.5MG NEB 3 ML VIAL ONE (22:48)
[2019-11-30] MEDS ORDERED: methylPREDNISolone 125 MG/2 ML VIAL IV STA (22:51)
[2019-11-30] MEDS ORDERED: ALBUT/IPRATROP 3MG/0.5MG NEB 3 ML VIAL NEB ONE (22:51)
[2019-11-30 23:39] LABS: Basophils # (auto) 0.04 K/uL (0-0.2); Basophils % (auto) 0.3 %; Eosinophils # (auto) 0.63 K/uL (0-0.5); Eosinophils % (auto) 4.4 %; Hematocrit (blood only) 42.5 % (37-47); Hemoglobin 14.5 g/dL (12.0-16.0); Immature Granulocytes # (auto) 0.07 K/uL (0.00-0.02); Immature Granulocytes % (auto) 0.5 %; Lymphocytes # (auto) 2.58 K/uL (1.2-3.4); Lymphocytes % (auto) 17.9 %; Mean Corpuscular Hemoglobin 31.6 pg (25-34); Mean Corpuscular Hgb Conc 34.1 g/dL (32-36); Mean Corpuscular Volume 92.6 fL (80-100); Mean Platelet Volume 9.3 fL (7.4-10.4); Monocytes # (auto) 1.26 K/uL (0.11-0.59); Monocytes % (auto) 8.8 %; Neutrophils # (auto) 9.81 K/uL (1.4-6.5); Neutrophils % (auto) 68.1 %; Platelet Count 340 K/uL (130-400); RDW Coefficient of Variation 13.8 % (11.5-14.5); RDW Standard Deviation 46.2 fL (36.4-46.3); Red Blood Count 4.59 M/uL (4.2-5.4); White Blood Count 14.39 K/uL (4.8-10.8)
[2019-11-30 23:50] LABS: Partial Thromboplastin Time 27.5 Seconds (21.0-31.0)
[2019-11-30 23:58] LABS: Alanine Aminotransferase 26 U/L (12-78); Albumin Level 3.5 gm/dl (3.4-5.0); Aspartate Aminotransferase 13 U/L (15-37); BUN Creatinine Ratio 14.9 (10-20); Blood Urea Nitrogen 16 mg/dl (7-18); Calcium 9.6 mg/dl (8.5-10.1); Carbon Dioxide 27 mmol/L (21-32); Chloride 109 mmol/L (98-107); Creatinine Clr Calc Pharmacy 46.4 ml/min; Est GFR (African American) 58.1; Est GFR (Non-African American) 50.1; Glucose 144 mg/dl (70-99); Lipase 106 U/L (73-393); Magnesium 1.8 mg/dl (1.8-2.4); Potassium 3.5 mmol/L (3.5-5.1); Sodium 143 mmol/L (136-145)
[2019-12-01 00:03] LABS: Albumin Globulin Ratio 0.9 (0.9-2); Alkaline Phosphatase 113 U/L (45-117); Bilirubin,Total 0.4 mg/dl (0.2-1); Globulin 3.9 gm/dl (2.5-4.0); NT Pro B Type Natriuretic Pept 75 pg/ml (0-900); Phosphorus 3.3 mg/dl (2.5-4.9); Total Protein 7.4 gm/dl (6.4-8.2); Troponin I < 0.015 ng/ml (0-0.045)
--- NOTE | 2019-12-01 01:05 | Emergency Department Note ---
Impression & Plan Acute bronchitis, Asthma exacerbation, Leukocytosis, Hypoxia ED Provider Note NAME: VANESA CALHOUN AGE: 74 SEX: F ARRIVES VIA: Ambulance INFORMANT: Patient, ED PROVIDER(S): Quintin Gant MD CHIEF COMPLAINT: Shortness of breath and wheezing. PLAN: Disposition: Admit MEDICAL DECISION MAKING: The patient is a pleasant 74-year-old woman with a past medical history of asthma, hypothyroidism, hypertension who presents emergency department acute onset of shortness of breath and wheezing that began this evening around 9 PM. The patient reports feeling healthy prior to today denies fevers, chills, nausea, vomiting, diarrhea, urinary symptoms. The patient reports she has been adhering strictly to home isolation and the current pandemic. She denies any travel to high risk areas of minimal novel coronavirus or contact with dara viduals known to be diagnosed with COVID-19. On arrival the patient is uncomfortable, mildly dyspneic but no acute distress, afebrile with stable vital signs. On exam the patient has diminished breath sounds throughout with scattered wheezes. EKG without overt acute ischemia and is similar to prior. Chest x-ray without focal infiltrates per my preliminary review. WBC 14.3, nonspecific. H/H and platelets within normal limits. Chemistry without acidosis. Electrolytes and LFTs unremarkable. Troponin negative/undetectable. BNP within normal limits. Patient reported she did feel improvement after initial treatment with continuous DuoNeb and steroids. However she still has persistent wheezing. When asked if she felt improved and close enough to her baseline to go home she did feel she was still far from her baseline and felt as though she could benefit from being admitted to further control her symptoms. Given the patient's history of lung disease in the setting of increased oxygen requirement from her usual reasonable to admit the patient for further management. Will treat with doxycycline for now for possible bronchitis provoking her symptoms. Case was discussed with Dr. Pandey, [facility] hospitalist, who will evaluate the patient for admission. Triage Nursing notes reviewed and agree them. Prior medical records reviewed Vital Signs: reviewed and remarkable for no significant abnormalities Differential diagnosis: Reactive airway disease, pneumonia, pneumothorax, COPD, CHF, infections, cardiac ischemia, pulmonary embolism, musculoskeletal, gastrointestinal, as well as other pathologies. ER treatment provided: See below. Diagnostics interpreted by me: ECG: Normal sinus rhythm, left axis deviation, 96 bpm, no ectopy, no overt ST elevation or depression, QTC 449, QRS 70. Similar to 03/05/2019. Cardiac Monitoring: An order for continuous cardiac monitoring was placed and demonstrated normal sinus rhythm, 96 bpm, no ectopy. Laboratory studies: See below Imaging studies: See below Consultation(s): Case was discussed with Dr. Pandey, [facility] hospitalist, who will evaluate the patient for admission. HPI: The patient is a pleasant 74-year-old woman with a past medical history of asthma, hypothyroidism, hypertension who presents emergency department acute onset of shortness of breath and wheezing that began this evening around 9 PM. The patient reports feeling healthy prior to today denies fevers, chills, nausea, vomiting, diarrhea, urinary symptoms. The patient reports she has been adhering strictly to home isolation and the current pandemic. She denies any travel to high risk areas of minimal novel coronavirus or contact with individuals known to be diagnosed with COVID-19. ROS: See above HPI for pertinent positives & negatives. A total of 10 systems reviewed and were otherwise negative. PAST MEDICAL HISTORY:See Below PAST SURGICAL HISTORY:See Below FAMILY HISTORY:See Below SOCIAL HISTORY:See Below HOME MEDICATIONS:See Below ALLERGIES:See Below VITALS:See Below PHYSICAL EXAMINATION: GENERAL: Awake, alert, uncomfortable-appearing, in no distress HENT: Normocephalic, atraumatic. Oropharynx with dry mucous membranes and oth erwise unremarkable. EYES: Normal conjunctiva. Sclera non-icteric. NECK: Supple. No nuchal rigidity. FROM. No JVD. RESPIRATORY: Clear to auscultation. CARDIAC: Tachycardic rate, normal rhythm. Extremities warm and well perfused. Pulses equal. ABDOMEN: Soft, non-distended. No tenderness to palpation. No rebound or guarding. No masses. RECTAL: Deferred. MUSCULOSKELETAL: Chest examination reveals no tenderness. The back is symmetrical on inspection without obvious abnormality. There is no CVA tend erness to palpation. No joint edema. LOWER EXTREMITIES: Calves are equal size bilaterally and non-tender. Scant BLE edema (patient's reports this is baseline). No discoloration. NEURO: Normal sensorium. No sensory or motor deficits noted. SKIN: No rash or jaundice noted. Quintin Gant MD Past Med/Surg History Medical History Acute respiratory failure Acute respiratory failure with hypoxia (Inactive) Allergic rhinitis Asthma exacerbation (Chronic) Asthma, mild intermittent (Chronic) Asthmatic bronchitis with acute exacerbation Endometrial cancer determined by uterine biopsy H/O allergy to penicillin History of colon polyps (Inactive) Hyperparathyroidism (Inactive) Hypertension (Chronic) Hypothyroidism (Chronic) Thyroid cancer (Inactive) Surgical History H/O bilateral oophorectomy H/O thyroidectomy H/O: hysterectomy Family History Mother Kidney disease Diabetes Hypertension Colon cancer Brother Arthritis Hypertension Father Colorectal cancer Sister Dyslipidemia Hypertension Social History Preferred Language: Bulgarian Communication Ability: Effective Underwriting Clerk Required: No Beliefs That Will Affect Care: None marital status: Single Current Living Situation: Alone current occupational status: retired Feels Safe at Home: Yes Smoking Status: Never smoker Second Hand Exposure: Yes (Recent exposure at social event) ; Hx Alcohol Use: Yes Hx Substance Use: No Seatbelt Use: always Allergies Allergies Allergy/AdvReac Type Severity Reaction Status Date / Time amoxicillin Allergy Intermediate SOB Verified 11/30/19 23:56 Penicillins Allergy Mild Verified 11/30/19 23:56 Home Meds Home Medications Medication Instructions Recorded Confirmed diltiazem HCl [Cardizem CD] 120 mg PO QAM 12/30/18 11/30/19 loratadine 10 mg PO QAM 12/30/18 11/30/19 omega-3 fatty acids 1,000 mg 1,000 mg PO QAM 01/07/19 11/30/19 capsule cholecalciferol (vitamin D3) 50 2,000 unit PO DAILY cap 03/12/19 11/30/19 mcg (2,000 unit) capsule budesonide-formoterol HFA 160 2 puffs INH BID 09/17/19 09/17/19 mcg-4.5 mcg/actuation aerosol inhaler Previous Rx's Medication Instructions Recorded albuterol sulfate 90 mcg/actuation 2 puffs INHALATION .COMPLEX PRN 11/02/19 aerosol inhaler #18 gm losartan 100 1 tab PO QAM #90 tab 11/12/19 mg-hydrochlorothiazide 25 mg tablet levothyroxine 175 mcg tablet 175 mcg PO QAM #90 tab 04/27/20 umeclidinium 62.5 mcg/actuation 1 puffs INH DAILY #30 ea 11/23/19 blister powder for inhalation Results & Data (ED) Vital Signs Vital Signs - 24 hr 11/30/19 22:45 11/30/19 22:54 11/30/19 22:55 Temperature 37.0 C Temperature Source Oral Pulse Rate 105 H Pulse Rate [Right Finger] Pulse Rate from SpO2 Sensor Respiratory Rate 12 Respiratory Effort / Characteristics Non-Labored Spontaneous Respiratory Depth Normal Blood Pressure 195/98 H Blood Pressure Mean 130 Pulse Oximetry 96 88 L 95 Oxygen Delivery Method Nasal Cannula Room Air Nasal Cannula Oxygen Flow Rate 2 2 Sepsis Action Taken by Nursing No Action Required Oxygen Flow Rate - Titration 2 Pulse Oximetry Post Tiitration 95 11/30/19 23:06 12/01/19 00:01 12/01/19 01:00 Temperature Temperature Source Pulse Rate 103 H 92 H Pulse Rate [Right Finger] 98 H Pulse Rate from SpO2 Sensor 105 H 92 H Respiratory Rate 23 24 19 Respiratory Effort / Characteristics Non-Labored Respiratory Depth Blood Pressure 153/97 H 124/69 Blood Pressure Mean 100 85 Pulse Oximetry 96 96 92 Oxygen Delivery Method Nasal Cannula Nasal Cannula Nasal Cannula Oxygen Flow Rate 2 2 2 Sepsis Action Taken by Nursing Oxygen Flow Rate - Titration Pulse Oximetry Post Tiitration 12/01/19 01:30 Temperature Temperature Source Pulse Rate 95 H Pulse Rate [Right Finger] Pulse Rate from SpO2 Sensor 95 H Respiratory Rate 18 Respiratory Effort / Characteristics Respiratory Depth Blood Pressure 152/88 H Blood Pressure Mean 105 Pulse Oximetry 95 Oxygen Delivery Method Nasal Cannula Oxygen Flow Rate 2 Sepsis Action Taken by Nursing Oxygen Flow Rate - Titration Pulse Oximetry Post Tiitration Laboratory Data Attestation: I reviewed the patient's lab results. Result diagrams: 11/30/19 23:31 11/30/19 23:31 Lab Results 11/30/19 11/30/19 11/30/19 Range/Units 23:31 23:31 23:31 WBC 14.39 H (4.8-10.8) K/uL RBC 4.59 (4.2-5.4) M/uL Hgb 14.5 (12.0-16.0) g/dL Hct 42.5 (37-47) % MCV 92.6 (80-100) fL MCH 31.6 (25-34) pg MCHC 34.1 (32-36) g/dL RDW Std Deviation 46.2 (36.4-46.3) fL RDW Coeff of Chasidy 13.8 (11.5-14.5) % Plt Count 340 (130-400) K/uL MPV 9.3 (7.4-10.4) fL Immature Gran % (Auto) 0.5 % Neut % (Auto) 68.1 % Lymph % (Auto) 17.9 % Union % (Auto) 8.8 % Eos % (Auto) 4.4 % Baso % (Auto) 0.3 % Immature Gran # (Auto) 0.07 H (0.00-0.02) K/uL Neut # (Auto) 9.81 H (1.4-6.5) K/uL Lymph # (Auto) 2.58 (1.2-3.4) K/uL Union # (Auto) 1.26 H (0.11-0.59) K/uL Eos # (Auto) 0.63 H (0-0.5) K/uL Baso # (Auto) 0.04 (0-0.2) K/uL PT 11.0 (9.0-12.0) Seconds INR 1.0 (0.9-1.1) APTT 27.5 (21.0-31.0) Seconds PTT Ratio 1.0 Sodium 143 (136-145) mmol/L Potassium 3.5 (3.5-5.1) mmol/L Chloride 109 H (98-107) mmol/L Carbon Dioxide 27 (21-32) mmol/L Anion Gap 7.0 (3-11) BUN 16 (7-18) mg/dl Creatinine 1.10 (0.6-1.2) mg/dl Est Cr Clr Drug Dosing 46.4 ml/min Est GFR ( Amer) 58.1 Est GFR (Non-Af Amer) 50.1 BUN/Creatinine Ratio 14.9 (10-20) Glucose 144 H (70-99) mg/dl Calcium 9.6 (8.5-10.1) mg/dl Phosphorus 3.3 (2.5-4.9) mg/dl Magnesium 1.8 (1.8-2.4) mg/dl Total Bilirubin 0.4 (0.2-1) mg/dl AST 13 L (15-37) U/L ALT 26 (12-78) U/L Alkaline Phosphatase 113 (45-117) U/L Troponin I < 0.015 (0-0.045) ng/ml NT-Pro-B Natriuret Pep 75 (0-900) pg/ml Total Protein 7.4 (6.4-8.2) gm/dl Albumin 3.5 (3.4-5.0) gm/dl Globulin 3.9 (2.5-4.0) gm/dl Albumin/Globulin Ratio 0.9 (0.9-2) Lipase 106 (73-393) U/L Administered Medications Doxycycline Hyclate 100 mg/ (Dextrose) 110 mls @ 50 mls/hr IV NOW STA Stop: 12/01/19 03:26 Last Admin: 12/01/19 01:36 Dose: 50 mls/hr Documented by: [id number] Discontinued Medications Albuterol (Duoneb) 12 ml NEB ONE ONE Stop: 11/30/19 22:52 Last Admin: 11/30/19 23:06 Dose: 12 ml Documented by: [id number] Guaifenesin (Mucinex) 600 mg PO NOW STA Stop: 12/01/19 01:16 Last Admin: 12/01/19 01:34 Dose: 600 mg Documented by: [id number] Methylprednisolone (Solumedrol) 125 mg IV NOW STA Stop: 11/30/19 22:52 Last Admin: 11/30/19 23:02 Dose: 125 mg Documented by: [id number] Imaging Data Attestation: I personally reviewed and interpreted this imaging study as follows: My Impression: No focal infiltrates Blood Pressure Blood Pressure Findings: Elevated blood pressure Discharge Plan Visit Data Chief Complaint: Asthma Stated Complaint: SOB, DRY COUGH, LOW GRADE FEVER ED Provider: Quintin Gant Discharge Problem: Acute bronchitis, Asthma exacerbation, Leukocytosis, Hypoxia Forms Stand Alone Forms: My [facility] [facility] Prescriptions Prescriptions: No Action budesonide-formoterol [Symbicort] 160-4.5 mcg/actuation HFA aerosol inhaler 2 puffs INH BID RF: 0 albuterol sulfate [Ventolin HFA] 90 mcg/actuation HFA aerosol inhaler 2 puffs inhalation .COMPLEX PRN (Reason: Shortness Of Breath) Qty: 18 RF: 3 losartan-hydrochlorothiazide 100-25 mg tablet 1 tab PO QAM Qty: 90 RF: 0 levothyroxine 175 mcg tablet 175 mcg PO QAM Qty: 90 RF: 3 Incruse Ellipta 62.5 mcg/actuation blister with device 1 puffs INH DAILY Qty: 30 RF: 6 omega-3 fatty acids [Fish Oil Concentrate] 1,000 mg capsule 1,000 mg PO QAM RF: 0 diltiazem HCl [Cardizem CD] 120 mg capsule,extended release 24hr 120 mg PO QAM RF: 0 loratadine 10 mg Tablet 10 mg PO QAM RF: 0 cholecalciferol (vitamin D3) [Vitamin D3] 2,000 unit capsule 2,000 unit PO DAILY RF: 0 Discharge Problem: Acute bronchitis Qualifiers: Bronchitis organism: unspecified organism Qualified Code(s): J20.9 - Acute bronchitis, unspecified Asthma exacerbation Qualifiers: Asthma severity: moderate Asthma persistence: unspecified Qualified Code(s): J45.901 - Unspecified asthma with (acute) exacerbation Leukocytosis Qualifiers: Leukocytosis type: unspecified Qualified Code(s): D72.829 - Elevated white blo od cell count, unspecified
[2019-12-01] MEDS ORDERED: DOXYCYCLINE HYCLATE 100 MG in DEXTROSE 5% 100 ML IV STA (01:15)
[2019-12-01] MEDS ORDERED: guaiFENesin 600 MG TABCR PO STA (01:15)
[2019-12-01] MEDS ORDERED: ONDANSETRON INJ 2 MG/ML 2 ML VIAL IV PRN (03:21)
[2019-12-01] MEDS ORDERED: ALUMINUM/MAGNESIUM SUSP 30 ML UDC PO PRN (03:21)
[2019-12-01] MEDS ORDERED: MAGNESIUM HYDROXIDE SUSP 30 ML UDC PO PRN (03:21)
[2019-12-01] MEDS ORDERED: ACETAMINOPHEN 325 MG TAB PO PRN (03:21)
[2019-12-01] MEDS ORDERED: ALBUTEROL 0.5% NEB SOLN 2.5 MG/0.5 ML VIAL NEB PRN (03:21)
[2019-12-01] MEDS ORDERED: POLYETHYLENE (MIRALAX) 17 GM PACK PO PRN (03:21)
--- NOTE | 2019-12-01 03:23 | History & Physical Report ---
Date of Service December 01, 2019 Assessment & Plan Admission and Anticipated Discharge Date Admission Date: 74 yo F w/ pMHx. of Asthma, HTN, hypothyroidism w/ acute asthma exacerbation w/ slight wheeze on exam after solumedrol, and duoneb treatment in the ED. - currently on 2L , continue to keep saturation above 92% - Solumedrol 30 mg TID - Albuterol Q2H PRN - if symptoms worsen consider Mg. Leukocytosis w/ WBC of 14.39, potentially due to stress response but also concerning for pneumonia that could have triggered the asthma exacerbation; afebrile, with HR slightly elevated at 105. Patient has no urinary symptoms. - Continue Doxycycline 100 mg IV BID - Continue to monitor W/ AM CBC History of Present Illness Chief Complaint: Worsening wheezing Primary Care Provider: Keshawn Mcgregor MD Michelle Gray is a 74 yo F who has noticed that she felt well until one day prior at which time she developed a wheeze. She has a history of Asthma that she states it has been well controlled and does not remember when the last time she had been admitted for an exacerbation. She has had 4 prior admissions for asth ma. She has never been intubated for asthma. She has not been able to identify a clear trigger to her asthma, and thinks that the change that she had to her daily controller medication may have been what caused this exacerbation. She has no sick contacts and no recent travel. She also states that when she is stressed out and cries her wheezing is worse. She has no history of smoking, but her father did smoke for an unclear amount of time while she was young. She does not have a wood stove, or animals. She does have carpets. Michelle Gray has been using her albuterol inhaler 2 puffs 4 times a day for over a month now. She was unclear the name of her controller medication but states that it was recently changed. She has an oxygen saturation device and states that has been good lately. Allergies Allergy/AdvReac Type Severity Reaction Status Date / Time amoxicillin Allergy Intermediate SOB Verified 11/30/19 23:56 Penicillins Allergy Mild Verified 11/30/19 23:56 Home Medications Home Medications Medication Instructions Recorded Confirmed Type diltiazem HCl [Cardizem CD] 120 mg PO QAM 12/30/18 11/30/19 History loratadine 10 mg PO QAM 12/30/18 11/30/19 History omega-3 fatty acids 1,000 mg 1,000 mg PO QAM 01/07/19 11/30/19 History capsule cholecalciferol (vitamin D3) 50 2,000 unit PO DAILY cap 03/12/19 11/30/19 History mcg (2,000 unit) capsule budesonide-formoterol HFA 160 2 puffs INH BID 09/17/19 09/17/19 History mcg-4.5 mcg/actuation aerosol inhaler albuterol sulfate 90 mcg/actuation 2 puffs INHALATION .COMPLEX PRN 11/02/19 11/30/19 Rx aerosol inhaler #18 gm losartan 100 1 tab PO QAM #90 tab 11/12/19 11/30/19 Rx mg-hydrochlorothiazide 25 mg tablet levothyroxine 175 mcg tablet 175 mcg PO QAM #90 tab 11/23/19 11/30/19 Rx umeclidinium 62.5 mcg/actuation 1 puffs INH DAILY #30 ea 11/23/19 11/30/19 Rx blister powder for inhalation Past Med/Surg History Medical History Acute respiratory failure Acute respiratory failure with hypoxia (Inactive) Allergic rhinitis Asthma exacerbation (Chronic) Asthma, mild intermittent (Chronic) Asthmatic bronchitis with acute exacerbation Endometrial cancer determined by uterine biopsy H/O allergy to penicillin History of colon polyps (Inactive) Hyperparathyroidism (Inactive) Hypertension (Chronic) Hypothyroidism (Chronic) Thyroid cancer (Inactive) Surgical History H/O bilateral oophorectomy H/O thyroidectomy H/O: hysterectomy Family History Mother Kidney disease Diabetes Hypertension Colon cancer Brother Arthritis Hypertension Father Colorectal cancer Sister Dyslipidemia Hypertension Social History Preferred Language: Citizen Of [place] Communication Ability: Effective Hand Knitter Required: No Beliefs That Will Affect Care: None marital status: Single Current Living Situation: Alone current occupational status: retired Other Information That Helps Us Care for You: No Feels Safe at Home: Yes Safety Concerns: Feels Safe At This Time Smoking Status: Never smoker Second Hand Exposure: Yes (Recent exposure at social event) ; Hx Alcohol Use: No Hx Substance Use: No Seatbelt Use: always Review of Systems Review of Systems: Constitutional: Denies fever/chills, nausea, vomiting, night sweats Head: Denies trauma, lightheadedness, or vision changes Neuro: Denies syncope, slurring of speech, focal weakness ENT: Denies stuffiness, sneezing Admits slightly sore throat that has resolved Cardiac: Denies chest pain, palpitations, PND, murmur, PARKS, Admits some slight edema Pulm: admits slight productive sputum production that was pale/small quantity/ and w/o smell GI: Denies diarrhea, constipation, abdominal pain : Denies urinary frequency, dysuria, urgency Physical Exam Constitutional: well developed and well nourished; no acute distress Eyes: PERRL, conjunctivae normal, anicteric sclerae EOM intact bilaterally ENMT: external ear and nose normal, oropharynx normal Neck: normal visual inspection Respiratory: normal respiratory effort, speaking in full sentences with no retractions, good air movement in all lung sanon with increased expiratory phase with slight wheeze throughout, No focal findings on percussion Cardiovascular: Rate/Rhythm: regular rate and regular rhythm Heart Sounds: no murmur Extremities: + edema (1+ edema bilaterally) Gastrointestinal (Abdomen): normal bowel sounds, soft, nontender, no hepatosplenomegaly Skin: warm, dry, and intact Neurologic: moves all extremities; no focal motor deficits Speech / Cogn ition: normal speech Psychiatric: A+Ox3, euthymic affect Results & Data Results & Data ([facility]) Vital Signs (Past 12 Hours) Vital Signs Temp Pulse Pulse Resp BP Pulse Ox 12/01/19 02:30 98 H 24 168/97 H 94 12/01/19 02:00 97 H 18 173/97 H 93 12/01/19 01:30 95 H 18 152/88 H 95 12/01/19 01:00 92 H 19 124/69 92 12/01/19 00:01 103 H 24 153/97 H 96 11/30/19 23:06 98 H 23 96 11/30/19 22:55 95 11/30/19 22:54 88 L 11/30/19 22:45 37.0 C 105 H 12 195/98 H 96 Code Status & VTE Plan VTE Prophylaxis Plan VTE Prophylaxis will be ordered: Yes Supervising Physician Co-Signing Physician Notes Patient seen and examined, chart reviewed, case discussed with Dr. Andrade and I agree with his assessment and plan as documented above. Briefly, patient is a 74yo C female with history of asthma presenting with acute exacerbation, increased SOB/wheezing x 1 day On exam she is afebrile, hypertensive otherwise HD stable, speaking in complete sentences with no conversational dyspnea or respiratory distress HEENT-NC/AT, PERRL, EOMI, MMM, Neck supple Heart - +S1/S2, regular Lungs - Diminished breath sounds with scattered end-expiratory wheezing throughout Abd - +BS, soft, NT/ND Ext - Trace edema equal bilaterally, redness of LLE, no calf tenderness or asymmetry Neuro - nonfocal Labs and images reviewed Assessment/Plan: 74yo C female, suspect acute exacerbation of asthma -Admit to medical floor -Albuterol, steroids, Doxy -Supplemental O2 as needed -REmainder of plan as above Resident Activity Tracking Resident Involvement: Resident Care Provided Care Provided: Adult Hospital Medicine
--- NOTE | 2019-12-01 05:01 | Billing Data ---
Date of Service December 01, 2019 Coding Level of Care Code 85724 Initial Inpt Care Lvl 2
[2019-12-01] MEDS: methylPREDNISolone 30 MG in SYRINGE 0 ML IV SCH ×2 (05:36→13:18)
[2019-12-01] MEDS: LEVOTHYROXINE SODIUM 175 MCG TABLET PO SCH (05:36)
--- NOTE | 2019-12-01 06:29 | XRay Report ---
XR chest 1V portable CLINICAL HISTORY: Chest pain. Wheezing. COMPARISON STUDY: Chest radiograph March 05, 2019. FINDINGS: Lung volumes are diminished. This is unchanged. Lungs are clear. There is no pneumothorax o r pleural effusion. Cardiac size is normal. Mediastinal contours are normal. There is no evidence for pulmonary edema. Patient is mildly rotated. IMPRESSION: Low lung volumes. No acute findings. ACT 112: Negative or not required by law. Electronically signed by: Anderson Bacon M.D. 12/01/2019 6:27 AM
[2019-12-01] MEDS: ENOXAPARIN INJ 40 MG/0.4 ML SYR SQ SCH (07:29)
[2019-12-01] MEDS: FLUTICASONE/VILANTEROL 100/25MCG 14 PUFFS/INHALER INH SCH (07:30)
[2019-12-01] MEDS: LORATADINE 10 MG TAB PO SCH (07:31)
[2019-12-01] MEDS: LOSARTAN/HCTZ 50/12.5MG TAB PO SCH (07:31)
[2019-12-01] MEDS: dilTIAZem HCL 120 MG CAPCR PO SCH (07:31)
[2019-12-01] MEDS: CHOLECALCIFEROL 1,000 UNITS 25 MCG TAB PO SCH (07:31)
[2019-12-01] MEDS: UMECLIDINIUM BROMIDE 62.5MCG/BLISTER 7 PUFFS/INHALER INH SCH (07:34)
--- NOTE | 2019-12-01 08:26 | Electrocardiogram Report ---
Test Reason : Blood Pressure : / mmHG Vent. Rate : 096 BPM Atrial Rate : 096 BPM P-R Int : 166 ms QRS Dur : 070 ms QT Int : 356 ms P-R-T Axes : 033 -54 025 degrees QTc Int : 449 ms Poor data quality, interpretation may be adversely affected Normal sinus rhythm Left anterior fascicular block Poor R wave progression, consider anterior NE vs. lead placement vs. LVH Abnormal ECG When compared with ECG of 05-MAR-2019 10:32, No significant change Confirmed by Richi Patel ([id number]) on 12/01/2019 8:26:16 AM Referred By: REFERRED SELF Confirmed By:Richi Patel
--- NOTE | 2019-12-01 22:37 | Communication Note ---
Date of Service: December 01, 2019 74 yo female who is pleasant, reports still feeling SOB.She is not at baseline, but she does report feeling improved from the time of admission. She has no new complaints.
[2019-12-02] MEDS: LEVOTHYROXINE SODIUM 175 MCG TABLET PO SCH (05:40)
[2019-12-02] MEDS: ENOXAPARIN INJ 40 MG/0.4 ML SYR SQ SCH (07:50)
[2019-12-02] MEDS: LORATADINE 10 MG TAB PO SCH (07:51)
[2019-12-02] MEDS: methylPREDNISolone 40 MG in SYRINGE 0 ML IV SCH (07:51)
[2019-12-02] MEDS: LOSARTAN/HCTZ 50/12.5MG TAB PO SCH (07:51)
[2019-12-02] MEDS: CHOLECALCIFEROL 1,000 UNITS 25 MCG TAB PO SCH (07:51)
[2019-12-02] MEDS: dilTIAZem HCL 120 MG CAPCR PO SCH (07:51)
[2019-12-02] MEDS: FLUTICASONE/VILANTEROL 100/25MCG 14 PUFFS/INHALER INH SCH (07:52)
[2019-12-02] MEDS: UMECLIDINIUM BROMIDE 62.5MCG/BLISTER 7 PUFFS/INHALER INH SCH (07:52)
[2019-12-02 19:22] VITALS: O2SAT 92
[2019-12-02 23:20] VITALS: TEMP 97.7
--- NOTE | 2019-12-02 23:27 | Hospitalist Progress Note ---
Date of Service December 02, 2019 Assessment & Plan (1) Leukocytosis: secondary to steroids. will monitor. (2) Asthma exacerbation: Admitted for above problem. will continue nebs, steorids IV. will taper steroids. will monitor for 24 hours. likely discharge tomorrow. (3) Hypothyroidism: resumed home meds (4) Hypertension: Resumed home meds. Admission and Anticipated Discharge Date Admission Date: December 01, 2019 Subjective Patient reports feeling a little better. Still having shortness of breath on exertion. Review of Systems Review of Systems: All systems reviewed & are unremarkable except as noted in HPI & below Physical Exam Physical Exam: Constitutional: well developed and well nourished; no acute distress Eyes: PERRL, conjunctivae normal, anicteric sclerae EOM intact bilaterally ENMT: external ear and nose normal, oropharynx normal Neck: normal visual inspection Respiratory: normal respiratory effort, speaking in full sentences with no retractions, good air movement in all lung sanon ; no wheezing Cardiovascular: Rate/Rhythm: regular rate and regular rhythm Heart Sounds: no murmur Extremities: + edema (1+ edema bilaterally) Gastrointestinal (Abdomen): normal bowel sounds, soft, nontender, no hepatosplenomegaly Skin: warm, dry, and intact Neurologic: moves all extremities; no focal motor deficits Speech / Cognition: normal speech Psychiatric: A+Ox3, euthymic affect Results & Data Results & Data ([facility]) Vital Signs (Past 12 Hours) Vital Signs Temp Pulse Resp BP Pulse Ox 12/02/19 19:20 36.4 C L 80 20 156/80 H 92 12/02/19 15:30 36.7 C 84 20 140/72 90 PG Care Time/CCT Total # of Minutes Spent Total Time Spent with Patient: Total time spent is greater than 50% in coordination of care (as documented) at patient's floor/unit and/or counseling patient: Coding Level of Care Code 06228 Subseq Hosp Care Lvl 3 Diagnoses Leukocytosis D72.829 Leukocytosis type: unspecified Asthma exacerbation J45.901 Asthma persistence: unspecified Asthma severity: moderate Hypothyroidism E03.9 Hypertension I10 Hypertension type: essential hypertension Time Spent (min) 35 (1) Leukocytosis Leukocytosis type: unspecified Qualified Code(s): D72.829 - Elevated white blood cell count, unspecified (2) Asthma exacerbation Asthma persistence: unspecified Asthma severity: moderate Qualified Code(s): J45.901 - Unspecified asthma with (acute) exacerbation (3) Hypertension Hypertension type: essential hypertension Qualified Code(s): I10 - Essential (primary) hypertension
[2019-12-03] MEDS: LEVOTHYROXINE SODIUM 175 MCG TABLET PO SCH (06:26)
[2019-12-03 08:02] VITALS: PULSE 67
[2019-12-03] MEDS: UMECLIDINIUM BROMIDE 62.5MCG/BLISTER 7 PUFFS/INHALER INH SCH (08:43)
[2019-12-03] MEDS: methylPREDNISolone 40 MG in SYRINGE 0 ML IV SCH ×2 (08:49→13:20)
[2019-12-03] MEDS: LOSARTAN/HCTZ 50/12.5MG TAB PO SCH (08:49)
[2019-12-03] MEDS: dilTIAZem HCL 120 MG CAPCR PO SCH (08:49)
[2019-12-03] MEDS: FLUTICASONE/VILANTEROL 100/25MCG 14 PUFFS/INHALER INH SCH (08:49)
[2019-12-03] MEDS: LORATADINE 10 MG TAB PO SCH (08:49)
[2019-12-03] MEDS: CHOLECALCIFEROL 1,000 UNITS 25 MCG TAB PO SCH (08:49)
[2019-12-03] MEDS: ENOXAPARIN INJ 40 MG/0.4 ML SYR SQ SCH (08:49)
[2019-12-03] MEDS ORDERED: predniSONE 20 MG TAB PO STA (14:23)
[2019-12-03 15:02] VITALS: BP 119/81
--- NOTE | 2019-12-09 15:35 | Discharge Summary ---
Date of Service December 03, 2019 Admission HPI Per Admitting Provider Michelle Gray is a 74 yo F who has noticed that she felt well until one day prior at which time she developed a wheeze. She has a history of Asthma that she states it has been well controlled and does not remember when the last time she had been admitted for an exacerbation. She has had 4 prior admissions for asthma. She has never been intubated for asthma. She has not been able to identify a clear trigger to her asthma, and thinks that the change that she had to her daily controller medication may have been what caused this exacerbation. She has no sick contacts and no recent travel. She also states that when she is stressed out and cries her wheezing is worse. She has no history of smoking, but her father did smoke for an unclear amount of time while she was young. She does not have a wood stove, or animals. She does have carpets. Michelle Gray has been using her albuterol inhaler 2 puffs 4 times a day for over a month now. She was unclear the name of her controller medication but states that it was recently changed. She has an oxygen saturation device and states that has been good lately. Principal Diagnosis Asthma Exacerbation Discharge Exam Constitutional: well developed and well nourished; no acute distress Eyes: PERRL, conjunctivae normal, anicteric sclerae EOM intact bilaterally ENMT: external ear and nose normal, oropharynx normal Neck: normal visual inspection Respiratory: normal respiratory effort, speaking in full sentences with no retractions, good air movement in all lung sanon ; no wheezing Cardiovascular: Rate/Rhythm: regular rate and regular rhythm Heart Sounds: no murmur Extremities: + edema (1+ edema bilaterally) Gastrointestinal (Abdomen): normal bowel sounds, soft, nontender, no hepatosplenomegaly Skin: warm, dry, and intact Neurologic: moves all extremities; no focal motor deficits Speech / Cognition: normal speech Psychiatric: A+Ox3, euthymic affect Discharge Data Allergies Allergy/AdvReac Type Severity Reaction Status Date / Time amoxicillin Allergy Intermediate SOB Verified 11/30/19 23:56 Penicillins Allergy Mild Verified 11/30/19 23:56 Consultations 12/01/19 01:15 ED Decision to Admit Stat Hospital Course (1) Leukocytosis: secondary to steroids. will monitor. (2) Asthma exacerbation: Admitted for above problem. Treated with iV steroids and Nebs. Improved. Will discharge on steroid taper. . (3) Hypothyroidism: resumed home meds (4) Hypertension: Resumed home meds. Total Time Total Time Spent Total Time Spent (In Minutes): 32 Total Time Includes: Examination of the Patient, Discharge Planning and Medication Reconciliation Discharge Plan Discharge Items Patient Disposition: Home - Self-Care Reason For Visit: ASTHMA EXACERBATION Discharge Diagnosis: Asthma exacerbation Activity: Resume your previous activity Non-emergency contact: Primary Care Provider Call non-emergency contact if: you have any medication questions Follow-up/Referrals: Keshawn Mcgregor MD [Primary Care Provider] - Diet: Regular Addtl Attending Provider Instructions: You have been hospitalized for an acute medical problem. During your stay at [facility], we have made an effort to correct the problem that brought you to the hospital while keeping you as comfortable as possible. Medications were used to bring your condition under control and your discharge instructions will include directions for any medications you should take after leaving the hospital. Please make sure you see your Primary Care Provider as part of your follow up plan. Pending Studies at Discharge: No Stand-Alone Forms: My [facility], Smoking Cessation Medications and DC Order Prescriptions: New prednisone 10 mg tablet 10 mg PO DAILY Qty: 20 RF: 0 Continued budesonide-formoterol [Symbicort] 160-4.5 mcg/actuation HFA aerosol inhaler 2 puffs INH BID RF: 0 albuterol sulfate [Ventolin HFA] 90 mcg/actuation HFA aerosol inhaler 2 puffs inhalation .COMPLEX PRN (Reason: Shortness Of Breath) Qty: 18 RF: 3 losartan-hydrochlorothiazide 100-25 mg tablet 1 tab PO QAM Qty: 90 RF: 0 levothyroxine 175 mcg tablet 175 mcg PO QAM Qty: 90 RF: 3 omega-3 fatty acids [Fish Oil Concentrate] 1,000 mg capsule 1,000 mg PO QAM RF: 0 diltiazem HCl [Cardizem CD] 120 mg capsule,extended release 24hr 120 mg PO QAM RF: 0 loratadine 10 mg Tablet 10 mg PO QAM RF: 0 cholecalciferol (vitamin D3) [Vitamin D3] 2,000 unit capsule 2,000 unit PO DAILY RF: 0 No Action Breo Ellipta 100-25 mcg/dose blister with device 1 puffs INH DAILY RF: 0 Discharge Orders: Discharge Order (Routine); Ordered 12/03/19 Ordered By: Julien Le Admission Data Admit Date/Time: 12/01/19 03:17 Attending Provider: Julien Le Admit Provider: Edgardo Andrade Primary Care Provider: Keshawn Mcgregor Other Providers: Shital Pandey Other Interventions: Discharge Summary Assessment (RN) Last Done: 12/03/19 15:01 DC Date/Time DO NOT enter until pt leaves facility: 12/03/19 15:45 Coding Level of Care Code D/C Day Management >30 mins Diagnoses Leukocytosis D72.829 Leukocytosis type: unspecified Asthma exacerbation J45.901 Asthma persistence: unspecified Asthma severity: moderate Hypothyroidism E03.9 Hypertension I10 Hypertension type: essential hypertension Time Spent (min) 32
--- NOTE | 2019-12-10 06:59 | Coding Query ---
To promote full compliance with coding requirements relating to patient care, provider participation is requested in all cases of in flight refueling manager uncertainty. Please assist us with the question(s) below: Coding Question(s): The diagnosis(es) below was documented in the H&P, then subsequently fell off all further documentation. Please indicate if it is still a possible diagnosis or ruled out. Physician's Response(s): CONCERN FOR PNEUMONIA - possible Pneumonia ( ) Diagnosed and POA ( ) Diagnosed and not POA ( x ) Ruled out: dx instead asthma exacerbation ( ) Other (please specify) MTDD
--- NOTE | 2019-12-10 07:04 | Coding Query ---
BMI To promote full compliance with coding requirements relating to patient care, physician participation is requested in all cases of title officer uncertainty. Please assist us with the question(s) below: Please place an X within the parenthesis (x). If other, please document: BMI 41.8 was documented in this record for this patient. If the BMI is significant, please check the box that provides a more specific associated diagnosis: ( ) Overweight/Obese ( ) Obesity (x ) Morbid obesity ( ) Obesity Hypoventilation Syndrome (OHS) ( ) Heathy weight, not significant ( ) Underweight/Thin ( ) Other, please specify Thank you Cris BEYER
== END 2019-12-03 15:45 | disposition home or self-care (01) | DRG 202 ==
LOC: ED 22:35 → 2W 12-01 02:58 → SUATTDRO 12-01 03:17

== ENCOUNTER 2020-01-20 01:03 | Observation (INO) ==
[2020-01-20] MEDS ORDERED: ALBUT/IPRATROP 3MG/0.5MG NEB 3 ML VIAL NEB ONE (01:31)
[2020-01-20 02:00] LABS: Alanine Aminotransferase 36 U/L (12-78); Albumin Level 3.3 gm/dl (3.4-5.0); Aspartate Aminotransferase 21 U/L (15-37); BUN Creatinine Ratio 17.5 (10-20); Blood Urea Nitrogen 16 mg/dl (7-18); Calcium 9.5 mg/dl (8.5-10.1); Carbon Dioxide 27 mmol/L (21-32); Chloride 110 mmol/L (98-107); Est GFR (African American) 74.5; Est GFR (Non-African American) 64.3; Glucose 138 mg/dl (70-99); Potassium 3.6 mmol/L (3.5-5.1); Sodium 144 mmol/L (136-145)
[2020-01-20 02:04] LABS: Albumin Globulin Ratio 0.8 (0.9-2); Alkaline Phosphatase 105 U/L (45-117); Bilirubin,Total 0.3 mg/dl (0.2-1); Globulin 4.2 gm/dl (2.5-4.0); Total Protein 7.5 gm/dl (6.4-8.2); Troponin I < 0.015 ng/ml (0-0.045)
[2020-01-20 02:06] LABS: Basophils # (auto) 0.03 K/uL (0-0.2); Basophils % (auto) 0.3 %; Eosinophils # (auto) 0.96 K/uL (0-0.5); Eosinophils % (auto) 9.5 %; Hematocrit (blood only) 42.9 % (37-47); Hemoglobin 13.8 g/dL (12.0-16.0); Immature Granulocytes # (auto) 0.03 K/uL (0.00-0.02); Immature Granulocytes % (auto) 0.3 %; Lymphocytes # (auto) 2.16 K/uL (1.2-3.4); Lymphocytes % (auto) 21.4 %; Mean Corpuscular Hemoglobin 31.2 pg (25-34); Mean Corpuscular Hgb Conc 32.2 g/dL (32-36); Mean Corpuscular Volume 96.8 fL (80-100); Mean Platelet Volume 9.3 fL (7.4-10.4); Monocytes # (auto) 0.95 K/uL (0.11-0.59); Monocytes % (auto) 9.4 %; Neutrophils # (auto) 5.98 K/uL (1.4-6.5); Neutrophils % (auto) 59.1 %; Platelet Count 357 K/uL (130-400); RDW Coefficient of Variation 13.5 % (11.5-14.5); RDW Standard Deviation 47.6 fL (36.4-46.3); Red Blood Count 4.43 M/uL (4.2-5.4); White Blood Count 10.11 K/uL (4.8-10.8)
[2020-01-20 02:22] LABS: Prothrombin Time 10.4 Seconds (9.0-12.0)
--- NOTE | 2020-01-20 02:31 | Emergency Department Note ---
History of Present Illness General Chief complaint: Shortness of Breath/Dyspnea Stated complaint: SHORT OF BREATH History of Present Illness Maximum Pain Intensity: 0 This 75-year-old presents to the ER complaining of shortness of breath who has asthma Location: Chest Quality: Wheezing Severity: Moderate Duration: Today Timing: Today Context: Patient was concerned and came in Modifying factors: better with nebulizer; worse with activity Patient denies chest pain, fevers, flulike illness, abdominal pain. Patient states she has bad asthma and symptoms feel similar. Home Medications Home Medications Medication Instructions Recorded Confirmed Type loratadine 10 mg PO QAM 12/30/18 01/20/20 History omega-3 fatty acids 1,000 mg 1,000 mg PO QAM 01/07/19 01/20/20 History capsule cholecalciferol (vitamin D3) 50 2,000 unit PO DAILY cap 03/12/19 01/20/20 History mcg (2,000 unit) capsule budesonide-formoterol HFA 160 2 puffs INH BID 09/17/19 01/20/20 History mcg-4.5 mcg/actuation aerosol inhaler albuterol sulfate 90 mcg/actuation 2 puffs INHALATION .COMPLEX PRN 11/02/19 0 01/20/20 Rx aerosol inhaler #18 gm losartan 100 1 tab PO QAM #90 tab 11/12/19 01/20/20 Rx mg-hydrochlorothiazide 25 mg tablet levothyroxine 175 mcg tablet 175 mcg PO QAM #90 tab 11/23/19 01/20/20 Rx diltiazem HCl 120 mg 120 mg PO QAM #90 cap 12/25/19 01/20/20 Rx capsule,extended release 24 hr Allergies Allergy/AdvReac Type Severity Reaction Status Date / Time amoxicillin Allergy Intermediate SOB Verified 01/20/20 01:21 Penicillins Allergy Mild Unknown Verified 01/20/20 01:21 Past Med/Surg History Medical History Acute respiratory failure Acute respiratory failure with hypoxia (Inactive) Allergic rhinitis Asthma exacerbation (Chronic) Asthma, mild intermittent (Ruled-out) Asthmatic bronchitis with acute exacerbation Endometrial cancer determined by uterine biopsy H/O allergy to penicillin History of colon polyps (Inactive) Hyperparathyroidism (Inactive) Hypertension (Chronic) Hypothyroidism (Chronic) Thyroid cancer (Inactive) Surgical History H/O bilateral oophorectomy H/O thyroidectomy H/O: hysterectomy Family History Mother Kidney disease Diabetes Hypertension Colon cancer Brother Arthritis Hypertension Father Colorectal cancer Sister Dyslipidemia Hypertension Social History Preferred Language: Romansh Communication Ability: Effective Visual Impairment: Limited Hearing Ability: Normal Accounting Tutor Required: No Beliefs That Will Affect Care: None marital status: Single Current Living Situation: Alone current occupational status: retired Feels Safe at Home: Yes Smoking Status: Never smoker Second Hand Exposure: Yes (Recent exposure at social event) ; Hx Alcohol Use: No Hx Substance Use: No Diet Comment: NO JUNK FOOD caffeine: Yes Dental Care, Regularly: Yes Physical Activity Frequency: Does not Exercise Seatbelt Use: always Sunscreen Use: No Review of Systems A total of 10 systems reviewed and were otherwise negative Physical Exam Vital Signs Vital Signs - 24 hr 01/20/20 01:16 01/20/20 01:45 01/20/20 01:49 Temperature 36.6 C Temperature Source Oral Pulse Rate 95 H 90 Pulse Rate [Right Finger] 92 H Pulse Rate from SpO2 Sensor 90 Respiratory Rate 12 24 20 Respiratory Effort / Characteristics Spontaneous Short of Breath SOB on Exertion Blood Pressure 177/96 H 159/104 H Blood Pressure Mean 123 112 Pulse Oximetry 90 94 93 Oxygen Delivery Method Nasal Cannula Nasal Cannula Nasal Cannula Oxygen Flow Rate 2 2 Sepsis Recent Fever Within 48 Hours No Sepsis New/Unexplained Change in Mental Status No Sepsis Action Taken by Nursing No Action Required Oxygen Flow Rate - Titration 2 Pulse Oximetry Post Tiitration 94 01/20/20 02:00 01/20/20 02:30 01/20/20 03:00 Temperature Temperature Source Pulse Rate 85 90 92 H Pulse Rate [Right Finger] Pulse Rate from SpO2 Sensor 85 92 H 90 Respiratory Rate 21 20 20 Respiratory Effort / Characteristics Blood Pressure 134/73 134/66 143/64 H Blood Pressure Mean 111 85 81 Pulse Oximetry 99 99 99 Oxygen Delivery Method Nebulizer Nebulizer Nebulizer Oxygen Flow Rate Sepsis Recent Fever Within 48 Hours Sepsis New/Unexplained Change in Mental Status Sepsis Action Taken by Nursing Oxygen Flow Rate - Titration Pulse Oximetry Post Tiitration 01/20/20 03:30 Temperature Temperature Source Pulse Rate 104 H Pulse Rate [Right Finger] Pulse Rate from SpO2 Sensor 104 H Respiratory Rate 18 Respiratory Effort / Characteristics Blood Pressure Blood Pressure Mean Pulse Oximetry 95 Oxygen Delivery Method Nasal Cannula Oxygen Flow Rate 2 Sepsis Recent Fever Within 48 Hours Sepsis New/Unexplained Change in Mental Status Sepsis Action Taken by Nursing Oxygen Flow Rate - Titration Pulse Oximetry Post Tiitration PHYSICAL EXAM: Vital Signs: Reviewed Nurse's notes. Oxygen saturation was 90% on room air. GENERAL: Pleasant elderly female, Alert, oriented and coherent. The patient is not able to speak in complete sentences. NECK: Supple, non- tender. CHEST: Symmetrical expansion. no retractions no accessory muscle use. HEART: Regular rate and normal heart sounds LUNGS: Breath sounds equal but significantly diminished in intensity on both sides. Bilateral wheezes heard but no rales or pleuritic rub. SKIN: The skin was without rashes, erythema, edema, or bruising. There is no tenting of the skin. Capillary reflex less than 2 seconds. HEAD: Normocephalic atraumatic. EARS: External auditory canals clear, tympanic membranes pearly banerjee without erythema or effusion bilaterally. EYES: Pupils equal round and reactive to light and accommodation. Conjunctivae without injection, sclerae without icterus. Extraocular movements intact. NOSE: Patent, turbinates without inflammation or discharge. No sinus tenderness. MOUTH: Mucous membranes moist. Pharynx without erythema or exudate. Uvula midline. Airway patent. Tongue does not deviate. ABDOMEN: Positive bowel sounds x 4. Normal tympanic percussion. Soft, nontender, without masses or organomegaly. Singh sign negative. No guarding or rebound tenderness. MUSCULOSKELETAL: No muscle atrophy, erythema, or edema noted. NEURO: Patient was alert and oriented to person place and time. Normal sensation to light and sharp touch. No focal neurological deficits. Course Administered Medications Discontinued Medications Albuterol (Duoneb) 12 ml NEB ONE ONE Stop: 01/20/20 01:32 Last Admin: 01/20/20 01:48 Dose: 12 ml Documented by: [id number] Medical Decision Making Medical Records Attestation: I reviewed the patient's medical records. Home Medications Current Medication List: was personally reviewed by me Laboratory Data Attestation: I reviewed the patient's lab results. Result diagrams: 01/20/20 01:00 01/20/20 01:00 Lab Results 01/20/20 01/20/20 01/20/20 Range/Units 01:00 01:00 01:00 WBC 10.11 (4.8-10.8) K/uL RBC 4.43 (4.2-5.4) M/uL Hgb 13.8 (12.0-16.0) g/dL Hct 42.9 (37-47) % MCV 96.8 (80-100) fL MCH 31.2 (25-34) pg MCHC 32.2 (32-36) g/dL RDW Std Deviation 47.6 H (36.4-46.3) fL RDW Coeff of Chasidy 13.5 (11.5-14.5) % Plt Count 357 (130-400) K/uL MPV 9.3 (7.4-10.4) fL Immature Gran % (Auto) 0.3 % Neut % (Auto) 59.1 % Lymph % (Auto) 21.4 % [place] % (Auto) 9.4 % Eos % (Auto) 9.5 % Baso % (Auto) 0.3 % Neut # (Auto) 5.98 (1.4-6.5) K/uL Lymph # (Auto) 2.16 (1.2-3.4) K/uL [place] # (Auto) 0.95 H (0.11-0.59) K/uL Eos # (Auto) 0.96 H (0-0.5) K/uL Baso # (Auto) 0.03 (0-0.2) K/uL Immature Gran # (Auto) 0.03 H (0.00-0.02) K/uL PT 10.4 (9.0-12.0) Seconds INR 1.0 (0.9-1.1) APTT 27.0 (21.0-31.0) Seconds PTT Ratio 1.0 Sodium 144 (136-145) mmol/L Potassium 3.6 (3.5-5.1) mmol/L Chloride 110 H (98-107) mmol/L Carbon Dioxide 27 (21-32) mmol/L Anion Gap 7.0 (3-11) BUN 16 (7-18) mg/dl Creatinine 0.89 (0.6-1.2) mg/dl Est Cr Clr Drug Dosing 58.0 ml/min Est GFR ( Amer) 74.5 Est GFR (Non-Af Amer) 64.3 BUN/Creatinine Ratio 17.5 (10-20) Glucose 138 H (70-99) mg/dl Calcium 9.5 (8.5-10.1) mg/dl Total Bilirubin 0.3 (0.2-1) mg/dl AST 21 (15-37) U/L ALT 36 (12-78) U/L Alkaline Phosphatase 105 (45-117) U/L Troponin I < 0.015 (0-0.045) ng/ml Total Protein 7.5 (6.4-8.2) gm/dl Albumin 3.3 L (3.4-5.0) gm/dl Globulin 4.2 H (2.5-4.0) gm/dl Albumin/Globulin Ratio 0.8 L (0.9-2) Imaging Data Attestation: I personally reviewed and interpreted this imaging study as follows: Blood Pressure Blood Pressure Findings: Normal blood pressure MDM Narrative Prior records/ancillary studies reviewed. Triage Nursing notes reviewed. The patient's history was concerning for respiratory difficulties. Differential diagnosis: Etiologies such as infections, reactive airway disease, pneumonia, pneumothorax, COPD, CHF, cardiac ischemia, pulmonary embolism, musculoskeletal, gastrointestinal, as well as others were entertained. Physical examination: As above. ER treatment provided: An order was placed for continuous cardiac monitoring. The monitor shows a rate of 60-1 20 with a normal sinus rhythm. Hour-long nebulizer. EMS gave a nebulizer and steroids On reassessment the patient felt better. Diagnostic interpretation by me: The electrocardiogram was ordered for SOB. EKG: Normal sinus, normal intervals, left axis deviation, no acute ST-T wave changes. Impression normal sinus rhythm with a left axis deviation interpreted by myself I think arrhythmia is unlikely. EKG shows normal sinus rhythm with no interval abnormalities such as QT prolongation or WPW. There are no findings to suggest Brugada syndrome. Cardiac monitoring in the emergency department reveals no tachycardic or bradycardic dysrhythmia. Hypertrophic cardiomyopathy was considered but there are no clear historical elements pointing toward this. EKG is not suggestive. The QRS voltage is not extremely large and there are no suggestive Q waves. The labs revealed no leukocytosis, negative troponin Imaging studies: Chest x-ray with no acute consolidation, pneumothorax or free air interpretation HEART SCORE: Hx: high/mod/low suspicion: 0 ECG: ST depression/nonspecific changes/normal: 0 Age: Greater than 65/45-64/less than 45: 2 Risk factors: (Hypertension, hyperlipidemia, diabetes, coronary disease, tobacco use, cocaine use): 1 Troponin: Greater than 2 times normal limits/1-2 times normal limits/normal: 0 Total: 3 Consultation: Hospitalist was consulted, Dr. Styles. He will evaluate the patient for admission. This appears to be consistent with asthma exacerbation. Patient was reassessed and felt weak and short of breath. Patient is requesting admission. Medicine was consulted. By the evaluation outlined above emergent etiologies such as CHF, cardiac ischemia, pulmonary embolism, pneumonia, pneumothorax, musculoskeletal, serious bacterial infections, as well as others were deemed relatively unlikely. The pt informed about the findings as listed above. All questions were answered and pleased with the treatment. The chart was completed utilizing [employer] Speech voice recognition software. Grammatical errors, random word insertions, pronoun errors, and incomplete sentences are an occassional consequence of this system due to software limitations, ambient noise, and hardware issues. Any formal questions or concerns about the content, text, or information contained within the body of this dictation should be directly addressed to the physician gift shop assistant for clarification. Impression & Plan Asthma with exacerbation, Weakness Discharge Plan Visit Data Chief Complaint: Shortness of Breath/Dyspnea Stated Complaint: SHORT OF BREATH ED Provider: [facility] Midlevel Provider: Cecille Guerin Discharge Problem: Asthma with exacerbation, Weakness Patient Disposition: Being Evaluated by Hospitalist Condition: Good Forms Stand Alone Forms: My [facility] Prescriptions Prescriptions: No Action budesonide-formoterol [Symbicort] 160-4.5 mcg/actuation HFA aerosol inhaler 2 puffs INH BID RF: 0 albuterol sulfate [Ventolin HFA] 90 mcg/actuation HFA aerosol inhaler 2 puffs inhalation .COMPLEX PRN (Reason: Shortness Of Breath) Qty: 18 RF: 3 losartan-hydrochlorothiazide 100-25 mg tablet 1 tab PO QAM Qty: 90 RF: 0 levothyroxine 175 mcg tablet 175 mcg PO QAM Qty: 90 RF: 3 diltiazem HCl [Cardizem CD] 120 mg capsule,extended release 24hr 120 mg PO QAM Qty: 90 RF: 3 omega-3 fatty acids [Fish Oil Concentrate] 1,000 mg capsule 1,000 mg PO QAM RF: 0 loratadine 10 mg Tablet 10 mg PO QAM RF: 0 cholecalciferol (vitamin D3) [Vitamin D3] 2,000 unit capsule 2,000 unit PO DAILY RF: 0 Referrals Referrals: Keshawn Mcgregor MD [Primary Care Provider] -
--- NOTE | 2020-01-20 04:58 | History & Physical Report ---
Date of Service January 20, 2020 Assessment & Plan Admission and Anticipated Discharge Date Admission Date: 75 yo F w/ pMHx. moderate persistent asthma, hypothyroidism, HTN, here with asthma exacerbation on 2L oxygen as needed at home acute asthma exacerbation - reassuring CXR no indications for antibiotics at this time - continue symbicort - continue albuterol PRN - Solumedrol 40 mg Q12 - Duoneb QID Hypothyroidism - continue home levothyroxine HTN - continue Losartan-HCTZ - continue cardizem DVT: Lovenox Diet: regular Dispo: med/surg History of Present Illness Chief Complaint: asthma exacerbation Primary Care Provider: Keshawn Mcgregor MD Michelle Gray is a 75 yo F w/ PMHx. of Asthma, hypothyroid, HTN presenting with an exacerbation of her asthma. The flair started at 11PM the night before. She was previously doing well. She was outside a lot on Saturday for her 75 birthday. She attributes the flair to increased pollen exposure. She had a episode 3 weeks prior. She has not had any recent illness, no recent travel, no sick contacts. She lives at home alone and has no pets. She uses her Albuterol inhaler approximately 2 times a day. No history of smoking. Allergies Allergy/AdvReac Type Severity Reaction Status Date / Time amoxicillin Allergy Intermediate SOB Verified 01/20/20 01:21 Penicillins Allergy Mild Unknown Verified 01/20/20 01:21 Home Medications Home Medications Medication Instructions Recorded Confirmed Type loratadine 10 mg PO QAM 12/30/18 01/20/20 History omega-3 fatty acids 1,000 mg 1,000 mg PO QAM 01/07/19 01/20/20 History capsule cholecalciferol (vitamin D3) 50 2,000 unit PO DAILY cap 03/12/19 01/20/20 History mcg (2,000 unit) capsule budesonide-formoterol HFA 160 2 puffs INH BID 09/17/19 01/20/20 History mcg-4.5 mcg/actuation aerosol inhaler albuterol sulfate 90 mcg/actuation 2 puffs INHALATION .COMPLEX PRN 11/02/19 01/20/20 Rx aerosol inhaler #18 gm losartan 100 1 tab PO QAM #90 tab 11/12/19 01/20/20 Rx mg-hydrochlorothiazide 25 mg tablet levothyroxine 175 mcg tablet 175 mcg PO QAM #90 tab 11/23/19 01/20/20 Rx diltiazem HCl 120 mg 120 mg PO QAM #90 cap 12/25/19 01/20/20 Rx capsule,extended release 24 hr Past Med/Surg History Medical History Acute respiratory failure Acute respiratory failure with hypoxia (Inactive) Allergic rhinitis Asthma exacerbation (Chronic) Asthma, mild intermittent (Ruled-out) Asthmatic bronchitis with acute exacerbation Endometrial cancer determined by uterine biopsy H/O allergy to penicillin History of colon polyps (Inactive) Hyperparathyroidism (Inactive) Hypertension (Chronic) Hypothyroidism (Chronic) Thyroid cancer (Inactive) Surgical History H/O bilateral oophorectomy H/O thyroidectomy H/O: hysterectomy Family History Mother Kidney disease Diabetes Hypertension Colon cancer Brother Arthritis Hypertension Father Colorectal cancer Sister Dyslipidemia Hypertension Social History Preferred Language: Upper Sorbian Communication Ability: Effective Visual Impairment: Limited Hearing Ability: Normal Promotion Manager Required: No Beliefs That Will Affect Care: None marital status: Single Current Living Situation: Alone current occupational status: retired Feels Safe at Home: Yes Smoking Status: Never smoker Second Hand Exposure: Yes (Recent exposure at social event) ; Hx Alcohol Use: No Hx Substance Use: No Diet Comment: NO JUNK FOOD caffeine: Yes Dental Care, Regularly: Yes Physical Activity Frequency: Does not Exercise Seatbelt Use: always Sunscreen Use: No Review of Systems Review of Systems: Constitutional: denies fevers, chills, nausea, vomiting, fatigue Head: denies trauma, LOC, headaches, changes in vision ENT: denies stuffiness, sneezing, sore throat, epistaxis Cardiac: denies chest pain, palpitations, PND, PARKS admits worsening leg edema (associates with not taking BP medication the morning prior : denies urinary urgency, dysuria, polyuria Physical Exam Constitutional: WD/WN, vitals as above no acute distress Eyes: PERRL, conjunctivae normal, anicteric sclerae ENMT: external ear and nose normal, oropharynx normal Neck: normal visual inspection Respiratory: - no focal findings, no increased work of breathing - diffuse wheezing on end of expiration slightly > on the left Cardiovascular: RRR, no murmur, no edema Extremities: + edema (1+ pitting) Gastrointestinal (Abdomen): normal bowel sounds, soft, nontender, no hepatosplenomegaly Psychiatric: A+Ox3, euthymic affect Results & Data Results & Data ([facility]) Vital Signs (Past 12 Hours) Vital Signs Temp Pulse Pulse Resp BP Pulse Ox 01/20/20 03:30 104 H 18 95 01/20/20 03:00 92 H 20 143/64 H 99 01/20/20 02:30 90 20 134/66 99 01/20/20 02:00 85 21 134/73 99 01/20/20 01:49 92 H 20 93 01/20/20 01:45 90 24 159/104 H 94 01/20/20 01:16 36.6 C 95 H 12 177/96 H 90 CXR: no acute consolidation, pneumothorax, or free air CBC Results Results Complete Blood Count Results: RBC 4.43 M/uL (4.2-5.4) 01/20/20 WBC 10.11 K/uL (4.8-10.8) 01/20/20 Hgb 13.8 g/dL (12.0-16.0) 01/20/20 Hct 42.9 % (37-47) 01/20/20 Plt Count 357 K/uL (130-400) 01/20/20 Chemistry (BMP) Results BMP Results: Sodium 144 mmol/L (136-145) 01/20/20 Potassium 3.6 mmol/L (3.5-5.1) 01/20/20 Chloride 110 mmol/L (98-107) H 01/20/20 BUN 16 mg/dl (7-18) 01/20/20 Creatinine 0.89 mg/dl (0.6-1.2) 01/20/20 Glucose 138 mg/dl (70-99) H 01/20/20 Supervising Physician Co-Signing Physician Notes Attending addendum: I have physically seen this patient, have supervised the medical residents activities, and agree with the H&P unless as otherwise noted. Assessment and Plan: Acute asthma exacerbation- Reports feeling better after hour-long nebulizer She did also receive IV Solu-Medrol in route Continue Symbicort. Duonebs every 4 hours while awake and every 2 hours when necessary. Solu-Medrol 40 mg IV every 12 hours Hypothyroidism- Continue levothyroxine 175 mcg daily Hypertension- Continue losartan/HCTZ and diltiazem extended release 120 mg daily. Remainder of orders and notations as noted. Resident Activity Tracking Resident Involvement: Resident Care Provided Care Provided: Adult [facility] Medicine
[2020-01-20] MEDS ORDERED: MAGNESIUM HYDROXIDE SUSP 30 ML UDC PO PRN (06:38)
[2020-01-20] MEDS ORDERED: ENOXAPARIN INJ 40 MG/0.4 ML SYR SQ SCH (06:38)
[2020-01-20] MEDS ORDERED: ACETAMINOPHEN 325 MG TAB PO PRN (06:38)
[2020-01-20] MEDS ORDERED: ONDANSETRON INJ 2 MG/ML 2 ML VIAL IV PRN (06:38)
[2020-01-20] MEDS ORDERED: ALBUTEROL HFA 8 GM INHALER INH PRN (06:38)
[2020-01-20] MEDS ORDERED: POLYETHYLENE (MIRALAX) 17 GM PACK PO PRN (06:38)
[2020-01-20] MEDS ORDERED: ALUMINUM/MAGNESIUM SUSP 30 ML UDC PO PRN (06:38)
[2020-01-20] MEDS: ALBUT/IPRATROP 3MG/0.5MG NEB 3 ML VIAL NEB SCH ×4 (07:29→19:36)
--- NOTE | 2020-01-20 08:03 | XRay Report ---
XR chest 1V portable CLINICAL HISTORY: Shortness of breath COMPARISON STUDY: 11/30/2019 FINDINGS: The heart is borderline enlarged. There is no failure. There is no lobar consolidation. The re are no pleural effusions. There are subsegmental atelectatic changes at the left lung base.[There is suspected left shoulder calcific tendinitis. IMPRESSION: Left basilar subsegmental atelectatic change. No evidence of failure. No evidence of loba r consolidation. ACT 112: Negative or not required by law. Electronically signed by: Mauro Castle M.D. 01/20/2020 8:02 AM
[2020-01-20] MEDS: methylPREDNISolone 40 MG in SYRINGE 0 ML IV SCH ×2 (08:57→19:29)
[2020-01-20] MEDS: LEVOTHYROXINE SODIUM 175 MCG TABLET PO SCH (09:10)
[2020-01-20] MEDS: ENOXAPARIN INJ 40 MG/0.4 ML SYR SQ SCH (09:10)
[2020-01-20] MEDS: dilTIAZem HCL 120 MG CAPCR PO SCH (09:11)
[2020-01-20] MEDS: LORATADINE 10 MG TAB PO SCH (09:11)
[2020-01-20] MEDS: FLUTICASONE/VILANTEROL 200/25MCG 14 PUFFS/INHALER INH SCH (09:11)
[2020-01-20] MEDS: LOSARTAN/HCTZ 50/12.5MG TAB PO SCH (09:11)
--- NOTE | 2020-01-20 13:25 | Electrocardiogram Report ---
Test Reason : Blood Pressure : / mmHG Vent. Rate : 085 BPM Atrial Rate : 085 BPM P-R Int : 144 ms QRS Dur : 094 ms QT Int : 394 ms P-R-T Axes : 035 -38 047 degrees QTc Int : 468 ms Normal sinus rhythm Left axis deviation Abnormal ECG When compared with ECG of 30-NOV-2019 23:14, No significant change was found Confirmed by Calvin Mandel ([id number]) on 01/20/2020 1:25:30 PM Referred By: REFERRED SELF Confirmed By:Calvin Mandel
--- NOTE | 2020-01-20 14:47 | Hospitalist Progress Note ---
Date of Service January 20, 2020 Assessment & Plan (1) Asthma, mild intermittent: Michelle Gray is a 75y/o F w/ PMH significant for asthma, hypothyroidism, and HTN; here with concerns asthma exacerbation on 2L oxygen as needed at home Asthma: - during episode patient did not utilize rescue inhaler - on Symbicort at home with Ventolin typically twice a day - triggers include cigarette smoke, and pollen - received Albuterol in ED with improvement in symptoms - CXR demonstrated no acute abnormalities - will hold off on giving steroids at this time - continue to provide Albuterol as needed - will educate patient on Asthma Action Plan utilization for management of non- severe asthma exacerbations - additionally will mentasta patient about recognition of anxiety symptoms and the distinction between this and her asthma Admission and Anticipated Discharge Date Admission Date: January 20, 2020 Supervising Physician Co-Signing Physician Notes I personally examined the patient and verified all dan points of history and exam, discussed case, and agree with decision making with Dr Muhammad. feeling better breathing better scared about going home. vitals noted nad heent nc at mmm breathing unlabored no accessory muscles good effort lungs clear good air entry no r/r/w good effort asthma flare - seems better, understandably scared. no clear need for further intervention. observe into tomorrow to ensure no late worsening/airway swelling related worsening. otherwise as above Subjective In review of the event that led to her coming in, she notes that she was outside throughout the day and then late in the evening she was sitting at her kitchen table when she started to feel herself breathing more rapidly and noted that she was wheezing. Since she was admitted and given the albuterol treatments she does not feel that constant wheeze and does not feel like she is working to breathe faster any more but is worried that if she returns home that her anxiety will build and she will have another exacerbation and have to come back to the hospital. Review of Systems Review of Systems: All systems reviewed & are unremarkable except as noted in Subjective Physical Exam Constitutional: WD/WN, vitals as above Eyes: PERRL, conjunctivae normal, anicteric sclerae ENMT: external ear and nose normal, oropharynx normal Respiratory: normal respiratory effort, lungs clear to auscultation Cardiovascular: Rate/Rhythm: regular rate and regular rhythm Heart Sounds: normal S1 and normal S2; no gallop, no murmur and no cardiac rub Vessels: no JVD Extremities: no pedal edema Gastrointestinal (Abdomen): normal bowel sounds, soft, nontender, no hepatosplenomegaly Skin: no rashes, warm and dry Psychiatric: Orientation: alert and oriented x 3 Affect: + anxious affect Results & Data Results & Data ([facility]) Vital Signs (Past 12 Hours) Vital Signs Temp Pulse Pulse Resp BP BP Pulse Ox 01/20/20 11:20 91 H 18 95 01/20/20 07:29 97 H 18 92 01/20/20 06:39 36.5 C 94 H 24 156/77 H 93 01/20/20 06:00 87 17 110/67 94 01/20/20 05:30 92 H 19 121/69 94 01/20/20 05:23 96 H 19 112/62 95 01/20/20 03:30 104 H 18 95 01/20/20 03:00 92 H 20 143/64 H 99 Laboratory Results 01/20/20 01/20/20 01/20/20 Range/Units 01:00 01:00 01:00 WBC 10.11 (4.8-10.8) K/uL RBC 4.43 (4.2-5.4) M/uL Hgb 13.8 (12.0-16.0) g/dL Hct 42.9 (37-47) % MCV 96.8 (80-100) fL MCH 31.2 (25-34) pg MCHC 32.2 (32-36) g/dL RDW Std Deviation 47.6 H (36.4-46.3) fL RDW Coeff of Chasidy 13.5 (11.5-14.5) % Plt Count 357 (130-400) K/uL MPV 9.3 (7.4-10.4) fL Immature Gran % (Auto) 0.3 % Neut % (Auto) 59.1 % Lymph % (Auto) 21.4 % Stephens % (Auto) 9.4 % Eos % (Auto) 9.5 % Baso % (Auto) 0.3 % Neut # (Auto) 5.98 (1.4-6.5) K/uL Lymph # (Auto) 2.16 (1.2-3.4) K/uL Stephens # (Auto) 0.95 H (0.11-0.59) K/uL Eos # (Auto) 0.96 H (0-0.5) K/uL Baso # (Auto) 0.03 (0-0.2) K/uL Immature Gran # (Auto) 0.03 H (0.00-0.02) K/uL PT 10.4 (9.0-12.0) Seconds INR 1.0 (0.9-1.1) APTT 27.0 (21.0-31.0) Seconds PTT Ratio 1.0 Sodium 144 (136-145) mmol/L Potassium 3.6 (3.5-5.1) mmol/L Chloride 110 H (98-107) mmol/L Carbon Dioxide 27 (21-32) mmol/L Anion Gap 7.0 (3-11) BUN 16 (7-18) mg/dl Creatinine 0.89 (0.6-1.2) mg/dl Est Cr Clr Drug Dosing 58.0 ml/min Est GFR ( Amer) 74.5 Est GFR (Non-Af Amer) 64.3 BUN/Creatinine Ratio 17.5 (10-20) Glucose 138 H (70-99) mg/dl Calcium 9.5 (8.5-10.1) mg/dl Total Bilirubin 0.3 (0.2-1) mg/dl AST 21 (15-37) U/L ALT 36 (12-78) U/L Alkaline Phosphatase 105 (45-117) U/L Troponin I < 0.015 (0-0.045) ng/ml Total Protein 7.5 (6.4-8.2) gm/dl Albumin 3.3 L (3.4-5.0) gm/dl Globulin 4.2 H (2.5-4.0) gm/dl Albumin/Globulin Ratio 0.8 L (0.9-2) Medications Administered Current Inpatient Medications Acetaminophen (Tylenol) 650 mg PO Q4H PRN PRN Reason: pain/fever Stop: 02/19/20 06:37 Al Hydrox/Mg Hydrox/Simethicone (Maalox) 30 ml PO Q6H PRN PRN Reason: Dyspepsia Stop: 02/19/20 06:37 Albuterol (Duoneb) 3 ml NEB QIDR ANDREW Stop: 02/19/20 06:59 Last Admin: 01/20/20 11:19 Dose: 3 ml Documented by: Albuterol (Ventolin Hfa) 2 puffs INH Q4H PRN PRN Reason: Shortness Of Breath Stop: 02/19/20 06:37 Diltiazem HCl (Cardizem Cd) 120 mg PO QAM [facility] Stop: 02/19/20 08:59 Last Admin: 01/20/20 09:11 Dose: 120 mg Documented by: Enoxaparin Sodium (Lovenox) 40 mg SQ Q24H [facility] Stop: 02/19/20 07:59 Last Admin: 01/20/20 09:10 Dose: Not Given Documented by: Fluticasone/Vilanterol (Breo Ellipta 200/25 Mcg Inh) 1 puffs INH DAILY [facility] Stop: 02/19/20 08:59 Last Admin: 01/20/20 09:11 Dose: 1 puffs Documented by: HCTZ/Losartan Potassium (Hyzaar 50/12.5mg) 1 tab PO QAM [facility] Stop: 02/19/20 08:59 Last Admin: 01/20/20 09:11 Dose: 1 tab Documented by: Methylprednisolone 40 mg/ (Syringe) 0.64 mls @ 1.5 mls/min IV Q12H [facility] Stop: 02/19/20 06:59 Last Admin: 01/20/20 08:57 Dose: Not Given Documented by: Levothyroxine Sodium (Synthroid) 175 mcg PO DAILYBB [facility] Stop: 02/19/20 07:59 Last Admin: 01/20/20 09:10 Dose: 175 mcg Documented by: Loratadine (Claritin) 10 mg PO QAM [facility] Stop: 02/19/20 08:59 Last Admin: 01/20/20 09:11 Dose: 10 mg Documented by: Magnesium Hydroxide (Milk Of Magnesia) 30 ml PO Q6H PRN PRN Reason: Constipation Stop: 02/19/20 06:37 Ondansetron HCl (Zofran) 4 mg IV Q6H PRN PRN Reason: Nausea Stop: 02/19/20 06:37 Polyethylene Glycol (Miralax Powder Packet) 17 gm PO DAILY PRN PRN Reason: Constipation Stop: 02/19/20 06:37 Resident Activity Tracking Resident Involvement: Resident Care Provided Care Provided: Adult Hospital Medicine
[2020-01-20 21:58] LABS: Appearance Urine Clear (Clear); Bilirubin Urine Negative (Negative); Blood Urine Negative (Negative); Color Urine Yellow; Glucose Urine UA Negative (Negative); Ketones Urine Negative (Negative); Leukocyte Esterase Urine Negative (Negative); Nitrite Urine Negative (Negative); Protein Urine Negative (Negative); Specific Gravity Urine 1.008 (1.000-1.030); Urobilinogen Urine Negative (Negative); pH Urine 6.5 (4.5-7.5)
--- NOTE | 2020-01-21 01:16 | Billing Data ---
Date of Service January 21, 2020 Coding Level of Care Code 27038 Initial Inpt Care Lvl 2
[2020-01-21] MEDS: LEVOTHYROXINE SODIUM 175 MCG TABLET PO SCH (04:44)
[2020-01-21] MEDS: methylPREDNISolone 40 MG in SYRINGE 0 ML IV SCH (06:12)
[2020-01-21] MEDS: ALBUT/IPRATROP 3MG/0.5MG NEB 3 ML VIAL NEB SCH ×2 (07:10→11:38)
[2020-01-21 07:12] VITALS: BP 137/78; TEMP 97.5
[2020-01-21] MEDS: LORATADINE 10 MG TAB PO SCH (07:54)
[2020-01-21] MEDS: LOSARTAN/HCTZ 50/12.5MG TAB PO SCH (07:54)
[2020-01-21] MEDS: dilTIAZem HCL 120 MG CAPCR PO SCH (07:54)
[2020-01-21] MEDS: FLUTICASONE/VILANTEROL 200/25MCG 14 PUFFS/INHALER INH SCH (07:55)
[2020-01-21] MEDS: ENOXAPARIN INJ 40 MG/0.4 ML SYR SQ SCH (07:55)
--- NOTE | 2020-01-21 10:05 | Discharge Summary ---
Date of Service January 21, 2020 Admission HPI Per Admitting Provider Michelle Gray is a 75 yo F w/ PMHx. of Asthma, hypothyroid, HTN presenting with an exacerbation of her asthma. The flair started at 11PM the night before. She was previously doing well. She was outside a lot on Saturday for her 75 birthday. She attributes the flair to increased pollen exposure. She had a episode 3 weeks prior. She has not had any recent illness, no recent travel, no sick contacts. She lives at home alone and has no pets. She uses her Albuterol inhaler approximately 2 times a day. No history of smoking. Principal Diagnosis Asthma Discharge Exam Constitutional WD/WN, vitals as above Eyes PERRL, conjunctivae normal, anicteric sclerae ENMT external ear and nose normal, oropharynx normal Respiratory normal respiratory effort, lungs clear to auscultation Cardiovascular Rate/Rhythm: regular rate and regular rhythm Heart Sounds: normal S1 and normal S2; no gallop, no murmur and no cardiac rub Vessels: no JVD Extremities: no pedal edema Gastrointestinal (Abdomen) normal bowel sounds, soft, nontender, no hepatosplenomegaly Skin no rashes, warm and dry Psychiatric Orientation: alert and oriented x 3 Affect: + anxious affect Discharge Data Allergies Allergy/AdvReac Type Severity Reaction Status Date / Time amoxicillin Allergy Intermediate SOB Verified 01/20/20 01:21 Penicillins Allergy Mild Unknown Verified 01/20/20 01:21 Consultations 01/20/20 03:27 ED Decision to Admit Stat Hospital Course (1) Asthma, mild intermittent: Michelle Gray is a 75y/o F w/ PMH significant for asthma, hypothyroidism, and HTN; here with concerns asthma exacerbation on 2L oxygen as needed at home Asthma: - during episode of tachypnea and wheeze patient did not utilize rescue inhaler; patient has high anxiety over asthma symptoms and states that her anxiety will get so high that she will feel further asthma symptoms - consider addition of medication for anxiety symptoms as this seems to be confounding her symptom monitoring - continue Symbicort 2 puffs BID; and Ventolin 2 puffs PRN - known triggers include cigarette smoke, and pollen - received Albuterol in ED with improvement in symptoms - CXR demonstrated no acute abnormalities - provided Asthma Action Plan for management of non-severe asthma exacerbations; copy to be scanned into chart; update as needed with known triggers Total Time Total Time Spent Total Time Spent (In Minutes): <30 Discharge Plan Discharge Items Patient Disposition: Home - Self-Care Reason For Visit: ASTHMA EXACERBATION Discharge Diagnosis: Asthma Condition on Discharge: Good Activity: Per Instructions section Non-emergency contact: Primary Care Provider Call non-emergency contact if: you have any medication questions, your symptoms worsen and you have a fever Follow-up/Referrals: Keshawn Mcgregor MD [Primary Care Provider] - (Please check with your primary care doctor to see if you need a follow up appointment.) Diet: Regular Addtl Attending Provider Instructions: You were seen and admitted following having a short period of increased wheezing and feelings of shortness of breath; during this admission you received regular doses of the albuterol inhaler that relieved your wheezing and feelings of shortness of breath. Prior to your discharge, we went over an Asthma Action Plan that you should keep with you, as this will help in the guidance of monitoring your symptoms and the appropriate steps that you should take when you are starting to feel changes and feeling worse. It is also important that when you see Dr. Mcgregor again, you discuss with him your asthma and the anxious feelings you have when concerned about your asthma; as the feelings of anxiety can highly mimic asthma symptoms. Pending Studies at Discharge: No Stand-Alone Forms: My [facility] [employer], Smoking Cessation Medications and DC Order Prescriptions: Continued budesonide-formoterol [Symbicort] 160-4.5 mcg/actuation HFA aerosol inhaler 2 puffs INH BID RF: 0 albuterol sulfate [Ventolin HFA] 90 mcg/actuation HFA aerosol inhaler 2 puffs inhalation .COMPLEX PRN (Reason: Shortness Of Breath) Qty: 18 RF: 3 losartan-hydrochlorothiazide 100-25 mg tablet 1 tab PO QAM Qty: 90 RF: 0 levothyroxine 175 mcg tablet 175 mcg PO QAM Qty: 90 RF: 3 diltiazem HCl [Cardizem CD] 120 mg capsule,extended release 24hr 120 mg PO QAM Qty: 90 RF: 3 omega-3 fatty acids [Fish Oil Concentrate] 1,000 mg capsule 1,000 mg PO QAM RF: 0 loratadine 10 mg Tablet 10 mg PO QAM RF: 0 cholecalciferol (vitamin D3) [Vitamin D3] 2,000 unit capsule 2,000 unit PO DAILY RF: 0 Discharge Orders: Discharge Order (Routine); Ordered 01/21/20 Ordered By: Rylan Davey/Other Patient Handouts: Asthma Admission Data Admit Date/Time: 01/20/20 05:28 Attending Provider: Neto Gibson Admit Provider: Edgardo Andrade Primary Care Provider: Keshawn Mcgregor Other Providers: Kj Walter Other Interventions: Discharge Summary Assessment (RN) Last Done: 01/21/20 10:18 DC Date/Time DO NOT enter until pt leaves facility: 01/21/20 13:22 Supervising Physician Co-Signing Physician Notes I personally examined the patient and verified all dan points of history and exam, discussed case, and agree with decision making with Dr Muhammad. feeling good feels much more reassured about going home. vitals noted nad heent nc at mmm breathing unlabored no accessory muscles good effort asthma flare - better. safe/stable for home. suspect at least some of her issue was asthma --> anxiety --> anxiety causing more perception of dyspnea. asthma action plan given. otherwise as above Resident Activity Tracking Resident Involvement: Resident Care Provided Care Provided: Adult Hospital Medicine
[2020-01-21 11:41] VITALS: PULSE 93; O2SAT 95
--- NOTE | 2020-01-21 17:46 | Billing Data ---
Date of Service January 21, 2020 Coding Level of Care Code 80935 OBS Care - Discharge Comment 217, not <30mins dc - please disregard other code
--- NOTE | 2020-01-21 17:46 | Billing Data ---
Date of Service January 21, 2020 Coding Level of Care Code D/C Day Management <30 mins
== END 2020-01-21 13:22 | disposition home or self-care (01) ==
LOC: ED 01:03 → 2W 01:03 → SUATTDRO 05:28 → 2W 06:11

== ENCOUNTER 2020-06-19 21:07 | Observation (INO) ==
[2020-06-19] MEDS ORDERED: ALBUTEROL 0.083% NEBU SOLN 3 ML VIAL ONE (21:27)
[2020-06-19] MEDS ORDERED: ALBUT/IPRATROP 3MG/0.5MG NEB 3 ML VIAL ONE (21:27)
[2020-06-19] MEDS ORDERED: methylPREDNISolone 125 MG/2 ML VIAL IV STA (21:42)
--- NOTE | 2020-06-19 21:50 | Emergency Department Note ---
Impression & Plan Acute dyspnea, Hypoxia, Bilateral wheezing ED Provider Note INFORMANT: Patient ED PROVIDER(S): Tom Joseph MD CHIEF COMPLAINT: Shortness of breath PLAN: Disposition: Admit Condition: Good MEDICAL DECISION MAKING: Patient presented because of acute shortness of breath. EMS noted she was hypoxic. She has a history of reactive airways and respiratory failure. The patient did respond well to a total of 4 nebulizer treatments prehospital. She was given IV Solu-Medrol here. She was placed in isolation and Covid testing performed. EKG, chest x-ray and laboratory testing performed as well. Patient's ECG does not show any ischemia but does have tachycardia present. She did remain borderline tachycardic on monitoring. The patient had an unremarkable chemistry panel troponin. Her CBC does show a significant leukocytosis of 18,000. Chest x-ray reveals some concern for increased markings in the right infrahilar area concerning for possible pneumonia. Given her respiratory issues she was tested for Covid and this was negative. She was given Solu-Medrol as noted above and also a DuoNeb. Because of her respiratory issues and history I felt the patient would be best served by consultation with internal medicine for treatment in the hospital. I discussed the case with Dr. Pandey of internal medicine. Patient was evaluated in the ER for further management. Triage Nursing notes reviewed and agree them. Prior medical records reviewed regarding her recent office visits as well as her 3 admissions this year for respiratory issues. Vital Signs: reviewed and remarkable for hypoxia, tachypnea Differential diagnosis: Reactive airway disease, pneumonia, pneumothorax, COPD, CHF, infections, cardiac ischemia, pulmonary embolism, musculoskeletal, gastrointestinal, as well as other pathologies. Diagnostics interpreted by me: ECG: Twelve-lead ECG reveals sinus tachycardia at 102 bpm. Low voltage QRS. Left anterior fascicular block present. Normal axis. No PACs or PVCs. No ST elevation or depression. Cardiac Monitoring:Cardiac monitoring ordered by me: The patient was placed on continuous cardiac monitoring and observed. It revealed a normal sinus rhythm at 98 beats per minute without ectopy or evidence of dysrhythmia. Imaging studies: Chest x-ray reveals increased interstitial markings in the right upper hilar region concerning for possible developing pneumonia when compared to prior chest x-ray. [facility]ation([facility] HPI: The patient is a 75 year old female who presents to the Emergency Room with complaints of shortness of breath. This started this evening and is described as severe. The patient also notes the following associated symptoms, wheezing. The patient has tried to nebulizers at home and was given 2 nebulizers by EMS relieving factors. Current pain is rated as 0/10. Patient states she has very fragile asthma. She was seen by her primary office 4 days ago. She is currently not taking any prednisone. The patient denies any Covid exposures or Covid symptoms. She states it has been about 1 month since he has been in the hospital. EMS did note that she was very tachypneic, wheezing, and had a O2 saturation of 88% on her 2 L nasal cannula. They did place her on 15 L and administer the nebulizer treatments which resulted in resolution of the hypoxia. Currently the patient is feeling better but still notes some wheezing. Pt denies LOC, headache, fevers, chills, diaphoresis, visual changes, neck pain, chest pain, nausea, vomiting, abdominal pain, back pain, melena, hematochezia, urinary symptoms, numbness, weakness, lymphadenopathy, rash, or other complaints. ROS: See above HPI for pertinent positives & negatives. A total of 10 systems reviewed and were otherwise negative. PAST MEDICAL HISTORY:See Below, asthma, respiratory failure, hypertension PAST SURGICAL HISTORY:See Below, FAMILY HISTORY:See Below SOCIAL HISTORY:See Below, no alcohol HOME MEDICATIONS:See Below ALLERGIES:See Below VITALS:See Below PHYSICAL EXAMINATION: GENERAL: Awake, alert, mildly dyspneic-appearing, in no distress HENT: Normocephalic, atraumatic. Oropharynx unremarkable. EYES: Normal conjunctiva. Sclera non-icteric. NECK: Inspection normal. Non-tender. Supple. No nuchal rigidity. FROM. No masses. RESPIRATORY: Lateral wheezes. No rales. Normal respiratory effort. CARDIAC: Tachycardic rate. Normal rhythm. No murmurs. No rubs. Extremities war m and well perfused. Pulses equal. No JVD. GI: Soft, non-distended. No tenderness to palpation. No rebound or guarding. No masses. RECTAL: Deferred. MUSCULOSKELETAL: Atraumatic. Chest examination reveals no tenderness. The back is symmetrical on inspection without obvious abnormality. There is no CVA tenderness to palpation. No joint edema. LOWER EXTREMITIES: Calves are equal size bilaterally and non-tender. 1+ edema. Dry skin and minimal erythema but no cellulitis or other discoloration. NEURO: Normal sensorium. No sensory or motor deficits noted. SKIN: No rash or jaundice noted. ED COURSE: Critical Care: I have personally spent greater than 32minutes of critical care time in the direct management of this patient. This includes bedside care, interpretation of diagnostic studies, and testing, discussion with consultants, patient,and other required patient management activities. These minutes are in excess of all separately billable procedures. Tom Joseph MD Past Med/Surg History Medical History (Updated 06/19/20 @ 21:49 by Tom Joseph MD) Acute respiratory failure with hypoxia Allergic rhinitis Endometrial cancer determined by uterine biopsy H/O allergy to penicillin History of colon polyps Hyperparathyroidism Hypertension Hypothyroidism Thyroid cancer Surgical History H/O bilateral oophorectomy H/O thyroidectomy H/O: hysterectomy Family History Mother Kidney disease Diabetes Hypertension Colon cancer Brother Arthritis Hypertension Father Colorectal cancer Sister Dyslipidemia Hypertension Social History Smoking Status: Never smoker Second Hand Exposure: Yes (Recent exposure at social event); Hx Alcohol Use: No Hx Substance Use: No Preferred Language: Trinidadian Communication Ability: Effective Visual Impairment: Limited Hearing Ability: Normal C 13 Catapult Operator Required: No Beliefs That Will Affect Care: None marital status: Single Current Living Situation: Alone current occupational status: retired Feels Safe at Home: Yes Childhood Exposure to Second-Hand Smoke: No (does not think so) Diet Comment: NO JUNK FOOD caffeine: Yes Dental Care, Regularly: Yes Physical Activity Frequency: Does not Exercise Seatbelt Use: always Sunscreen Use: No Assistive Devices: Oxygen - Continuous Allergies Allergies Allergy/AdvReac Type Severity Reaction Status Date / Time amoxicillin Allergy Intermediate SOB Verified 06/19/20 22:36 Penicillins Allergy Mild Unknown Verified 06/19/20 22:36 Home Meds Home Medications Medication Instructions Recorded Confirmed loratadine 10 mg PO QAM 12/30/18 06/19/20 omega-3 fatty acids 1,000 mg 1,000 mg PO QAM 01/07/19 06/19/20 capsule cholecalciferol (vitamin D3) 50 2,000 unit PO HS cap 03/12/19 06/19/20 mcg (2,000 unit) capsule Previous Rx's Medication Instructions Recorded albuterol sulfate 90 mcg/actuation 2 puffs INHALATION .COMPLEX PRN 11/02/19 aerosol inhaler #18 gm diltiazem HCl 120 mg 120 mg PO QAM #90 cap 12/25/19 capsule,extended release 24 hr buspirone 5 mg tablet 5 mg PO DAILY PRN #10 tab 01/26/20 budesonide-formoterol [Symbicort] 2 puffs INH BID #10.2 gm 03/02/20 levothyroxine 150 mcg tablet 150 mcg PO DAILY #30 tab 04/06/20 losartan 100 1 tab PO QAM #90 tab 06/10/20 mg-hydrochlorothiazide 25 mg tablet ipratropium 0.5 mg-albuterol 3 mg 3 ml INH Q6H PRN #30 ml 06/15/20 (2.5 mg base)/3 mL nebulization soln Results & Data (ED) Vital Signs Vital Signs - 24 hr 06/19/20 21:13 06/19/20 21:24 06/19/20 22:23 Temperature 36.6 C Temperature Source Oral Pulse Rate 104 H 105 H Pulse Rate [Right Radial] Pulse Rate from SpO2 Sensor 106 H Pulse Rhythm Regular Respiratory Rate 30 H 21 Respiratory Effort / Characteristics Non-Labored Spontaneous Non-Labored Spontaneous Respiratory Depth Normal Normal Respiratory Pattern Regular Regular Blood Pressure 168/75 H 160/78 H Blood Pressure Mean 106 114 Blood Pressure Position Sitting Pulse Oximetry 93 89 L 93 Oxygen Delivery Method Nasal Cannula Nasal Cannula Nasal Cannula Oxygen Flow Rate 2 2 2 Sepsis Recent Fever Within 48 Hours No Sepsis New/Unexplained Change in Mental Status No Sepsis Action Taken by Nursing No Action Required Oxygen Flow Rate - Titration 2 Pulse Oximetry Post Tiitration 93 06/19/20 22:30 06/19/20 23:30 Temperature Temperature Source Pulse Rate 101 H 114 H Pulse Rate [Right Radial] 103 H Pulse Rate from SpO2 Sensor 100 H Pulse Rhythm Respiratory Rate 19 22 Respiratory Effort / Characteristics Non-Labored Spontaneous Respiratory Depth Respiratory Pattern Blood Pressure 118/85 173/148 H Blood Pressure Mean 99 151 Blood Pressure Position Pulse Oximetry 92 94 Oxygen Delivery Method Nasal Cannula Oxygen Flow Rate 2 Sepsis Recent Fever Within 48 Hours Sepsis New/Unexplained Change in Mental Status Sepsis Action Taken by Nursing Oxygen Flow Rate - Titration Pulse Oximetry Post Tiitration Laboratory Data Result diagrams: 06/19/20 21:34 06/19/20 21:34 Lab Results 06/19/20 06/19/20 06/19/20 Range/Units 21:34 21:34 21:34 WBC 18.33 H (4.8-10.8) K/uL RBC 4.37 (4.2-5.4) M/uL Hgb 13.7 (12.0-16.0) g/dL Hct 41.3 (37-47) % MCV 94.5 (80-100) fL MCH 31.4 (25-34) pg MCHC 33.2 (32-36) g/dL RDW Std Deviation 49.1 H (36.4-46.3) fL RDW Coeff of Chasidy 14.4 (11.5-14.5) % Plt Count 341 (130-400) K/uL MPV 9.6 (7.4-10.4) fL Immature Gran % (Auto) 0.7 % Neut % (Auto) 84.9 % Lymph % (Auto) 6.3 % [place] % (Auto) 5.6 % Eos % (Auto) 2.3 % Baso % (Auto) 0.2 % Neut # (Auto) 15.58 H (1.4-6.5) K/uL Lymph # (Auto) 1.15 L (1.2-3.4) K/uL [place] # (Auto) 1.02 H (0.11-0.59) K/uL Eos # (Auto) 0.43 (0-0.5) K/uL Baso # (Auto) 0.03 (0-0.2) K/uL Immature Gran # (Auto) 0.12 H (0.00-0.02) K/uL PT 10.6 (9.0-12.0) Seconds INR 1.0 (0.9-1.1) APTT 24.0 (21.0-31.0) Seconds PTT Ratio 0.9 Sodium 143 (136-145) mmol/L Potassium 3.4 L (3.5-5.1) mmol/L Chloride 107 (98-107) mmol/L Carbon Dioxide 29 (21-32) mmol/L Anion Gap 6.0 (3-11) BUN 14 (7-18) mg/dl Creatinine 1.12 (0.6-1.2) mg/dl Est Cr Clr Drug Dosing 45.4 ml/min Est GFR ( Amer) 56.4 Est GFR (Non-Af Amer) 48.7 BUN/Creatinine Ratio 12.1 (10-20) Glucose 166 H (70-99) mg/dl Calcium 9.5 (8.5-10.1) mg/dl Magnesium 1.9 (1.8-2.4) mg/dl Total Bilirubin 0.3 (0.2-1) mg/dl AST 35 (15-37) U/L ALT 44 (12-78) U/L Alkaline Phosphatase 97 (45-117) U/L Troponin I < 0.015 (0-0.045) ng/ml NT-Pro-B Natriuret Pep 335 (0-900) pg/ml Total Protein 6.8 (6.4-8.2) gm/dl Albumin 3.2 L (3.4-5.0) gm/dl Globulin 3.6 (2.5-4.0) gm/dl Albumin/Globulin Ratio 0.9 (0.9-2) COVID-19 Eval Order SARS-CoV-2, RNA, NAAT (NEGATIVE) 06/19/20 06/19/20 Range/Units 22:09 22:09 WBC (4.8-10.8) K/uL RBC (4.2-5.4) M/uL Hgb (12.0-16.0) g/dL Hct (37-47) % MCV (80-100) fL MCH (25-34) pg MCHC (32-36) g/dL RDW Std Deviation (36.4-46.3) fL RDW Coeff of Chasidy (11.5-14.5) % Plt Count (130-400) K/uL MPV (7.4-10.4) fL Immature Gran % (Auto) % Neut % (Auto) % Lymph % (Auto) % [place] % (Auto) % Eos % (Auto) % Baso % (Auto) % Neut # (Auto) (1.4-6.5) K/uL Lymph # (Auto) (1.2-3.4) K/uL [place] # (Auto) (0.11-0.59) K/uL Eos # (Auto) (0-0.5) K/uL Baso # (Auto) (0-0.2) K/uL Immature Gran # (Auto) (0.00-0.02) K/uL PT (9.0-12.0) Seconds INR (0.9-1.1) APTT (21.0-31.0) Seconds PTT Ratio Sodium (136-145) mmol/L Potassium (3.5-5.1) mmol/L Chloride (98-107) mmol/L Carbon Dioxide (21-32) mmol/L Anion Gap (3-11) BUN (7-18) mg/dl Creatinine (0.6-1.2) mg/dl Est Cr Clr Drug Dosing ml/min Est GFR ( Amer) Est GFR (Non-Af Amer) BUN/Creatinine Ratio (10-20) Glucose (70-99) mg/dl Calcium (8.5-10.1) mg/dl Magnesium (1.8-2.4) mg/dl Total Bilirubin (0.2-1) mg/dl AST (15-37) U/L ALT (12-78) U/L Alkaline Phosphatase (45-117) U/L Troponin I (0-0.045) ng/ml NT-Pro-B Natriuret Pep (0-900) pg/ml Total Protein (6.4-8.2) gm/dl Albumin (3.4-5.0) gm/dl Globulin (2.5-4.0) gm/dl Albumin/Globulin Ratio (0.9-2) COVID-19 Eval Order Covid19 IDNow [facility] SARS-CoV-2, RNA, NAAT NEGATIVE (NEGATIVE) Administered Medications Doxycycline Hyclate 100 mg/ (Dextrose) 110 mls @ 50 mls/hr IV NOW STA Stop: 06/20/20 00:44 Last Admin: 06/19/20 23:16 Dose: 50 mls/hr Documented by: [id number] Discontinued Medications Albuterol (Albut/Ipratrop 3mg/0.5mg Neb 3 Ml Vial) 3 ml NEB NOW STA Stop: 06/19/20 22:59 Last Admin: 06/19/20 23:28 Dose: 3 ml Documented by: [id number] Methylprednisolone (Methylprednisolone 125 Mg/2 Ml Vial) 125 mg IV NOW STA Stop: 06/19/20 21:43 Last Admin: 06/19/20 22:19 Dose: 125 mg Documented by: [id number] Discharge Plan Visit Data Chief Complaint: Shortness of Breath/Dyspnea Stated Complaint: SHORTNESS OF BREATH ED Provider: Tom Joseph Discharge Problem: Acute dyspnea, Hypoxia, Bilateral wheezing Forms Stand Alone Forms: [facility] [employer] Prescriptions Prescriptions: No Action albuterol sulfate [Ventolin HFA] 90 mcg/actuation HFA aerosol inhaler 2 puffs inhalation .COMPLEX PRN (Reason: Shortness Of Breath) Qty: 18 RF: 3 diltiazem HCl [Cardizem CD] 120 mg capsule,extended release 24hr 120 mg PO QAM Qty: 90 RF: 3 levothyroxine 150 mcg tablet 150 mcg PO DAILY Qty: 30 RF: 2 losartan-hydrochlorothiazide 100-25 mg tablet 1 tab PO QAM Qty: 90 RF: 3 ipratropium-albuterol 0.5 mg-3 mg(2.5 mg base)/3 mL solution for nebulization 3 ml INH Q6H PRN (Reason: wheezing) Qty: 30 RF: 3 omega-3 fatty acids [Fish Oil Concentrate] 1,000 mg capsule 1,000 mg PO QAM RF: 0 buspirone 5 mg tablet 5 mg PO DAILY PRN (Reason: asthma attack) Qty: 10 RF: 2 loratadine 10 mg Tablet 10 mg PO QAM RF: 0 cholecalciferol (vitamin D3) [Vitamin D3] 2,000 unit capsule 2,000 unit PO HS RF: 0 budesonide-formoterol [Symbicort] 160-4.5 mcg/actuation HFA aerosol inhaler 2 puffs INH BID Qty: 10.2 RF: 2
[2020-06-19 21:56] LABS: Basophils # (auto) 0.03 K/uL (0-0.2); Basophils % (auto) 0.2 %; Eosinophils # (auto) 0.43 K/uL (0-0.5); Eosinophils % (auto) 2.3 %; Hematocrit (blood only) 41.3 % (37-47); Hemoglobin 13.7 g/dL (12.0-16.0); Immature Granulocytes # (auto) 0.12 K/uL (0.00-0.02); Immature Granulocytes % (auto) 0.7 %; Lymphocytes # (auto) 1.15 K/uL (1.2-3.4); Lymphocytes % (auto) 6.3 %; Mean Corpuscular Hemoglobin 31.4 pg (25-34); Mean Corpuscular Hgb Conc 33.2 g/dL (32-36); Mean Corpuscular Volume 94.5 fL (80-100); Mean Platelet Volume 9.6 fL (7.4-10.4); Monocytes # (auto) 1.02 K/uL (0.11-0.59); Monocytes % (auto) 5.6 %; Neutrophils # (auto) 15.58 K/uL (1.4-6.5); Neutrophils % (auto) 84.9 %; Platelet Count 341 K/uL (130-400); RDW Coefficient of Variation 14.4 % (11.5-14.5); RDW Standard Deviation 49.1 fL (36.4-46.3); Red Blood Count 4.37 M/uL (4.2-5.4); White Blood Count 18.33 K/uL (4.8-10.8)
[2020-06-19 22:05] LABS: Alanine Aminotransferase 44 U/L (12-78); Albumin Level 3.2 gm/dl (3.4-5.0); Aspartate Aminotransferase 35 U/L (15-37); BUN Creatinine Ratio 12.1 (10-20); Blood Urea Nitrogen 14 mg/dl (7-18); Calcium 9.5 mg/dl (8.5-10.1); Carbon Dioxide 29 mmol/L (21-32); Chloride 107 mmol/L (98-107); Creatinine Clr Calc Pharmacy 45.4 ml/min; Est GFR (African American) 56.4; Est GFR (Non-African American) 48.7; Glucose 166 mg/dl (70-99); Magnesium 1.9 mg/dl (1.8-2.4); Potassium 3.4 mmol/L (3.5-5.1); Sodium 143 mmol/L (136-145)
[2020-06-19 22:08] LABS: Partial Thromboplastin Ratio 0.9; Prothrombin Time 10.6 Seconds (9.0-12.0)
[2020-06-19 22:10] LABS: Albumin Globulin Ratio 0.9 (0.9-2); Alkaline Phosphatase 97 U/L (45-117); Bilirubin,Total 0.3 mg/dl (0.2-1); Globulin 3.6 gm/dl (2.5-4.0); NT Pro B Type Natriuretic Pept 335 pg/ml (0-900); Total Protein 6.8 gm/dl (6.4-8.2); Troponin I < 0.015 ng/ml (0-0.045)
[2020-06-19] MEDS ORDERED: DOXYCYCLINE HYCLATE 100 MG in DEXTROSE 5% 100 ML IV STA (22:33)
[2020-06-19] MEDS ORDERED: ALBUT/IPRATROP 3MG/0.5MG NEB 3 ML VIAL NEB STA (22:58)
--- NOTE | 2020-06-19 23:39 | History & Physical Report ---
Date of Service June 19, 2020 Assessment & Plan (1) Anxiety: (2) Asthma with exacerbation: Pt is a 75yo female with a PMHx significant for asthma, Hypothyroidism, HTN and anxiety admitted with an asthma exacerbation. Acute respiratory hypoxic failure in the setting of Asthma, exacerbation -Pt states SOB suddenly about 5pm day of admission, hypoxia in 80s noted -Tachycardic, requiring 2L NC, expiratory wheezes on exam at time of admission -Duoneb treatmentsx4 at the time of admission, IV Solumedrol 125mg in the ED -IV Solumedrol 40mg TID -Mag Sulfate 1g IV -continue Duonebs scheduled QID -continue home albuterol inhaler PRN -continue home symbicort daily -continue home loratidine ?Pneumonia -Ed Course included one dose of Doxycycline -PA and lateral chest XR ordered for AM -procal pending with AM labs -consider further treatment for pneumonia based on AM XR results Hypokalemia -K+ of 3.4 on admission -repleted -consider daily K+ administration given repeated use of albuterol with the exacerbation -hold home HCTZ combo pill HTN -hold home losartan 100mg-HCTZ 25mg -consider restart of losartan only for BP control when needed -continue home diltiazem HCl 120mg Hypothyroidism -continue home levothyroxine 150 mcg Anxiety -continue home buspirone 5mg dialy PRN FEN/GI: Regular diet CODE STATUS: Full code DVT prophylaxis: SCDs Dispo: Med/Surg with tele (3) Hypothyroidism: (4) Hypertension: (5) Vitamin D deficiency: History of Present Illness Primary Care Provider: Keshawn Mcgregor MD Pt is a 75yo female with a PMHx significant for asthma, Hypothyroidism, HTN and anxiety admitted with an asthma exacerbation. She states she was visiting a friend this PM, when she suddenly developed SOB. Has had >3 exacerbations this year requiring hospitalization and followed with allergy/immunology in the past. States that she has oxygen 2L PRN for use at home, as well as a nebulizer but this was not accessible to her as she was at a friend's house. She did take her albuterol inhaler with no relief. So she was transported to the ED. She was noted to be hypoxic in the 80s and received 2 nebulizer treatments en route. Received further treatments in the ED. States that she currently feels better, though she is not back to baseline. She has never smoked and currently denies SOB, chest pain or palpitations. Has a bit of a runny nose, says she has this chronic productive cough of yellow phlegm sometimes but denies a sore throat or known COVID contacts. She states she was recently treated with a course of prednisone which she completed. Allergies Allergy/AdvReac Type Severity Reaction Status Date / Time amoxicillin Allergy Intermediate SOB Verified 06/19/20 22:36 Penicillins Allergy Mild Unknown Verified 06/19/20 22:36 Home Medications Medication Instructions Recorded Confirmed Type loratadine 10 mg PO QAM 12/30/18 06/19/20 History omega-3 fatty acids 1,000 mg 1,000 mg PO QAM 01/07/19 06/19/20 History capsule cholecalciferol (vitamin D3) 50 2,000 unit PO HS cap 03/12/19 06/19/20 History mcg (2,000 unit) capsule albuterol sulfate 90 mcg/actuation 2 puffs INHALATION .COMPLEX PRN 11/02/19 06/19/20 Rx aerosol inhaler #18 gm diltiazem HCl 120 mg 120 mg PO QAM #90 cap 12/25/19 06/19/20 Rx capsule,extended release 24 hr buspirone 5 mg tablet 5 mg PO DAILY PRN #10 tab 01/26/20 06/19/20 Rx budesonide-formoterol [Symbicort] 2 puffs INH BID #10.2 gm 03/02/20 06/19/20 Rx levothyroxine 150 mcg tablet 150 mcg PO DAILY #30 tab 04/06/20 06/19/20 Rx losartan 100 1 tab PO QAM #90 tab 06/10/20 06/19/20 Rx mg-hydrochlorothiazide 25 mg tablet ipratropium 0.5 mg-albuterol 3 mg 3 ml INH Q6H PRN #30 ml 06/15/20 06/19/20 Rx (2.5 mg base)/3 mL nebulization soln Past Med/Surg History Medical History Acute respiratory failure with hypoxia Allergic rhinitis Endometrial cancer determined by uterine biopsy H/O allergy to penicillin History of colon polyps Hyperparathyroidism Hypertension Hypothyroidism Thyroid cancer Surgical History H/O bilateral oophorectomy H/O thyroidectomy H/O: hysterectomy Family History Mother Kidney disease Diabetes Hypertension Colon cancer Brother Arthritis Hypertension Father Colorectal cancer Sister Dyslipidemia Hypertension Social History Smoking Status: Never smoker Second Hand Exposure: Yes (Recent exposure at social event); Hx Alcohol Use: No Hx Substance Use: No Preferred Language: Armenian Communication Ability: Effective Visual Impairment: Limited Hearing Ability: Normal Cna Pct Required: No Beliefs That Will Affect Care: None marital status: Single Current Living Situation: Alone current occupational status: retired Feels Safe at Home: Yes Childhood Exposure to Second-Hand Smoke: No (does not think so) Diet Comment: NO JUNK FOOD caffeine: Yes Dental Care, Regularly: Yes Physical Activity Frequency: Does not Exercise Seatbelt Use: always Sunscreen Use: No Assistive Devices: Oxygen - Continuous Review of Systems Constitutional: no fever, no chills and no sweats Eyes: no worsening vision Ear, Nose, Mouth, Throat: + nasal discharge; no nasal congestion and no sore throat Respiratory: + cough and + dyspnea Cardiovascular: + dyspnea and + edema; no chest pain and no palpitations Gastrointestinal: no abdominal pain, no nausea, no vomiting, no constipation, no diarrhea/loose stools and no blood in stools Genitourinary: no dysuria and no hematuria Musculoskeletal: no back pain Integumentary: no rash Neurologic: no tingling, no numbness, no headache(s) and no confusion Psychiatric: + anxiety; no confusion Physical Exam Physical Exam: General: Alert, oriented. No acute distress, nasal cannula in nares Skin: Redness of lower extremities noted Psych: Appropriate mood and affect Neuro: No gross deficits HEENT: NC/AT Chest: Nontender to palpation. CV: RRR, Normal s1, s2. No murmurs appreciated Resp: Breath sounds with expiratory wheezes bilaterally, no increased effort of breathing. Abdomen: Soft, nontender, nondistended. No guarding. Extremities: ++ edema in lower extremities bilaterally. Results & Data Results & Data ([facility]) Vital Signs (Past 12 Hours) Vital Signs Temp Pulse Pulse Resp BP Pulse Ox 06/19/20 23:30 114 H 103 H 22 173/148 H 94 06/19/20 22:30 101 H 19 118/85 92 06/19/20 22:23 105 H 21 160/78 H 93 06/19/20 21:24 89 L 06/19/20 21:13 36.6 C 104 H 30 H 168/75 H 93 Supervising Physician Co-Signing Physician Notes Patient seen and examined, chart reviewed, case discussed with Dr. Vergara and I agree with her assessment and plan as above. Briefly, patient is a 75yo C female with history of asthma presenting with acute onset SOB, wheeze at 17:00 today. Patient hypoxic by EMS and was administered neb treatments in the field. Currently feels improved although still with SOB. No Covid-19 contacts. Rapid Covid-19 antigen testing as performed in ER is NEGATIVE Patient is to see Allergy/Immunology for assistance with asthma management - has had multiple exacerbations this year On exam she is afebrile, HD stable, receiving a neb treatment. Adequate oxygenation on 2L NC. No distress HEENT - NC/AT, PERRL, EOMI, MMM, neck supple Heart - +S1/S2, regular, no m/r/g Lungs - diminished breath sounds bilaterally, +end-expiratory wheezing throughout Ext - 2+ edema of bilateral LE, chronic venous stasis changes and dermatitis Labs and images reviewed Assessment/Plan - acute exacerbation of asthma. Patient still with diminished breath sounds and diffuse wheezing despite multiple neb treatments. Steroids given in ER as well -Admit to medical -Continue Solumedrol 40mg IV TID -Nebs Duoneb and Albuterol -Continue Symbicort -Continue Loratadine -Mg x 1 gm -Procal and CXR for possible PNA - patient with elevated WBC but recently on steroids -Remainder of plan as above Resident Activity Tracking Resident Involvement: Resident Care Provided Care Provided: Adult Hospital Medicine (1) Asthma with exacerbation Asthma persistence: unspecified Asthma severity: unspecified severity Qualified Code(s): J45.901 - Unspecified asthma with (acute) exacerbation (2) Hypertension Hypertension type: essential hypertension Qualified Code(s): I10 - Essential (primary) hypertension
[2020-06-20] MEDS ORDERED: busPIRone 5 MG TAB PO PRN (01:39)
[2020-06-20] MEDS ORDERED: ALBUTEROL HFA 8 GM INHALER INH PRN (01:39)
--- NOTE | 2020-06-20 01:53 | Billing Data ---
Date of Service June 19, 2020 Coding Level of Care Code 01764 Initial Inpt Care Lvl 3
[2020-06-20] MEDS ORDERED: MAGNESIUM SULFATE / D5W 1 GM/100 ML BAG IV ONE (02:00)
[2020-06-20] MEDS ORDERED: POTASSIUM CHLORIDE 10 MEQ TABCR PO ONE (02:00)
[2020-06-20] MEDS: methylPREDNISolone 40 MG in SYRINGE 0 ML IV SCH ×3 (04:37→20:37)
[2020-06-20] MEDS: LEVOTHYROXINE SODIUM 150 MCG TABLET PO SCH (06:28)
[2020-06-20] MEDS: ALBUT/IPRATROP 3MG/0.5MG NEB 3 ML VIAL NEB SCH ×4 (07:17→19:35)
--- NOTE | 2020-06-20 07:29 | XRay Report ---
XR chest 1V portable CLINICAL HISTORY: Dyspnea COMPARISON STUDY: Chest radiograph April 21, 2020. FINDINGS: Lung volumes are normal. Minimal bibasilar opacities favor atelectasis. There is no pneumot horax or pleural effusion. Cardiac size is normal. Mediastinal contours are normal. There is no evide nce for pulmonary edema. IMPRESSION: 1. No acute cardiopulmonary findings. 2. Minimal bibasilar opacities that favor atelectasis. ACT 112: Negative or not required by law. Electronically signed by: Anderson Bacon M.D. 06/20/2020 7:28 AM
[2020-06-20] MEDS: LORATADINE 10 MG TAB PO SCH (07:55)
[2020-06-20] MEDS: FLUTICASONE/VILANTEROL 100/25MCG 14 PUFFS/INHALER INH SCH (07:55)
[2020-06-20] MEDS: dilTIAZem HCL 120 MG CAPCR PO SCH (07:55)
[2020-06-20 07:59] LABS: Basophils # (auto) 0.01 K/uL (0-0.2); Basophils % (auto) 0.1 %; Hematocrit (blood only) 41.4 % (37-47); Immature Granulocytes # (auto) 0.03 K/uL (0.00-0.02); Immature Granulocytes % (auto) 0.4 %; Lymphocytes # (auto) 0.54 K/uL (1.2-3.4); Lymphocytes % (auto) 7.7 %; Mean Corpuscular Hemoglobin 30.8 pg (25-34); Mean Corpuscular Hgb Conc 33.8 g/dL (32-36); Mean Corpuscular Volume 91.2 fL (80-100); Mean Platelet Volume 9.2 fL (7.4-10.4); Monocytes # (auto) 0.04 K/uL (0.11-0.59); Monocytes % (auto) 0.6 %; Neutrophils # (auto) 6.35 K/uL (1.4-6.5); Neutrophils % (auto) 91.2 %; Platelet Count 314 K/uL (130-400); RDW Coefficient of Variation 14.2 % (11.5-14.5); Red Blood Count 4.54 M/uL (4.2-5.4); White Blood Count 6.97 K/uL (4.8-10.8)
[2020-06-20 08:24] LABS: BUN Creatinine Ratio 16.1 (10-20); Calcium 10.2 mg/dl (8.5-10.1); Creatinine Clr Calc Pharmacy 54.9 ml/min; Est GFR (African American) 73.5; Est GFR (Non-African American) 63.4; Potassium 4.2 mmol/L (3.5-5.1)
--- NOTE | 2020-06-20 08:38 | XRay Report ---
XR chest 2V PA/lateral HISTORY: 75 years-old Female r/o pneumonia acute shortness of breath COMPARISON: Chest radiograph 06/19/2020 TECHNIQUE: PA and lateral views of the chest FINDINGS: Cardiac silhouette is mildly enlarged, unchanged. Trace pleural effusions with mild right hemidiaphra gmatic elevation. Minimal linear subsegmental bibasilar opacities. No pneumothorax, lobar airspace co nsolidation or overt pulmonary edema. Degenerative changes of the shoulders and spine. IMPRESSION: 1. Cardiomegaly without overt pulmonary edema. 2. Trace pleural effusions with mild linear bibasilar densities suggestive of atelectasis. ACT 112: Negative or not required by law. The above report was generated using voice recognition software. It may contain grammatical, syntax o r spelling errors. Electronically signed by: Lorne Adhikari M.D. 06/20/2020 8:37 AM
--- NOTE | 2020-06-20 09:23 | Hospitalist Progress Note ---
Date of Service June 20, 2020 Assessment & Plan (1) Acute dyspnea: due to COPD exacerbation improved with Solu Medrol and nebulizers (2) Hypoxia: breathing comfortably on 2L today try to wean oxygen as tolerated (3) Asthma with exacerbation: breathing much better today no wheezing on exam, no distress continue Solu Medrol q8, Duonebs try to titrate off of oxygen, likely discharge tomorrow (4) Anxiety: well controlled today (5) Hypothyroidism: (6) Hypertension: (7) Vitamin D deficiency: Admission and Anticipated Discharge Date Admission Date: June 19, 2020 Subjective patient says she is breathing much better compared to yesterday she is convinced that she had a reaction to dogs at a friends house she is eating well, no cough, no fever/chills she is hoping to go home tomorrow Review of Systems Review of Systems: All systems reviewed & are unremarkable except as noted in Subjective Respiratory: + cough, + dyspnea and + dyspnea on exertion; no sputum production Physical Exam Constitutional: WD/WN, vitals as above Neck: trachea midline, no thyromegaly Respiratory: normal respiratory effort, lungs clear to auscultation Cardiovascular: RRR, no murmur, no edema Gastrointestinal (Abdomen): normal bowel sounds, soft, nontender, no hepatosplenomegaly Musculoskeletal: no cyanosis or clubbing, extremities motor strength 5/5 Skin: no rashes, warm and dry Neurologic: patellar DTR's 2+ bilat, sensation intact and PERRL, EOMI, accommodation nl, no face palsy, no dysarthria Psychiatric: A+Ox3, euthymic affect Lymphatic: no cervical or axillary lymphadenopathy Results & Data Results & Data ([facility] [place]) Vital Signs (Past 12 Hours) Vital Signs Temp Pulse Pulse Pulse Resp BP BP 06/20/20 07:17 83 20 06/20/20 07:16 36.6 C 82 20 06/20/20 05:11 93 H 06/20/20 04:00 36.7 C 84 18 06/20/20 01:56 36.4 C L 92 H 18 159/71 H 06/20/20 00:30 83 17 135/78 06/20/20 00:00 87 16 142/78 H 06/19/20 23:30 114 H 103 H 22 173/148 H 06/19/20 22:30 101 H 19 118/85 06/19/20 22:23 105 H 21 160/78 H 06/19/20 21:24 BP Pulse Ox 06/20/20 07:17 94 06/20/20 07:16 145/85 H 93 06/20/20 05:11 06/20/20 04:00 133/69 93 06/20/20 01:56 93 06/20/20 00:30 92 06/20/20 00:00 93 06/19/20 23:30 94 06/19/20 22:30 92 06/19/20 22:23 93 06/19/20 21:24 89 L Laboratory Results Laboratory Results - last 24 hr 06/19/20 06/19/20 06/19/20 21:34 21:34 22:09 WBC RBC Hgb Hct MCV MCH MCHC RDW Std Deviation RDW Coeff of Chasidy Plt Count MPV Immature Gran % (Auto) Neut % (Auto) Lymph % (Auto) [place] % (Auto) Eos % (Auto) Baso % (Auto) Neut # (Auto) Lymph # (Auto) [place] # (Auto) Eos # (Auto) Baso # (Auto) Immature Gran # (Auto) PT 10.6 INR 1.0 APTT 24.0 PTT Ratio 0.9 Sodium Potassium Chloride Carbon Dioxide Anion Gap BUN Creatinine Est Cr Clr Drug Dosing Est GFR ( Amer) Est GFR (Non-Af Amer) BUN/Creatinine Ratio Glucose Calcium Total Bilirubin 0.3 Alkaline Phosphatase 97 Troponin I < 0.015 NT-Pro-B Natriuret Pep 335 Total Protein 6.8 Globulin 3.6 Albumin/Globulin Ratio 0.9 Procalcitonin COVID-19 Eval Order Covid19 [facility] SARS-CoV-2, RNA, NAAT 06/19/20 06/20/20 06/20/20 22:09 07:25 07:25 WBC 6.97 D RBC 4.54 Hgb 14.0 Hct 41.4 MCV 91.2 MCH 30.8 MCHC 33.8 RDW Std Deviation 48.0 H RDW Coeff of Chasidy 14.2 Plt Count 314 MPV 9.2 Immature Gran % (Auto) 0.4 Neut % (Auto) 91.2 Lymph % (Auto) 7.7 [place] % (Auto) 0.6 Eos % (Auto) 0.0 Baso % (Auto) 0.1 Neut # (Auto) 6.35 Lymph # (Auto) 0.54 L [place] # (Auto) 0.04 L Eos # (Auto) 0.00 Baso # (Auto) 0.01 Immature Gran # (Auto) 0.03 H PT INR APTT PTT Ratio Sodium 141 Potassium 4.2 D Chloride 108 H Carbon Dioxide 27 Anion Gap 6.0 BUN 15 Creatinine 0.90 Est Cr Clr Drug Dosing 54.9 Est GFR ( Amer) 73.5 Est GFR (Non-Af Amer) 63.4 BUN/Creatinine Ratio 16.1 Glucose 169 H Calcium 10.2 H Total Bilirubin Alkaline Phosphatase Troponin I NT-Pro-B Natriuret Pep Total Protein Globulin Albumin/Globulin Ratio Procalcitonin COVID-19 Eval Order SARS-CoV-2, RNA, NAAT NEGATIVE 06/20/20 07:25 WBC RBC Hgb Hct MCV MCH MCHC RDW Std Deviation RDW Coeff of Chasidy Plt Count MPV Immature Gran % (Auto) Neut % (Auto) Lymph % (Auto) [place] % (Auto) Eos % (Auto) Baso % (Auto) Neut # (Auto) Lymph # (Auto) [place] # (Auto) Eos # (Auto) Baso # (Auto) Immature Gran # (Auto) PT INR APTT PTT Ratio Sodium Potassium Chloride Carbon Dioxide Anion Gap BUN Creatinine Est Cr Clr Drug Dosing Est GFR ( Amer) Est GFR (Non-Af Amer) BUN/Creatinine Ratio Glucose Calcium Total Bilirubin Alkaline Phosphatase Troponin I NT-Pro-B Natriuret Pep Total Protein Globulin Albumin/Globulin Ratio Procalcitonin 0.21 COVID-19 Eval Order SARS-CoV-2, RNA, NAAT Medications Administered Current Inpatient Medications Albuterol (Albut/Ipratrop 3mg/0.5mg Neb 3 Ml Vial) 3 ml NEB QIDR ANDREW Stop: 07/20/20 06:59 Last Admin: 06/20/20 19:35 Dose: 3 ml Documented by: Albuterol (Albuterol Hfa 8 Gm Inhaler) 2 puffs INH Q4H PRN PRN Reason: Shortness Of Breath Stop: 07/20/20 01:38 Buspirone HCl (Buspirone 5 Mg Tab) 5 mg PO DAILY PRN PRN Reason: asthma attack Stop: 07/20/20 01:38 Diltiazem HCl (Diltiazem Hcl 120 Mg Capcr) 120 mg PO QAM [facility] Stop: 07/20/20 08:59 Last Admin: 06/20/20 07:55 Dose: 120 mg Documented by: Fluticasone/Vilanterol (Fluticasone/Vilanterol 100/25mcg 14 Puffs/Inhaler) 1 puffs INH DAILY ANDREW Stop: 07/20/20 08:59 Last Admin: 06/20/20 07:55 Dose: 1 puffs Documented by: Methylprednisolone 40 mg/ (Syringe) 0.64 mls @ 1.5 mls/min IV Q8H [facility] Stop: 07/20/20 03:59 Last Admin: 06/20/20 20:37 Dose: 1.5 mls/min Documented by: Levothyroxine Sodium (Levothyroxine Sodium 150 Mcg Tablet) 150 mcg PO DAILYBB [facility] Stop: 07/20/20 06:29 Last Admin: 06/20/20 06:28 Dose: 150 mcg Documented by: Loratadine (Loratadine 10 Mg Tab) 10 mg PO QAM [facility] Stop: 07/20/20 08:59 Last Admin: 06/20/20 07:55 Dose: 10 mg Documented by: Vitamin D (Cholecalciferol 1,000 Units 25 Mcg Tab) 2,000 units PO HS [facility] Stop: 07/20/20 20:59 Last Admin: 06/20/20 20:37 Dose: 2,000 units Documented by: PG Care Time/CCT Total # of Minutes Spent Total Time Spent with Patient: Total time spent is greater than 50% in coordination of care (as documented) at patient's floor/unit and/or counseling patient: Coding Level of Care Code 95855 Subseq Hosp Care Lvl 2 Diagnoses Acute dyspnea R06.00 Hypoxia R09.02 Asthma with exacerbation J45.901 Asthma persistence: unspecified Asthma severity: unspecified severity Anxiety F41.9 Hypothyroidism E03.9 Hypertension I10 Hypertension type: essential hypertension Vitamin D deficiency E55.9 (1) Asthma with exacerbation Asthma persistence: unspecified Asthma severity: unspecified severity Qualified Code(s): J45.901 - Unspecified asthma with (acute) exacerbation (2) Hypertension Hypertension type: essential hypertension Qualified Code(s): I10 - Essential (primary) hypertension
[2020-06-20] MEDS ORDERED: CHOLECALCIFEROL 1,000 UNITS 25 MCG TAB PO SCH (21:00)
[2020-06-21 04:09] VITALS: TEMP 97.9
[2020-06-21] MEDS: methylPREDNISolone 40 MG in SYRINGE 0 ML IV SCH ×2 (04:12→11:46)
--- NOTE | 2020-06-21 05:37 | Electrocardiogram Report ---
Test Reason : Blood Pressure : / mmHG Vent. Rate : 102 BPM Atrial Rate : 102 BPM P-R Int : 138 ms QRS Dur : 082 ms QT Int : 346 ms P-R-T Axes : 035 -49 046 degrees QTc Int : 450 ms Sinus tachycardia Low voltage QRS Left anterior fascicular block Abnormal ECG When compared with ECG of 21-APR-2020 09:25, No significant change Confirmed by Jordi Lucas ([id number]) on 06/21/2020 5:37:37 AM Referred By: REFERRED SELF Confirmed By:Jordi Lucas
[2020-06-21] MEDS: LEVOTHYROXINE SODIUM 150 MCG TABLET PO SCH (05:49)
[2020-06-21] MEDS: ALBUT/IPRATROP 3MG/0.5MG NEB 3 ML VIAL NEB SCH ×2 (07:32→11:25)
[2020-06-21 08:03] LABS: Hematocrit (blood only) 39.8 % (37-47); Hemoglobin 13.2 g/dL (12.0-16.0); Immature Granulocytes # (auto) 0.03 K/uL (0.00-0.02); Immature Granulocytes % (auto) 0.2 %; Lymphocytes % (auto) 3.6 %; Mean Corpuscular Hemoglobin 31.1 pg (25-34); Mean Corpuscular Hgb Conc 33.2 g/dL (32-36); Mean Corpuscular Volume 93.6 fL (80-100); Mean Platelet Volume 9.6 fL (7.4-10.4); Monocytes # (auto) 0.41 K/uL (0.11-0.59); Neutrophils # (auto) 12.88 K/uL (1.4-6.5); Neutrophils % (auto) 93.2 %; Platelet Count 344 K/uL (130-400); RDW Coefficient of Variation 14.8 % (11.5-14.5); RDW Standard Deviation 50.4 fL (36.4-46.3); Red Blood Count 4.25 M/uL (4.2-5.4); White Blood Count 13.82 K/uL (4.8-10.8)
[2020-06-21] MEDS: FLUTICASONE/VILANTEROL 100/25MCG 14 PUFFS/INHALER INH SCH (08:14)
[2020-06-21] MEDS: dilTIAZem HCL 120 MG CAPCR PO SCH (08:14)
[2020-06-21] MEDS: LORATADINE 10 MG TAB PO SCH (08:14)
[2020-06-21 08:30] LABS: BUN Creatinine Ratio 21.3 (10-20); Calcium 10.5 mg/dl (8.5-10.1); Creatinine Clr Calc Pharmacy 47.2 ml/min; Est GFR (Non-African American) 52.6; Potassium 3.7 mmol/L (3.5-5.1)
[2020-06-21 11:27] VITALS: PULSE 87; O2SAT 90
[2020-06-21 13:07] VITALS: BP 159/71
--- NOTE | 2020-06-27 09:41 | Discharge Summary ---
Date of Service June 21, 2020 Admission HPI Per Admitting Provider Pt is a 75yo female with a PMHx significant for asthma, Hypothyroidism, HTN and anxiety admitted with an asthma exacerbation. She states she was visiting a friend this PM, when she suddenly developed SOB. Has had >3 exacerbations this year requiring hospitalization and followed with allergy/immunology in the past. States that she has oxygen 2L PRN for use at home, as well as a nebulizer but this was not accessible to her as she was at a friend's house. She did take her albuterol inhaler with no relief. So she was transported to the ED. She was noted to be hypoxic in the 80s and received 2 nebulizer treatments en route. Received further treatments in the ED. States that she currently feels better, though she is not back to baseline. She has never smoked and currently denies SOB, chest pain or palpitations. Has a bit of a runny nose, says she has this chronic productive cough of yellow phlegm sometimes but denies a sore throat or known COVID contacts. She states she was recently treated with a course of prednisone which she completed. Principal Diagnosis Mild persistent asthma with acute exacerbation Discharge Exam Constitutional WD/WN, vitals as above Neck trachea midline, no thyromegaly Respiratory normal respiratory effort, lungs clear to auscultation Cardiovascular RRR, no murmur, no edema Gastrointestinal (Abdomen) normal bowel sounds, soft, nontender, no hepatosplenomegaly Musculoskeletal no cyanosis or clubbing, extremities motor strength 5/5 Skin no rashes, warm and dry Neurologic patellar DTR's 2+ bilat, sensation intact and PERRL, EOMI, accommodation nl, no face palsy, no dysarthria Psychiatric A+Ox3, euthymic affect Lymphatic no cervical or axillary lymphadenopathy Discharge Data Allergies Allergy/AdvReac Type Severity Reaction Status Date / Time amoxicillin Allergy Intermediate SOB Verified 06/19/20 22:36 Penicillins Allergy Mild Unknown Verified 06/19/20 22:36 Consultations 06/19/20 22:58 ED Decision to Admit Stat Hospital Course (1) Asthma with exacerbation: mild persistent asthma with acute exacerbation breathing much better past two days no wheezing on exam, no distress treated with Solu Medrol q8, Duonebs discharge home on Prednisone 40mg daily x 5 days, no plan for taper (2) Acute dyspnea: due to COPD exacerbation improved with Solu Medrol and nebulizers COVID negative and no signs of pneumonia on CXR (3) Hypoxia: breathing comfortably on room air for 24 hours resolved with treatment of asthma (4) Anxiety: well controlled today (5) Hypothyroidism: (6) Hypertension: (7) Vitamin D deficiency: Total Time Total Time Spent Total Time Spent (In Minutes): 31 minutes Total Time Includes: Examination of the Patient, Discharge Planning and Medication Reconciliation Discharge Plan Discharge Items Patient Disposition: Home - Self-Care Reason For Visit: ASTHMA EXACERBATION Discharge Diagnosis: Asthma exacerbation Condition on Discharge: Good Activity: Resume your previous activity Non-emergency contact: Primary Care Provider Call non-emergency contact if: you have any medication questions Follow-up/Referrals: Keshawn Mcgregor MD [Primary Care Provider] - 06/30/20 3:30 pm (You have a follow up appt with Dr. Mcgregor on June 30, at 3:30pm. Please arrive 15 minutes prior to your appt. It is important that you keep this appt. If this appt does not fit into your schedule please call [phone] to reschedule. ) Diet: Heart Healthy Addtl Attending Provider Instructions: Medications: - PREDNISONE: 40mg daily for 5 more days, start tomorrow morning, no need for taper as total will be 7 days of steroids Asthma exacerbation chest x-ray clear, lungs clear on exam, COVID negative responded quickly to Solu Medrol IV will continue on Prednisone for 5 days use inhalers as prescribed for any wheezing or shortness of breath follow up with Dr. Mcgregor in one week Pending Studies at Discharge: No Stand-Alone Forms: [facility] Medications and DC Order Prescriptions: Continued albuterol sulfate [Ventolin HFA] 90 mcg/actuation HFA aerosol inhaler 2 puffs inhalation .COMPLEX PRN (Reason: Shortness Of Breath) Qty: 18 RF: 3 diltiazem HCl [Cardizem CD] 120 mg capsule,extended release 24hr 120 mg PO QAM Qty: 90 RF: 3 levothyroxine 150 mcg tablet 150 mcg PO DAILY Qty: 30 RF: 2 losartan-hydrochlorothiazide 100-25 mg tablet 1 tab PO QAM Qty: 90 RF: 3 ipratropium-albuterol 0.5 mg-3 mg(2.5 mg base)/3 mL solution for nebulization 3 ml INH Q6H PRN (Reason: wheezing) Qty: 30 RF: 3 omega-3 fatty acids [Fish Oil Concentrate] 1,000 mg capsule 1,000 mg PO QAM RF: 0 buspirone 5 mg tablet 5 mg PO DAILY PRN (Reason: asthma attack) Qty: 10 RF: 2 loratadine 10 mg Tablet 10 mg PO QAM RF: 0 cholecalciferol (vitamin D3) [Vitamin D3] 2,000 unit capsule 2,000 unit PO HS RF: 0 budesonide-formoterol [Symbicort] 160-4.5 mcg/actuation HFA aerosol inhaler 2 puffs INH BID Qty: 10.2 RF: 2 Discharge Orders: Discharge Order (Routine); Ordered 06/21/20 Ordered By: Fer Cerda Admission Data Admit Date/Time: 06/19/20 23:31 Attending Provider: Fer Cerda Admit Provider: Ayr Vergara Primary Care Provider: Keshawn Mcgregor Other Providers: Shital Pandey Other Interventions: Discharge Summary Assessment (RN) Last Done: 06/21/20 13:05 Coding Level of Care Code D/C Day Management >30 mins Diagnoses Asthma with exacerbation J45.901 Asthma persistence: unspecified Asthma severity: unspecified severity Acute dyspnea R06.00 Hypoxia R09.02 Anxiety F41.9 Hypothyroidism E03.9 Hypertension I10 Hypertension type: essential hypertension Vitamin D deficiency E55.9
== END 2020-06-21 14:25 | disposition home or self-care (01) ==
LOC: ED 21:07 → 2N 23:31 → SUATTDRO 23:31 → INTOOBSV 23:31 → 2N 06-20 01:05

== ENCOUNTER 2020-08-21 02:46 | Observation (INO) ==
[2020-08-21 03:25] LABS: Basophils # (auto) 0.05 K/uL (0-0.2); Basophils % (auto) 0.3 %; Eosinophils # (auto) 0.89 K/uL (0-0.5); Eosinophils % (auto) 4.9 %; Hematocrit (blood only) 45.1 % (37-47); Hemoglobin 14.4 g/dL (12.0-16.0); Immature Granulocytes # (auto) 0.12 K/uL (0.00-0.02); Immature Granulocytes % (auto) 0.7 %; Lymphocytes # (auto) 2.82 K/uL (1.2-3.4); Lymphocytes % (auto) 15.6 %; Mean Corpuscular Hemoglobin 30.8 pg (25-34); Mean Corpuscular Hgb Conc 31.9 g/dL (32-36); Mean Corpuscular Volume 96.4 fL (80-100); Mean Platelet Volume 9.6 fL (7.4-10.4); Monocytes # (auto) 0.82 K/uL (0.11-0.59); Monocytes % (auto) 4.5 %; Neutrophils # (auto) 13.33 K/uL (1.4-6.5); Platelet Count 344 K/uL (130-400); RDW Coefficient of Variation 13.5 % (11.5-14.5); RDW Standard Deviation 47.4 fL (36.4-46.3); Red Blood Count 4.68 M/uL (4.2-5.4); White Blood Count 18.03 K/uL (4.8-10.8)
[2020-08-21] MEDS ORDERED: ALBUT/IPRATROP 3MG/0.5MG NEB 3 ML VIAL NEB ONE (03:25)
--- NOTE | 2020-08-21 03:27 | Emergency Department Note ---
Impression & Plan Asthma exacerbation in COPD, Leukocytosis ED Provider Note Name: VANESA CALHOUN Age: 75 Sex: F Arrives Via: Ambulance Informant: Patient, EMS ED Provider: Shane Alonzo MD Chief Complaint: Shortness of breath Impression: Acute COPD exacerbation Leukocytosis Medical Decision Making: Pleasant 75 yr old female with hsitory COPD, HTN, Hypothyroid, arrives with 12 hours worsening shortness of breath. She was hypoxis 50s on EMS arrival. Concern for frothy sputum thus treated as COPD/CHF exacerbation en route with CPAP, IV nitro, IV solumedrol, Duoneb and IV Lasix. By arrival she is much improved and breathing better on CPAP. Switched to BPAP with vast improvement. CXR without evidence edema and exam more consistent at this point with COPD. Vitals OK on Bipap and kept on this given improvement. Labs with elevated wbc as well as Lactic acid elevation. Suspect acidosis related to hypoxia, especially given vbg with some co2 retention as well. With elevated wbc will treat with abx (Levaquin given history). With suspicion that lactic acidosis was due to earlier hypxia will avoid fluid bolus in case there is element of CHF. EKG without ischemia and trop negative so unlikely ACS related. With COPD history and findings I think PE/dissection unlikely as well. Hospitalist in to evaluate further. Prior Medical Record and Triage/Nursing Notes reviewed by Me Additional history obtained from chart and ems Differentials:Reactive airway disease, pneumonia, pneumothorax, COPD, CHF, infections, cardiac ischemia, pulmonary embolism, musculoskeletal, gastrointestinal, as well as other pathologies. Vital Signs: reviewed and remarkable for no significant abnormalities Interventions: Saline Lock, Levaquin IV, BIPAP Labs:Reviewed and remarkable for elevated Lactic acid, leukocytosis Imaging:X ray results are stated below per my interpretation: Chest: 1 view: No infiltrate, no effusion, normal cardiac border. EKG:Per My Interpretation: Indication Shob: Sinus tach 107 bpm, qtc 464. No Ectopy. No Ischemia. Compared to EKG 06/19/20, no significant changes. Cardiac/Tele Monitoring: Cardiac Monitoring: An Order was placed for continuous cardiac monitoring. The monitor shows a rate of 90 with a normal sinus rhythm. Consults:Dr Jose Angel [facility]EE Hospitalist Plan: Disposition:Hospitalization. Condition: Good Prescriptions:none PDMP: n/a History of Present Illness:75 yr old female with history COPD arrives for evaluation of shortness of breath. Patient has been having increasing breathing difficulty throughout the day until this evening and unable to catch breath when EMS contacted. She notes productive cough. Denies chest pain, syncope, palpations, nausea, vomiting, abdominal pain, back pain, leg swelling, calf pain, rashes, fevers nor other symptoms. EMS gave here iv nitro, iv solumedrol, iv lasix, duoneb and CPAP with vast improvement of her symptoms. The note she had frothy sputum on initial evaluation concerning for pulmonary edema. Patient denies CHF history nor cardiac history. ROS: See above HPI for pertinent positives & negatives. A total of 10 systems reviewed and were otherwise negative. Past Medical History:See Below Past Surgical History:See Below Family History:See Below Social History:See Below Home Medications:See Below Allergies:Amoxicillin, Penicillin Vitals:Blood Pressure: 105/65, Pulse 92, RR 18, T 36.6C, O2 98% on BiPAP Physical Exam: GENERAL: Patient is very unwell appearing and in moderate distress. EYES: No scleral icterus, unremarkable pupils. ENT: Mucous membranes moist, no nasal congestion. NECK: No masses appreciated, nomeningismus, trachea is midline. RESPIRATORY: Dyspneic/tachypneic with diffuse tight lung sounds and extensive wheezing CARDIOVASCULAR: Mildly tachy on arrival.No murmurs, rubs, gallops appreciated. GASTROINTESTINAL: Abdomen soft, non-tender, no peritonitis.Bowel sounds positive.No masses appreciated. BACK: No midline tenderness, no CVA tenderness EXTREMITIES: Normal motion all extremities, no cyanosis, no edema. NEUROLOGIC: Alert and oriented, no acute motor or sensory deficits, no focal weakness, cranial nerves grossly intact. SKIN: No rash, no jaundice, no diaphoresis. PSYCH: Appropriate GCS: 15 ED Course: Times/Reassessments: Evaluated on bedside on EMS arrival. Doing much improved on BIPAP. Comfortable without complaints. Agree able to hospitalization Critical Care: I have personally spent 35 minutes of critical care time in the direct management of this patient. Acute COPD exacerbation with hypoxia requiring BIPAP . This was a life/limb threatening event. This 35 minutes is in excess of all separately billable procedures. Shane Alonzo MD Past Med/Surg History Medical History (Updated 08/21/20 @ 05:04 by Shane Alonzo MD) Acute respiratory failure with hypoxia Allergic rhinitis Endometrial cancer determined by uterine biopsy H/O allergy to penicillin History of colon polyps Hyperparathyroidism Hypertension Hypothyroidism Thyroid cancer Surgical History H/O bilateral oophorectomy H/O thyroidectomy H/O: hysterectomy Family History Mother Kidney disease Diabetes Hypertension Colon cancer Brother Arthritis Hypertension Father Colorectal cancer Sister Dyslipidemia Hypertension Aunt Breast cancer Denies family history of Ovarian cancer Prostate cancer Myocardial infarction Social History Smoking Status: Never smoker Second Hand Exposure: No; Hx Alcohol Use: Yes Alcohol type: hard liquor Alcohol Intake Frequency: Monthly or Less Hx Substance Use: No Preferred Language: Bulgarian Communication Ability: Effective Visual Impairment: Limited Hearing Ability: Normal Intelligence Specialist Required: No Beliefs That Will Affect Care: None marital status: Single Current Living Situation: Alone current occupational status: retired How many Children do You have: 0 Feels Safe at Home: Yes Childhood Exposure to Second-Hand Smoke: No (does not think so) Diet Comment: NO JUNK FOOD caffeine: Yes Dental Care, Regularly: Yes Physical Activity Frequency: Does not Exercise Seatbelt Use: always Sunscreen Use: No Assistive Devices: Oxygen - at Night Allergies Allergies Allergy/AdvReac Type Severity Reaction Status Date / Time amoxicillin Allergy Intermediate SOB Verified 08/21/20 04:04 Penicillins Allergy Mild Unknown Verified 08/21/20 04:04 Home Meds Home Medications Medication Instructions Recorded Confirmed loratadine 10 mg PO QAM 12/30/18 08/21/20 omega-3 fatty acids 1,000 mg 1,000 mg PO QAM 01/07/19 08/21/20 capsule cholecalciferol (vitamin D3) 50 2,000 unit PO HS cap 03/12/19 08/21/20 mcg (2,000 unit) capsule Previous Rx's Medication Instructions Recorded albuterol sulfate 90 mcg/actuation 2 puffs INHALATION .COMPLEX PRN 11/02/19 aerosol inhaler #18 gm diltiazem HCl 120 mg 120 mg PO QAM #90 cap 12/25/19 capsule,extended release 24 hr buspirone 5 mg tablet 5 mg PO DAILY PRN #10 tab 01/26/20 budesonide-formoterol [Symbicort] 2 puffs INH BID #10.2 gm 03/02/20 losartan 100 1 tab PO QAM #90 tab 06/10/20 mg-hydrochlorothiazide 25 mg tablet ipratropium 0.5 mg-albuterol 3 mg 3 ml INH Q6H PRN #30 ml 08/02/20 (2.5 mg base)/3 mL nebulization soln prednisone 5 mg tablet 5 mg PO DAILY #90 tab 08/02/20 levothyroxine 150 mcg tablet 150 mcg PO DAILY #30 tab 08/09/20 Results & Data (ED) Vital Signs Vital Signs - 24 hr 08/21/20 02:54 08/21/20 02:59 08/21/20 03:01 Temperature 36.6 C Pulse Rate 111 H 107 H 104 H Pulse Rate [Right Finger] Pulse Rate from SpO2 Sensor 111 H Respiratory Rate 23 31 H 23 Respiratory Effort / Characteristics Spontaneous Labored Short of Breath SOB on Exertion Spontaneous Respiratory Depth Deep Respiratory Pattern Regular Regular Blood Pressure 159/99 H 159/99 H Blood Pressure Mean 102 119 Blood Pressure Position Sitting Pulse Oximetry 98 96 99 Oxygen Delivery Method BiPAP BiPAP Fraction of Inspired Oxygen 30 Sepsis Recent Fever Within 48 Hours No Sepsis New/Unexplained Change in Mental Status No Sepsis Action Taken by Nursing Physician Notified 08/21/20 03:48 08/21/20 03:50 08/21/20 04:00 Temperature Pulse Rate 92 H 86 Pulse Rate [Right Finger] 83 Pulse Rate from SpO2 Sensor 91 H 85 Respiratory Rate 23 21 18 Respiratory Effort / Characteristics Spontaneous Respiratory Depth Respiratory Pattern Blood Pressure 114/73 138/67 Blood Pressure Mean 91 94 Blood Pressure Position Pulse Oximetry 100 98 100 Oxygen Delivery Method BiPAP BiPAP BiPAP Fraction of Inspired Oxygen 30 Sepsis Recent Fever Within 48 Hours Sepsis New/Unexplained Change in Mental Status Sepsis Action Taken by Nursing 08/21/20 04:30 Temperature Pulse Rate 96 H Pulse Rate [Right Finger] Pulse Rate from SpO2 Sensor 96 H Respiratory Rate 21 Respiratory Effort / Characteristics Respiratory Depth Respiratory Pattern Blood Pressure 113/84 Blood Pressure Mean 94 Blood Pressure Position Pulse Oximetry 100 Oxygen Delivery Method BiPAP Fraction of Inspired Oxygen Sepsis Recent Fever Within 48 Hours Sepsis New/Unexplained Change in Mental Status Sepsis Action Taken by Nursing Laboratory Data Result diagrams: 08/21/20 03:06 08/21/20 04:20 Lab Results 08/21/20 08/21/20 08/21/20 Range/Units 03:06 03:06 03:24 WBC 18.03 H (4.8-10.8) K/uL RBC 4.68 (4.2-5.4) M/uL Hgb 14.4 (12.0-16.0) g/dL Hct 45.1 (37-47) % MCV 96.4 (80-100) fL MCH 30.8 (25-34) pg MCHC 31.9 L (32-36) g/dL RDW Std Deviation 47.4 H (36.4-46.3) fL RDW Coeff of Chasidy 13.5 (11.5-14.5) % Plt Count 344 (130-400) K/uL MPV 9.6 (7.4-10.4) fL Immature Gran % (Auto) 0.7 % Neut % (Auto) 74.0 % Lymph % (Auto) 15.6 % [place] % (Auto) 4.5 % Eos % (Auto) 4.9 % Baso % (Auto) 0.3 % Neut # (Auto) 13.33 H (1.4-6.5) K/uL Lymph # (Auto) 2.82 (1.2-3.4) K/uL [place] # (Auto) 0.82 H (0.11-0.59) K/uL Eos # (Auto) 0.89 H (0-0.5) K/uL Baso # (Auto) 0.05 (0-0.2) K/uL Immature Gran # (Auto) 0.12 H (0.00-0.02) K/uL VBG pH (7.36-7.41) VBG pCO2 (38-50) mmHg VBG pO2 mmHg VBG HCO3 mmol/L VBG O2 Saturation % VBG Base Excess mEq/L Barometric Pressure mm/Hg Sodium 141 (136-145) mmol/L Potassium (3.5-5.1) mmol/L Chloride 107 (98-107) mmol/L Carbon Dioxide 28 (21-32) mmol/L Anion Gap 6.0 (3-11) BUN 15 (7-18) mg/dl Creatinine 1.22 H (0.6-1.2) mg/dl Est Cr Clr Drug Dosing 41.7 ml/min Est GFR ( Amer) 50.9 Est GFR (Non-Af Amer) 43.9 BUN/Creatinine Ratio 12.0 (10-20) Glucose 273 H (70-99) mg/dl Lactate (0.4-2.0) mmol/L Calcium 9.8 (8.5-10.1) mg/dl Magnesium (1.8-2.4) mg/dl Total Bilirubin 0.5 (0.2-1) mg/dl Direct Bilirubin (0-0.2) mg/dl AST (15-37) U/L ALT 35 (12-78) U/L Alkaline Phosphatase 93 (45-117) U/L Troponin I < 0.015 (0-0.045) ng/ml NT-Pro-B Natriuret Pep 114 (0-900) pg/ml Total Protein 7.8 (6.4-8.2) gm/dl Albumin 3.7 (3.4-5.0) gm/dl Lipase 104 (73-393) U/L Procalcitonin (0-0.5) ng/ml COVID-19 Eval Order [facility] at [facility] SARS-CoV-2 (PCR) (Negative) Influenza Type A (PCR) (Neg) Influenza Type B (PCR) (Neg) RSV (RT-PCR) (Neg) 08/21/20 08/21/20 08/21/20 Range/Units 03:24 03:36 03:36 WBC (4.8-10.8) K/uL RBC (4.2-5.4) M/uL Hgb (12.0-16.0) g/dL Hct (37-47) % MCV (80-100) fL MCH (25-34) pg MCHC (32-36) g/dL RDW Std Deviation (36.4-46.3) fL RDW Coeff of Chasidy (11.5-14.5) % Plt Count (130-400) K/uL MPV (7.4-10.4) fL Immature Gran % (Auto) % Neut % (Auto) % Lymph % (Auto) % [place] % (Auto) % Eos % (Auto) % Baso % (Auto) % Neut # (Auto) (1.4-6.5) K/uL Lymph # (Auto) (1.2-3.4) K/uL [place] # (Auto) (0.11-0.59) K/uL Eos # (Auto) (0-0.5) K/uL Baso # (Auto) (0-0.2) K/uL Immature Gran # (Auto) (0.00-0.02) K/uL VBG pH 7.23 L (7.36-7.41) VBG pCO2 71 H (38-50) mmHg VBG pO2 31 mmHg VBG HCO3 29 mmol/L VBG O2 Saturation < 60.0 % VBG Base Excess -0.3 mEq/L Barometric Pressure 738.1 mm/Hg Sodium (136-145) mmol/L Potassium (3.5-5.1) mmol/L Chloride (98-107) mmol/L Carbon Dioxide (21-32) mmol/L Anion Gap (3-11) BUN (7-18) mg/dl Creatinine (0.6-1.2) mg/dl Est Cr Clr Drug Dosing ml/min Est GFR ( Amer) Est GFR (Non-Af Amer) BUN/Creatinine Ratio (10-20) Glucose (70-99) mg/dl Lactate 2.7 H* (0.4-2.0) mmol/L Calcium (8.5-10.1) mg/dl Magnesium (1.8-2.4) mg/dl Total Bilirubin (0.2-1) mg/dl Direct Bilirubin (0-0.2) mg/dl AST (15-37) U/L ALT (12-78) U/L Alkaline Phosphatase (45-117) U/L Troponin I (0-0.045) ng/ml NT-Pro-B Natriuret Pep (0-900) pg/ml Total Protein (6.4-8.2) gm/dl Albumin (3.4-5.0) gm/dl Lipase (73-393) U/L Procalcitonin (0-0.5) ng/ml COVID-19 Eval Order SARS-CoV-2 (PCR) NEGATIVE (Negative) Influenza Type A (PCR) Negative (Neg) Influenza Type B (PCR) Negative (Neg) RSV (RT-PCR) Negative (Neg) 08/21/20 08/21/20 Range/Units 03:36 04:20 WBC (4.8-10.8) K/uL RBC (4.2-5.4) M/uL Hgb (12.0-16.0) g/dL Hct (37-47) % MCV (80-100) fL MCH (25-34) pg MCHC (32-36) g/dL RDW Std Deviation (36.4-46.3) fL RDW Coeff of Chasidy (11.5-14.5) % Plt Count (130-400) K/uL MPV (7.4-10.4) fL Immature Gran % (Auto) % Neut % (Auto) % Lymph % (Auto) % [place] % (Auto) % Eos % (Auto) % Baso % (Auto) % Neut # (Auto) (1.4-6.5) K/uL Lymph # (Auto) (1.2-3.4) K/uL [place] # (Auto) (0.11-0.59) K/uL Eos # (Auto) (0-0.5) K/uL Baso # (Auto) (0-0.2) K/uL Immature Gran # (Auto) (0.00-0.02) K/uL VBG pH (7.36-7.41) VBG pCO2 (38-50) mmHg VBG pO2 mmHg VBG HCO3 mmol/L VBG O2 Saturation % VBG Base Excess mEq/L Barometric Pressure mm/Hg Sodium (136-145) mmol/L Potassium 3.6 (3.5-5.1) mmol/L Chloride (98-107) mmol/L Carbon Dioxide (21-32) mmol/L Anion Gap (3-11) BUN (7-18) mg/dl Creatinine (0.6-1.2) mg/dl Est Cr Clr Drug Dosing ml/min Est GFR ( Amer) Est GFR (Non-Af Amer) BUN/Creatinine Ratio (10-20) Glucose (70-99) mg/dl Lactate (0.4-2.0) mmol/L Calcium (8.5-10.1) mg/dl Magnesium 2.2 (1.8-2.4) mg/dl Total Bilirubin (0.2-1) mg/dl Direct Bilirubin < 0.1 (0-0.2) mg/dl AST 22 (15-37) U/L ALT (12-78) U/L Alkaline Phosphatase (45-117) U/L Troponin I (0-0.045) ng/ml NT-Pro-B Natriuret Pep (0-900) pg/ml Total Protein (6.4-8.2) gm/dl Albumin (3.4-5.0) gm/dl Lipase (73-393) U/L Procalcitonin < 0.05 (0-0.5) ng/ml COVID-19 Eval Order SARS-CoV-2 (PCR) (Negative) Influenza Type A (PCR) (Neg) Influenza Type B (PCR) (Neg) RSV (RT-PCR) (Neg) Administered Medications Levofloxacin/Dextrose (Levaquin/D5w) 750 mg in 150 mls @ 100 mls/hr IV NOW STA Stop: 08/21/20 05:27 Last Admin: 08/21/20 04:25 Dose: 100 mls/hr Documented by: [id number] Discontinued Medications Albuterol (Albut/Ipratrop 3mg/0.5mg Neb 3 Ml Vial) 12 ml NEB ONE ONE Stop: 08/21/20 03:26 Last Admin: 08/21/20 03:48 Dose: 12 ml Documented by: [id number] Discharge Plan Visit Data Chief Complaint: Respiratory Distress Stated Complaint: BREATHING DIFFICULTY ED Provider: Shane Alonzo Discharge Problem: Asthma exacerbation in COPD, Leukocytosis Forms Stand Alone Forms: My [facility] Prescriptions Prescriptions: No Action albuterol sulfate [Ventolin HFA] 90 mcg/actuation HFA aerosol inhaler 2 puffs inhalation .COMPLEX PRN (Reason: Shortness Of Breath) Qty: 18 RF: 3 diltiazem HCl [Cardizem CD] 120 mg capsule,extended release 24hr 120 mg PO QAM Qty: 90 RF: 3 losartan-hydrochlorothiazide 100-25 mg tablet 1 tab PO QAM Qty: 90 RF: 3 ipratropium-albuterol 0.5 mg-3 mg(2.5 mg base)/3 mL solution for nebulization 3 ml INH Q6H PRN (Reason: wheezing) Qty: 30 RF: 3 levothyroxine 150 mcg tablet 150 mcg PO DAILY Qty: 30 RF: 2 omega-3 fatty acids [Fish Oil Concentrate] 1,000 mg capsule 1,000 mg PO QAM RF: 0 prednisone 5 mg tablet 5 mg PO DAILY Qty: 90 RF: 3 buspirone 5 mg tablet 5 mg PO DAILY PRN (Reason: asthma attack) Qty: 10 RF: 2 loratadine 10 mg Tablet 10 mg PO QAM RF: 0 cholecalciferol (vitamin D3) [Vitamin D3] 2,000 unit capsule 2,000 unit PO HS RF: 0 budesonide-formoterol [Symbicort] 160-4.5 mcg/actuation HFA aerosol inhaler 2 puffs INH BID Qty: 10.2 RF: 2 Referrals Referrals: Keshawn Mcgregor MD [Primary Care Provider] - Discharge Problem: Leukocytosis Qualifiers: Leukocytosis type: unspecified Qualified Code(s): D72.829 - Elevated white blood cell count, unspecified
[2020-08-21 03:46] LABS: Base Excess VBG -0.3 mEq/L; HCO3 VBG 29 mmol/L; PCO2 VBG 71 mmHg (38-50); PO2 VBG 31 mmHg; pH VBG 7.23 (7.36-7.41)
[2020-08-21 03:49] LABS: Oxygen Saturation VBG < 60.0 %
[2020-08-21 03:49] LABS: Alanine Aminotransferase 35 U/L (12-78); Albumin Level 3.7 gm/dl (3.4-5.0); Alkaline Phosphatase 93 U/L (45-117); Bilirubin,Total 0.5 mg/dl (0.2-1); Blood Urea Nitrogen 15 mg/dl (7-18); Calcium 9.8 mg/dl (8.5-10.1); Carbon Dioxide 28 mmol/L (21-32); Chloride 107 mmol/L (98-107); Creatinine Clr Calc Pharmacy 41.7 ml/min; Est GFR (African American) 50.9; Est GFR (Non-African American) 43.9; Glucose 273 mg/dl (70-99); Lipase 104 U/L (73-393); NT Pro B Type Natriuretic Pept 114 pg/ml (0-900); Sodium 141 mmol/L (136-145); Total Protein 7.8 gm/dl (6.4-8.2); Troponin I < 0.015 ng/ml (0-0.045)
[2020-08-21] MEDS ORDERED: levoFLOXacin/D5W 750 MG/150 ML BAG IV STA (03:58)
[2020-08-21 04:11] LABS: Influenza A virus by PCR Negative (Neg); Influenza B virus by PCR Negative (Neg); RSV by PCR Negative (Neg); SARS CoV2 RNA(COVID-19) InHosp NEGATIVE (Negative)
--- NOTE | 2020-08-21 04:31 | History & Physical Report ---
Date of Service August 21, 2020 Assessment & Plan (1) Acute respiratory failure with hypoxia: Acute respiratory failure with hypoxia/asthma exacerbation COPD- Continue BiPAP, taper as symptoms improve. Duonebs every 4 hours while awake and every 2 hours when necessary. Pulmicort Respules 0.5 mg inhaled twice daily Methylprednisolone 20 mg IV every 8 hours Ceftriaxone 1 g IV daily Levofloxacin 500 mg IV daily Present on Admission?: Yes (2) Asthma exacerbation in COPD: See above Present on Admission?: Yes (3) Anxiety: Continue buspirone Present on Admission?: Yes (4) Hypertension: Hold losartan/HCTZ due to acute kidney injury. Continue diltiazem extended release 220 mg every morning Present on Admission?: Yes (5) Hypothyroidism: Continue levothyroxine-10 mcg p.o. daily Present on Admission?: Yes History of Present Illness Chief Complaint: The patient presents to the emergency department with complaint of shortness of breath and dyspnea on exertion worsening over the past few days. Primary Care Provider: Keshawn Mcgregro MD The patient is a 75-year-old female with a past medical history including anxiety, severe persistent asthma, acute kidney injury, tachycardia, acute respiratory failure with hypoxia, asthma with exacerbation, endometrial cancer, recurrent endometrial carcinoma, vitamin D deficiency, hypothyroidism and hypertension. Patient presents as noted above. Upon presentation to the ED, the patient reportedly was tachypneic with pulse ox in the 80s, and was immediately placed on BiPAP with improvement in symptomatology and oxygenation. Allergies Allergy/AdvReac Type Severity Reaction Status Date / Time amoxicillin Allergy Intermediate SOB Verified 08/21/20 04:04 Penicillins Allergy Mild Unknown Verified 08/21/20 04:04 Home Medications Medication Instructions Recorded Confirmed Type loratadine 10 mg PO QAM 12/30/18 08/21/20 History omega-3 fatty acids 1,000 mg 1,000 mg PO QAM 01/07/19 08/21/20 History capsule cholecalciferol (vitamin D3) 50 2,000 unit PO HS cap 03/12/19 08/21/20 History mcg (2,000 unit) capsule albuterol sulfate 90 mcg/actuation 2 puffs INHALATION .COMPLEX PRN 11/02/19 08/21/20 Rx aerosol inhaler #18 gm diltiazem HCl 120 mg 120 mg PO QAM #90 cap 12/25/19 08/21/20 Rx capsule,extended release 24 hr buspirone 5 mg tablet 5 mg PO DAILY PRN #10 tab 01/26/20 08/21/20 Rx budesonide-formoterol [Symbicort] 2 puffs INH BID #10.2 gm 03/02/20 08/21/20 Rx losartan 100 1 tab PO QAM #90 tab 06/10/20 08/21/20 Rx mg-hydrochlorothiazide 25 mg tablet ipratropium 0.5 mg-albuterol 3 mg 3 ml INH Q6H PRN #30 ml 08/02/20 08/21/20 Rx (2.5 mg base)/3 mL nebulization soln prednisone 5 mg tablet 5 mg PO DAILY #90 tab 08/02/20 08/21/20 Rx levothyroxine 150 mcg tablet 150 mcg PO DAILY #30 tab 08/09/20 08/21/20 Rx Past Med/Surg History Medical History (Updated 08/21/20 @ 05:04 by Shane Alonzo MD) Acute respiratory failure with hypoxia Allergic rhinitis Endometrial cancer determined by uterine biopsy H/O allergy to penicillin History of colon polyps Hyperparathyroidism Hypertension Hypothyroidism Thyroid cancer Surgical History H/O bilateral oophorectomy H/O thyroidectomy H/O: hysterectomy Family History Mother Kidney disease Diabetes Hypertension Colon cancer Brother Arthritis Hypertension Father Colorectal cancer Sister Dyslipidemia Hypertension Aunt Breast cancer Denies family history of Ovarian cancer Prostate cancer Myocardial infarction Social History Smoking Status: Never smoker Second Hand Exposure: No; Hx Alcohol Use: Yes Alcohol type: hard liquor Alcohol Intake Frequency: Monthly or Less Hx Substance Use: No Preferred Language: Ukrainian Communication Ability: Effective Visual Impairment: Limited Hearing Ability: Normal Wardrobe Coordinator Required: No Beliefs That Will Affect Care: None marital status: Single Current Living Situation: Alone current occupational status: retired How many Children do You have: 0 Feels Safe at Home: Yes Childhood Exposure to Second-Hand Smoke: No (does not think so) Diet Comment: NO JUNK FOOD caffeine: Yes Dental Care, Regularly: Yes Physical Activity Frequency: Does not Exercise Seatbelt Use: always Sunscreen Use: No Assistive Devices: Oxygen - at Night Review of Systems 2 Review of Systems: The patient denies chest pain, palpitations, lower extremity swelling, sore throat, fevers, chills, sweats, nausea, vomiting, diarrhea , constipation, abdominal pain, pelvic pain, blood in urine or stool, dysuria, urinary frequency or urgency, lightheadedness, dizziness, headache, memory loss, loss of consciousness, rash, abnormal bruis ing or bleeding, imbalance, focal or generalized weakness, numbness or tingling in arms or legs, generalized arthralgias or myalgias, back or neck pain, or night sweats. The review of systems is otherwise negative other than for that already noted above, and at least 10 systems have been reviewed. Physical Exam Physical Exam: The patient is awake, alert and oriented 3, normocephalic and atraumatic, lying in bed and in no acute distress. HEENT--PERRL, EOMI, mucous membranes and oropharynx normal. Neck--supple. No JVD. No bruits. Thyroid normal, trachea midline, no adenopathy. Heart--normal S1 and S2. No murmurs, rubs or gallops. Lungs--decreased breath sounds throughout. Mild to moderate respiratory distress with accessory muscle use upon presentation. Abdomen--normal bowel sounds and soft. Nontender. Nondistended. Morbid obesity Extremities--no cyanosis or clubbing. No edema. There are good distal pulses b/l. Dermatologic--normal skin turgor, normal color, no abnormal lymph nodes, no rash. Neurologic--cranial nerves II through XII grossly intact. Rheumatologic--normal range of motion. Psychiatric--normal affect. Results & Data Results & Data ([facility]) Vital Signs (Past 12 Hours) Vital Signs Temp Pulse Pulse Resp BP Pulse Ox 08/21/20 04:00 86 18 138/67 100 08/21/20 03:50 83 21 98 08/21/20 03:48 92 H 23 114/73 100 08/21/20 03:01 104 H 23 99 08/21/20 02:59 97.9 F 107 H 31 H 159/99 H 96 08/21/20 02:54 111 H 23 159/99 H 98 Laboratory Results Laboratory Results WBC 18.03 K/uL (4.8-10.8) H 08/21/20 03:06 RBC 4.68 M/uL (4.2-5.4) 08/21/20 03:06 Hgb 14.4 g/dL (12.0-16.0) 08/21/20 03:06 Hct 45.1 % (37-47) 08/21/20 03:06 MCV 96.4 fL (80-100) 08/21/20 03:06 MCH 30.8 pg (25-34) 08/21/20 03:06 MCHC 31.9 g/dL (32-36) L 08/21/20 03:06 RDW Std Deviation 47.4 fL (36.4-46.3) H 08/21/20 03:06 RDW Coeff of Chasidy 13.5 % (11.5-14.5) 08/21/20 03:06 Plt Count 344 K/uL (130-400) 08/21/20 03:06 MPV 9.6 fL (7.4-10.4) 08/21/20 03:06 Immature Gran % (Auto) 0.7 % 08/21/20 03:06 Neut % (Auto) 74.0 % 08/21/20 03:06 Lymph % (Auto) 15.6 % 08/21/20 03:06 [place] % (Auto) 4.5 % 08/21/20 03:06 Eos % (Auto) 4.9 % 08/21/20 03:06 Baso % (Auto) 0.3 % 08/21/20 03:06 Neut # (Auto) 13.33 K/uL (1.4-6.5) H 08/21/20 03:06 Lymph # (Auto) 2.82 K/uL (1.2-3.4) 08/21/20 03:06 [place] # (Auto) 0.82 K/uL (0.11-0.59) H 08/21/20 03:06 Eos # (Auto) 0.89 K/uL (0-0.5) H 08/21/20 03:06 Baso # (Auto) 0.05 K/uL (0-0.2) 08/21/20 03:06 Immature Gran # (Auto) 0.12 K/uL (0.00-0.02) H 08/21/20 03:06 VBG pH 7.23 (7.36-7.41) L 08/21/20 03:36 VBG pCO2 71 mmHg (38-50) H 08/21/20 03:36 VBG pO2 31 mmHg 08/21/20 03:36 VBG HCO3 29 mmol/L 08/21/20 03:36 VBG O2 Saturation < 60.0 % 08/21/20 03:36 VBG Base Excess -0.3 mEq/L 08/21/20 03:36 Barometric Pressure 738.1 mm/Hg 08/21/20 03:36 Sodium 141 mmol/L (136-145) 08/21/20 03:06 Potassium 3.6 mmol/L (3.5-5.1) 08/21/20 04:20 Chloride 107 mmol/L (98-107) 08/21/20 03:06 Carbon Dioxide 28 mmol/L (21-32) 08/21/20 03:06 Anion Gap 6.0 (3-11) 08/21/20 03:06 BUN 15 mg/dl (7-18) 08/21/20 03:06 Creatinine 1.22 mg/dl (0.6-1.2) H 08/21/20 03:06 Est Cr Clr Drug Dosing 41.7 ml/min 08/21/20 03:06 Est GFR ( Amer) 50.9 08/21/20 03:06 Est GFR (Non-Af Amer) 43.9 08/21/20 03:06 BUN/Creatinine Ratio 12.0 (10-20) 08/21/20 03:06 Glucose 273 mg/dl (70-99) H 08/21/20 03:06 Lactate 2.7 mmol/L (0.4-2.0) H* 08/21/20 03:36 Calcium 9.8 mg/dl (8.5-10.1) 08/21/20 03:06 Magnesium 2.2 mg/dl (1.8-2.4) 08/21/20 04:20 Total Bilirubin 0.5 mg/dl (0.2-1) 08/21/20 03:06 Direct Bilirubin < 0.1 mg/dl (0-0.2) 08/21/20 04:20 AST 22 U/L (15-37) 08/21/20 04:20 ALT 35 U/L (12-78) 08/21/20 03:06 Alkaline Phosphatase 93 U/L (45-117) 08/21/20 03:06 Troponin I < 0.015 ng/ml (0-0.045) 08/21/20 03:06 NT-Pro-B Natriuret Pep 114 pg/ml (0-900) 08/21/20 03:06 Total Protein 7.8 gm/dl (6.4-8.2) 08/21/20 03:06 Albumin 3.7 gm/dl (3.4-5.0) 08/21/20 03:06 Lipase 104 U/L (73-393) 08/21/20 03:06 Procalcitonin < 0.05 ng/ml (0-0.5) 08/21/20 03:36 COVID-19 Eval Order [facility]FluRsv at [facility] 08/21/20 03:24 SARS-CoV-2 (PCR) NEGATIVE (Negative) 08/21/20 03:24 Influenza Type A (PCR) Negative (Neg) 08/21/20 03:24 Influenza Type B (PCR) Negative (Neg) 08/21/20 03:24 RSV (RT-PCR) Negative (Neg) 08/21/20 03:24 Code Status & VTE Plan Code Status Full code VTE Prophylaxis Plan VTE Prophylaxis will be ordered: Yes PG Care Time/CCT Total # of Minutes Spent Total Time Spent with Patient: Total time spent is greater than 50% in coordination of care (as documented) at patient's floor/unit and/or counseling patient: Coding Level of Care Code 90754 Initial Inpt Care Lvl 2 Diagnoses Acute respiratory failure with hypoxia J96.01 Asthma exacerbation in COPD J44.1; J45.901 Anxiety F41.9 Hypertension I10 Hypertension type: essential hypertension Hypothyroidism E03.9 (1) Hypertension Hypertension type: essential hypertension Qualified Code(s): I10 - Essential (primary) hypertension
[2020-08-21 04:39] LABS: Potassium 3.6 mmol/L (3.5-5.1)
[2020-08-21 04:45] LABS: Aspartate Aminotransferase 22 U/L (15-37); Bilirubin Direct < 0.1 mg/dl (0-0.2); Magnesium 2.2 mg/dl (1.8-2.4)
[2020-08-21] MEDS ORDERED: ENOXAPARIN 0.5 MG/KG SQ SCH (05:44)
[2020-08-21] MEDS ORDERED: ONDANSETRON INJ 2 MG/ML 2 ML VIAL IV PRN (05:44)
[2020-08-21] MEDS ORDERED: ACETAMINOPHEN 325 MG TAB PO PRN (05:44)
[2020-08-21] MEDS ORDERED: DEXTROSE 50% 50 ML SYRINGE IV PRN (05:44)
[2020-08-21] MEDS ORDERED: GLUCOSE 40% GEL 15 GM TUBE PO PRN (05:44)
[2020-08-21] MEDS ORDERED: GLUCAGON FOR INJ 1 MG VIAL SQ PRN (05:44)
[2020-08-21] MEDS ORDERED: GLUCOSE 10 TABS/TUBE PO PRN (05:44)
[2020-08-21] MEDS ORDERED: CARBOHYDRATES FOR HYPOGLYCEMIA PO PRN (05:44)
[2020-08-21] MEDS: LEVOTHYROXINE SODIUM 150 MCG TABLET PO SCH (06:15)
[2020-08-21] MEDS: methylPREDNISolone 20 MG in SYRINGE 0 ML IV SCH ×2 (06:15→12:35)
[2020-08-21] MEDS ORDERED: BUDESONIDE 0.5 MG/2 ML VIAL (PULMICORT) NEB SCH (07:00)
[2020-08-21] MEDS: ALBUT/IPRATROP 3MG/0.5MG NEB 3 ML VIAL NEB SCH ×4 (07:16→19:18)
[2020-08-21] MEDS: LORATADINE 10 MG TAB PO SCH (08:09)
[2020-08-21] MEDS: OMEGA-3 (PURIFIED FISH OIL) 1 GM CAP PO SCH (08:09)
[2020-08-21] MEDS: dilTIAZem HCL 120 MG CAPCR PO SCH (08:09)
[2020-08-21] MEDS: FLUTICASONE/VILANTEROL 200/25MCG 14 PUFFS/INHALER INH SCH (08:10)
[2020-08-21] MEDS: INSULIN ASPART 100 UNITS/ML 3 ML PEN SC SCH ×4 (08:11→21:11)
--- NOTE | 2020-08-21 08:43 | XRay Report ---
SINGLE VIEW CHEST CLINICAL HISTORY: Dyspnea. FINDINGS: An AP, portable, upright chest radiograph is compared to study dated 06/20/2020. Correlatio n is made with chest CT dated 08/23/2017. The examination is mildly degraded by portable technique and patient rotation. The heart is top normal for projection noting atherosclerotic calcification of the thoracic aorta. Chronic interstitial thickening is similar to previous. There is bibasilar atelectas is. No airspace consolidation or large pleural effusion is identified. No pneumothorax is seen. The s keletal structures are osteopenic. The bony thorax is grossly intact. IMPRESSION: No active disease in the chest. ACT 112: Negative or not required by law. Electronically signed by: Marcell Gupta M.D. 08/21/2020 8:41 AM
[2020-08-21] MEDS ORDERED: cefTRIAXone SODIUM 2,000 MG in DEXTROSE 5% 50 ML IV SCH (09:00)
[2020-08-21] MEDS ORDERED: ENOXAPARIN INJ 60 MG/0.6 ML SYR SQ SCH (09:00)
--- NOTE | 2020-08-21 11:19 | Electrocardiogram Report ---
Test Reason : Blood Pressure : / mmHG Vent. Rate : 107 BPM Atrial Rate : 105 BPM P-R Int : 156 ms QRS Dur : 070 ms QT Int : 348 ms P-R-T Axes : 071 -58 047 degrees QTc Int : 464 ms Normal sinus rhythm Left anterior fascicular block Poor R wave progression, consider anterior MA vs. lead placement vs. LVH Abnormal ECG When compared with ECG of 19-JUN-2020 21:13, No significant change was found Confirmed by Buddy Tubbs ([id number]) on 08/21/2020 11:18:38 AM Referred By: REFERRED SELF Confirmed By:Buddy Tubbs
--- NOTE | 2020-08-21 15:14 | Hospitalist Progress Note ---
Date of Service August 21, 2020 Assessment & Plan (1) Asthma exacerbation in COPD: Multiple exacerbations in last 6 months. No inciting factor this time apart from possible weather/humidity change. - Improved today. - Continue Duonebs every 4 hours while awake and every 2 hours when necessary. - Continue Breo - Switch to prednisone 40 mg PO daily - Continue levofloxacin (2) GILLES (acute kidney injury): Baseline Cr is 0.9 - 1.0, CKD Stage II. - On presentation, Cr. was 1.22, barely meeting for GILLES criteria. - Holding losartan/HCTZ - Will monitor; if needed, can give IV fluids. (3) Anxiety: Seems to have contributed to prior attacks, but none noted today. - Continue buspirone (4) Hypertension: BP today is 145/85. - Hold losartan/HCTZ due to acute kidney injury. - Continue diltiazem extended release 220 mg every morning (5) Hypothyroidism: Prior TSHs have indicated overtreatment. - Continue levothyroxine 150 mcg p.o. daily - Repeat TSH in AM (6) DVT prophylaxis: Lovenox 40 mg SQ daily Admission and Anticipated Discharge Date Admission Date: August 21, 2020 Subjective Feeling much better already. Less shortness of breath, though not at baseline. Reports no fevers/chills, chest pain, abdominal pain, nausea, or vomiting. Physical Exam Constitutional: WD/WN, vitals as above Eyes: EOM intact bilaterally; no conjunctival abnormality ENMT: external ear and nose normal, oropharynx normal Neck: trachea midline, no thyromegaly normal visual inspection Respiratory: no respiratory distress and no labored breathing Auscultation: + wheezes Cardiovascular: RRR, no murmur, no edema Gastrointestinal (Abdomen): Inspection/Auscultation: abdomen normal to inspection; abdomen not distended Musculoskeletal: no cyanosis or clubbing, extremities motor strength 5/5 Skin: no rashes, warm and dry Neurologic: moves all extremities and awake Psychiatric: Orientation: alert, oriented to person and cooperative Results & Data Results & Data ([facility]) Vital Signs (Past 12 Hours) Vital Signs Temp Pulse Pulse Resp BP BP Pulse Ox 08/21/20 12:19 36.8 C 94 H 19 144/85 H 96 08/21/20 11:22 98 H 08/21/20 11:18 85 20 94 08/21/20 07:30 36.3 C L 101 H 18 161/79 H 94 08/21/20 07:17 18 95 08/21/20 05:54 105 H 16 96 08/21/20 05:15 36.3 C L 99 H 22 164/94 H 98 08/21/20 05:06 92 H 18 105/65 98 08/21/20 04:30 96 H 21 113/84 100 08/21/20 04:00 86 18 138/67 100 08/21/20 03:50 83 21 98 08/21/20 03:48 92 H 23 114/73 100 PG Care Time/CCT Total # of Minutes Spent Total Time Spent with Patient: Total time spent is greater than 50% in coordination of care (as documented) at patient's floor/unit and/or counseling patient: Coding Level of Care Code 28267 Subseq Hosp Care Lvl 2 Diagnoses Asthma exacerbation in COPD J44.1; J45.901 GILLES (acute kidney injury) N17.9 Anxiety F41.9 Hypertension I10 Hypertension type: essential hypertension Hypothyroidism E03.9 DVT prophylaxis Z29.9 (1) Hypertension Hypertension type: essential hypertension Qualified Code(s): I10 - Essential (primary) hypertension
[2020-08-21] MEDS: CHOLECALCIFEROL 1,000 UNITS 25 MCG TAB PO SCH (21:10)
[2020-08-22] MEDS: levoFLOXacin/D5W 500 MG/100 ML BAG IV SCH (03:49)
[2020-08-22] MEDS: LEVOTHYROXINE SODIUM 150 MCG TABLET PO SCH (04:51)
[2020-08-22 07:13] LABS: Hematocrit (blood only) 41.7 % (37-47); Hemoglobin 13.7 g/dL (12.0-16.0); Mean Corpuscular Hemoglobin 30.8 pg (25-34); Mean Corpuscular Hgb Conc 32.9 g/dL (32-36); Mean Corpuscular Volume 93.7 fL (80-100); Mean Platelet Volume 9.8 fL (7.4-10.4); Platelet Count 334 K/uL (130-400); RDW Coefficient of Variation 13.4 % (11.5-14.5); RDW Standard Deviation 46.2 fL (36.4-46.3); Red Blood Count 4.45 M/uL (4.2-5.4); White Blood Count 15.12 K/uL (4.8-10.8)
[2020-08-22] MEDS: ALBUT/IPRATROP 3MG/0.5MG NEB 3 ML VIAL NEB SCH ×4 (07:23→19:28)
[2020-08-22 07:43] LABS: BUN Creatinine Ratio 16.7 (10-20); Calcium 10.4 mg/dl (8.5-10.1); Creatinine Clr Calc Pharmacy 39.7 ml/min; Est GFR (African American) 50.4; Est GFR (Non-African American) 43.5; Magnesium 2.2 mg/dl (1.8-2.4); Potassium 3.6 mmol/L (3.5-5.1)
[2020-08-22 07:54] LABS: Thyroid Stimulating Hormone 0.053 uIu/ml (0.300-4.500)
[2020-08-22 08:10] LABS: T4 Free Thyroxine 1.88 ng/dl (0.8-1.6)
[2020-08-22] MEDS: INSULIN ASPART 100 UNITS/ML 3 ML PEN SC SCH ×4 (08:31→20:20)
[2020-08-22] MEDS: FLUTICASONE/VILANTEROL 200/25MCG 14 PUFFS/INHALER INH SCH (08:31)
[2020-08-22] MEDS: LORATADINE 10 MG TAB PO SCH (08:32)
[2020-08-22] MEDS: OMEGA-3 (PURIFIED FISH OIL) 1 GM CAP PO SCH (08:33)
[2020-08-22] MEDS: ENOXAPARIN INJ 40 MG/0.4 ML SYR SQ SCH (08:34)
[2020-08-22] MEDS: dilTIAZem HCL 120 MG CAPCR PO SCH (08:34)
[2020-08-22 08:35] LABS: Estimated Average Glucose 120 mg/dl; Hemoglobin A1C 5.8 % (4.5-5.6)
[2020-08-22] MEDS: predniSONE 20 MG TAB PO SCH (10:02)
--- NOTE | 2020-08-22 14:08 | Hospitalist Progress Note ---
Date of Service August 22, 2020 Assessment & Plan (1) Asthma exacerbation in COPD: Multiple exacerbations in last 6 months. No inciting factor this time apart from possible weather/humidity change. - Continue Duonebs every 4 hours while awake and every 2 hours when necessary. - Continue Breo - Switched to prednisone 40 mg PO daily - Continue levofloxacin - Improved today. Less wheezing. Hoping to arrange home meds. (2) GILLES (acute kidney injury): Baseline Cr is 0.9 - 1.0, CKD Stage II. - On presentation, Cr. was 1.22, barely meeting for GILLES criteria. - Holding losartan/HCTZ - Will monitor - Cr remains 1.2 today. Will give small fluid bolus. (3) Anxiety: Seems to have contributed to prior attacks, but none noted today. - Continue buspirone (4) Hypertension: BP today is 150/80. - Hold losartan/HCTZ due to acute kidney injury. - Continue diltiazem extended release 220 mg every morning (5) Hypothyroidism: Prior TSHs have indicated overtreatment. - Continue levothyroxine 150 mcg p.o. daily - Repeat TSH on 08/22 indicate she is over-treated. Will speak with her about lowering her dosage. (6) DVT prophylaxis: Lovenox 40 mg SQ daily Admission and Anticipated Discharge Date Admission Date: August 21, 2020 Subjective Feeling better at this point. Less wheezing. Reports no fevers/chills, chest pain, abdominal pain, nausea, or vomiting. Physical Exam Constitutional: WD/WN, vitals as above Eyes: EOM intact bilaterally; no conjunctival abnormality ENMT: external ear and nose normal, oropharynx normal Neck: trachea midline, no thyromegaly normal visual inspection Respiratory: no respiratory distress and no labored breathing Auscultation: no wheezes Cardiovascular: RRR, no murmur, no edema Gastrointestinal (Abdomen): Inspection/Auscultation: abdomen normal to inspection; abdomen not distended Musculoskeletal: no cyanosis or clubbing, extremities motor strength 5/5 Skin: no rashes, warm and dry Neurologic: moves all extremities and awake Psychiatric: Orientation: alert, oriented to person and cooperative Affect: + anxious affect Results & Data Results & Data ([facility]) Vital Signs (Past 12 Hours) Vital Signs Temp Pulse Pulse Resp BP Pulse Ox 08/22/20 12:07 36.4 C L 92 H 18 151/79 H 93 08/22/20 11:12 88 16 92 08/22/20 07:49 36.4 C L 92 H 18 150/82 H 91 08/22/20 07:26 88 16 91 08/22/20 07:00 70 08/22/20 03:58 36.3 C L 81 16 146/82 H 91 PG Care Time/CCT Total # of Minutes Spent Total Time Spent with Patient: Total time spent is greater than 50% in coordination of care (as documented) at patient's floor/unit and/or counseling patient: Coding Level of Care Code 92489 Subseq Hosp Care Lvl 2 Diagnoses Asthma exacerbation in COPD J44.1; J45.901 GILLES (acute kidney injury) N17.9 Anxiety F41.9 Hypertension I10 Hypertension type: essential hypertension Hypothyroidism E03.9 DVT prophylaxis Z29.9 (1) Hypertension Hypertension type: essential hypertension Qualified Code(s): I10 - Essential (primary) hypertension
[2020-08-22] MEDS ORDERED: NORMOSOL-R 500 ML IV ONE (14:16)
[2020-08-22] MEDS: CHOLECALCIFEROL 1,000 UNITS 25 MCG TAB PO SCH (20:19)
[2020-08-23] MEDS: levoFLOXacin/D5W 500 MG/100 ML BAG IV SCH (04:19)
[2020-08-23] MEDS: LEVOTHYROXINE SODIUM 150 MCG TABLET PO SCH (05:35)
[2020-08-23 06:09] LABS: Hematocrit (blood only) 40.8 % (37-47); Hemoglobin 13.5 g/dL (12.0-16.0); Mean Corpuscular Hemoglobin 30.9 pg (25-34); Mean Corpuscular Hgb Conc 33.1 g/dL (32-36); Mean Corpuscular Volume 93.4 fL (80-100); Mean Platelet Volume 9.4 fL (7.4-10.4); Platelet Count 308 K/uL (130-400); RDW Coefficient of Variation 13.6 % (11.5-14.5); RDW Standard Deviation 46.5 fL (36.4-46.3); Red Blood Count 4.37 M/uL (4.2-5.4); White Blood Count 13.21 K/uL (4.8-10.8)
[2020-08-23 06:39] LABS: BUN Creatinine Ratio 22.1 (10-20); Calcium 11.2 mg/dl (8.5-10.1); Creatinine Clr Calc Pharmacy 45.5 ml/min; Est GFR (African American) 59.6; Est GFR (Non-African American) 51.5; Potassium 3.7 mmol/L (3.5-5.1)
[2020-08-23] MEDS: ALBUT/IPRATROP 3MG/0.5MG NEB 3 ML VIAL NEB SCH ×4 (07:10→19:23)
[2020-08-23] MEDS: INSULIN ASPART 100 UNITS/ML 3 ML PEN SC SCH ×4 (08:43→20:24)
[2020-08-23] MEDS: ENOXAPARIN INJ 40 MG/0.4 ML SYR SQ SCH (08:50)
[2020-08-23] MEDS: OMEGA-3 (PURIFIED FISH OIL) 1 GM CAP PO SCH (08:51)
[2020-08-23] MEDS: dilTIAZem HCL 120 MG CAPCR PO SCH (08:51)
[2020-08-23] MEDS: predniSONE 20 MG TAB PO SCH (08:51)
[2020-08-23] MEDS: LORATADINE 10 MG TAB PO SCH (08:51)
[2020-08-23] MEDS: FLUTICASONE/VILANTEROL 200/25MCG 14 PUFFS/INHALER INH SCH (08:51)
--- NOTE | 2020-08-23 14:42 | Hospitalist Progress Note ---
Date of Service August 23, 2020 Assessment & Plan (1) Asthma exacerbation in COPD: Multiple exacerbations in last 6 months. No inciting factor this time apart from possible weather/humidity change. - Continue Duonebs every 4 hours while awake and every 2 hours when necessary. - Continue Breo - Switched to prednisone 40 mg PO daily - Continue levofloxacin - Improved today. Less wheezing. Discharge tomorrow. Will not go today because of the weather. (2) GILLES (acute kidney injury): Baseline Cr is 0.9 - 1.0, CKD Stage II. - On presentation, Cr. was 1.22, barely meeting for GILLES criteria. - Holding losartan/HCTZ - Will monitor - Cr remains 1.1 today. Likely baseline. (3) Anxiety: Seems to have contributed to prior attacks, but none noted today. - Continue buspirone (4) Hypertension: BP today is 120/75. - Hold losartan/HCTZ due to acute kidney injury. - Continue diltiazem extended release 220 mg every morning (5) Hypothyroidism: Prior TSHs have indicated overtreatment. - Continue levothyroxine 150 mcg p.o. daily - Repeat TSH on 08/22 indicate she is over-treated. Lowered dose to [address] Mcgregor just 2 weeks ago. - Follow up with repeat TSH in 4-6 weeks with PCP. Continue current dose. (6) DVT prophylaxis: Lovenox 40 mg SQ daily Admission and Anticipated Discharge Date Admission Date: August 21, 2020 Subjective Doing well today. Slight wheeze. Reports no fevers/chills, chest pain, shortness of breath, abdominal pain, nausea, or vomiting. Physical Exam Constitutional: WD/WN, vitals as above Eyes: EOM intact bilaterally; no conjunctival abnormality ENMT: external ear and nose normal, oropharynx normal Neck: trachea midline, no thyromegaly normal visual inspection Respiratory: no respiratory distress and no labored breathing Auscultation: + wheezes Cardiovascular: RRR, no murmur, no edema Gastrointestinal (Abdomen): Inspection/Auscultation: abdomen normal to inspection; abdomen not distended Musculoskeletal: no cyanosis or clubbing, extremities motor strength 5/5 Skin: no rashes, warm and dry Neurologic: moves all extremities and awake Psychiatric: Orientation: alert, oriented to person and cooperative Affect: + anxious affect Results & Data Results & Data ([place]) Vital Signs (Past 12 Hours) Vital Signs Temp Pulse Pulse Resp BP Pulse Ox 08/23/20 11:56 36.8 C 74 16 122/74 99 08/23/20 11:25 83 19 94 08/23/20 08:20 36.9 C 88 18 137/80 99 08/23/20 07:10 88 18 96 08/23/20 07:00 72 08/23/20 05:24 36.4 C L 89 18 165/85 H 90 PG Care Time/CCT Total # of Minutes Spent Total Time Spent with Patient: Total time spent is greater than 50% in coordination of care (as documented) at patient's floor/unit and/or counseling patient: Coding Level of Care Code 25717 Subseq Hosp Care Lvl 2 Diagnoses Asthma exacerbation in COPD J44.1; J45.901 GILLES (acute kidney injury) N17.9 Anxiety F41.9 Hypertension I10 Hypertension type: essential hypertension Hypothyroidism E03.9 DVT prophylaxis Z29.9 (1) Hypertension Hypertension type: essential hypertension Qualified Code(s): I10 - Essential (primary) hypertension
[2020-08-23] MEDS: CHOLECALCIFEROL 1,000 UNITS 25 MCG TAB PO SCH (20:25)
[2020-08-24] MEDS: LEVOTHYROXINE SODIUM 150 MCG TABLET PO SCH (05:38)
[2020-08-24] MEDS: ALBUT/IPRATROP 3MG/0.5MG NEB 3 ML VIAL NEB SCH ×2 (07:22→10:42)
[2020-08-24] MEDS: OMEGA-3 (PURIFIED FISH OIL) 1 GM CAP PO SCH (08:24)
[2020-08-24] MEDS: predniSONE 20 MG TAB PO SCH (08:24)
[2020-08-24] MEDS: ENOXAPARIN INJ 40 MG/0.4 ML SYR SQ SCH (08:24)
[2020-08-24] MEDS: dilTIAZem HCL 120 MG CAPCR PO SCH (08:25)
[2020-08-24] MEDS: LORATADINE 10 MG TAB PO SCH (08:25)
[2020-08-24] MEDS: FLUTICASONE/VILANTEROL 200/25MCG 14 PUFFS/INHALER INH SCH (08:26)
[2020-08-24] MEDS: INSULIN ASPART 100 UNITS/ML 3 ML PEN SC SCH ×2 (08:30→12:13)
[2020-08-24] MEDS ORDERED: levoFLOXacin 500 MG TAB PO SCH (11:00)
[2020-08-24 11:14] VITALS: TEMP 97.7
[2020-08-24 11:21] VITALS: BP 155/75; PULSE 87; O2SAT 94
--- NOTE | 2020-08-24 16:23 | Discharge Summary ---
Date of Service August 24, 2020 Admission HPI Per Admitting Provider The patient is a 75-year-old female with a past medical history including anxiety, severe persistent asthma, acute kidney injury, tachycardia, acute respiratory failure with hypoxia, asthma with exacerbation, endometrial cancer, recurrent endometrial carcinoma, vitamin D deficiency, hypothyroidism and hypertension. Patient presents as noted above. Upon presentation to the ED, the patient reportedly was tachypneic with pulse ox in the 80s, and was immediately placed on BiPAP with improvement in symptomatology and oxygenation. Principal Diagnosis asthma exacerbation Discharge Exam Constitutional: WD/WN, vitals as above Eyes: EOM intact bilaterally; no conjunctival abnormality ENMT: external ear and nose normal, oropharynx normal Neck: trachea midline, no thyromegaly normal visual inspection Respiratory: no respiratory distress and no labored breathing Auscultation: + mild wheezes Cardiovascular: RRR, no murmur, no edema Gastrointestinal (Abdomen): Inspection/Auscultation: abdomen normal to inspection; abdomen not distended Musculoskeletal: no cyanosis or clubbing, extremities motor strength 5/5 Skin: no rashes, warm and dry Neurologic: moves all extremities and awake Psychiatric: Orientation: alert, oriented to person and cooperative Discharge Data Allergies Allergy/AdvReac Type Severity Reaction Status Date / Time amoxicillin Allergy Intermediate SOB Verified 08/21/20 04:04 Penicillins Allergy Mild Unknown Verified 08/21/20 04:04 Consultations 08/21/20 03:58 ED Decision to Admit Stat 08/21/20 05:44 Consult Case Management - Discharge Planning Routine Hospital Course (1) Asthma exacerbation in COPD: Multiple exacerbations in last 6 months. No inciting factor this time apart from possible weather/humidity change. - Treated with Duonebs every 4 hours while awake and every 2 hours when necessary in house. - Continue Breo as an outpatient. - Switched to prednisone 40 mg PO daily and will taper - Continue levofloxacin and finish course - Improved today. Less wheezing. will discharge. (2) GILLES (acute kidney injury): Baseline Cr is 0.9 - 1.0, CKD Stage II. - On presentation, Cr. was 1.22, barely meeting for GILLES criteria. - Holding losartan/HCTZ - Will monitor - Cr remains 1.1 today. Likely baseline. (3) Anxiety: Seems to have contributed to prior attacks, but none noted today. - Continue buspirone (4) Hypertension: BP today is 120/75. - Hold losartan/HCTZ due to acute kidney injury. - Continue diltiazem extended release 220 mg every morning (5) Hypothyroidism: Prior TSHs have indicated overtreatment. - Continue levothyroxine 150 mcg p.o. daily - Repeat TSH on 08/22 indicate she is over-treated. Lowered dose to [address] Mcgregor just 2 weeks ago. - Follow up with repeat TSH in 4-6 weeks with PCP. Continue current dose. (6) DVT prophylaxis: Lovenox 40 mg SQ daily Total Time Total Time Spent Total Time Spent (In Minutes): 32 Total Time Includes: Examination of the Patient, Discharge Planning and Medication Reconciliation Discharge Plan Discharge Items Patient Disposition: Home - Self-Care Reason For Visit: ACUTE RESP FAILURE W/ HYPOXIA, COPD EXACERBATION Discharge Diagnosis: Asthma exacerbation Activity: Resume your previous activity Non-emergency contact: Primary Care Provider Call non-emergency contact if: your symptoms worsen Follow-up/Referrals: Keshawn Mcgregor MD [Primary Care Provider] - 08/31/20 3:30 pm Diet: Heart Healthy Addtl Attending Provider Instructions: You were admitted to the hospital with an asthma exacerbation. This is your 4th in about 6 months. From our discussion, you have adequate supplies of your medication. On your good weeks, it sounds like you're still using your nebulizer at least 10+ times per week. Some days, you don't need it at all, but it sounds like other days you're using it 3-4 times per day. It may be beneficial to speak with your PCP about a referral to a golf ball winder or machine setter to see if you could benefit from additional treatments for your asthma as this is clearly a frequent problem for you. For this exacerbation, please finish your steroids by doing a short taper before returning to your home dose: Take prednisone 40 mg (4 tabs) for 2 more days, Take prednisone 20 mg (2 tabs) for 3 days, Take prednisone 10 mg (1 tab) for 3 days, then return to your home dosage of 5 mg daily. Take the antibiotic for 3 more days, starting tomorrow morning. Please see your PCP in 1-2 weeks to talk about your asthma and consider further treatment options. Pending Studies at Discharge: No Stand-Alone Forms: My [email or web address], Smoking Cessation Medications and DC Order Prescriptions: New prednisone 10 mg tablet 40 mg PO DAILY Qty: 21 RF: 0 levofloxacin 250 mg tablet 250 mg PO DAILY 3 Days Qty: 3 RF: 0 Breo Ellipta 200-25 mcg/dose blister with device 1 inh inhalation DAILY Qty: 28 RF: 0 Continued albuterol sulfate [Ventolin HFA] 90 mcg/actuation HFA aerosol inhaler 2 puffs inhalation .COMPLEX PRN (Reason: Shortness Of Breath) Qty: 18 RF: 3 diltiazem HCl [Cardizem CD] 120 mg capsule,extended release 24hr 120 mg PO QAM Qty: 90 RF: 3 losartan-hydrochlorothiazide 100-25 mg tablet 1 tab PO QAM Qty: 90 RF: 3 levothyroxine 150 mcg tablet 150 mcg PO DAILY Qty: 30 RF: 2 omega-3 fatty acids [Fish Oil Concentrate] 1,000 mg capsule 1,000 mg PO QAM RF: 0 prednisone 5 mg tablet 5 mg PO DAILY Qty: 90 RF: 3 buspirone 5 mg tablet 5 mg PO DAILY PRN (Reason: asthma attack) Qty: 10 RF: 2 loratadine 10 mg Tablet 10 mg PO QAM RF: 0 cholecalciferol (vitamin D3) [Vitamin D3] 2,000 unit capsule 2,000 unit PO HS RF: 0 budesonide-formoterol [Symbicort] 160-4.5 mcg/actuation HFA aerosol inhaler 2 puffs INH BID Qty: 10.2 RF: 2 ipratropium-albuterol 0.5 mg-3 mg(2.5 mg base)/3 mL solution for nebulization 3 ml INH Q6H PRN (Reason: wheezing) Qty: 30 RF: 3 Discharge Orders: Discharge Order (Routine); Ordered 08/24/20 Ordered By: Julien Le Admission Data Admit Date/Time: 08/21/20 04:30 Attending Provider: Julien Le Admit Provider: Kj Walter Primary Care Provider: Keshawn Mcgregor Other Providers: Sheldon Geller Other Interventions: Discharge Summary Assessment (RN) Last Done: 08/24/20 13:48 Coding Level of Care Code D/C Day Management >30 mins Diagnoses Asthma exacerbation in COPD J44.1; J45.901 GILLES (acute kidney injury) N17.9 Anxiety F41.9 Hypertension I10 Hypertension type: essential hypertension Hypothyroidism E03.9 DVT prophylaxis Z29.9
== END 2020-08-24 14:30 | disposition home or self-care (01) ==
LOC: ED 02:46 → INTOOBSV 04:30 → SUATTDRO 04:30 → 2S 04:30
DX: Z85.44 Personal history of malignant neoplasm of other female genital organs; D72.829 Elevated white blood cell count, unspecified; Z79.890 Hormone replacement therapy; N17.9 Acute kidney failure, unspecified; Z79.899 Other long term (current) drug therapy; E03.9 Hypothyroidism, unspecified; E21.3 Hyperparathyroidism, unspecified; J44.1 Chronic obstructive pulmonary disease with (acute) exacerbation; Z20.822 Contact with and (suspected) exposure to COVID-19; Z85.850 Personal history of malignant neoplasm of thyroid; I10 Essential (primary) hypertension; J96.01 Acute respiratory failure with hypoxia; Z88.1 Allergy status to other antibiotic agents

== ENCOUNTER 2023-06-15 21:05 | Inpatient (IN) ==
[2023-06-15] MEDS ORDERED: ALBUT/IPRATROP 3MG/0.5MG NEB 3 ML VIAL NEB STA ×2 (21:14→22:40)
--- NOTE | 2023-06-15 21:44 | Emergency Department Note ---
Impression & Plan Acute exacerbation of chronic obstructive pulmonary disease, Hypomagnesemia, GILLES (acute kidney injury) ED Provider Note NAME: VANESA CALHOUN AGE: 78 SEX: F : 1945 ARRIVES VIA: Ambulance INFORMANT: Patient, ED PROVIDER(S): Calvin Blackwood DO CHIEF COMPLAINT: Difficulty breathing HPI: The patient is a 78-year-old female who presented to the emergency department for an evaluation of difficulty breathing. The patient has a history of cancer in the past. She has a history of endometrial cancer. She received chemotherapy this week. She started having some difficulty breathing earlier this evening. This became significantly worse. She does take blood thinners. She states that she has been compliant with her outpatient medications. She denies having any hemoptysis. She does complain of lower extremity swelling. She denies having any dysuria or frequency. She states her symptoms are somewhat improved after increasing supplemental oxygen. She does wear supplemental oxygen chronically. ROS: See above HPI for pertinent positives & negatives. A total of 10 systems reviewed and were otherwise negative. PAST MEDICAL HISTORY: See Below PAST SURGICAL HISTORY: See Below FAMILY HISTORY: See Below SOCIAL HISTORY: See Below HOME MEDICATIONS: See Below ALLERGIES: See Below VITALS: See Below PHYSICAL EXAMINATION: GENERAL: The patient is awake and alert. The patient is somewhat anxious appearing. EYES: The conjunctivae are clear. The pupils are round and reactive. EARS, NOSE, MOUTH AND THROAT: The nose is without any evidence of any deformity. NECK: The neck is nontender and supple. RESPIRATORY: Diminished breath sounds are noted throughout. There is expiratory wheezing noted in both upper lung sanon. There was conversational dyspnea appreciated. CARDIOVASCULAR: Regular rate and rhythm noted there no murmurs rubs or gallops normal S1 normal S2. GASTROINTESTINAL: The abdomen is soft. Abdomen is nontender. MUSCULOSKELETAL/EXTREMITIES: There is no evidence of gross deformity full range of motion is noted in the hips and shoulders. SKIN: Pulses were symmetric in both feet. Chronic venous stasis changes were noted in both lower extremities left greater than right NEUROLOGIC: Patient is awake alert and oriented x3 MEDICAL DECISION MAKING: The patient is a 78-year-old female who has a history of COPD asthma as well as DVT and endometrial cancer who presented to the emergency department for an evaluation of respiratory distress. The patient was treated with bronchodilator therapy in the emergency department. She was also treated with IV steroids. She was reevaluated multiple times. The patient was given a small fluid bolus. I discussed the patient's laboratory and radiographic studies with her. Reevaluation she was significantly improved. I discussed her condition with the on-call [facility]. They have agreed to evaluate the patient in the emergency department for further management and disposition. Triage Nursing notes reviewed. Prior medical records reviewed Vital Signs: reviewed and remarkable for no significant abnormalities Differential diagnosis: Reactive airway disease, pneumonia, pneumothorax, COPD, CHF, infections, cardiac ischemia, pulmonary embolism, musculoskeletal, gastrointestinal, as well as other pathologies. ER treatment provided: See below Diagnostics interpreted by me: ECG: EKG was obtained in the emergency department. My interpretation is sinus tachycardia 106 bpm. There is no ectopy. Nonspecific ST segment abnormalities were noted. This was compared to a tracing from December 29, 2021. No changes were noted. Cardiac Monitoring: An order was placed for continuous cardiac monitoring. The monitor shows a rate of 83 bpm with sinus rhythm. Laboratory studies: As stated above and show below. Imaging studies: See below. Radiographic imaging was reviewed by myself Consultation(s): I discussed this case with Dr. Garcia who is on-call for the [facility] group. ED COURSE: Procedures: none Critical Care: I have personally spent greater than 45 minutes of critical care time in the direct management of this patient. This includes bedside care, interpretation of diagnostic studies, and testing, discussion with consultants, patient, and family members, and other required patient management activities. This 45 minutes is in excess of all separately billable procedures. Past Med/Surg History Medical History History of home oxygen therapy prn-2 lpm Chronic steroid use "Now under good control" per [place] PCP Recurrent carcinoma of endometrium xrt in 2012- Asthma stable per pt History of thyroid cancer papillary. Stage III. 1999 Anxiety Endometrial cancer determined by uterine biopsy gr 1 st 1 intitially treated with vianey/bso in 2005 History of colon polyps Hyperparathyroidism Hypothyroidism Thyroid cancer Hypertension Surgical History Port-A-Cath in place (05/03/22) Insertion Access Port with Fluoroscopy(Left) - Otoniel Briggs DO History of colonoscopy 12/25/2021 S/P VIANEY-BSO H/O thyroidectomy Family History Mother Colon cancer Diabetes Kidney disease Hypertension Brother Arthritis Hypertension Father Colorectal cancer Sister Dyslipidemia Hypertension Aunt Breast cancer Other No family history of adverse response to anesthesia Denies family history of Ovarian cancer Prostate cancer Myocardial infarction Social History Smoking Status: Never smoker Second Hand Exposure: No; Do You Dip or Chew Tobacco: No; Hx Alcohol Use: Yes Alcohol type: hard liquor Alcohol Intake Frequency: Monthly or Less Hx Substance Use: No Preferred Language: Ukrainian Communication Ability: Effective Visual Impairment: Limited Hearing Ability: Normal Auto Bumper Mechanic Required: No Beliefs That Will Affect Care: None marital status: Single Current Living Situation: Alone current occupational status: retired How many Children do You have: 0 Feels Safe at Home: Yes Childhood Exposure to Second-Hand Smoke: No (does not think so) Diet: regular Diet Comment: NO JUNK FOOD caffeine: Yes (coffee, hot tea ) Dental Care, Regularly: Yes Physical Activity Frequency: Does not Exercise Seatbelt Use: always Sunscreen Use: No Assistive Devices: Glasses Allergies Allergies Allergy/AdvReac Type Severity Reaction Status Date / Time amoxicillin Allergy Intermediate SOB Verified 04/19/23 08:43 Penicillins Allergy Mild Unknown Verified 04/19/23 08:43 Home Meds Home Medications Medication Instructions Recorded Confirmed omega-3 fatty acids 1,000 mg 1,000 mg PO QAM 01/07/19 04/19/23 capsule (Fish Oil Concentrate) pantoprazole 40 mg tablet,delayed 40 mg PO QAM 04/26/22 04/19/23 release apixaban 5 mg tablet (Eliquis) 5 mg PO BID 10/31/22 04/19/23 diltiazem HCl 120 mg 120 mg PO QAM 06/15/23 06/15/23 capsule,extended release 24 hr levothyroxine 125 mcg tablet 125 mcg PO DAILYBB 06/15/23 06/15/23 Previous Rx's Medication Instructions Recorded Ventolin HFA 90 mcg/actuation 2 puff inhalation Q4H PRN 04/26/21 aerosol inhaler (albuterol sulfate) Shortness Of Breath #18 grams prednisone 5 mg tablet 5 mg PO QAM #90 tabs 06/15/22 benralizumab 30 mg/mL subcutaneous 30 mg subcut .COMPLEX #1 mL 11/29/22 syringe (Fasenra) losartan 100 1 tab PO QAM #90 tabs 01/11/23 mg-hydrochlorothiazide 25 mg tablet (Hyzaar) benralizumab 30 mg/mL subcutaneous 30 mg subcut .COMPLEX #1 mL 02/01/23 syringe (Fasenra) fluticasone furoate 200 1 inh inhalation QAM #28 ea 06/14/23 mcg-vilanterol 25 mcg/dose inhalation powder (Breo Ellipta) Results & Data (ED) Vital Signs Vital Signs - 24 hr 06/15/23 21:12 06/15/23 21:14 06/15/23 21:29 Temperature 37.2 C Temperature Source Oral Pulse Rate 106 H 103 H 100 H Pulse Rate from SpO2 Sensor Pulse Rhythm Regular Respiratory Rate 26 H Blood Pressure 198/105 H Blood Pressure Mean 136 Blood Pressure Position Sitting Pulse Oximetry 96 95 Oxygen Delivery Method Nasal Cannula Nasal Cannula Oxygen Flow Rate 2 2 Sepsis Recent Fever Within 48 Hours No Sepsis New/Unexplained Change in Mental Status N/A Sepsis Action Taken by Nursing Physician Notified 06/15/23 21:30 06/15/23 22:30 Temperature Temperature Source Pulse Rate 101 H 83 Pulse Rate from SpO2 Sensor 102 H 81 Pulse Rhythm Respiratory Rate 26 H 22 Blood Pressure 132/109 H 140/81 Blood Pressure Mean 116 100 Blood Pressure Position Pulse Oximetry 96 94 Oxygen Delivery Method Nasal Cannula Nasal Cannula Oxygen Flow Rate 2 2 Sepsis Recent Fever Within 48 Hours Sepsis New/Unexplained Change in Mental Status Sepsis Action Taken by Skilled Nursing Medications Current Medication List: was personally reviewed by me Laboratory Data Attestation: I reviewed the patient's lab results. 06/15/23 21:42 06/15/23 21:42 Lab Results 06/15/23 06/15/23 06/15/23 Range/Units 21:25 21:42 22:54 WBC 12.38 H (4.8-10.8) K/ul RBC 4.86 (4.20-5.40) M/uL Hgb 15.1 (12.0-16.0) g/dl Hct 43.8 (37.0-47.0) % MCV 90.1 (80.0-100.0) fL MCH 31.1 (25.0-34.0) pg MCHC 34.5 (32.0-36.0) g/dL RDW Std Deviation 46.2 (36.4-46.3) fL RDW Coeff of Chasidy 13.9 (11.5-14.5) % Plt Count 246 (130-400) K/uL MPV 9.8 (9.4-12.4) fL Immature Gran % (Auto) 0.6 % Neut % (Auto) 65.3 % Lymph % (Auto) 24.2 % [place] % (Auto) 9.7 % Eos % (Auto) 0.0 % Baso % (Auto) 0.2 % Neut # (Auto) 8.08 H (1.40-6.50) K/uL Lymph # (Auto) 3.00 (1.20-3.40) K/uL [place] # (Auto) 1.20 H (0.11-0.59) K/uL Eos # (Auto) 0.00 (0.00-0.50) K/uL Baso # (Auto) 0.02 (0.00-0.20) K/uL Immature Gran # (Auto) 0.08 (0.01-0.20) K/uL PT Cancelled INR Cancelled APTT Cancelled PTT Ratio Cancelled VBG pH 7.38 (7.36-7.41) VBG pCO2 54 H (38-50) mmHg VBG pO2 40 mmHg VBG HCO3 32 mmol/L VBG O2 Saturation 65.6 % VBG Base Excess 5.3 mEq/L Sodium 139 (136-145) mmol/L Potassium TNP Chloride 101 (98-107) mmol/L Carbon Dioxide 28 (21-32) mmol/L Anion Gap 10 (3-11) BUN 39 H (6-23) mg/dl Creatinine 1.37 H (0.6-1.2) mg/dl Est Cr Clr Drug Dosing 31.5 ml/min Est GFR ( Amer) 43.3 ml/min Est GFR (Non-Af Amer) 37.4 ml/min BUN/Creatinine Ratio 28.5 H (10-20) Glucose 127 H (70-99(Fasting)) mg/dl Lactate 1.6 (0.4-2.0) mmol/L Calcium 10.3 (8.6-10.3) mg/dl Magnesium 1.5 L (1.7-2.4) mg/dl Total Bilirubin 0.5 (0.2-1.0) mg/dl Direct Bilirubin TNP AST TNP ALT 21 (7-52) U/L Alkaline Phosphatase 117 H (34-104) U/L Total Protein 7.8 (6.0-8.3) gm/dl Albumin 4.1 (3.4-5.0) gm/dl Procalcitonin < 0.05 (0-0.5) ng/ml Urine Color Yellow Urine Appearance Clear (Clear) Urine pH 6.0 (4.5-7.5) Ur Specific [place] 1.011 (1.000-1.030) Urine Protein Negative (Negative) Urine Glucose (UA) Negative (Negative) Urine Ketones Negative (Negative) Urine Blood 2+ H (Negative) Urine Nitrite Negative (Negative) Urine Bilirubin Negative (Negative) Urine Urobilinogen Negative (Negative) Ur Leukocyte Esterase 1+ H (Negative) Urine WBC (Auto) 10-30 H (0-5) /hpf Urine RBC (Auto) 10-30 H (0-4) /hpf U Hyaline Cast (Auto) 0 (0-5) /lpf U Epithel Cells (Auto) 10-20 H (0-5) /lpf Urine Bacteria (Auto) Negative (Negative) Adenovirus (PCR) Not Detected (NotDetected) B. pertussis DNA (PCR) Not Detected (NotDetected) B.parapertussis DNA PCR Not Detected (NotDetected) C. pneumoniae DNA (PCR) Not Detected (NotDetected) Coronavirus OC43 (PCR) Not Detected (NotDetected) Coronavirus HKU1 (PCR) Not Detected (NotDetected) Coronavirus 229E (PCR) Not Detected (NotDetected) SARS-CoV-2 (PCR) Not Detected (NotDetected) Coronavirus NL63 (PCR) Not Detected (NotDetected) Human Metapneumovir PCR Not Detected (NotDetected) Influenza Type A (PCR) Not Detected (NotDetected) Influenza Type B (PCR) Not Detected (NotDetected) M. pneumoniae (PCR) Not Detected (NotDetected) Parainfluenza 1 (PCR) Not Detected (NotDetected) Parainfluenza 2 (PCR) Not Detected (NotDetected) Parainfluenza 3 (PCR) Not Detected (NotDetected) Parainfluenza 4 (PCR) Not Detected (NotDetected) RSV (PCR) Not Detected (NotDetected) Entero/Rhino (PCR) Not Detected (NotDetected) Administered Medications Magnesium Sulfate/Dextrose (Magnesium Sulfate / D5w) 1 gm in 100 mls @ 100 mls/hr IV NOW STA Stop: 06/15/23 23:40 Last Admin: 06/15/23 22:48 Dose: 100 mls/hr Documented By: MAUDE Discontinued Medications Albuterol (Albut/Ipratrop 3mg/0.5mg Neb 3 Ml Vial) 3 ml NEB NOW STA; Protocol Stop: 06/15/23 21:15 Last Admin: 06/15/23 21:24 Dose: 3 ml Documented By: Albuterol (Albut/Ipratrop 3mg/0.5mg Neb 3 Ml Vial) 3 ml NEB NOW STA; Protocol Stop: 06/15/23 22:41 Last Admin: 06/15/23 22:48 Dose: 3 ml Documented By: MAUDE Methylprednisolone (Methylprednisolone 125 Mg/2 Ml Vial) 125 mg IV NOW STA Stop: 06/15/23 22:41 Last Admin: 06/15/23 22:48 Dose: 125 mg Documented By: MAUDE Imaging Data Attestation: I personally reviewed and interpreted this imaging study as follows: My Impression: 1 view chest x-ray was obtained in the emergency department. My interpretation is no free air or definite infiltrate, final report below Radiologist's Impression: Chest X-Ray 06/15/23 21:14 SINGLE VIEW CHEST CLINICAL HISTORY: Sepsis. FINDINGS: An AP, portable, upright chest radiograph is compared to study dated 05/03/2022 and correlated with chest CT dated 02/11/2023. A left subclavian central venous infusion port is unchanged in position. The heart is mildly enlarged. The pulmonary vasculature is noncongested. Chronic interstitial thickening is similar to previous. There is bibasilar scarring/atelectasis. The lungs and pleural spaces are otherwise clear. No pneumothorax is seen. The skeletal structures are osteopenic. The bony thorax is grossly intact. IMPRESSION: No acute cardiopulmonary abnormality. ACT 112: Negative or not required by law. Electronically signed by: Marcell Gupta M.D. 06/15/2023 9:51 PM Discharge Plan Visit Data Chief Complaint: Illness Stated Complaint: General Illness, Hypertension ED Provider: Calvin Blackwood Discharge Problem: Acute exacerbation of chronic obstructive pulmonary disease, Hypomagnesemia, GILLES (acute kidney injury) Patient Disposition: Being Evaluated by Hospitalist Forms Stand Alone Forms: My [facility] [employer] Prescriptions Prescriptions: No Action albuterol sulfate [Ventolin HFA] 90 mcg/actuation HFA aerosol inhaler 2 puff inhalation Q4H PRN (Reason: Shortness Of Breath) Qty: 18 6RF Rx Instructions: 2 puff inhalation every 4 to 6 hours PRN; Please dispense VENTOLIN ONLY prednisone 5 mg tablet 5 mg PO QAM Qty: 90 3RF Fasenra 30 mg/mL syringe 30 mg subcut .COMPLEX Qty: 1 11RF Rx Instructions: Inject 30mg every 8 weeks; APPROVED GOOD 07/29/22-07/28/23 losartan-hydrochlorothiazide [Hyzaar] 100-25 mg tablet 1 tab PO QAM Qty: 90 3RF Breo Ellipta 200-25 mcg/dose blister with device 1 inh inhalation QAM Qty: 28 3RF omega-3 fatty acids [Fish Oil Concentrate] 1,000 mg capsule 1,000 mg PO QAM Eliquis 5 mg tablet 5 mg PO BID Fasenra Pen 30 mg/mL auto-injector 30 mg subcut ONCE Qty: 1 0RF Fasenra 30 mg/mL syringe 30 mg subcut .COMPLEX Qty: 1 11RF Rx Instructions: 30 mg subcut once every 4 weeks X 3 months then 30mg every 8 weeks; APPROVED GOOD 07/29/21-07/28/22 pantoprazole 40 mg tablet,delayed release (DR/EC) 40 mg PO QAM Rx Instructions: TAKE 1 TABLET BY MOUTH DAILY diltiazem HCl 120 mg capsule,extended release 24hr 120 mg PO QAM Rx Instructions: TAKE 1 CAPSULE IN THE MORNING levothyroxine 125 mcg tablet 125 mcg PO DAILYBB Rx Instructions: TAKE 1 TABLET BY MOUTH EVERY DAY Referrals Referrals: PCP,NO [Physician] -
--- NOTE | 2023-06-15 21:53 | XRay Report ---
SINGLE VIEW CHEST CLINICAL HISTORY: Sepsis. FINDINGS: An AP, portable, upright chest radiograph is compared to study dated 05/03/2022 and correlat ed with chest CT dated 02/11/2023. A left subclavian central venous infusion port is unchanged in posi tion. The heart is mildly enlarged. The pulmonary vasculature is noncongested. Chronic interstitial t hickening is similar to previous. There is bibasilar scarring/atelectasis. The lungs and pleural spac es are otherwise clear. No pneumothorax is seen. The skeletal structures are osteopenic. The bony tho rax is grossly intact. IMPRESSION: No acute cardiopulmonary abnormality. ACT 112: Negative or not required by law. Electronically signed by: Marcell Gupta M.D. 06/15/2023 9:51 PM
[2023-06-15 22:09] LABS: Base Excess VBG 5.3 mEq/L; HCO3 VBG 32 mmol/L; Oxygen Saturation VBG 65.6 %; PCO2 VBG 54 mmHg (38-50); PO2 VBG 40 mmHg; pH VBG 7.38 (7.36-7.41)
[2023-06-15 22:11] LABS: Basophils # (auto) 0.02 K/uL (0.00-0.20); Basophils % (auto) 0.2 %; Hematocrit (blood only) 43.8 % (37.0-47.0); Hemoglobin 15.1 g/dl (12.0-16.0); Immature Granulocytes # (auto) 0.08 K/uL (0.01-0.20); Immature Granulocytes % (auto) 0.6 %; Lymphocytes % (auto) 24.2 %; Mean Corpuscular Hemoglobin 31.1 pg (25.0-34.0); Mean Corpuscular Hgb Conc 34.5 g/dL (32.0-36.0); Mean Corpuscular Volume 90.1 fL (80.0-100.0); Mean Platelet Volume 9.8 fL (9.4-12.4); Monocytes % (auto) 9.7 %; Neutrophils # (auto) 8.08 K/uL (1.40-6.50); Neutrophils % (auto) 65.3 %; Platelet Count 246 K/uL (130-400); RDW Coefficient of Variation 13.9 % (11.5-14.5); RDW Standard Deviation 46.2 fL (36.4-46.3); Red Blood Count 4.86 M/uL (4.20-5.40); White Blood Count 12.38 K/ul (4.8-10.8)
[2023-06-15 22:30] LABS: Adenovirus PCR Not Detected (NotDetected); Bordetella parapertussis PCR Not Detected (NotDetected); Bordetella pertussis PCR Not Detected (NotDetected); Chlamydia pneumoniae PCR Not Detected (NotDetected); Coronavirus 229E PCR Not Detected (NotDetected); Coronavirus CoV-2 (COVID19)PCR Not Detected (NotDetected); Coronavirus HKU1 PCR Not Detected (NotDetected); Coronavirus NL63 PCR Not Detected (NotDetected); Coronavirus OC43PCR Not Detected (NotDetected); Human Metapneumovirus PCR Not Detected (NotDetected); Influenza A PCR Not Detected (NotDetected); Influenza B PCR Not Detected (NotDetected); Mycoplasma pneumoniae PCR Not Detected (NotDetected); Parainfluenza Virus 1 PCR Not Detected (NotDetected); Parainfluenza Virus 2 PCR Not Detected (NotDetected); Parainfluenza Virus 3 PCR Not Detected (NotDetected); Parainfluenza Virus 4 PCR Not Detected (NotDetected); Respiratory Syncytial VirusPCR Not Detected (NotDetected); Rhinovirus/Enterovirus PCR Not Detected (NotDetected)
[2023-06-15 22:32] LABS: Alanine Aminotransferase 21 U/L (7-52); Albumin Level 4.1 gm/dl (3.4-5.0); Alkaline Phosphatase 117 U/L (34-104); Anion Gap 10 (3-11); BUN Creatinine Ratio 28.5 (10-20); Bilirubin,Total 0.5 mg/dl (0.2-1.0); Blood Urea Nitrogen 39 mg/dl (6-23); Calcium 10.3 mg/dl (8.6-10.3); Carbon Dioxide 28 mmol/L (21-32); Chloride 101 mmol/L (98-107); Creatinine Clr Calc Pharmacy 31.5 ml/min; Est GFR (African American) 43.3 ml/min; Est GFR (Non-African American) 37.4 ml/min; Glucose 127 mg/dl (70-99(Fasting)); Magnesium 1.5 mg/dl (1.7-2.4); Sodium 139 mmol/L (136-145); Total Protein 7.8 gm/dl (6.0-8.3)
[2023-06-15] MEDS ORDERED: methylPREDNISolone 125 MG/2 ML VIAL IV STA (22:40)
[2023-06-15] MEDS ORDERED: MAGNESIUM SULFATE / D5W 1 GM/100 ML BAG IV STA (22:41)
[2023-06-15 23:05] LABS: Appearance Urine Clear (Clear); Bacteria Urine Automated Negative (Negative); Bilirubin Urine Negative (Negative); Blood Urine 2+ (Negative); Cast Urine Automated 0 /lpf (0-5); Color Urine Yellow; Glucose Urine UA Negative (Negative); Ketones Urine Negative (Negative); Leukocyte Esterase Urine 1+ (Negative); Nitrite Urine Negative (Negative); Protein Urine Negative (Negative); Specific Gravity Urine 1.011 (1.000-1.030); Urobilinogen Urine Negative (Negative)
--- NOTE | 2023-06-15 23:50 | History & Physical Report ---
Date of Service June 15, 2023 Assessment & Plan (1) Acute exacerbation of moderate persistent extrinsic asthma: Plan: Patient has a history of asthma. Presents to the hospital worsening shortness of breath and wheeze. States she was waiting to fill her prescription of vilanterol at home In the ED, chest x-ray did not show any acute pathology. But on exam reduced and on auscultation, bibasilar wheeze Received Solu-Medrol and albuterol nebulizer. We will continue DuoNebs scheduled, magnesium sulfate and budesonide nebulizer Supplemental oxygen Before discharge, make sure the patient has home prescriptions filled (2) Right leg DVT: Plan: On apixaban at home, continue (3) Recurrent carcinoma of endometrium: Plan: Recurrent carcinoma of the endometrium Currently on chemotherapy (4) Hypertension: Plan: Blood pressures under good control 140/81 Continue to monitor. (5) History of thyroid cancer: Plan Admit to telemetry Full code DVT prophylaxis apixaban History of Present Illness Chief Complaint: Shortness of breath Primary Care Provider: Zoe Blair PA-C Is a 78-year-old female with a history of lower extremity DVT on Eliquis, metastatic endometrial cancer currently on chemotherapy, asthma, hypertension history of thyroid cancer who presents to the hospital today with complaints of shortness of breath and wheeze. According to the patient she ran out of her asthma medication and was waiting for a refill from her doctor when all of a mason den she developed shortness of breath and wheeze today so she decided to come to the hospital further evaluation. In the emergency department vital signs were stable, although she was having expiratory wheeze on exam. She received steroids and albuterol and also magnesium sulfate. Upon my evaluation, he said her shortness of breath was better however she will be admitted to the hospital for further management. Allergies Allergy/AdvReac Type Severity Reaction Status Date / Time amoxicillin Allergy Intermediate SOB Verified 04/19/23 08:43 Penicillins Allergy Mild Unknown Verified 04/19/23 08:43 Home Medications Medication Instructions Recorded Confirmed Type omega-3 fatty acids 1,000 mg 1,000 mg PO QAM 01/07/19 04/19/23 History capsule (Fish Oil Concentrate) Ventolin HFA 90 mcg/actuation 2 puff inhalation Q4H PRN 04/26/21 04/19/23 Rx aerosol inhaler (albuterol sulfate) Shortness Of Breath #18 grams pantoprazole 40 mg tablet,delayed 40 mg PO QAM 04/26/22 04/19/23 History release prednisone 5 mg tablet 5 mg PO QAM #90 tabs 06/15/22 06/15/23 Rx apixaban 5 mg tablet (Eliquis) 5 mg PO BID 10/31/22 04/19/23 History benralizumab 30 mg/mL subcutaneous 30 mg subcut .COMPLEX #1 mL 11/29/22 04/19/23 Rx syringe (Fasenra) losartan 100 1 tab PO QAM #90 tabs 01/11/23 06/15/23 Rx mg-hydrochlorothiazide 25 mg tablet (Hyzaar) benralizumab 30 mg/mL subcutaneous 30 mg subcut .COMPLEX #1 mL 02/01/23 04/19/23 Rx syringe (Fasenra) fluticasone furoate 200 1 inh inhalation QAM #28 ea 06/14/23 06/15/23 Rx mcg-vilanterol 25 mcg/dose inhalation powder (Breo Ellipta) diltiazem HCl 120 mg 120 mg PO QAM 06/15/23 06/15/23 History capsule,extended release 24 hr levothyroxine 125 mcg tablet 125 mcg PO DAILYBB 06/15/23 06/15/23 History Past Med/Surg History Medical History History of home oxygen therapy prn-2 lpm Chronic steroid use "Now under good control" per [place] PCP Recurrent carcinoma of endometrium xrt in 2012- Asthma stable per pt History of thyroid cancer papillary. Stage III. 1999 Anxiety Endometrial cancer determined by uterine biopsy gr 1 st 1 intitially treated with vianey/bso in 2005 History of colon polyps Hyperparathyroidism Hypothyroidism Thyroid cancer Hypertension Surgical History Port-A-Cath in place (05/03/22) Insertion Access Port with Fluoroscopy(Left) - Otoniel Briggs DO History of colonoscopy 12/25/2021 S/P VIANEY-BSO H/O thyroidectomy Family History Mother Colon cancer Diabetes Kidney disease Hypertension Brother Arthritis Hypertension Father Colorectal cancer Sister Dyslipidemia Hypertension Aunt Breast cancer Other No family history of adverse response to anesthesia Denies family history of Ovarian cancer Prostate cancer Myocardial infarction Social History Smoking Status: Never smoker Second Hand Exposure: No; Do You Dip or Chew Tobacco: No; Hx Alcohol Use: Yes Alcohol type: hard liquor Alcohol Intake Frequency: Monthly or Less Hx Substance Use: No Preferred Language: Kazakh Communication Ability: Effective Visual Impairment: Limited Hearing Ability: Normal Knocker Out Required: No Beliefs That Will Affect Care: None marital status: Single Current Living Situation: Alone current occupational status: retired How many Children do You have: 0 Feels Safe at Home: Yes Childhood Exposure to Second-Hand Smoke: No (does not think so) Diet: regular Diet Comment: NO JUNK FOOD caffeine: Yes (coffee, hot tea ) Dental Care, Regularly: Yes Physical Activity Frequency: Does not Exercise Seatbelt Use: always Sunscreen Use: No Assistive Devices: Glasses Review of Systems Review of Systems: All systems reviewed are negative, apart from the ones contained in the history. Physical Exam Physical Exam: The patient is awake, alert and oriented 3, well developed and well nourished, normocephalic and atraumatic, lying in bed and in no acute distress. HEENT--PERRL, EOMI, mucous membranes and oropharynx mildly dry Neck--supple. No JVD. No bruits. Thyroid normal, trachea midline, no adenopathy. Heart--normal S1 and S2. No murmurs, rubs or gallops. Lungs--reduced at the auscultation, bibasilar wheeze Abdomen--normal bowel sounds and soft. Mild epigastric and left sided abdominal pain Extremities--no cyanosis or clubbing. No edema. Dermatologic--normal skin turgor, normal color, no abnormal lymph nodes, no rash. Neurologic--cranial nerves II through XII grossly intact. Rheumatologic--normal range of motion. Psychiatric--normal affect. Results & Data Results & Data Vital Signs (Past 12 Hours) Vital Signs Temp Pulse Resp BP Pulse Ox O2 Del Method O2 Flow Rate 06/15/23 22:30 83 22 140/81 94 Nasal Cannula 2 06/15/23 21:30 101 H 26 H 132/109 H 96 Nasal Cannula 2 06/15/23 21:29 100 H 95 Nasal Cannula 2 06/15/23 21:14 99.0 F 103 H 26 H 198/105 H 96 Nasal Cannula 2 06/15/23 21:12 106 H Code Status & VTE Plan VTE Prophylaxis Plan VTE Prophylaxis will be ordered: Yes PG Care Time/CCT Total # of Minutes Spent Total Time Spent with Patient: Total time spent is greater than 50% in coordination of care (as documented) at patient's floor/unit and/or counseling patient: Coding Level of Care Code 74336 INT INP/OBS CARE 3/75MIN Diagnoses Acute exacerbation of moderate persistent extrinsic asthma J45.41 Right leg DVT I82.401 Recurrent carcinoma of endometrium C54.1 Essential hypertension I10 Hypertension type: essential hypertension History of thyroid cancer Z85.850 Time Spent (min) 75 (4) Hypertension Hypertension type: essential hypertension Qualified Code(s): I10 - Essential (primary) hypertension
[2023-06-16 00:12] LABS: Bilirubin Direct 0.1 mg/dl (0-0.2)
[2023-06-16 00:39] LABS: Partial Thromboplastin Time 26.9 Seconds (21.0-31.0); Prothrombin Time 10.5 Seconds (9.0-12.0)
[2023-06-16] MEDS ORDERED: ALBUTEROL HFA 8 GM INHALER INH PRN (01:31)
[2023-06-16] MEDS: ALBUT/IPRATROP 3MG/0.5MG NEB 3 ML VIAL NEB SCH ×6 (04:22→22:47)
[2023-06-16] MEDS: LEVOTHYROXINE SODIUM 125 MCG TABLET PO SCH (06:36)
[2023-06-16] MEDS ORDERED: POTASSIUM CHLORIDE CRTAB 20 MEQ TABCR PO STA (07:42)
--- NOTE | 2023-06-16 07:51 | Hospitalist Progress Note ---
Date of Service June 16, 2023 Assessment & Plan (1) Acute exacerbation of moderate persistent extrinsic asthma: Plan: Patient w/ history of asthma with worsening shortness of breath/wheezing, unable to fill her Breo at home. Per patient, has been several years since her last hospitalization for exacerbation. On fasenra q2m, breo and prednisone 5mg daily. Admitted w/ increased wheezing/hypoxia, improved to 2L on NC (not on oxygen at baseline). No pets at home/new environmental exposures, reports wearing mask when out/about to protect herself [employer] testing negative CXR w/o acute process on admission/pneumonia In ER, given solumedrol, placed on budesonide nebulizer however w/ wheezing/tightness, Added Solumedrol 40mg q8h (placed home prednisone on hold) --> reported significant improvement in tightness/wheezing since administration this morning Mag 1.5 in ER, provided 1gm IV. Additinoal 2gm IV ordered. K 3.0, does not appear this has been replaced. Will order 40meq x 1 now, repeat labs ordered for today. Breo continued -- will need rx/inhaler at discharge. Endorses daytime sleepiness, consideration for sleep apnea not excluded. Can be arranged by PCP in f/u Mucinex BID Incentive spirometer/flutter valve added Supplemental O2 to maintain sats, titrate as able Will hold her HCTZ/losartan for now given elevated Cr to 1.37 on admission, improved on repeat and will continue losartan for now/hold HCTZ given hypokalemia Continued inpatient stay, possible transition to prednisone PO tomorrow (would do 40-60mg and titrate slowly given hx asthma to prevent rebound) PT evals to ensure safe to return home *Consideration to add vistaril if needed for anxiety symptoms as she does report getting her self worked up when having difficulty breathing. Should not only get her breo rx at dc but also rx for Albuterol HFA as she reports she doesn't have this (2) Hypomagnesemia: Plan: low 1.5, IV replacement ordered Monitor on repeat. ?about PO mag at dc given frequent prior lows (3) Hypokalemia: Plan: low, PO replacement ordered Monitor on repeat (4) Vitamin D deficiency: Plan: prior low 13.2 in December (does not appear to be on any supplementation), will repeat w/ AM labs/replacement if needed. Noting hx hyperparathryoidism in chart/prior PTH 103.7 but likely from vitamin D deficieny Monitor level/replacement as needed (5) Hyperglycemia: Plan: suspected 2nd to IV steroid use, pharmacy consulted for assistance w/ managing Prior A1c 6.1 in December 2021, repeat w/ AM labs (6) GILLES (acute kidney injury): Plan: ?2nd to HCTZ/losartan prior to admit. Cr improved on repeat and will continue losartan for now Renal dose meds/avoid nephrotoxins as able BMP in AM (7) Right leg DVT: Plan: Hx of such, continues on eliquis 5mg BID (8) Recurrent carcinoma of endometrium: Plan: Recurrent carcinoma of the endometrium (3rd recurrance per patient) Currently on chemotherapy (9) Hypertension: Plan: Blood pressures under good control, losartan/HCTZ continued but placed HCTZ on hold for now and continued losartan Continues on diltiazem 120mg daily BP 150/81 (10) History of thyroid cancer: Plan: on synthroid 125mcg daily. TSH wnl (low normal). Outpt f/u PCP Plan continued inpatient stay, IV steroids O2 - titrate as able Will consult PT to ensure safe to return home Admission and Anticipated Discharge Date Admission Date: June 15, 2023 Supervising Physician Co-Signing Physician Notes The patient was not seen by me. The chart was reviewed. Case discussed with JUSTUS Cabrera. Agree with assessment and plan Subjective Evaluated after lunch, doing well. Breathing MUCH better since IV steroids/less wheezing/tightness. Reports was needing Breo, rx at pharmacy but will see about sending current inhaler with her. She does NOT have an albuterol inhaler either. She is upset about having exacerbation as she takes good care of herself and it has been quite some time since any exacerbation. She does NOT wear oxygen at home. Discussed continued IV steroids (she is on 5mg prednisone daily, fasenra [id number], breo daily) and breathing treatments and if continued improvement likely able to transition to oral prednisone but at increased dose compared to her usual in AM. No fever/chills, sputum production. +cough but unable to get anything up. Discussed/will add mucinex to help thin any mucus if present. Lives alone, lost her mother/father, sister from pancreatic ca. She endorses being thankful for being listened to as she did not have a good experience several years ago w/ inpatient stay w/ 1 provider but had one (sounds like Dr Zapata), and has had nothing but nice things to say about this current admission. Notes she likes someone to be able to talk with. Questions/concerns addressed at this time. Physical Exam Physical Exam: General: 78yo chronically ill appearing female sitting up in bed, NAD, reported feeling better HEENT; head atraumatic, normocephalic, mmm, trachea midline Chest: port to chest, dressing c/d/i Resp: diminished in bases, faint end expiratory wheeze, no crackles, on room air CV: RRR (rates 90s), faint systolic murmur, trace pedal edema/calves nontender GI: +BS, soft/NT MSK/Neuro: no focal deficit, no slurred speech, answering questions appropriately Psych: AOx3, cooperative , thankful for care, pleasant, talkative Skin: slight redness to legs but nontender/no overt warmth/cellulitis Results & Data Results & Data Vital Signs (Past 12 Hours) Vital Signs Temp Pulse Pulse Pulse Resp BP BP 06/16/23 07:45 89 18 06/16/23 06:00 77 14 140/78 06/16/23 04:32 06/16/23 04:32 36.5 C 92 H 18 138/73 06/16/23 04:30 138/73 06/16/23 04:22 88 18 06/16/23 01:20 76 06/16/23 00:00 83 23 145/75 H 06/15/23 22:30 83 22 140/81 06/15/23 21:30 101 H 26 H 132/109 H 06/15/23 21:29 100 H 06/15/23 21:14 37.2 C 103 H 26 H 198/105 H 06/15/23 21:12 106 H Pulse Ox O2 Del Method O2 Flow Rate 06/16/23 07:45 96 Nasal Cannula 2 06/16/23 06:00 93 Nasal Cannula 2 06/16/23 04:32 Nasal Cannula 2 06/16/23 04:32 96 Nasal Cannula 2 06/16/23 04:30 96 Nasal Cannula 2 06/16/23 04:22 98 Nasal Cannula 2 06/16/23 01:20 06/16/23 00:00 95 Room Air 06/15/23 22:30 94 Nasal Cannula 2 06/15/23 21:30 96 Nasal Cannula 2 06/15/23 21:29 95 Nasal Cannula 2 06/15/23 21:14 96 Nasal Cannula 2 06/15/23 21:12 Laboratory Results 06/16/23 06/16/23 06/15/23 Range/Units 11:59 08:48 23:24 WBC 8.65 (4.8-10.8) K/ul RBC 4.81 (4.20-5.40) M/uL Hgb 14.6 (12.0-16.0) g/dl Hct 42.9 (37.0-47.0) % MCV 89.2 (80.0-100.0) fL MCH 30.4 (25.0-34.0) pg MCHC 34.0 (32.0-36.0) g/dL RDW Std Deviation 45.0 (36.4-46.3) fL RDW Coeff of Chasidy 13.7 (11.5-14.5) % Plt Count 231 (130-400) K/uL MPV 9.6 (9.4-12.4) fL Immature Gran % (Auto) 0.3 % Neut % (Auto) 94.4 % Lymph % (Auto) 4.6 % Andrews % (Auto) 0.6 % Eos % (Auto) 0.0 % Baso % (Auto) 0.1 % Neut # (Auto) 8.16 H (1.40-6.50) K/uL Lymph # (Auto) 0.40 L (1.20-3.40) K/uL Andrews # (Auto) 0.05 L (0.11-0.59) K/uL Eos # (Auto) 0.00 (0.00-0.50) K/uL Baso # (Auto) 0.01 (0.00-0.20) K/uL Immature Gran # (Auto) 0.03 (0.01-0.20) K/uL PT 10.5 INR 1.0 APTT 26.9 PTT Ratio 1.0 VBG pH (7.36-7.41) VBG pCO2 (38-50) mmHg VBG pO2 mmHg VBG HCO3 mmol/L VBG O2 Saturation % VBG Base Excess mEq/L Sodium 139 (136-145) mmol/L Potassium 3.3 L 3.0 L Chloride 102 (98-107) mmol/L Carbon Dioxide 23 (21-32) mmol/L Anion Gap 14 H (3-11) BUN 35 H (6-23) mg/dl Creatinine 1.12 (0.6-1.2) mg/dl Est Cr Clr Drug Dosing 38.6 ml/min Est GFR ( Amer) 55.3 ml/min Est GFR (Non-Af Amer) 47.7 ml/min BUN/Creatinine Ratio 31.3 H (10-20) Glucose 270 H (70-99(Fasting)) mg/dl POC Glucose 256 H (70-99) mg/dl Lactate (0.4-2.0) mmol/L Calcium 9.9 (8.6-10.3) mg/dl Magnesium 1.5 L (1.7-2.4) mg/dl Total Bilirubin 0.4 (0.2-1.0) mg/dl Direct Bilirubin 0.1 AST 15 18 ALT 19 (7-52) U/L Alkaline Phosphatase 96 (34-104) U/L B-Natriuretic Peptide 83 (0-100) pg/ml Total Protein 7.4 (6.0-8.3) gm/dl Albumin 4.0 (3.4-5.0) gm/dl Globulin 3.4 (2.5-4.0) gm/dl Albumin/Globulin Ratio 1.2 (0.9-2) Procalcitonin (0-0.5) ng/ml Urine Color Urine Appearance (Clear) Urine pH (4.5-7.5) Ur Specific [place] (1.000-1.030) Urine Protein (Negative) Urine Glucose (UA) (Negative) Urine Ketones (Negative) Urine Blood (Negative) Urine Nitrite (Negative) Urine Bilirubin (Negative) Urine Urobilinogen (Negative) Ur Leukocyte Esterase (Negative) Urine WBC (Auto) (0-5) /hpf Urine RBC (Auto) (0-4) /hpf U Hyaline Cast (Auto) (0-5) /lpf U Epithel Cells (Auto) (0-5) /lpf Urine Bacteria (Auto) (Negative) Adenovirus (PCR) (NotDetected) B. pertussis DNA (PCR) (NotDetected) B.parapertussis DNA PCR (NotDetected) C. pneumoniae DNA (PCR) (NotDetected) Coronavirus OC43 (PCR) (NotDetected) Coronavirus HKU1 (PCR) (NotDetected) Coronavirus 229E (PCR) (NotDetected) SARS-CoV-2 (PCR) (NotDetected) Coronavirus NL63 (PCR) (NotDetected) Human Metapneumovir PCR (NotDetected) Influenza Type A (PCR) (NotDetected) Influenza Type B (PCR) (NotDetected) M. pneumoniae (PCR) (NotDetected) Parainfluenza 1 (PCR) (NotDetected) Parainfluenza 2 (PCR) (NotDetected) Parainfluenza 3 (PCR) (NotDetected) Parainfluenza 4 (PCR) (NotDetected) RSV (PCR) (NotDetected) Entero/Rhino (PCR) (NotDetected) 06/15/23 06/15/23 06/15/23 Range/Units 22:54 21:42 21:25 WBC 12.38 H (4.8-10.8) K/ul RBC 4.86 (4.20-5.40) M/uL Hgb 15.1 (12.0-16.0) g/dl Hct 43.8 (37.0-47.0) % MCV 90.1 (80.0-100.0) fL MCH 31.1 (25.0-34.0) pg MCHC 34.5 (32.0-36.0) g/dL RDW Std Deviation 46.2 (36.4-46.3) fL RDW Coeff of Chasidy 13.9 (11.5-14.5) % Plt Count 246 (130-400) K/uL MPV 9.8 (9.4-12.4) fL Immature Gran % (Auto) 0.6 % Neut % (Auto) 65.3 % Lymph % (Auto) 24.2 % Andrews % (Auto) 9.7 % Eos % (Auto) 0.0 % Baso % (Auto) 0.2 % Neut # (Auto) 8.08 H (1.40-6.50) K/uL Lymph # (Auto) 3.00 (1.20-3.40) K/uL Andrews # (Auto) 1.20 H (0.11-0.59) K/uL Eos # (Auto) 0.00 (0.00-0.50) K/uL Baso # (Auto) 0.02 (0.00-0.20) K/uL Immature Gran # (Auto) 0.08 (0.01-0.20) K/uL PT Cancelled INR Cancelled APTT Cancelled PTT Ratio Cancelled VBG pH 7.38 (7.36-7.41) VBG pCO2 54 H (38-50) mmHg VBG pO2 40 mmHg VBG HCO3 32 mmol/L VBG O2 Saturation 65.6 % VBG Base Excess 5.3 mEq/L Sodium 139 (136-145) mmol/L Potassium TNP Chloride 101 (98-107) mmol/L Carbon Dioxide 28 (21-32) mmol/L Anion Gap 10 (3-11) BUN 39 H (6-23) mg/dl Creatinine 1.37 H (0.6-1.2) mg/dl Est Cr Clr Drug Dosing 31.5 ml/min Est GFR ( Amer) 43.3 ml/min Est GFR (Non-Af Amer) 37.4 ml/min BUN/Creatinine Ratio 28.5 H (10-20) Glucose 127 H (70-99(Fasting)) mg/dl POC Glucose (70-99) mg/dl Lactate 1.6 (0.4-2.0) mmol/L Calcium 10.3 (8.6-10.3) mg/dl Magnesium 1.5 L (1.7-2.4) mg/dl Total Bilirubin 0.5 (0.2-1.0) mg/dl Direct Bilirubin TNP AST TNP ALT 21 (7-52) U/L Alkaline Phosphatase 117 H (34-104) U/L B-Natriuretic Peptide (0-100) pg/ml Total Protein 7.8 (6.0-8.3) gm/dl Albumin 4.1 (3.4-5.0) gm/dl Globulin (2.5-4.0) gm/dl Albumin/Globulin Ratio (0.9-2) Procalcitonin < 0.05 (0-0.5) ng/ml Urine Color Yellow Urine Appearance Clear (Clear) Urine pH 6.0 (4.5-7.5) Ur Specific [place] 1.011 (1.000-1.030) Urine Protein Negative (Negative) Urine Glucose (UA) Negative (Negative) Urine Ketones Negative (Negative) Urine Blood 2+ H (Negative) Urine Nitrite Negative (Negative) Urine Bilirubin Negative (Negative) Urine Urobilinogen Negative (Negative) Ur Leukocyte Esterase 1+ H (Negative) Urine WBC (Auto) 10-30 H (0-5) /hpf Urine RBC (Auto) 10-30 H (0-4) /hpf U Hyaline Cast (Auto) 0 (0-5) /lpf U Epithel Cells (Auto) 10-20 H (0-5) /lpf Urine Bacteria (Auto) Negative (Negative) Adenovirus (PCR) Not Detected (NotDetected) B. pertussis DNA (PCR) Not Detected (NotDetected) B.parapertussis DNA PCR Not Detected (NotDetected) C. pneumoniae DNA (PCR) Not Detected (NotDetected) Coronavirus OC43 (PCR) Not Detected (NotDetected) Coronavirus HKU1 (PCR) Not Detected (NotDetected) Coronavirus 229E (PCR) Not Detected (NotDetected) SARS-CoV-2 (PCR) Not Detected (NotDetected) Coronavirus NL63 (PCR) Not Detected (NotDetected) Human Metapneumovir PCR Not Detected (NotDetected) Influenza Type A (PCR) Not Detected (NotDetected) Influenza Type B (PCR) Not Detected (NotDetected) M. pneumoniae (PCR) Not Detected (NotDetected) Parainfluenza 1 (PCR) Not Detected (NotDetected) Parainfluenza 2 (PCR) Not Detected (NotDetected) Parainfluenza 3 (PCR) Not Detected (NotDetected) Parainfluenza 4 (PCR) Not Detected (NotDetected) RSV (PCR) Not Detected (NotDetected) Entero/Rhino (PCR) Not Detected (NotDetected) Diagnostic Findings Chest X-Ray 06/15/23 21:14 SINGLE VIEW CHEST CLINICAL HISTORY: Sepsis. FINDINGS: An AP, portable, upright chest radiograph is compared to study dated 05/03/2022 and correlated with chest CT dated 02/11/2023. A left subclavian central venous infusion port is unchanged in position. The heart is mildly enla rged. The pulmonary vasculature is noncongested. Chronic interstitial thickening is similar to previous. There is bibasilar scarring/atelectasis. The lungs and pleural spaces are otherwise clear. No pneumothorax is seen. The skeletal structures are osteopenic. The bony thorax is grossly intact. IMPRESSION: No acute cardiopulmonary abnormality. ACT 112: Negative or not required by law. Electronically signed by: Marcell Gupta M.D. 06/15/2023 9:51 PM PG Care Time/CCT Total # of Minutes Spent Total Time Spent with Patient: Total time spent is greater than 50% in coordination of care (as documented) at patient's floor/unit and/or counseling patient: Coding Level of Care Code 99912 SUB INP/OBS CARE 3/50MIN Diagnoses Acute exacerbation of moderate persistent extrinsic asthma J45.41 Hypomagnesemia E83.42 Hypokalemia E87.6 Vitamin D deficiency E55.9 Hyperglycemia R73.9 GILLES (acute kidney injury) N17.9 Right leg DVT I82.401 Recurrent carcinoma of endometrium C54.1 Essential hypertension I10 Hypertension type: essential hypertension History of thyroid cancer Z85.850 (9) Hypertension Hypertension type: essential hypertension Qualified Code(s): I10 - Essential (primary) hypertension
[2023-06-16] MEDS: BUDESONIDE 0.5 MG/2 ML VIAL (PULMICORT) NEB SCH ×2 (07:52→22:47)
[2023-06-16] MEDS: MAGNESIUM SULFATE / D5W 1 GM/100 ML BAG IV SCH ×2 (08:55→12:01)
[2023-06-16] MEDS: FLUTICASONE/VILANTEROL 200/25MCG 14 PUFFS/INHALER INH SCH (08:55)
[2023-06-16] MEDS: dilTIAZem HCL 120 MG CAPCR PO SCH (08:56)
[2023-06-16] MEDS: APIXABAN 5 MG TABLET PO SCH ×2 (08:56→20:01)
[2023-06-16] MEDS: OMEGA-3 (PURIFIED FISH OIL) 1 GM CAP PO SCH (08:57)
[2023-06-16] MEDS: PANTOprazole 40 MG TAB PO SCH (08:57)
[2023-06-16] MEDS ORDERED: predniSONE 5 MG TAB PO SCH (09:00)
[2023-06-16] MEDS ORDERED: LOSARTAN/HCTZ 50/12.5MG TAB PO SCH (09:00)
[2023-06-16 09:09] LABS: Hematocrit (blood only) 42.9 % (37.0-47.0); Hemoglobin 14.6 g/dl (12.0-16.0); Mean Corpuscular Hemoglobin 30.4 pg (25.0-34.0); Mean Corpuscular Volume 89.2 fL (80.0-100.0); Mean Platelet Volume 9.6 fL (9.4-12.4); Platelet Count 231 K/uL (130-400); RDW Coefficient of Variation 13.7 % (11.5-14.5); Red Blood Count 4.81 M/uL (4.20-5.40); White Blood Count 8.65 K/ul (4.8-10.8)
[2023-06-16 09:26] LABS: Albumin Globulin Ratio 1.2 (0.9-2); BUN Creatinine Ratio 31.3 (10-20); Bilirubin,Total 0.4 mg/dl (0.2-1.0); Calcium 9.9 mg/dl (8.6-10.3); Creatinine Clr Calc Pharmacy 38.6 ml/min; Est GFR (African American) 55.3 ml/min; Est GFR (Non-African American) 47.7 ml/min; Globulin 3.4 gm/dl (2.5-4.0); Magnesium 1.5 mg/dl (1.7-2.4); Potassium 3.3 mmol/L (3.5-5.1); Total Protein 7.4 gm/dl (6.0-8.3)
[2023-06-16] MEDS: methylPREDNISolone 40 MG in SYRINGE 0 ML IV SCH ×2 (09:31→17:14)
[2023-06-16 09:38] LABS: Basophils # (auto) 0.01 K/uL (0.00-0.20); Basophils % (auto) 0.1 %; Immature Granulocytes # (auto) 0.03 K/uL (0.01-0.20); Immature Granulocytes % (auto) 0.3 %; Lymphocytes % (auto) 4.6 %; Monocytes # (auto) 0.05 K/uL (0.11-0.59); Monocytes % (auto) 0.6 %; Neutrophils # (auto) 8.16 K/uL (1.40-6.50); Neutrophils % (auto) 94.4 %
[2023-06-16] MEDS ORDERED: PHARMACY GLYCEMIC MGMT CONSULT PRN (11:29)
[2023-06-16] MEDS ORDERED: GLUCOSE 10 TAB/TUBE PO PRN (12:00)
[2023-06-16] MEDS ORDERED: GLUCAGON FOR INJ 1 MG VIAL IM PRN (12:00)
[2023-06-16] MEDS ORDERED: DEXTROSE 50% 50 ML SYRINGE IV PRN (12:00)
[2023-06-16] MEDS ORDERED: GLUCOSE 40% GEL 15 GM TUBE PO PRN (12:00)
[2023-06-16] MEDS ORDERED: CARBOHYDRATES FOR HYPOGLYCEMIA PO PRN (12:00)
[2023-06-16] MEDS: INSULIN ASPART PER UNIT CHARGE SC SCH ×3 (12:14→20:08)
[2023-06-16] MEDS ORDERED: LANTUS PER UNIT CHARGE SC STA (12:22)
--- NOTE | 2023-06-16 14:58 | Pharmacy Report ---
Pharmacy Glycemic Short Note 2 - Date of Service June 16, 2023 - Glycemic Short BSG Results (Last 24 hours): 06/15/23 06/16/23 06/16/23 21:42 08:48 11:59 Glucose 127 H 270 H POC Glucose 256 H OUTPATIENT ANTIDIABETIC REGIMEN: * None * HbA1c pending ASSESSMENT: * 78 yo F admitted on 06/15/23 secondary to asthma exacerbation. Pharmacy has been consulted to assist with inpatient glycemic management. Patient is not diabetic according to most recent A1c and takes no anti-diabetic meds at home. * Patient is chronically on 5 mg of Prednisone PO at home. While inpatient, receiving 40 mg of IV SoluMedrol every 8 hours. This is causing hyperglycemia as BSG was 270 mg/dL this AM and now 256 mg/dL at lunchtime. * Will start bolus based on weight/stress of 2-3. Basal will be administered given around the clock steroids. Want to be conservative with insulin dosing to begin with given unknown A1c and insulin-naive. PLAN FOR INPATIENT GLYCEMIC CONTROL: * Basal insulin * Lantus 20 units SC x 1 * Bolus insulin * NovoLog per scale ACHS or Q6hrs while NPO * Goal Range: Low 110 mg/dL - High 140 mg/dL * Correction Factor: 25 mg/dL/unit * Nutritional / Prandial insulin per carb ratio of 1 unit per 8 grams CHO consumed
[2023-06-16] MEDS: LOSARTAN POTASSIUM 50 MG TAB PO SCH (15:00)
[2023-06-16] MEDS: guaiFENesin 600 MG TABCR PO SCH ×2 (15:00→20:02)
[2023-06-16] MEDS: CHOLECALCIFEROL 5,000 UNITS 125 MCG TAB PO SCH (17:13)
[2023-06-17] MEDS: methylPREDNISolone 40 MG in SYRINGE 0 ML IV SCH ×3 (00:53→20:43)
[2023-06-17] MEDS: ALBUT/IPRATROP 3MG/0.5MG NEB 3 ML VIAL NEB SCH ×3 (02:54→10:21)
[2023-06-17] MEDS: LEVOTHYROXINE SODIUM 125 MCG TABLET PO SCH (05:46)
[2023-06-17 06:25] LABS: Hematocrit (blood only) 38.8 % (37.0-47.0); Hemoglobin 13.5 g/dl (12.0-16.0); Mean Corpuscular Hemoglobin 30.9 pg (25.0-34.0); Mean Corpuscular Hgb Conc 34.8 g/dL (32.0-36.0); Mean Corpuscular Volume 88.8 fL (80.0-100.0); Platelet Count 225 K/uL (130-400); RDW Standard Deviation 45.1 fL (36.4-46.3); Red Blood Count 4.37 M/uL (4.20-5.40); White Blood Count 13.25 K/ul (4.8-10.8)
[2023-06-17 07:01] LABS: Basophils # (auto) 0.01 K/uL (0.00-0.20); Basophils % (auto) 0.1 %; Immature Granulocytes # (auto) 0.05 K/uL (0.01-0.20); Immature Granulocytes % (auto) 0.4 %; Lymphocytes # (auto) 0.26 K/uL (1.20-3.40); Monocytes # (auto) 0.52 K/uL (0.11-0.59); Monocytes % (auto) 3.9 %; Neutrophils # (auto) 12.41 K/uL (1.40-6.50); Neutrophils % (auto) 93.6 %; RBC Morphology Unremarkable
[2023-06-17] MEDS: BUDESONIDE 0.5 MG/2 ML VIAL (PULMICORT) NEB SCH ×2 (07:15→19:52)
--- NOTE | 2023-06-17 07:47 | Hospitalist Progress Note ---
Date of Service June 17, 2023 Assessment & Plan (1) Acute exacerbation of moderate persistent extrinsic asthma: Plan: Patient w/ history of asthma with worsening shortness of breath/wheezing, unable to fill her Breo at home. Per patient, has been several years since her last hospitalization for exacerbation. On fasenra q2m, breo and prednisone 5mg daily. Admitted w/ increased wheezing/hypoxia, improved to 2L on NC (not on oxygen at baseline). No pets at home/new environmental exposures, reports wearing mask when out/about to protect herself [employer] testing negative CXR w/o acute process on admission/pneumonia In ER, given solu-medrol, placed on budesonide nebulizer however w/ wheezing/tightness IV mag replacement for mag 1.5 -- 2.0 on repeat labs. K replacement for K 3.3 Added solumedrol 40mg q8h, planned for transition to PO prednisone today initially but suspect an additional day IV steroids and plan to convert in AM 06/18. Will need taper at id back to her usual 5mg daily Mucinex BID, incentive spirometer, flutter valve Albuterol nebs q4h Continues on home Breo daily (needs new rx/fill at id), also will need new rx for albuterol HFA HCTZ/losartan on hold given elevated Cr on admission. Resumed losartan but holding HCTZ for today given ongoing hypokalemia/stable BPs. ?consideration for alternative agent Supplemental O2 to maintain sats -- titrate as able. Was on room air/2l prn this afternoon (no oxygen at baseline) PT/OT evals to be undertaken, patient wanting short term rehab if able. Notified CM, to f/u therapy notes Likely benefit 2 step prior to dc (2) Hypomagnesemia: Plan: low 1.5, IV replacement ordered and normalized on repeat but will monitor in AM. Has had frequent lows in the past, ?consider PO supplementation (3) Hypokalemia: Plan: low, PO replacement ordered holding HTCZ as above Monitor BMP in AM (4) Vitamin D deficiency: Plan: prior low 13.2 in December (does not appear to be on any supplementation), will repeat w/ AM labs/replacement if needed. Noting hx hyperparathyroidism in chart/prior PTH 103.7 but likely from vitamin D deficiency --> Vitamin D 21.7 and 5000u daily ordered and would continue at id (5) Hyperglycemia: Plan: suspected 2nd to IV steroid use, pharmacy consulted for assistance w/ managing Prior A1c 6.1 in December 2021, 6.2 on repeat f/u PCP. noting on chronic steroid therapy, may benefit from daily metformin (while CrCl 40s most recently, has been undetectable, monitor) (6) GILLES (acute kidney injury): Plan: ?2nd to HCTZ/losartan prior to admit. 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 TSH wnl (low normal). Outpt f/u PCP Plan continued inpatient stay, hopeful transition to PO prednisone for tomorrow therapy evals pending but CM notified of want for rehab/SNF at id if possible Admission and Anticipated Discharge Date Admission Date: June 15, 2023 Supervising Physician Co-Signing Physician Notes The patient was not seen by me. The chart was reviewed. Case discussed with JUSTUS Cabrera. Agree with assessment and plan Subjective Eval this morning, doing well. On room air at present but SOB w/ activity with therapy and intermittent 2L NC prn. Switched back to IV steroids for today but if continued improvement likely switch back to PO tomorrow. She reports urinating/moving her bowels without issue, mood stable, no increased leg swelling. Discussed keeping inpatient/monitoring overnight -- she reports she would like to take with CM about possible short term rehab before going home. Discussed will notify CM for repeated discussions. No fever/chills, chest pain. No sputum production at present but getting mucinex and doing her breathing exercises. Physical Exam 2 Physical Exam: General: 78yo chronically ill appearing female walking in room, appears/looking much better, reports feeling better HEENT; head atraumatic, normocephalic, mmm, trachea midline Chest: port to chest, dressing c/d/i Resp: diminished in bases, faint end expiratory wheeze almost completely resolved, no crackles, on room air CV: RRR (rates 90s), faint systolic murmur, trace pedal edema/calves nontender GI: +BS, soft/NT MSK/Neuro: no focal deficit, no slurred speech, answering questions appropriately Psych: AOx3, cooperative , thankful for care, pleasant, talkative Skin: slight redness to legs at baseline/scaliness, but nontender/no overt warmth/cellulitis Results & Data Results & Data Vital Signs (Past 12 Hours) Vital Signs Temp Pulse Pulse Resp BP Pulse Ox O2 Del Method 06/17/23 07:15 101 H 18 91 Room Air 06/17/23 03:15 146/66 H 06/17/23 03:04 36.6 C 89 20 195/89 H 95 Nasal Cannula 06/17/23 02:54 60 18 96 Nasal Cannula 06/17/23 00:23 68 06/16/23 23:23 36.5 C 76 18 128/74 06/16/23 22:47 83 18 96 Nasal Cannula 06/16/23 21:00 Nasal Cannula 06/16/23 19:45 84 18 95 Nasal Cannula O2 Flow Rate 06/17/23 07:15 06/17/23 03:15 06/17/23 03:04 2 06/17/23 02:54 2 06/17/23 00:23 06/16/23 23:23 06/16/23 22:47 2 06/16/23 21:00 2 06/16/23 19:45 2 Laboratory Results 06/17/23 05:29 06/17/23 05:29 Mag 2.0 A1c 6.2 PG Care Time/CCT Total # of Minutes Spent Total Time Spent with Patient: Total time spent is greater than 50% in coordination of care (as documented) at patient's floor/unit and/or counseling patient: Coding Level of Care Code 13182 SUB INP/OBS CARE 3/50MIN Diagnoses Acute exacerbation of moderate persistent extrinsic asthma J45.41 Hypomagnesemia E83.42 Hypokalemia E87.6 Vitamin D deficiency E55.9 Hyperglycemia R73.9 GILLES (acute kidney injury) N17.9 Right leg DVT I82.401 Recurrent carcinoma of endometrium C54.1 Essential hypertension I10 Hypertension type: essential hypertension History of thyroid cancer Z85.850 (9) Hypertension Hypertension type: essential hypertension Qualified Code(s): I10 - Essential (primary) hypertension
[2023-06-17 07:52] LABS: Estimated Average Glucose 131 mg/dl; Hemoglobin A1C 6.2 % (4.5-5.6)
[2023-06-17 08:10] LABS: BUN Creatinine Ratio 34.9 (10-20); Creatinine Clr Calc Pharmacy 40.9 ml/min; Est GFR (African American) 59.1 ml/min; Potassium 3.3 mmol/L (3.5-5.1)
[2023-06-17] MEDS ORDERED: POTASSIUM CHLORIDE CRTAB 20 MEQ TABCR PO STA (08:32)
[2023-06-17] MEDS ORDERED: predniSONE 20 MG TAB PO SCH (09:00)
[2023-06-17] MEDS ORDERED: LANTUS PER UNIT CHARGE SC ONE (09:00)
[2023-06-17] MEDS: CHOLECALCIFEROL 5,000 UNITS 125 MCG TAB PO SCH (09:20)
[2023-06-17] MEDS: guaiFENesin 600 MG TABCR PO SCH ×2 (09:20→20:43)
[2023-06-17] MEDS: dilTIAZem HCL 120 MG CAPCR PO SCH (09:20)
[2023-06-17] MEDS: APIXABAN 5 MG TABLET PO SCH ×2 (09:20→20:41)
[2023-06-17] MEDS: PANTOprazole 40 MG TAB PO SCH (09:21)
[2023-06-17] MEDS: LOSARTAN POTASSIUM 50 MG TAB PO SCH (09:21)
[2023-06-17] MEDS: FLUTICASONE/VILANTEROL 200/25MCG 14 PUFFS/INHALER INH SCH (09:21)
[2023-06-17] MEDS: OMEGA-3 (PURIFIED FISH OIL) 1 GM CAP PO SCH (09:21)
[2023-06-17] MEDS: INSULIN ASPART PER UNIT CHARGE SC SCH ×4 (09:25→20:40)
--- NOTE | 2023-06-17 12:57 | Pharmacy Report ---
Pharmacy Glycemic Short Note 2 - Date of Service June 17, 2023 - Glycemic Short BSG Results (Last 24 hours): 06/16/23 06/16/23 06/17/23 16:35 20:04 05:29 Glucose 191 H POC Glucose 163 H 158 H 06/17/23 06/17/23 07:29 11:29 Glucose POC Glucose 194 H 229 H OUTPATIENT ANTIDIABETIC REGIMEN: * None * HbA1C: 6.2% ASSESSMENT: 06/17: * BSGs [phone]/dL. Received 20 units of basal and 19 units of bolus insulin yesterday. * Tolerating diet, continues on methylpred 40mg IV q8h. * This AM, methylpred was changed to PO prednisone and therefore basal was reduced to 10 units, however steroids were switched back to methylpred. Given this, will add Lantus at HS per scale depending on BSG. Novolog tightened to 20/7 for improved prandial coverage. 06/16: * 78 yo F admitted on 06/15/23 secondary to asthma exacerbation. Pharmacy has been consulted to assist with inpatient glycemic management. Patient is not diabetic according to most recent A1c and takes no anti-diabetic meds at home. * Patient is chronically on 5 mg of Prednisone PO at home. While inpatient, receiving 40 mg of IV SoluMedrol every 8 hours. This is causing hyperglycemia as BSG was 270 mg/dL this AM and now 256 mg/dL at lunchtime. * Will start bolus based on weight/stress of 2-3. Basal will be administered given around the clock steroids. Want to be conservative with insulin dosing to begin with given unknown A1c and insulin-naive. PLAN FOR INPATIENT GLYCEMIC CONTROL: * Basal insulin * Lantus 10 units SQ X 1 + HS scale * Bolus insulin * NovoLog per scale ACHS or Q6hrs while NPO * Goal Range: Low 110 mg/dL - High 140 mg/dL * Correction Factor: 20 mg/dL/unit * Nutritional / Prandial insulin per carb ratio of 1 unit per 7 grams CHO consumed
[2023-06-17] MEDS ORDERED: LANTUS PER UNIT CHARGE SC SCH (21:00)
[2023-06-17] MEDS: KETOCONAZOLE 2% CR 15 GM TUBE EXT PRN (23:00)
[2023-06-18] MEDS: methylPREDNISolone 40 MG in SYRINGE 0 ML IV SCH (04:09)
[2023-06-18] MEDS: LEVOTHYROXINE SODIUM 125 MCG TABLET PO SCH (05:34)
[2023-06-18] MEDS: BUDESONIDE 0.5 MG/2 ML VIAL (PULMICORT) NEB SCH (07:13)
[2023-06-18 07:30] LABS: Albumin Level 3.3 gm/dl (3.4-5.0); Bilirubin,Total 0.3 mg/dl (0.2-1.0); Calcium 9.7 mg/dl (8.6-10.3); Magnesium 1.9 mg/dl (1.7-2.4); Potassium 3.9 mmol/L (3.5-5.1)
[2023-06-18 07:36] LABS: Albumin Globulin Ratio 1.3 (0.9-2); BUN Creatinine Ratio 39.4 (10-20); Creatinine Clr Calc Pharmacy 46.4 ml/min; Est GFR (African American) 68.3 ml/min; Est GFR (Non-African American) 58.9 ml/min; Globulin 2.6 gm/dl (2.5-4.0); Total Protein 5.9 gm/dl (6.0-8.3)
--- NOTE | 2023-06-18 07:49 | Hospitalist Progress Note ---
Date of Service June 18, 2023 Assessment & Plan (1) Acute exacerbation of moderate persistent extrinsic asthma: Plan: Patient w/ history of asthma with worsening shortness of breath/wheezing, unable to fill her Breo at home. Per patient, has been several years since her last hospitalization for exacerbation. On fasenra q2m, breo and prednisone 5mg daily. Admitted w/ increased wheezing/hypoxia, improved to 2L on NC (not on oxygen at baseline). No pets at home/new environmental exposures, reports wearing mask when out/about to protect herself [employer] testing negative CXR w/o acute process Solumedrol IV --> ordered to continue 40mg Q8H Transitioned to Prednisone 40mg QAM for 06/18 --> taper at dc back to her usual 5mg daily Dc budesonide, continue home breo -- needs new unit as well as albuterol HFA at discharge Duonebs discontinued, can utilize albuterol HFA prn 94% on room air Supplemental O2 to maintain sats (not on oxygen at baseline) Can perform ambulatory study prior to dc to ensure remaining stable PT/OT SUSAN fay working to arrange home health per patient request Downgrading off telemetry. Was going to dc patient however not comfortable going home just yet and wanting to monitor overnight (2) Hypomagnesemia: Plan: low on admit, replacement ordered and 2.0 on am labs. will repeat in am/if any lows ?consideration for PO supplementation given prior lows (3) Hypokalemia: Plan: low, replacement ordered. repeat 3.9 (HCTZ on hold but can likely resume but will hold off now given Na 131 -- corrected 132/133 w/ glucose) BMP in AM (4) Vitamin D deficiency: Plan: prior low 13.2 in December (does not appear to be on any supplementation), will repeat w/ AM labs/replacement if needed. Noting hx hyperparathyroidism in chart/prior PTH 103.7 but likely from vitamin D deficiency --> Vitamin D 21.7 and 5000u daily ordered and would continue at dc (5) Hyperglycemia: Plan: suspected 2nd to IV steroid use, pharmacy consulted for assistance w/ managing Prior A1c 6.1 in December 2021, 6.2 on repeat Monitor w/ transition to steroids. May need once daily NPH while completing taper if remains elevated w/ change to PO once daily steroids. f/u PCP. noting on chronic steroid therapy, may benefit from daily metformin (while CrCl 40s most recently, has been undetectable, and improved --monitor) (6) GILLES (acute kidney injury): Plan: ?2nd to HCTZ/losartan prior to admit. Renal function back to baseline, HCTZ was on hold -- will continue to hold for now but if remains stable/Na improved can consider resuming Renal dose meds/avoid nephrotoxins as able BMP in AM (7) Right leg DVT: Plan: Hx of such, continues on eliquis 5mg BID . Right leg slightly more swollen than left per patient, calves NONTENDER Hx endometrial ca, recurrence, on treatment w/ CCP (8) Recurrent carcinoma of endometrium: Plan: Recurrent carcinoma of the endometrium (3rd recurrence per patient based on most recent PET scan, follows w/ Dr Razo) Currently on chemotherapy -- patient reports on Ketruda? CCP follow up at d/c, help w/ arranging if not already done (9) Hypertension: Plan: BPs table Losartan resumed (appears takes 100mg will change) HCTZ on hold as above, consider resuming in AM Continue home diltiazem Monitor (10) History of thyroid cancer: Plan: on Synthroid 125mcg daily. TSH wnl (low normal). Outpt f/u PCP Plan continued inpatient stay, transitioned to PO steroids but patient not comfortable going home and wanting to stay overnight to monitor on oral steroids. CM assisting to arrange HH as requested by patient. Hopeful dc 06/19 w/ HH Admission and Anticipated Discharge Date Admission Date: June 15, 2023 Supervising Physician Co-Signing Physician Notes PA Supervision Note: I did not personally see or examine the patient today, but I verified all dan points of JUSTUS Reyes's assessment and plan with the following exceptions/additions: will downgrade off tele Subjective Eval this morning, sitting up at bedside, much improved and discussed rehab however patient feeling uncomfortable with discharge and prefers another night. Discussed switched to steroids, no further wheezing but will monitor on PO steroids and plan for dc tomorrow. CM arranging home health as did too well for rehab as requested. Suspect worried about being at home alone, CM to assist. She notes being discharged too early previously during an admission and needed readmitted within 2-3 weeks. Rescheduled her CCP for Saturday for labs/flush port. No fever/chills, chest pain, abdominal pain, nausea or vomiting. Requesting more coffee-- asked RN to provide decaffeinated coffee. Discussed will downgrade off telemetry given NSR in 70-90s without issues. Questions/concerns addressed at this time. Physical Exam 2 Physical Exam: General: 78yo chronically ill appearing female sitting up in bed, eating lunch, looks much better HEENT; head atraumatic, normocephalic, mmm, trachea midline Chest: port to chest, dressing c/d/i Resp: diminished in bases, no further expiratory wheezing, no tachypnea/cough, no crackles, on room air CV: RRR (rates 70-90s), faint systolic murmur, trace pedal edema/calves nontender GI: +BS, soft/NT MSK/Neuro: no focal deficit, no slurred speech, answering questions appropriately Psych: AOx3, cooperative , thankful for care, pleasant, talkative Skin: slight redness to legs at baseline/scaliness, but nontender/no overt warmth/cellulitis redness improved, trace pedal edema Results & Data Results & Data Vital Signs (Past 12 Hours) Vital Signs Temp Pulse Pulse Resp BP Pulse Ox O2 Del Method 06/18/23 07:13 92 H 18 93 Room Air 06/18/23 07:00 36.8 C 85 19 154/74 H 91 Room Air 06/18/23 03:37 36.6 C 64 18 158/63 H 91 Room Air 06/18/23 03:00 63 06/17/23 23:10 36.5 C 78 20 109/60 90 Room Air 06/17/23 22:43 Room Air 06/17/23 19:54 80 19 93 Room Air Laboratory Results 06/17/23 05:29 06/18/23 06:00 PG Care Time/CCT Total # of Minutes Spent Total Time Spent with Patient: Total time spent is greater than 50% in coordination of care (as documented) at patient's floor/unit and/or counseling patient: Coding Level of Care Code 19843 SUB INP/OBS CARE 3/50MIN Diagnoses Acute exacerbation of moderate persistent extrinsic asthma J45.41 Hypomagnesemia E83.42 Hypokalemia E87.6 Vitamin D deficiency E55.9 Hyperglycemia R73.9 GILLES (acute kidney injury) N17.9 Right leg DVT I82.401 Recurrent carcinoma of endometrium C54.1 Essential hypertension I10 Hypertension type: essential hypertension History of thyroid cancer Z85.850 (9) Hypertension Hypertension type: essential hypertension Qualified Code(s): I10 - Essential (primary) hypertension
[2023-06-18] MEDS: FLUTICASONE/VILANTEROL 200/25MCG 14 PUFFS/INHALER INH SCH (07:54)
[2023-06-18] MEDS: guaiFENesin 600 MG TABCR PO SCH ×2 (07:55→21:17)
[2023-06-18] MEDS: OMEGA-3 (PURIFIED FISH OIL) 1 GM CAP PO SCH (07:55)
[2023-06-18] MEDS: CHOLECALCIFEROL 5,000 UNITS 125 MCG TAB PO SCH (07:55)
[2023-06-18] MEDS: dilTIAZem HCL 120 MG CAPCR PO SCH (07:55)
[2023-06-18] MEDS: APIXABAN 5 MG TABLET PO SCH ×2 (07:55→21:17)
[2023-06-18] MEDS: PANTOprazole 40 MG TAB PO SCH (07:55)
[2023-06-18] MEDS: LOSARTAN POTASSIUM 50 MG TAB PO SCH (07:55)
[2023-06-18] MEDS: INSULIN ASPART PER UNIT CHARGE SC SCH ×4 (08:06→21:03)
[2023-06-18] MEDS: LANTUS PER UNIT CHARGE SC SCH (08:06)
[2023-06-18] MEDS: predniSONE 20 MG TAB PO SCH (08:24)
--- NOTE | 2023-06-18 12:55 | Pharmacy Report ---
Pharmacy Glycemic Short Note 2 - Date of Service June 18, 2023 - Glycemic Short BSG Results (Last 24 hours): 06/17/23 06/17/23 06/18/23 16:28 20:14 06:00 Glucose 177 H POC Glucose 129 H 180 H 06/18/23 06/18/23 07:30 11:26 Glucose POC Glucose 165 H 157 H OUTPATIENT ANTIDIABETIC REGIMEN: * None * HbA1C: 6.2% ASSESSMENT: 06/18: * BSGs within goal the last 24h- [phone]/dL. Received 15 units of basal and 32 units of bolus insulin yesterday. * Tolerating diet, methylpred transitioned to PO prednisone 40mg daily. * Lantus 10 units daily given steroid change. No change to Novolog today. 06/17: * BSGs [phone]/dL. Received 20 units of basal and 19 units of bolus insulin yesterday. * Tolerating diet, continues on methylpred 40mg IV q8h. * This AM, methylpred was changed to PO prednisone and therefore basal was reduced to 10 units, however steroids were switched back to methylpred. Given this, will add Lantus at HS per scale depending on BSG. Novolog tightened to 20/7 for improved prandial coverage. 06/16: * 78 yo F admitted on 06/15/23 secondary to asthma exacerbation. Pharmacy has been consulted to assist with inpatient glycemic management. Patient is not diabetic according to most recent A1c and takes no anti-diabetic meds at home. * Patient is chronically on 5 mg of Prednisone PO at home. While inpatient, receiving 40 mg of IV SoluMedrol every 8 hours. This is causing hyperglycemia as BSG was 270 mg/dL this AM and now 256 mg/dL at lunchtime. * Will start bolus based on weight/stress of 2-3. Basal will be administered given around the clock steroids. Want to be conservative with insulin dosing to begin with given unknown A1c and insulin-naive. PLAN FOR INPATIENT GLYCEMIC CONTROL: * Basal insulin * Lantus 10 units SQ daily * Bolus insulin * NovoLog per scale ACHS or Q6hrs while NPO * Goal Range: Low 110 mg/dL - High 140 mg/dL * Correction Factor: 20 mg/dL/unit * Nutritional / Prandial insulin per carb ratio of 1 unit per 7 grams CHO consumed
[2023-06-18] MEDS: KETOCONAZOLE 2% CR 15 GM TUBE EXT PRN (21:17)
[2023-06-19] MEDS: LEVOTHYROXINE SODIUM 125 MCG TABLET PO SCH (05:12)
--- NOTE | 2023-06-19 05:45 | Electrocardiogram Report ---
Test Reason : Blood Pressure : / mmHG Vent. Rate : 106 BPM Atrial Rate : 106 BPM P-R Int : 184 ms QRS Dur : 088 ms QT Int : 336 ms P-R-T Axes : 059 -38 056 degrees QTc Int : 446 ms Sinus tachycardia with Fusion complexes Left axis deviation Cannot rule out Anterior infarct (cited on or before 29-DEC-2021) Abnormal ECG When compared with ECG of 29-DEC-2021 09:06, Fusion complexes are now Present Confirmed by Jordi Lucas ([id number]) on 06/19/2023 5:45:25 AM Referred By: REFERRED SELF Confirmed By:Jordi Lucas
[2023-06-19 07:59] LABS: BUN Creatinine Ratio 43.9 (10-20); Calcium 10.2 mg/dl (8.6-10.3); Creatinine Clr Calc Pharmacy 53.1 ml/min; Est GFR (African American) 80.6 ml/min; Est GFR (Non-African American) 69.5 ml/min; Potassium 4.2 mmol/L (3.5-5.1)
[2023-06-19] MEDS: INSULIN ASPART PER UNIT CHARGE SC SCH ×4 (08:29→22:12)
[2023-06-19] MEDS: LANTUS PER UNIT CHARGE SC SCH (08:30)
[2023-06-19] MEDS: FLUTICASONE/VILANTEROL 200/25MCG 14 PUFFS/INHALER INH SCH (08:32)
[2023-06-19] MEDS: PANTOprazole 40 MG TAB PO SCH (08:33)
[2023-06-19] MEDS: KETOCONAZOLE 2% CR 15 GM TUBE EXT PRN ×2 (08:33→20:36)
[2023-06-19] MEDS: CHOLECALCIFEROL 5,000 UNITS 125 MCG TAB PO SCH (08:33)
[2023-06-19] MEDS: dilTIAZem HCL 120 MG CAPCR PO SCH (08:33)
[2023-06-19] MEDS: OMEGA-3 (PURIFIED FISH OIL) 1 GM CAP PO SCH (08:33)
[2023-06-19] MEDS: LOSARTAN POTASSIUM 50 MG TAB PO SCH (08:33)
[2023-06-19] MEDS: predniSONE 20 MG TAB PO SCH (08:33)
[2023-06-19] MEDS: APIXABAN 5 MG TABLET PO SCH ×2 (08:34→20:33)
[2023-06-19] MEDS: guaiFENesin 600 MG TABCR PO SCH ×2 (08:34→20:33)
--- NOTE | 2023-06-19 16:10 | Hospitalist Progress Note ---
Date of Service June 19, 2023 Assessment & Plan (1) Acute exacerbation of moderate persistent extrinsic asthma: Plan: Patient w/ history of asthma with worsening shortness of breath/wheezing, unable to fill her Breo at home. Per patient, has been several years since her last hospitalization for exacerbation. On fasenra q2m, breo and prednisone 5mg daily. Improved to 2L on NC (not on oxygen at baseline). No pets at home/new environmental exposures, reports wearing mask when out/about to protect herself [employer] testing negative CXR w/o acute process Solumedrol IV --> ordered to continue 40mg Q8H Transitioned to Prednisone 40mg QAM for 06/18 --> taper at dc back to her usual 5mg daily Dc budesonide, continue home breo -- needs new unit as well as albuterol HFA at discharge Duonebs discontinued, can utilize albuterol HFA prn Supplemental O2 to maintain sats (not on oxygen at baseline) Can perform ambulatory study prior to dc to ensure remaining stable PT/OT SUSAN fay working to arrange home health per patient request (2) Hypokalemia: Plan: low on admission and now normal HCTZ held from home (3) Vitamin D deficiency: Plan: prior low 13.2 in December and now Noting hx hyperparathyroidism in chart/prior PTH 103.7 but likely from vitamin D deficiency continue po Vit D supplement (4) Hyperglycemia: Plan: suspected 2nd to IV steroid use, pharmacy consulted for assistance w/ managing Prior A1c 6.1 in December 2021, 6.2 on repeat Monitor w/ transition to steroids. May need once daily NPH while completing taper if remains elevated w/ change to PO once daily steroids. f/u PCP. noting on chronic steroid therapy, may benefit from daily metformin (while CrCl 40s most recently, has been undetectable, and improved --monitor) (5) GILLES (acute kidney injury): Plan: ?2nd to HCTZ/losartan prior to admit. Renal function back to baseline, HCTZ was on hold -- will continue to hold for now but if remains stable/Na improved can consider resuming Renal dose meds/avoid nephrotoxins as able BMP in AM (6) Right leg DVT: Plan: Hx of such, continues on eliquis 5mg BID Hx endometrial ca, recurrence, on treatment w/ CCP (7) Recurrent carcinoma of endometrium: Plan: Recurrent carcinoma of the endometrium (3rd recurrence per patient based on most recent PET scan, follows w/ Dr Razo) Currently on chemotherapy -- patient reports on Ketruda? CCP follow up at d/c, help w/ arranging if not already done (8) Hypertension: Plan: BPs table Losartan resumed HCTZ on hold as above Continue home diltiazem (9) History of thyroid cancer: Plan: on Synthroid 125mcg daily. TSH wnl (low normal). Plan Morbid obesity with BMI 41.2-needs weight loss Dispo-continued stay for patient preference. Is medically stable for discharge to home but is hesitant to go until Saturday but can't tell me why Admission and Anticipated Discharge Date Admission Date: June 15, 2023 Subjective Pt reports SOB is much improved. Denies CP or nausea, is eating and drinking,moving bowels. Reports soreness in her groin and WOund care put caldestat there for She requests repeatedly to stay until Saturday. I asked if she was anxious about going home and she said no. When asked why she needed to stay in the hospital, she reported "I just need to stay and take care of this" in reference to her groin rash Physical Exam Constitutional: WD/WN, vitals as above Respiratory: normal respiratory effort, lungs clear to auscultation Cardiovascular: Rate/Rhythm: regular rate and regular rhythm Gastrointestinal (Abdomen): normal bowel sounds, soft, nontender, no hepatosplenomegaly Results & Data Results & Data Vital Signs (Past 12 Hours) Vital Signs Temp Pulse Resp BP Pulse Ox O2 Del Method 06/19/23 15:03 36.3 C L 72 18 147/82 H 94 Room Air 06/19/23 09:34 Room Air 06/19/23 07:35 36.5 C 90 18 137/79 93 Room Air Laboratory Results bMP, magnesium, blood cxs reviewed ur cx mixed janee PG Care Time/CCT Total # of Minutes Spent Total Time Spent with Patient: Total time spent is greater than 50% in coordination of care (as documented) at patient's floor/unit and/or counseling patient: Coding Level of Care Code 81639 SUB INP/OBS CARE 2/35MIN Diagnoses Acute exacerbation of moderate persistent extrinsic asthma J45.41 Hypokalemia E87.6 Vitamin D deficiency E55.9 Hyperglycemia R73.9 GILLES (acute kidney injury) N17.9 Right leg DVT I82.401 Recurrent carcinoma of endometrium C54.1 Essential hypertension I10 Hypertension type: essential hypertension History of thyroid cancer Z85.850 (8) Hypertension Hypertension type: essential hypertension Qualified Code(s): I10 - Essential (primary) hypertension
[2023-06-19] MEDS ORDERED: BENZONATATE 100 MG CAPSULE PO ONE (20:12)
[2023-06-20] MEDS: LEVOTHYROXINE SODIUM 125 MCG TABLET PO SCH (06:47)
[2023-06-20] MEDS: PANTOprazole 40 MG TAB PO SCH (07:24)
[2023-06-20] MEDS: APIXABAN 5 MG TABLET PO SCH ×2 (07:25→20:24)
[2023-06-20] MEDS: guaiFENesin 600 MG TABCR PO SCH ×2 (07:25→20:24)
[2023-06-20] MEDS: CHOLECALCIFEROL 5,000 UNITS 125 MCG TAB PO SCH (07:25)
[2023-06-20] MEDS: predniSONE 20 MG TAB PO SCH (07:26)
[2023-06-20] MEDS: LOSARTAN POTASSIUM 50 MG TAB PO SCH (07:28)
[2023-06-20] MEDS: dilTIAZem HCL 120 MG CAPCR PO SCH (07:28)
[2023-06-20] MEDS: OMEGA-3 (PURIFIED FISH OIL) 1 GM CAP PO SCH (07:28)
[2023-06-20] MEDS: FLUTICASONE/VILANTEROL 200/25MCG 14 PUFFS/INHALER INH SCH (07:29)
--- NOTE | 2023-06-20 08:09 | Hospitalist Progress Note ---
Date of Service June 20, 2023 Assessment & Plan (1) Acute exacerbation of moderate persistent extrinsic asthma: Plan: Patient w/ history of asthma with worsening shortness of breath/wheezing, unable to fill her Breo at home. Per patient, has been several years since her last hospitalization for exacerbation. On fasenra q2m, breo and prednisone 5mg daily. Improved to 2L on NC (not on oxygen at baseline). No pets at home/new environmental exposures, reports wearing mask when out/about to protect herself Biofire testing negative CXR w/o acute process Transitioned to Prednisone 40mg QAM for 06/18 --> taper at dc back to her usual 5mg daily Dc budesonide, continue home breo -- needs new unit as well as albuterol HFA at discharge Duonebs discontinued, can utilize albuterol HFA prn Supplemental O2 to maintain sats (not on oxygen at baseline) Can perform ambulatory study prior to dc to ensure remaining stable PT/OT SUSAN fay working to arrange home health per patient request (2) Hypokalemia: Plan: low on admission and now normal HCTZ held from home (3) Vitamin D deficiency: Plan: prior low 13.2 in December and now Noting hx hyperparathyroidism in chart/prior PTH 103.7 but likely from vitamin D deficiency continue po Vit D supplement (4) Hyperglycemia: Plan: suspected 2nd to IV steroid use, pharmacy consulted for assistance w/ managing Prior A1c 6.1 in December 2021, 6.2 on repeat Monitor w/ transition to steroids. May need once daily NPH while completing taper if remains elevated w/ change to PO once daily steroids. f/u PCP. noting on chronic steroid therapy, may benefit from daily metformin (while CrCl 40s most recently, has been undetectable, and improved --monitor) (5) GILLES (acute kidney injury): Plan: REsolved ?2nd to HCTZ/losartan prior to admit. Renal function back to baseline, HCTZ was on hold -- will continue to hold for now but if remains stable/Na improved can consider resuming Renal dose meds/avoid nephrotoxins as able BMP in AM (6) Right leg DVT: Plan: Hx of such, continues on eliquis 5mg BID risk due to thrombophilia of malignancy Hx endometrial ca, recurrence, on treatment w/ CCP (7) Recurrent carcinoma of endometrium: Plan: Recurrent carcinoma of the endometrium (3rd recurrence per patient based on most recent PET scan, follows w/ Dr Razo) Currently on chemotherapy -- patient reports on Ketruda? CCP follow up at d/c, help w/ arranging if not already done (8) Hypertension: Plan: BPs table Losartan resumed HCTZ on hold as above Continue home diltiazem (9) History of thyroid cancer: Plan: on Synthroid 125mcg daily. TSH wnl (low normal). Plan Morbid obesity with BMI 41.2-needs weight loss, contributes to intertrigo and skin breakdown Dispo-continued stay for patient preference. Is medically stable for discharge to home but is hesitant to go until Saturday but can't tell me why Admission and Anticipated Discharge Date Admission Date: June 15, 2023 Subjective patient's most back to her baseline. She has no supportive care at home until 1 day in the future and on 06/17/2023. Patient states that she will need Breo but has no prednisone at home. Physical Exam Physical Exam: -Follow repeat blood cultures to ensure they are still negative -remain NGTD from 06/11 and 06/15 Results & Data Results & Data Vital Signs (Past 12 Hours) Vital Signs Temp Pulse Resp BP Pulse Ox O2 Del Method 06/20/23 07:51 97.3 F L 61 18 153/87 H 95 Room Air 06/19/23 23:00 97.3 F L 71 18 149/88 H 92 Room Air PG Care Time/CCT Total # of Minutes Spent Total Time Spent with Patient: Total time spent is greater than 50% in coordination of care (as documented) at patient's floor/unit and/or counseling patient: Coding Level of Care Code 40241 SUB INP/OBS CARE 2/35MIN Diagnoses Acute exacerbation of moderate persistent extrinsic asthma J45.41 Hypokalemia E87.6 Vitamin D deficiency E55.9 Hyperglycemia R73.9 GILLES (acute kidney injury) N17.9 Right leg DVT I82.401 Recurrent carcinoma of endometrium C54.1 Essential hypertension I10 Hypertension type: essential hypertension History of thyroid cancer Z85.850 (8) Hypertension Hypertension type: essential hypertension Qualified Code(s): I10 - Essential (primary) hypertension
[2023-06-20] MEDS: INSULIN ASPART PER UNIT CHARGE SC SCH ×4 (08:43→21:29)
[2023-06-20] MEDS: HEPARIN 100 UNIT/ML 5ML FLUSH FLUSH PRN (10:55)
--- NOTE | 2023-06-20 13:51 | Pharmacy Report ---
Pharmacy Glycemic Short Note 2 - Date of Service June 20, 2023 - Glycemic Short BSG Results (Last 24 hours): 06/19/23 06/19/23 06/20/23 16:41 20:39 07:40 POC Glucose 148 H 135 H 84 06/20/23 11:57 POC Glucose 134 H OUTPATIENT ANTIDIABETIC REGIMEN: * None * HbA1C: 6.2% ASSESSMENT: 06/20/23 * BSGs yesterday were [phone] mg/dL. Patient received 29 units of insulin (10 units of basal and 19 units of bolus). * Patient continues on prednisone 40 mg PO daily. * Fasting today is 84 mg/dL which is a significant decrease. Hold basal at this time. * Since patient continues on steroids + basal cut, will tighten CR to prevent hyperglycemia. 06/18: * BSGs within goal the last 24h- [phone]/dL. Received 15 units of basal and 32 units of bolus insulin yesterday. * Tolerating diet, methylpred transitioned to PO prednisone 40mg daily. * Lantus 10 units daily given steroid change. No change to Novolog today. 06/17: * BSGs [phone]/dL. Received 20 units of basal and 19 units of bolus insulin yesterday. * Tolerating diet, continues on methylpred 40mg IV q8h. * This AM, methylpred was changed to PO prednisone and therefore basal was reduced to 10 units, however steroids were switched back to methylpred. Given this, will add Lantus at HS per scale depending on BSG. Novolog tightened to 20/7 for improved prandial coverage. 06/16: * 78 yo F admitted on 06/15/23 secondary to asthma exacerbation. Pharmacy has been consulted to assist with inpatient glycemic management. Patient is not diabetic according to most recent A1c and takes no anti-diabetic meds at home. * Patient is chronically on 5 mg of Prednisone PO at home. While inpatient, receiving 40 mg of IV SoluMedrol every 8 hours. This is causing hyperglycemia as BSG was 270 mg/dL this AM and now 256 mg/dL at lunchtime. * Will start bolus based on weight/stress of 2-3. Basal will be administered given around the clock steroids. Want to be conservative with insulin dosing to begin with given unknown A1c and insulin-naive. PLAN FOR INPATIENT GLYCEMIC CONTROL: * Basal insulin * Hold * Bolus insulin * NovoLog per scale ACHS or Q6hrs while NPO * Goal Range: Low 110 mg/dL - High 140 mg/dL * Correction Factor: 20 mg/dL/unit * Nutritional / Prandial insulin per carb ratio of 1 unit per 5 grams CHO consumed
[2023-06-20 15:25] VITALS: RESP 16
[2023-06-21] MEDS: LEVOTHYROXINE SODIUM 125 MCG TABLET PO SCH (05:36)
[2023-06-21 07:30] VITALS: BP 150/80; PULSE 65; TEMP 97.3; O2SAT 95
[2023-06-21] MEDS: APIXABAN 5 MG TABLET PO SCH (08:36)
[2023-06-21] MEDS: dilTIAZem HCL 120 MG CAPCR PO SCH (08:36)
[2023-06-21] MEDS: OMEGA-3 (PURIFIED FISH OIL) 1 GM CAP PO SCH (08:36)
[2023-06-21] MEDS: FLUTICASONE/VILANTEROL 200/25MCG 14 PUFFS/INHALER INH SCH (08:36)
[2023-06-21] MEDS: guaiFENesin 600 MG TABCR PO SCH (08:36)
[2023-06-21] MEDS: LOSARTAN POTASSIUM 50 MG TAB PO SCH (08:37)
[2023-06-21] MEDS: predniSONE 20 MG TAB PO SCH (08:37)
[2023-06-21] MEDS: CHOLECALCIFEROL 5,000 UNITS 125 MCG TAB PO SCH (08:37)
[2023-06-21] MEDS: PANTOprazole 40 MG TAB PO SCH (08:37)
[2023-06-21] MEDS: INSULIN ASPART PER UNIT CHARGE SC SCH ×3 (08:42→17:33)
[2023-06-21] MEDS: HEPARIN 100 UNIT/ML 5ML FLUSH FLUSH PRN (11:59)
--- NOTE | 2023-06-21 18:13 | Discharge Summary ---
Date of Service June 21, 2023 Admission HPI Per Admitting Provider Is a 78-year-old female with a history of lower extremity DVT on Eliquis, metastatic endometrial cancer currently on chemotherapy, asthma, hypertension history of thyroid cancer who presents to the hospital today with complaints of shortness of breath and wheeze. According to the patient she ran out of her asthma medication and was waiting for a refill from her doctor when all of a sudden she developed shortness of breath and wheeze today so she decided to come to the hospital further evaluation. In the emergency department vital signs were stable, although she was having expiratory wheeze on exam. She received steroids and albuterol and also magnesium sulfate. Upon my evaluation, he said her shortness of breath was better however she will be admitted to the hospital for further management. Principal Diagnosis acute exacerbation of asthma Discharge Exam lungs are clear, no wheezes. Discharge Data Allergies Allergy/AdvReac Type Severity Reaction Status Date / Time amoxicillin Allergy Intermediate SOB Verified 06/16/23 00:07 Penicillins Allergy Mild Unknown Verified 06/16/23 00:07 Consultations 06/15/23 23:22 ED Decision to Admit Stat Hospital Course (1) Acute exacerbation of moderate persistent extrinsic asthma: Patient w/ history of asthma with worsening shortness of breath/wheezing, unable to fill her Breo at home. Per patient, has been several years since her last hospitalization for exacerbation. On fasenra q2m, breo and prednisone 5mg daily. Improved to 2L on NC (not on oxygen at baseline). No pets at home/new environmental exposures, reports wearing mask when out/about to protect herself Biofire testing negative CXR w/o acute process Transitioned to Prednisone 40mg QAM for 06/18 --> taper at dc back to her usual 5mg daily Dc budesonide, continue home breo -- needs new unit as well as albuterol HFA at discharge Duonebs discontinued, can utilize albuterol HFA prn Oxygen is good on room air (2) Hypokalemia: replete/resolved (3) Vitamin D deficiency: prior low 13.2 in December and now Noting hx hyperparathyroidism in chart/prior PTH 103.7 but likely from vitamin D deficiency continue po Vit D supplement (4) Hyperglycemia: suspected 2nd to IV steroid use, pharmacy consulted for assistance w/ managing Prior A1c 6.1 in December 2021, 6.2 on repeat Monitor w/ transition to steroids. May need once daily NPH while completing taper if remains elevated w/ change to PO once daily steroids. f/u PCP. noting on chronic steroid therapy, instructed to watch carbohydrate intake more carefully when on prednisone (5) GILLES (acute kidney injury): REsolved resume HCTZ/losartan (6) Right leg DVT: Hx of such, continues on eliquis 5mg BID risk due to thrombophilia of malignancy Hx endometrial ca, recurrence, on treatment w/ CCP (7) Recurrent carcinoma of endometrium: Recurrent carcinoma of the endometrium (3rd recurrence per patient based on most recent PET scan, follows w/ Dr Razo) Currently on chemotherapy -- patient reports on Ketruda? CCP follow up at d/c (8) Hypertension: BPs table Losartan resumed HCTZ on hold as above Continue home diltiazem (9) History of thyroid cancer: on Synthroid 125mcg daily. TSH wnl (low normal). Plan Morbid obesity with BMI 41.2-needs weight loss, contributes to intertrigo and skin breakdown Dispo-continued stay for patient preference. Is medically stable for discharge to home but is hesitant to go until Saturday but can't tell me why Total Time Total Time Spent Total Time Spent (In Minutes): It required greater than 30 minutes to prepare this patient for discharge Discharge Plan Discharge Items Patient Disposition: Home - Self-Care Reason For Visit: ACUTE PERSISTANT ASTHMA Discharge Diagnosis: acute persistant asthma Activity: Resume your previous activity Non-emergency contact: Primary Care Provider Call non-emergency contact if: your symptoms worsen Follow-up/Referrals: Zoe Blair PA-C [Physician Internet Marketing Director] - 07/02/23 1:30 pm Hue Santos CRNP [Nurse Practitioner] - 06/19/23 3:00 pm Diet: Carb Consistent or DM2 Addtl Attending Provider Instructions: please continue your steroid taper to help reduce your asthma exacerbation. Please continue take your Breo as prescribed and follow-up with your family doctor in 1 week's time. Pending Studies at Discharge: No Stand-Alone Forms: My [employer], Smoking Cessation Medications and DC Order Prescriptions: New cholecalciferol (vitamin D3) 125 mcg (5,000 unit) Tablet 5,000 unit PO QAM Qty: 30 0RF prednisone 10 mg tablet 10 mg PO DIRECTED Qty: 40 0RF Rx Instructions: 4 a day x 4 d>3 a day x 4 d>2 a day x 4 d>1 a day once taper complete resume 5 mg tablets daily ongoing Continued albuterol sulfate [Ventolin HFA] 90 mcg/actuation HFA aerosol inhaler 2 puff inhalation Q4H PRN (Reason: Shortness Of Breath) Qty: 18 6RF Rx Instructions: 2 puff inhalation every 4 to 6 hours PRN; Please dispense VENTOLIN ONLY Fasenra 30 mg/mL syringe 30 mg subcut .COMPLEX Qty: 1 11RF Rx Instructions: Inject 30mg every 8 weeks; APPROVED GOOD 07/29/22-07/28/23 losartan-hydrochlorothiazide [Hyzaar] 100-25 mg tablet 1 tab PO QAM Qty: 90 3RF Eliquis 5 mg tablet 5 mg PO BID pantoprazole 40 mg tablet,delayed release (DR/EC) 40 mg PO QAM Rx Instructions: TAKE 1 TABLET BY MOUTH DAILY diltiazem HCl 120 mg capsule,extended release 24hr 120 mg PO QAM Rx Instructions: TAKE 1 CAPSULE IN THE MORNING levothyroxine 125 mcg tablet 125 mcg PO DAILYBB Rx Instructions: TAKE 1 TABLET BY MOUTH EVERY DAY omega 3-oil-ttt-fish oil [Fish Oil] 1,000 mg (120 mg-180 mg) Capsule 1 cap PO QAM fluticasone furoate-vilanterol 200-25 mcg/dose blister with device 1 inh inhalation QAM Qty: 28 3RF Rx Instructions: pt still waiting to Discontinued prednisone 5 mg tablet 5 mg PO QAM Qty: 90 3RF Discharge Orders: Discharge Order (Routine); Ordered 06/21/23 Ordered By: Prashant Davey/Other Patient Handouts: Prediabetes, Understanding Asthma, 5 Steps for Eating Healthier Admission Data Admit Date/Time: 06/15/23 23:45 Attending Provider: Prashant Patino Admit Provider: Abundio Garcia Primary Care Provider: Teresa Medeiros Other Providers: Dionte Sarmiento [facility]; Abundio Garcia Other Interventions: Discharge Summary Assessment (RN) Last Done: 06/21/23 11:03 Coding Level of Care Code 66823 INP/OBS DISCH >30 MIN Diagnoses Acute exacerbation of moderate persistent extrinsic asthma J45.41 Hypokalemia E87.6 Vitamin D deficiency E55.9 Hyperglycemia R73.9 GILLES (acute kidney injury) N17.9 Right leg DVT I82.401 Recurrent carcinoma of endometrium C54.1 Essential hypertension I10 Hypertension type: essential hypertension History of thyroid cancer Z85.850
== END 2023-06-21 17:34 | disposition home or self-care (01) | DRG 202 ==
LOC: ED 21:05 → EDINP 23:45 → SUATTDRO 23:45 → 2E 06-16 01:31 → 3N 06-19 00:52

== ENCOUNTER 2024-08-03 00:30 | Observation (INO) ==
--- NOTE | 2024-08-03 00:46 | Emergency Department Note ---
Impression & Plan Cellulitis ADMIT ED Provider Note HPI: History obtained from patient. The patient is a 79-year-old female with history of uterine cancer, currently on chemotherapy, who presents the emergency department with a chief complaint of left lower extremity pain. Patient states that she has had pain "from my knee down to the bottom of my foot". Patient denies any recent trauma. Patient states his pain is been worsening over about the past 3 to 4 days. On arrival here to the ED the patient arrives via EMS, she is noted to be hypertensive on arrival but otherwise hemodynamically stable. Patient does not have a fever. ROS: - Per HPI Differential Diagnosis: Left lower extremity cellulitis, DVT, osteoarthritis, fracture, dislocation, amongst other potential pathologies. *Outpatient medications and allergy history reviewed. PE: General: Alert HEENT: Normocephalic, trachea midline Eyes: Extraocular eye movement is intact, no scleral erythema Pulmonary: Clear to auscultation bilaterally, no wheezing Cardio: Regular rate and rhythm GI: Abdomen is soft to palpation : No suprapubic tenderness MSK: No evidence of trauma or malformation of the extremities, mild lower extremity edema left greater than right Skin: There is moderate edema of the left lower extremity with circumferential erythema above the left ankle with some extension to the dorsal aspect of the foot and below the left knee with tenderness to palpation, there is no crepitus to palpation Neuro: Alert, no focal deficits Psychiatric: Cooperative INDEPENDENT INTERPRETATIONS: library monitor: (As interpreted by myself): - An order was placed for continuous cardiac monitoring - Patient was noted to be in sinus rhythm with a rate of 85 Interventions provided in ED: -IV vancomycin, IV cefepime Medical Decision Making: IV was established and lab work obtained, blood cultures were sent. Lab work shows a leukocytosis of 14.61, hemoglobin is normal, platelet count is normal, CMP does not show any evidence of any critical findings. X-ray imaging of the left lower extremity/left tibia does not show any evidence of fracture. Lytic lesion is noted at the tibial tuberosity and the talus per the interpreting radiologist. Ultrasound imaging does not show any evidence of DVT. No evidence of any subcutaneous gas is noted on x-ray imaging. On my reassessment the patient is resting comfortably in bed, given her comorbidities including history of endometrial cancer currently on chemotherapy, I think would be reasonable to treat with IV antibiotics and admit. Patient does have circumferential erythema with moderate leukocytosis. Patient is in agreement to this plan. [facility] hospitalist service was consulted for admission and the patient was placed for admission in stable condition. Consultants/Discussions held with other healthcare providers: -Hospitalist, Dr. Walter Disposition discussion held by myself with: -Patient Diagnosis: 1. Left lower extremity cellulitis, acute 2. Left lower extremity pain, acute 3. 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 Stage III. 2000 Hypothyroidism (Chronic) Hypertension (Chronic) Medical History History of home oxygen therapy Chronic steroid use Endometrial cancer determined by uterine biopsy History of colon polyps Thyroid cancer Surgical History History of colonoscopy S/P ARIADNA-BSO H/O thyroidectomy Family History Mother Colon cancer Diabetes Kidney disease Hypertension Brother Arthritis Hypertension Father Colorectal cancer Sister Dyslipidemia Hypertension Aunt Breast cancer Other No family history of adverse response to anesthesia Denies family history of Ovarian cancer Prostate cancer Myocardial infarction Social History Smoking Status: Never smoker Second Hand Exposure: No; Do You Dip or Chew Tobacco: No; Hx Alcohol Use: Yes (social- on her birthday) Alcohol type: hard liquor Alcohol Intake Frequency: Monthly or Less Hx Substance Use: No Preferred Language: Spanish Communication Ability: Effective Visual Impairment: Limited Hearing Ability: Normal Bean Snapper Required: No Beliefs That Will Affect Care: None marital status: Single Current Living Situation: Alone current occupational status: retired How many Children do You have: 0 Feels Safe at Home: Yes Childhood Exposure to Second-Hand Smoke: No (does not think so) Diet: regular Diet Comment: NO JUNK FOOD caffeine: Yes (coffee, hot tea ) Dental Care, Regularly: Yes Physical Activity Frequency: Does not Exercise Seatbelt Use: always Sunscreen Use: No Assistive Devices: Nebulizer and Oxygen - Continuous Allergies Allergies Allergy/AdvReac Type Severity Reaction Status Date / Time amoxicillin Allergy Intermediate SOB Verified 02/26/24 10:49 Penicillins Allergy Mild Unknown Verified 02/26/24 10:49 Home Meds Home Medications Medication Instructions Recorded Confirmed pantoprazole 40 mg tablet,delayed 40 mg PO QAM 04/26/22 02/26/24 release apixaban 5 mg tablet (Eliquis) 5 mg PO BID 10/31/22 02/26/24 omega 2-ziv-oxn-fish oil 1,000 mg 1 cap PO QAM 06/16/23 02/26/24 (120 mg-180 mg) capsule (Fish Oil) Previous Rx's Medication Instructions Recorded cholecalciferol (vitamin D3) 125 5,000 unit PO QAM #30 tabs 06/20/23 mcg (5,000 unit) tablet levothyroxine 150 mcg tablet 150 mcg PO DAILYBB #90 tabs 07/15/23 Ventolin HFA 90 mcg/actuation 2 puff inhalation Q4H PRN 08/27/23 aerosol inhaler (albuterol sulfate) Shortness Of Breath #18 grams diltiazem HCl 240 mg capsule,24 240 mg PO DAILY #90 caps 11/13/23 hr,extended release fluticasone furoate 200 1 inh inhalation QAM #28 ea 01/02/24 mcg-vilanterol 25 mcg/dose inhalation powder losartan 100 1 tab PO QAM #90 tabs 01/16/24 mg-hydrochlorothiazide 25 mg tablet (Hyzaar) prednisone 5 mg tablet 5 mg PO DAILY #30 tabs 07/14/24 benralizumab 30 mg/mL subcutaneous 30 mg subcut .COMPLEX #1 mL 07/21/24 syringe (Fasenra) Results & Data (ED) Vital Signs Vital Signs - 24 hr 08/03/24 00:32 08/03/24 00:39 08/03/24 00:44 Temperature 36.9 C Temperature Source Oral Pulse Rate 94 H 90 Pulse Rate [Apical] Respiratory Rate 24 Blood Pressure 209/111 H Blood Pressure [Right Arm] Blood Pressure Mean 143 Blood Pressure Mean [Right Arm] Pulse Oximetry 93 94 Oxygen Delivery Method Room Air Room Air Sepsis Recent Fever Within 48 Hours No Sepsis New/Unexplained Change in Mental Status No Sepsis Action Taken by Nursing No Action Required 08/03/24 01:18 Temperature Temperature Source Pulse Rate Pulse Rate [Apical] 84 Respiratory Rate 18 Blood Pressure Blood Pressure [Right Arm] 139/85 Blood Pressure Mean Blood Pressure Mean [Right Arm] 103 Pulse Oximetry 98 Oxygen Delivery Method Room Air Sepsis Recent Fever Within 48 Hours Sepsis New/Unexplained Change in Mental Status Sepsis Action Taken by Nursing Laboratory Data 08/03/24 00:39 08/03/24 00:39 Lab Results 08/03/24 Range/Units 00:39 WBC 14.61 H (4.8-10.8) K/ul RBC 4.59 (4.20-5.40) M/uL Hgb 14.7 (12.0-16.0) g/dl Hct 43.5 (37.0-47.0) % MCV 94.8 (80.0-100.0) fL MCH 32.0 (25.0-34.0) pg MCHC 33.8 (32.0-36.0) g/dL RDW Std Deviation 45.1 (36.4-46.3) fL RDW Coeff of Chasidy 13.0 (11.5-14.5) % Plt Count 344 (130-400) K/uL MPV 9.5 (9.4-12.4) fL Immature Gran % (Auto) 0.4 % Neut % (Auto) 70.7 % Lymph % (Auto) 16.6 % [place] % (Auto) 12.1 % Eos % (Auto) 0.0 % Baso % (Auto) 0.2 % Neut # (Auto) 10.32 H (1.40-6.50) K/uL Lymph # (Auto) 2.43 (1.20-3.40) K/uL [place] # (Auto) 1.77 H (0.11-0.59) K/uL Eos # (Auto) 0.00 (0.00-0.50) K/uL Baso # (Auto) 0.03 (0.00-0.20) K/uL Immature Gran # (Auto) 0.06 (0.01-0.20) K/uL Sodium 139 (136-145) mmol/L Potassium 3.4 L (3.5-5.1) mmol/L Chloride 102 (98-107) mmol/L Carbon Dioxide 23 (21-32) mmol/L Anion Gap 14 H (3-11) BUN 18 (6-23) mg/dl Creatinine 1.17 (0.6-1.2) mg/dl Est Cr Clr Drug Dosing 36.9 ml/min eGFR 48.06 BUN/Creatinine Ratio 15.4 (10-20) Glucose 118 H (70-99(Fasting)) mg/dl Calcium 9.7 (8.6-10.3) mg/dl Total Bilirubin 0.7 (0.2-1.0) mg/dl AST 17 (13-39) U/L ALT 11 (7-52) U/L Alkaline Phosphatase 79 (34-104) U/L Total Protein 7.6 (6.0-8.3) gm/dl Albumin 3.8 (3.4-5.0) gm/dl Globulin 3.8 (2.5-4.0) gm/dl Albumin/Globulin Ratio 1.0 (0.9-2) Procalcitonin 0.13 (0-0.5) ng/ml Imaging Data Radiologist's Impression: Knee X-Ray 08/03/24 00:43 EXAM: XR knee LT 1 or 2V routine CLINICAL HISTORY: CELLULITIS. TECHNIQUE: X-ray images of the left knee were obtained in anteroposterior (AP), and lateral projections. COMPARISON: No prior studies are available for comparison. FINDINGS: Bone Structure: Diffuse decreased bone density. Calcific foci seen posterior to the distal femur. Joint Spaces: Narrowing of the medial tibiofemoral compartment with subchondral sclerosis and marginal osteophytes. Marginal osteophytes are also noted at the lateral tibiofemoral compartment. Patella: The patella is normal in position and alignment. No evidence of patellar dislocation or subluxation. Soft Tissues: Apparent soft tissue swelling is noted at the medial aspect of the knee. Additional Findings: Suprapatellar knee joint effusion is noted. A suspected lytic bony lesion measuring 3.8 x 1.5 cm was seen at the tibial tuberosity. No periosteal reaction. IMPRESSION: 1. Diffuse decreased bone density. 2. Degenerative changes at the knee joint, are mostly seen in the medial tibiofemoral compartment. 3. Calcific foci are seen posterior to the distal femur, and could be related to the ligamentous calcification/detached osteophytes, however, an old avulsion fracture cannot be ruled out. 4. Suprapatellar knee joint effusion. 5. Suspected tibial tuberosity lytic bony lesion. Disclaimer: A subtle bone abnormality or fracture may not be readily apparent on X-rays, thus clinical correlation and further imaging including follow-up CT, MRI, or follow-up X-rays are advised as needed. Electronically signed by Sid Zelaya 08-03-2024 02:24 AM Tibia/Fibula X-Ray 08/03/24 00:43 EXAM: XR tibia fibula LT 2V CLINICAL HISTORY: CELLULITIS. TECHNIQUE: X-rays of the left tibia and fibula were obtained in 2 views: AP (Anteroposterior) and lateral projections. COMPARISON: None available. FINDINGS: Bone: Diffuse decreased bone density. A suspected lytic bony lesion measuring 3.8 x 1.5 cm was seen at the tibial tuberosity. No periosteal reaction. Suspected lytic bony lesion at the medial aspect of the talar bone, visualized on 1 view only, measuring 1.4 x 0.7 cm. 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 Soft Tissue: Diffuse apparent soft tissue edema. Hyperdense area noted posterior superior to the ankle joint, could be related to an external artifact. A small hyperdense focus is noted at the dorsal aspect of the foot, which could represent ligamentous calcification. Other findings: Degenerative changes of the knee joint. Suprapatellar knee joint effusion. Corticated calcifications are noted posterior to the knee joint. The Stieda process is noted. IMPRESSION: 1. Diffuse decreased bone density. 2. Suspected lytic bony lesion at the tibial tuberosity. Suspected lytic bony lesion at the talus, visualized on 1 view only. 3. Diffuse soft tissue edema. 4. Corticated calcifications are noted posterior to the knee joint, could represent ligamentous calcification.Small hyperdense focus is noted at the dorsal aspect of the foot, could represent ligamentous calcifications. Clinical correlation is advised to assess for the possibility of a foreign body. 5. 30 x 16 mm enchondroma at the distal metaphysis of the tibia. Disclaimer: A subtle bone abnormality or fracture may not be readily apparent on X-rays, thus clinical correlation and further imaging including follow-up CT, MRI, or follow-up X-rays are advised as needed. Electronically signed by Sid Zelaya 08-03-2024 02:26 AM Venous Doppler Study 08/03/24 00:44 EXAM: US venous doppler LE LT CLINICAL HISTORY: Knee pain; limited due to pt tenderness and inability to position leg. TECHNIQUE: Ultrasound examination of left lower extremity veins was performed in real-time and duplex. One or more of the following were performed- spectral analysis, resistive index, waveform analysis, and pulsed Doppler. COMPARISON: None. FINDINGS: Normal phasic, non-pulsatile, and spontaneous flow is noted in left GSV, common femoral, superficial femoral, popliteal, anterior tibial, posterior tibial, and peroneal veins. Visualized veins of the left lower extremity demonstrate normal compressibility. No sonographic evidence of acute deep vein thrombosis (DVT) is detected in the visualized veins of the lower extremity. Limited visualization of the left peroneal and the left popliteal veins. Compression and Augmentation: All evaluated veins compress fully with applied transducer pressure. Augmentation of venous flow is noted with distal compression. Additional Findings: No evidence of intraluminal thrombus. IMPRESSION: 1. No sonographic evidence of acute DVT was detected at the time of examination. 2. Limited visualization of the left peroneal and the left popliteal veins. Disclaimer: DVT could be missed early in the disease when the clot burden is minimal. For patients with moderate and high pretest probability of DVT and negative ultrasound, the [employer] clinical guidelines recommend testing with a D-dimer assay or repeat ultrasound in 5-7 days. If symptoms worsen, the Society of Radiologists in ultrasound recommends repeating the ultrasound even earlier. Electronically signed by Sid Zelaya 08-03-2024 02:22 AM Discharge Plan Visit Data Chief Complaint: Knee Injury/Pain Stated Complaint: L KNEE PAIN, UNABLE TO AMBULATE ED Provider: Todd Wills Discharge Problem: Cellulitis Forms Stand Alone Forms: [facility] Prescriptions Prescriptions: No Action levothyroxine 150 mcg tablet 150 mcg PO DAILYBB Qty: 90 3RF Rx Instructions: TAKE 1 TABLET BY MOUTH EVERY DAY fluticasone furoate-vilanterol 200-25 mcg/dose blister with device 1 inh inhalation QAM Qty: 28 3RF losartan-hydrochlorothiazide [Hyzaar] 100-25 mg tablet 1 tab PO QAM Qty: 90 3RF prednisone 5 mg tablet 5 mg PO DAILY Qty: 30 0RF Fasenra 30 mg/mL syringe 30 mg subcut .COMPLEX Qty: 1 11RF Rx Instructions: Inject 30mg every 8 weeks; APPROVED GOOD 07/29/24-07/28/25 Eliquis 5 mg tablet 5 mg PO BID albuterol sulfate [Ventolin HFA] 90 mcg/actuation HFA aerosol inhaler 2 puff inhalation Q4H PRN (Reason: Shortness Of Breath) Qty: 18 6RF Rx Instructions: 2 puff inhalation every 4 to 6 hours PRN; Please dispense VENTOLIN ONLY diltiazem HCl 240 mg capsule,extended release 24 hr 240 mg PO DAILY Qty: 90 3RF pantoprazole 40 mg tablet,delayed release (DR/EC) 40 mg PO QAM Rx Instructions: TAKE 1 TABLET BY MOUTH DAILY omega 2-oif-gas-fish oil [Fish Oil] 1,000 mg (120 mg-180 mg) Capsule 1 cap PO QAM cholecalciferol (vitamin D3) 125 mcg (5,000 unit) Tablet 5,000 unit PO QAM Qty: 30 0RF Referrals Referrals: Teresa Medeiros DO [Primary Care Provider] -
[2024-08-03 01:18] LABS: Basophils # (auto) 0.03 K/uL (0.00-0.20); Basophils % (auto) 0.2 %; Hematocrit (blood only) 43.5 % (37.0-47.0); Hemoglobin 14.7 g/dl (12.0-16.0); Immature Granulocytes # (auto) 0.06 K/uL (0.01-0.20); Immature Granulocytes % (auto) 0.4 %; Lymphocytes # (auto) 2.43 K/uL (1.20-3.40); Lymphocytes % (auto) 16.6 %; Mean Corpuscular Hgb Conc 33.8 g/dL (32.0-36.0); Mean Corpuscular Volume 94.8 fL (80.0-100.0); Mean Platelet Volume 9.5 fL (9.4-12.4); Monocytes # (auto) 1.77 K/uL (0.11-0.59); Monocytes % (auto) 12.1 %; Neutrophils # (auto) 10.32 K/uL (1.40-6.50); Neutrophils % (auto) 70.7 %; Platelet Count 344 K/uL (130-400); RDW Standard Deviation 45.1 fL (36.4-46.3); Red Blood Count 4.59 M/uL (4.20-5.40); White Blood Count 14.61 K/ul (4.8-10.8)
[2024-08-03 01:28] LABS: Albumin Level 3.8 gm/dl (3.4-5.0); BUN Creatinine Ratio 15.4 (10-20); Bilirubin,Total 0.7 mg/dl (0.2-1.0); Calcium 9.7 mg/dl (8.6-10.3); Creatinine Clr Calc Pharmacy 36.9 ml/min; Globulin 3.8 gm/dl (2.5-4.0); Potassium 3.4 mmol/L (3.5-5.1); Total Protein 7.6 gm/dl (6.0-8.3)
[2024-08-03] MEDS ORDERED: VANCOMYCIN CONSULT ACTIVE PRN ×2 (02:12→07:13)
--- NOTE | 2024-08-03 02:23 | Ultrasound Report ---
EXAM: US venous doppler LE LT CLINICAL HISTORY: Knee pain; limited due to pt tenderness and inability to position leg. TECHNIQUE: Ultrasound examination of left lower extremity veins was performed in real-time and duplex. One or more of the following were performed- spectral analysis, resistive index, waveform analysis, and pulsed Doppler. COMPARISON: None. FINDINGS: Normal phasic, non-pulsatile, and spontaneous flow is noted in left GSV, common femoral, superficial femoral, popliteal, anterior tibial, posterior tibial, and peroneal veins. Visualized veins of the left lower extremity demonstrate normal compressibility. No sonographic evidence of acute deep vein thrombosis (DVT) is detected in the visualized veins of the lower extremity. Limited visualization of the left peroneal and the left popliteal veins. Compression and Augmentation: All evaluated veins compress fully with applied transducer pressure. Augmentation of venous flow is noted with distal compression. Additional Findings: No evidence of intraluminal thrombus. IMPRESSION: 1. No sonographic evidence of acute DVT was detected at the time of examination. 2. Limited visualization of the left peroneal and the left popliteal veins. Disclaimer: DVT could be missed early in the disease when the clot burden is minimal. For patients with moderate and high pretest probability of DVT and negative ultrasound, the [employer] clinical guidelines recommend testing with a D-dimer assay or repeat ultrasound in 5-7 days. If symptoms worsen, the Society of Radiologists in ultrasound recommends repeating the ultrasound even earlier. Electronically signed by Sid Zelaya 08-03-2024 02:22 AM
--- NOTE | 2024-08-03 02:25 | XRay Report ---
EXAM: XR knee LT 1 or 2V routine CLINICAL HISTORY: CELLULITIS. TECHNIQUE: X-ray images of the left knee were obtained in anteroposterior (AP), and lateral projections. COMPARISON: No prior studies are available for comparison. FINDINGS: Bone Structure: Diffuse decreased bone density. Calcific foci seen posterior to the distal femur. Joint Spaces: Narrowing of the medial tibiofemoral compartment with subchondral sclerosis and marginal osteophytes. Marginal osteophytes are also noted at the lateral tibiofemoral compartment. Patella: The patella is normal in position and alignment. No evidence of patellar dislocation or subluxation. Soft Tissues: Apparent soft tissue swelling is noted at the medial aspect of the knee. Additional Findings: Suprapatellar knee joint effusion is noted. A suspected lytic bony lesion measuring 3.8 x 1.5 cm was seen at the tibial tuberosity. No periosteal reaction. IMPRESSION: 1. Diffuse decreased bone density. 2. Degenerative changes at the knee joint, are mostly seen in the medial tibiofemoral compartment. 3. Calcific foci are seen posterior to the distal femur, and could be related to the ligamentous calcification/detached osteophytes, however, an old avulsion fracture cannot be ruled out. 4. Suprapatellar knee joint effusion. 5. Suspected tibial tuberosity lytic bony lesion. Disclaimer: A subtle bone abnormality or fracture may not be readily apparent on X-rays, thus clinical correlation and further imaging including follow-up CT, MRI, or follow-up X-rays are advised as needed. Electronically signed by Sid Zelaya 08-03-2024 02:24 AM
--- NOTE | 2024-08-03 02:26 | XRay Report ---
EXAM: XR tibia fibula LT 2V CLINICAL HISTORY: CELLULITIS. TECHNIQUE: X-rays of the left tibia and fibula were obtained in 2 views: AP (Anteroposterior) and lateral projections. COMPARISON: None available. FINDINGS: Bone: Diffuse decreased bone density. A suspected lytic bony lesion measuring 3.8 x 1.5 cm was seen at the tibial tuberosity. No periosteal reaction. Suspected lytic bony lesion at the medial aspect of the talar bone, visualized on 1 view only, measuring 1.4 x 0.7 cm. 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 Soft Tissue: Diffuse apparent soft tissue edema. Hyperdense area noted posterior superior to the ankle joint, could be related to an external artifact. A small hyperdense focus is noted at the dorsal aspect of the foot, which could represent ligamentous calcification. Other findings: Degenerative changes of the knee joint. Suprapatellar knee joint effusion. Corticated calcifications are noted posterior to the knee joint. The Stieda process is noted. IMPRESSION: 1. Diffuse decreased bone density. 2. Suspected lytic bony lesion at the tibial tuberosity. Suspected lytic bony lesion at the talus, visualized on 1 view only. 3. Diffuse soft tissue edema. 4. Corticated calcifications are noted posterior to the knee joint, could represent ligamentous calcification.Small hyperdense focus is noted at the dorsal aspect of the foot, could represent ligamentous calcifications. Clinical correlation is advised to assess for the possibility of a foreign body. 5. 30 x 16 mm enchondroma at the distal metaphysis of the tibia. Disclaimer: A subtle bone abnormality or fracture may not be readily apparent on X-rays, thus clinical correlation and further imaging including follow-up CT, MRI, or follow-up X-rays are advised as needed. Electronically signed by Sid Zelaya 08-03-2024 02:26 AM
[2024-08-03] MEDS: CEFEPIME 1000MG 1,000 MG/10 ML SYR IV STA (02:40)
[2024-08-03] MEDS: VANCOMYCIN HCL 1,500 MG in SODIUM CHLORIDE 0.9% 500 ML IV ONE (02:40)
--- NOTE | 2024-08-03 04:08 | History & Physical Report ---
Date of Service August 03, 2024 Assessment & Plan (1) Cellulitis: (2) Lytic bone lesions on xray: (3) History of DVT of lower extremity: (4) Port-A-Cath in place: (5) Anxiety: (6) History of thyroid cancer: (7) Hypothyroidism: (8) Hypertension: (9) Severe persistent asthma: (10) GERD (gastroesophageal reflux disease): Plan 79 yo female PMHx endometrial CA s/p ARIADNA/BSO on chemotherapy with pembrolizumab/lenvatinib (next due 08/04/24), thyroid CA s/p thyroidectomy in 0, hypothyroidism, hyperparathyroidism, RLE DVT (07/2022) on Eliquis, HTN, and anxiety admitted with LLE pain from the knee down. #Cellulitis Continue vanc/cefepime follow blood cultures pain control - Tylenol 1g q8h, Dilaudid 0.5mg q6h PRN wound care consult follow leukocytosis serially follow blood cultures #Lytic Bone Lesions Present on XR on L tibial tuberosity and talus Consider advanced imaging for further characterization Consider orthopedic consult Mets from endometrial CA would be highly unlikely #Endometrial CA Currently on chemotherapy with pembrolizumab/lenvatinib next due tomorrow #Hypokalemia Will give 40mEq follow chemistries and replete as indicated #History of DVT Discovered incidentally during imaging for her endometrial CA in 2022 Remains on Eliquis 5mg BID - continue #HTN continue diltiazem continue losartan/HCTZ #Hypothyroidism Continue levothyroxine #GERD Continue pantoprazole #Asthma Continue inhalers Continue prednisone FENGI: heart healthy Code status: conditional - no intubation DVT prophylaxis: on Eliquis Isolation: none Disposition: med/tele History of Present Illness Primary Care Provider: Teresa Medeiros DO 79 yo female PMHx endometrial CA s/p ARIADNA/BSO on chemotherapy with pembrolizumab/lenvatinib (next due 08/04/24), thyroid CA s/p thyroidectomy in 1999, hypothyroidism, hyperparathyroidism, RLE DVT (07/2022) on Eliquis, HTN, and anxiety admitted with LLE pain from the knee down. Some time ago (patient c annot exactly remember when) she was getting out of a car and hit her L carrillo causing a wound. Over time, she states this appeared to heal and had a scab. Over the last few days, starting 07/31/24 she started to have increasing pain from her left knee down. It became severe enough that she was no longer able to ambulate on her own and she called EMS 08/02/24 to be transported to the hospital. At this time, she endorses pain with palpation and movement of her LLE. Otherwise, she has no acute complaints. ED Course: XR of knee and tib/fib revealed ?lytic lesion on the tibial tuberosity and on the talus CBC revealed mild leukocytosis, CMP reveals mild hypokalemia Blood cultures were drawn Started on vanc and cefepime Allergies Allergy/AdvReac Type Severity Reaction Status Date / Time amoxicillin Allergy Intermediate SOB Verified 02/26/24 10:49 Penicillins Allergy Mild Unknown Verified 02/26/24 10:49 Home Medications Medication Instructions Recorded Confirmed Type pantoprazole 40 mg tablet,delayed 40 mg PO QAM 04/26/22 02/26/24 History release apixaban 5 mg tablet (Eliquis) 5 mg PO BID 10/31/22 02/26/24 History omega 1-adp-axv-fish oil 1,000 mg 1 cap PO QAM 06/16/23 02/26/24 History (120 mg-180 mg) capsule (Fish Oil) cholecalciferol (vitamin D3) 125 5,000 unit PO QAM #30 tabs 06/20/23 02/26/24 Rx mcg (5,000 unit) tablet levothyroxine 150 mcg tablet 150 mcg PO DAILYBB #90 tabs 07/15/23 02/26/24 Rx Ventolin HFA 90 mcg/actuation 2 puff inhalation Q4H PRN 08/27/23 02/26/24 Rx aerosol inhaler (albuterol sulfate) Shortness Of Breath #18 grams diltiazem HCl 240 mg capsule,24 240 mg PO DAILY #90 caps 11/13/23 02/26/24 Rx hr,extended release fluticasone furoate 200 1 inh inhalation QAM #28 ea 01/02/24 02/26/24 Rx mcg-vilanterol 25 mcg/dose inhalation powder losartan 100 1 tab PO QAM #90 tabs 01/16/24 02/26/24 Rx mg-hydrochlorothiazide 25 mg tablet (Hyzaar) prednisone 5 mg tablet 5 mg PO DAILY #30 tabs 07/14/24 Rx benralizumab 30 mg/mL subcutaneous 30 mg subcut .COMPLEX #1 mL 07/21/24 Rx syringe (Fasenra) Past Med/Surg History Problem List (Updated 08/03/24 @ 04:27 by Luke Jackson DO) GERD (gastroesophageal reflux disease) History of DVT of lower extremity Lytic bone lesions on xray Cellulitis (Acute) GILLES (acute kidney injury) Ventral hernia Coronary artery calcification Right leg DVT Port-A-Cath in place (05/03/22) Insertion Access Port with Fluoroscopy(Left) - Otoniel Briggs DO 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 Stage III. 1999 Hypothyroidism (Chronic) Hypertension (Chronic) Medical History History of home oxygen therapy Chronic steroid use Endometrial cancer determined by uterine biopsy History of colon polyps Thyroid cancer Surgical History History of colonoscopy S/P ARIADNA-BSO H/O thyroidectomy Family History Mother Colon cancer Diabetes Kidney disease Hypertension Brother Arthritis Hypertension Father Colorectal cancer Sister Dyslipidemia Hypertension Aunt Breast cancer Other No family history of adverse response to anesthesia Denies family history of Ovarian cancer Prostate cancer Myocardial infarction Social History Smoking Status: Never smoker Second Hand Exposure: No; Do You Dip or Chew Tobacco: No; Hx Alcohol Use: No Hx Substance Use: No Preferred Language: Slovenian Communication Ability: Effective Visual Impairment: Limited Hearing Ability: Normal Certified Anesthesiologist Assistant Required: No Beliefs That Will Affect Care: None marital status: Single Current Living Situation: Alone current occupational status: retired How many Children do You have: 0 Feels Safe at Home: Yes Childhood Exposure to Second-Hand Smoke: No (does not think so) Diet: regular Diet Comment: NO JUNK FOOD caffeine: Yes (coffee, hot tea ) Dental Care, Regularly: Yes Physical Activity Frequency: Does not Exercise Seatbelt Use: always Sunscreen Use: No Assistive Devices: Glasses Review of Systems Review of Systems: reviewed, per HPI Physical Exam Physical Exam: Constitutional: age appropriate, no acute distress HEENT: NCAT, no conjunctival injection CV: regular rhythm, no murmur appreciated, extremities well-perfused Resp: CTABL, no wheezes/rales/rhonchi appreciated, no increased work of breathing GI: nondistended MSK: no gross deformities appreciated Skin: LLE erythematous and warm to touch from the knee to the ankle. +swelling/edema, tender to palpation, there is a largely healed wound on the anterior aspect the L carrillo Neuro: alert, oriented, no focal neurologic deficit appreciated Results & Data Results & Data Vital Signs (Past 12 Hours) Vital Signs Temp Pulse Pulse Resp BP BP Pulse Ox 08/03/24 01:18 84 18 139/85 98 08/03/24 00:44 90 08/03/24 00:39 94 08/03/24 00:32 36.9 C 94 H 24 209/111 H 93 O2 Del Method 08/03/24 01:18 Room Air 08/03/24 00:44 08/03/24 00:39 Room Air 08/03/24 00:32 Room Air Code Status & VTE Plan VTE Prophylaxis Plan VTE Prophylaxis will be ordered: Yes Supervising Physician Co-Signing Physician Notes Attending addendum: I have physically seen this patient, have supervised the medical residents activities, and agree with the H&P unless as otherwise noted. Assessment and Plan: Cellulitis of left lower extremity- Continue vancomycin IV and cefepime IV begun in the ED Follow blood cultures Consult wound care Lytic bone lesions- As noted on x-ray of the left tibial tuberosity and talus Consult orthopedic surgery History of metastatic disease with multiple atrial CI Endometrial cancer- Following with oncology currently on chemotherapy Consult oncology Hypertension- Continue diltiazem and losartan/HCT with hold parameters GERD- Continue pantoprazole Resident Activity Tracking Resident Involvement: Resident Care Provided Care Provided: Adult Hospital Medicine (8) Hypertension Hypertension type: essential hypertension Qualified Code(s): I10 - Essential (primary) hypertension
[2024-08-03] MEDS ORDERED: ALUMINUM/MAGNESIUM SUSP 30 ML UDC PO PRN (07:13)
[2024-08-03] MEDS ORDERED: ONDANSETRON INJ 2 MG/ML 2 ML VIAL IV PRN (07:13)
[2024-08-03] MEDS ORDERED: ACETAMINOPHEN 325 MG TAB PO PRN (07:13)
[2024-08-03] MEDS ORDERED: ALBUTEROL HFA 8 GM INHALER INH PRN (07:13)
[2024-08-03] MEDS ORDERED: MAGNESIUM HYDROXIDE SUSP 30 ML UDC PO PRN (07:13)
[2024-08-03] MEDS ORDERED: POLYETHYLENE (MIRALAX) 17 GM PACK PO PRN (07:13)
[2024-08-03] MEDS ORDERED: HYDROmorphone INJ 0.5 MG/0.5 ML SYR IV PRN (07:13)
[2024-08-03] MEDS: ACETAMINOPHEN 500 MG TAB PO SCH (09:06)
[2024-08-03] MEDS: POTASSIUM CHLORIDE CRTAB 20 MEQ TABCR PO STA (09:06)
[2024-08-03] MEDS: LEVOTHYROXINE SODIUM 150 MCG TABLET PO SCH (09:06)
[2024-08-03] MEDS: CHOLECALCIFEROL 125 MCG (5,000 UNITS) TAB PO SCH (09:07)
[2024-08-03] MEDS: LOSARTAN/HCTZ 50/12.5MG TAB PO SCH (09:07)
[2024-08-03] MEDS: OMEGA-3 (PURIFIED FISH OIL) 1 GM CAP PO SCH (09:07)
[2024-08-03] MEDS: APIXABAN 5 MG TABLET PO SCH (09:07)
[2024-08-03] MEDS: dilTIAZem HCL 240 MG CAPCR PO SCH (09:07)
[2024-08-03] MEDS: PANTOprazole 40 MG TAB PO SCH (09:08)
[2024-08-03] MEDS: predniSONE 5 MG TAB PO SCH (09:08)
[2024-08-03] MEDS: FLUTICASONE/VILANTEROL 200/25MCG 14 PUFFS/INHALER INH SCH (10:01)
--- NOTE | 2024-08-03 10:10 | CT Scan Report ---
CT tib/fib LT wo con CLINICAL HISTORY: ? pathologic fxr TECHNIQUE: Multidetector row helical CT of the left tibia and fibula was performed without intravenou s contrast. Coronal and sagittal reformations were obtained. Automated dose lowering techniques and/o r adjustment according to patient size were utilized for this examination. CT DOSE: 1026.28 mGy.cm Comparison: Comparison is made to left knee radiographs 08/03/2024 FINDINGS: There is a lucent lesion in the proximal tibia measuring 19 x 13 mm. There is irregularity of the cor moises but no nonunited discontinuity at this site. Prominent degenerative changes are seen with bone-on -bone morphology noted most prominently in the medial compartment. There is a small suprapatellar eff usion. The soft tissues are unremarkable. IMPRESSION: Lytic lesion in the proximal tibia with cortical irregularity. This may represent a previous patholog ic fracture versus underlying cyst or other benign lesion. No acute fracture or exophytic soft tissue component is seen. ACT 112: Negative or not required by law. Electronically signed by: Fer Bowers M.D. 08/03/2024 10:08 AM
--- NOTE | 2024-08-03 10:14 | Pharmacy Report ---
Pharmacy PK ABX Note - Date of Service August 03, 2024 - Assessment and Plan Assessment 79 year old F receiving vancomycin and cefepime for treatment of SSTI. Scab on LLE progressed until so painful patient could not ambulate. Patient with endometrial cancer, actively underlying chemotherapy. Pertinent microbiologic data includes:blood cultures pending. Day # 1 of antimicrobial therapy. Plan Vancomycin * Loading dose: 1500 mg IV x 1 * Maintenance dose: 1000 mg IV every 24 hours * Regimen is predicted to achieve target AUC/MICHAEL of 400-600 mg/L.hr * Random level ordered for: 08/05/23 with AM labs Pharmacy will continue to follow and will adjust dose/frequency as necessary. Thank you. Pharmacy has transitioned to AUC monitoring for vancomycin. AUC/MICHAEL is the preferred PK/PD target and is associated with decreased risk of nephrotoxicity compared to traditional trough targets.
--- NOTE | 2024-08-03 12:43 | Hospitalist Progress Note ---
Date of Service August 03, 2024 Assessment & Plan (1) Cellulitis: (2) Lytic bone lesions on xray: (3) History of DVT of lower extremity: (4) Port-A-Cath in place: (5) Anxiety: (6) History of thyroid cancer: (7) Hypothyroidism: (8) Hypertension: (9) Severe persistent asthma: (10) GERD (gastroesophageal reflux disease): Plan 79 yo female PMHx endometrial CA s/p ARIADNA/BSO on chemotherapy with pembrolizumab/lenvatinib (next due 08/04/24), thyroid CA s/p thyroidectomy in 1999, hypothyroidism, hyperparathyroidism, RLE DVT (07/2022) on Eliquis, HTN, and anxiety admitted with LLE pain from the knee down. Left lower extremity cellulitis After striking her left carrillo in the car door instantly with increasing pain. Warmth, erythema, pain, and leukocytosis all suggestive of cellulitis No fluctuance, no abscess noted on CT. MRSA coverage discontinued No history of resistant organisms. - Cefepime narrowed to ceftriaxone with target cefdinir if continuing to clinically improve Continue to follow blood cultures CBC Left tip/fib lytic bone lesions? Pathologic - CT-Tib/Fib: Lytic lesion in the proximal tibia with cortical irregularity. This may represent a previous pathologic fracture versus underlying cyst or other benign lesion. No acute fracture or exophytic soft tissue component is seen. - No acute change in management Endometrial cancer - Currently on chemotherapy with pembrolizumab/lenvatinib next 08/04 Oncology notified patient is admitted and this treatment has been History of deep -Discovered incidentally during imaging for her endometrial CA in 2022 -Remains on Eliquis 5mg BID - continue Hypertension -continue diltiazem -continue losartan/HCTZ Hypothyroid -Continue levothyroxine GERD - Continue pantoprazole Asthma - Continue inhalers - Continue prednisone Diet: Heart healthy CODE STATUS: Conditional, no intubation DVT prophylaxis: Anticoagulated Disposition: M/T Admission and Anticipated Discharge Date Admission Date: August 03, 2024 Nestor Martinez is seen at the bedside. She reports that she hit her leg in the door and instantly had a lot of pain and this has become increasingly sore and red. She reports the pain is a little bit improved today but still is very tender above where she hit her leg, closer to her knee. Denies fevers chills or sweats. She is concerned about oncology being notified that she is in the hospital as she was due for a endometrial cancer treatment tomorrow. No other concerns at time of visit Physical Exam Physical Exam: General: Oriented to name and place. Pleasant, conversational HEENT: Atraumatic, normocephalic. Pupils equal and reactive to light. Vision and hearing intact Pulm: CTAB A&P. -wheezes, -rales, -rhonchi. Symmetrical chest rise. No increased work of breathing. No respiratory distress. Cardiac: RRR, -mrg. Radial pulses intact and symmetrical. Abdominal: Nontender, nondistended, soft. BS present. Left lower extremity is with anterior mostly healed contusion, but with surrounding area of erythema/warmth/tenderness. Patient is focally tender at the anterior leg distal to the knee and extending down to the mid tibia. Results & Data Results & Data Vital Signs (Past 12 Hours) Vital Signs Temp Pulse Pulse Resp BP Pulse Ox Pulse Ox 08/03/24 11:19 86 18 162/106 H 94 08/03/24 07:58 79 08/03/24 07:33 81 20 160/91 H 97 08/03/24 07:33 97 08/03/24 04:33 80 08/03/24 03:00 36.6 C 79 19 161/79 H 97 08/03/24 01:18 84 18 139/85 98 08/03/24 00:44 90 08/03/24 00:39 94 O2 Del Method O2 Del Method O2 Flow Rate O2 Flow Rate 08/03/24 11:19 Room Air 08/03/24 07:58 08/03/24 07:33 Nasal Cannula 2 08/03/24 07:33 Nasal Cannula 2 08/03/24 04:33 08/03/24 03:00 Nasal Cannula 2 08/03/24 01:18 Room Air 08/03/24 00:44 08/03/24 00:39 Room Air PG Care Time/CCT Total # of Minutes Spent Total Time Spent with Patient: Total time spent is greater than 50% in coordination of care (as documented) at patient's floor/unit and/or counseling patient: Coding Level of Care Code None Diagnoses Cellulitis L03.90 Lytic bone lesions on xray M89.8X9 History of DVT of lower extremity Z86.718 Port-A-Cath in place Z95.828 Anxiety F41.9 History of thyroid cancer Z85.850 Hypothyroidism E03.9 Essential hypertension I10 Hypertension type: essential hypertension Severe persistent asthma J45.50 GERD (gastroesophageal reflux disease) K21.9 (8) Hypertension Hypertension type: essential hypertension Qualified Code(s): I10 - Essential (primary) hypertension
[2024-08-03] MEDS: CEFEPIME 1000MG 1,000 MG/10 ML SYR IV SCH (14:35)
[2024-08-03] MEDS: VANCOMYCIN HCL 1,000 MG in SODIUM CHLORIDE 0.9% 250 ML IV SCH (20:57)
[2024-08-04 06:45] LABS: Basophils # (auto) 0.02 K/uL (0.00-0.20); Basophils % (auto) 0.2 %; Hematocrit (blood only) 37.2 % (37.0-47.0); Hemoglobin 12.7 g/dl (12.0-16.0); Immature Granulocytes # (auto) 0.05 K/uL (0.01-0.20); Immature Granulocytes % (auto) 0.5 %; Lymphocytes # (auto) 2.02 K/uL (1.20-3.40); Lymphocytes % (auto) 18.7 %; Mean Corpuscular Hemoglobin 32.4 pg (25.0-34.0); Mean Corpuscular Hgb Conc 34.1 g/dL (32.0-36.0); Mean Corpuscular Volume 94.9 fL (80.0-100.0); Mean Platelet Volume 9.8 fL (9.4-12.4); Neutrophils # (auto) 7.44 K/uL (1.40-6.50); Neutrophils % (auto) 68.6 %; Platelet Count 291 K/uL (130-400); RDW Coefficient of Variation 12.9 % (11.5-14.5); RDW Standard Deviation 44.8 fL (36.4-46.3); Red Blood Count 3.92 M/uL (4.20-5.40); White Blood Count 10.83 K/ul (4.8-10.8)
[2024-08-04 07:00] LABS: Albumin Globulin Ratio 0.9 (0.9-2); BUN Creatinine Ratio 19.7 (10-20); Bilirubin,Total 0.4 mg/dl (0.2-1.0); C Reactive Protein 19.39 mg/dl (0-0.5); Calcium 9.3 mg/dl (8.6-10.3); Creatinine Clr Calc Pharmacy 31.5 ml/min; Globulin 3.2 gm/dl (2.5-4.0); Magnesium 1.9 mg/dl (1.7-2.4); Potassium 3.5 mmol/L (3.5-5.1); Total Protein 6.2 gm/dl (6.0-8.3)
--- NOTE | 2024-08-04 11:17 | Billing Data ---
Date of Service August 04, 2024 Coding Level of Care Code 69307 INT INP/OBS CARE
--- NOTE | 2024-08-04 13:35 | Hospitalist Progress Note ---
Date of Service August 04, 2024 Assessment & Plan (1) Cellulitis: Plan: 79 yo female PMHx endometrial CA s/p ARIADNA/BSO on chemotherapy with pembrolizumab/lenvatinib (next due 08/04/24), thyroid CA s/p thyroidectomy in 1999, hypothyroidism, hyperparathyroidism, RLE DVT (07/2022) on Eliquis, HTN, and anxiety admitted with LLE pain from the knee down. Admitted for treatment of cellulitis Left lower extremity cellulitis After striking her left carrillo in the car door instantly with increasing pain. Warmth, erythema, pain, and leukocytosis all suggestive of cellulitis No fluctuance, no abscess noted on CT. MRSA coverage discontinued No history of resistant organisms. - Cefepime narrowed to ceftriaxone, continued to progress 08/04, transitioned to cefdinir Continue to follow blood cultures CBC GILLES Baseline creatinine approximately 11.1. Brianna to 1.37, suspect prerenal azotemia/contraction versus mild GILLES. Orals pushed. Repeat BMP in the morning. 1 dose of HCTZ and losartan held. Left tip/fib lytic bone lesions? Pathologic - CT-Tib/Fib: Lytic lesion in the proximal tibia with cortical irregularity. This may represent a previous pathologic fracture versus underlying cyst or other benign lesion. No acute fracture or exophytic soft tissue component is seen. - No acute change in management Endometrial cancer - Currently on chemotherapy with pembrolizumab/lenvatinib next 08/04 Oncology notified patient is admitted and this treatment has been delayed. Follow-up as outpatient after discharge History of deep venous thrombosis -Discovered incidentally during imaging for her endometrial CA in 2022 -Remains on Eliquis 5mg BID - continue Hypertension -continue diltiazem -Resume losartan/HCTZ 08/04 if renal function is stable/Baseline Hypothyroid -Continue levothyroxine GERD - Continue pantoprazole Asthma - Continue inhalers - Continue prednisone Diet: Heart healthy CODE STATUS: Conditional, no intubation DVT prophylaxis: Anticoagulated Disposition: M/T (2) GILLES (acute kidney injury): (3) Hypothyroidism: (4) Hypertension: (5) Endometrial cancer determined by uterine biopsy: Admission and Anticipated Discharge Date Admission Date: August 03, 2024 Nestor Martinez seen the bedside. She reports she feels improved and has much less pain in her left leg which is improving, but not completely back to normal. She reports she was able to walk with much less discomfort today. Leukocytosis is downtrending, CRP is elevated at 19 and trended, but clinically she has noticed much less swelling and redness. There is less tenderness at her proximal tibia, and CT does not show an acute fracture; possible old pathologic fracture or lytic lesion is seen. She reports that she feels better but is nervous to be discharged and would like to stay until Saturday. Discussed that the goal is to make sure that she is clinically improving and stable, counseled on the risks of prolonged ho spitalization on outcomes and infection. Reasonable to watch for 1 additional day as she has had a GILLES, still has some pain, and history of starting to improve however do anticipate she will be likely stable for discharge 08/05 to which patient is aware and will work with PT today Physical Exam Physical Exam: General: Alert and oriented. Pleasant, answers questions appropriately HEENT: Atraumatic, normocephalic. Vision and hearing intact Pulm: Symmetrical chest rise. No increased work of breathing. No respiratory distress. Abdominal: Nontender, nondistended, soft. BS present. Left lower extremity with mild erythema and tenderness, greatly improved from prior and with receding borders. Focal tenderness at the proximal tibia persists but is less severe than prior. No fluctuance Results & Data Results & Data Vital Signs (Past 12 Hours) Vital Signs Temp Pulse Pulse Resp BP BP Pulse Ox 08/04/24 11:29 36.4 C L 80 18 151/84 H 95 08/04/24 08:15 36.6 C 75 18 146/79 H 95 08/04/24 08:00 67 08/04/24 03:31 36.5 C 69 18 115/68 93 O2 Del Method 08/04/24 11:29 Room Air 08/04/24 08:15 Room Air 08/04/24 08:00 08/04/24 03:31 Room Air PG Care Time/CCT Total # of Minutes Spent Total Time Spent with Patient: Total time spent is greater than 50% in coordination of care (as documented) at patient's floor/unit and/or counseling patient: Coding Level of Care Code 83051 SUB INP/OBS CARE 2/35MIN Diagnoses Cellulitis L03.90 GILLES (acute kidney injury) N17.9 Hypothyroidism E03.9 Essential hypertension I10 Hypertension type: essential hypertension Endometrial cancer determined by uterine biopsy C54.1 (4) Hypertension Hypertension type: essential hypertension Qualified Code(s): I10 - Essential (primary) hypertension
[2024-08-04] MEDS: CEFDINIR 300 MG CAP PO SCH (21:13)
[2024-08-05 06:48] LABS: Basophils # (auto) 0.02 K/uL (0.00-0.20); Basophils % (auto) 0.3 %; Hematocrit (blood only) 35.6 % (37.0-47.0); Hemoglobin 12.1 g/dl (12.0-16.0); Immature Granulocytes # (auto) 0.03 K/uL (0.01-0.20); Immature Granulocytes % (auto) 0.4 %; Lymphocytes # (auto) 1.92 K/uL (1.20-3.40); Lymphocytes % (auto) 27.2 %; Mean Corpuscular Hemoglobin 32.4 pg (25.0-34.0); Mean Corpuscular Volume 95.2 fL (80.0-100.0); Monocytes # (auto) 0.79 K/uL (0.11-0.59); Monocytes % (auto) 11.2 %; Neutrophils # (auto) 4.31 K/uL (1.40-6.50); Neutrophils % (auto) 60.9 %; Platelet Count 308 K/uL (130-400); RDW Coefficient of Variation 13.1 % (11.5-14.5); RDW Standard Deviation 45.9 fL (36.4-46.3); Red Blood Count 3.74 M/uL (4.20-5.40); White Blood Count 7.07 K/ul (4.8-10.8)
[2024-08-05 07:13] LABS: BUN Creatinine Ratio 23.5 (10-20); C Reactive Protein 8.91 mg/dl (0-0.5); Calcium 9.1 mg/dl (8.6-10.3); Potassium 3.5 mmol/L (3.5-5.1)
--- NOTE | 2024-08-05 12:24 | Hospitalist Progress Note ---
Date of Service August 05, 2024 Assessment & Plan (1) Cellulitis: Plan: Resolving cellulitis distal left lower extremity. She is now on oral antibiotic, cefdinir. This will continue at discharge. (2) GILLES (acute kidney injury): Plan: Creatinine minimally elevated and stable at 1.3. Diuretic and losartan remain on hold (3) Hypothyroidism: Plan: Stable. Continue current thyroid replacement (4) Hypertension: Plan: Stable. Continue current medical management (5) Endometrial cancer determined by uterine biopsy: Plan: Currently receiving chemotherapy by oncology Plan Anticipate discharge to home on oral antibiotic tomorrow, August 06 Admission and Anticipated Discharge Date Admission Date: August 03, 2024 Subjective Alert and oriented. No new problems. She will be ready for discharge to her home tomorrow, August 06, on an oral antibiotic. Creatinine remains at 1.3, unchanged from yesterday. Losartan and hydrochlorothiazide remain on hold. Review of Systems 2 Review of Systems: Constitutionalno fever or chills ENTno blurred vision, no double vision, no epistaxis, no sore throat Respiratoryno cough, no wheezing, no shortness of breath Cardiacno palpitations, no chest pain, no syncope Emory nausea, vomiting, diarrhea, melena, hematochezia GUno urinary retention, no urinary incontinence, no dysuria, no hematuria Musculoskeletalno joint pain, no muscle tenderness Skinchronic venous stasis changes bilateral lower extremities with resolving cellulitis left lower extremity Neurono isolated weakness, no paresthesia, no weakness Psychno depression, no anxiety Physical Exam 2 Physical Exam: General-alert and oriented x3, no fever, no chills HEENT-head atraumatic and normocephalic, pupils equal and reactive to light, extraocular muscles intact Neck-no lymphadenopathy or thyromegaly, trachea midline Chest-clear to auscultation. No rales, wheezing or rhonchi Cardiac-regular rate and rhythm, normal S1 and S2 Abdomen-normal bowel sounds, no hepatosplenomegaly Extremities-chronic venous stasis changes bilateral lower extremities below the knees with resolving cellulitis left lower extremity Neuro-cranial nerves II through XII intact, motor and sensory function within normal limits, strength symmetrical, no focal deficits Psych-normal affect, normal mood Results & Data Results & Data Vital Signs (Past 12 Hours) Vital Signs Temp Pulse Pulse Resp BP Pulse Ox O2 Del Method 08/05/24 11:18 36.3 C L 65 18 126/76 95 Room Air 08/05/24 08:02 Room Air 08/05/24 07:25 50 L 08/05/24 07:13 36.6 C 63 17 141/77 H 95 Room Air 08/05/24 03:33 36.8 C 76 20 142/68 H 94 Room Air 08/05/24 00:52 36.6 C 61 18 121/61 95 Room Air Laboratory Results 08/05/24 06:16 08/05/24 06:16 PG Care Time/CCT Total # of Minutes Spent Total Time Spent with Patient: Total time spent is greater than 50% in coordination of care (as documented) at patient's floor/unit and/or counseling patient: Coding Level of Care Code 80770 SUB INP/OBS CARE 2MIN Diagnoses Cellulitis L03.90 GILLES (acute kidney injury) N17.9 Hypothyroidism E03.9 Essential hypertension I10 Hypertension type: essential hypertension Endometrial cancer determined by uterine biopsy C54.1 (4) Hypertension Hypertension type: essential hypertension Qualified Code(s): I10 - Essential (primary) hypertension
[2024-08-06 08:11] LABS: Basophils # (auto) 0.02 K/uL (0.00-0.20); Basophils % (auto) 0.3 %; Hematocrit (blood only) 38.8 % (37.0-47.0); Immature Granulocytes # (auto) 0.03 K/uL (0.01-0.20); Immature Granulocytes % (auto) 0.4 %; Lymphocytes # (auto) 2.05 K/uL (1.20-3.40); Lymphocytes % (auto) 28.5 %; Mean Corpuscular Hemoglobin 31.9 pg (25.0-34.0); Mean Corpuscular Hgb Conc 33.5 g/dL (32.0-36.0); Mean Corpuscular Volume 95.1 fL (80.0-100.0); Mean Platelet Volume 9.7 fL (9.4-12.4); Monocytes % (auto) 11.1 %; Neutrophils % (auto) 59.7 %; Platelet Count 383 K/uL (130-400); RDW Coefficient of Variation 13.2 % (11.5-14.5); RDW Standard Deviation 46.4 fL (36.4-46.3); Red Blood Count 4.08 M/uL (4.20-5.40)
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
[2024-08-06 08:43] LABS: BUN Creatinine Ratio 25.5 (10-20); Calcium 10.2 mg/dl (8.6-10.3); Creatinine Clr Calc Pharmacy 40.1 ml/min; Potassium 4.1 mmol/L (3.5-5.1)
[2024-08-06 08:50] LABS: Appearance Urine Clear (Clear); Bilirubin Urine Negative (Negative); Blood Urine Negative (Negative); Color Urine Yellow; Glucose Urine UA Negative (Negative); Ketones Urine Negative (Negative); Leukocyte Esterase Urine Negative (Negative); Nitrite Urine Negative (Negative); Protein Urine Negative (Negative); Specific Gravity Urine 1.009 (1.000-1.030); Urobilinogen Urine Negative (Negative); pH Urine 5.5 (4.5-7.5)
[2024-08-06 11:21] VITALS: BP 139/76; PULSE 62; RESP 16; TEMP 97.3; O2SAT 97
[2024-08-06] MEDS ORDERED: HEPARIN 100 UNIT/ML 5ML FLUSH FLUSH PRN (13:38)
== END 2024-08-06 15:21 | disposition home health service (06) | DRG 603 ==
LOC: SUATTDRO → ED 00:30 → EDINP 03:54 → SUATTDRO 03:54 → INTOOBSV 03:54 → 2W 07:15